=== PATIENT | male | born 1955 | race Caucasian/White ===

== ENCOUNTER 2018-02-17 09:28 | Outpatient (CLI) | payer OTHER, SELFPAY ==
[2018-02-17 10:33] LABS: CREATININE 1.38 mg/dL (0.70-1.30); Estimated GFR 52.38 (mL/min/1.73m2)
[2018-02-19 05:45] LABS: Hemoglobin A1C 7.9 % (4.5-6.2)
[2018-02-19 05:45] LABS: COMMENT (LAB VIEW ONLY) 93.79 mg/dL; Microalb ug/mg Crea 973.2 ug/mg Cr
== END 2018-02-17 09:48 ==
PROVIDERS: PCP General Practice; Visit Provider General Practice
DX: E11.9 Type 2 diabetes mellitus without complications (principal)
CPT/HCPCS: 36415; 82043; 82565; 82570; 83036

== ENCOUNTER 2018-11-27 01:39 | Outpatient (CLI) | payer OTHER, SELFPAY ==
--- NOTE | 2018-11-27 14:30 | DIABASSESS_ITS ---
DESCRIPTION/ASSESSMENT: Alexandro Callahan presents with his for diabetes self management with the goal of lowering his A1c. Current A1c 8.1 BMI 34 Weight stable for years. He reports a strong family history of diabetes. 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 He is presently experiencing dental issues. He manages diabetes with 115u Levemir PM and 50u AM and a total of 125 units Humalog daily in addition to Metformin 850mg twice daily. States he has 2 hypoglycemic episodes/year. States he has 2 eggs and toast or banana with oatmeal for breakfast; fruit at snack; meat sandwich for lunch with sugar free pudding; supper is meat, potato, vegetable. He snacks on fruit between meals. He monitors his blood sugars before meals during the week; only fasting on the weekend. Many days blood sugars are 100-200mg/dl or at target. Most frequently higher at lunch than other meals. States he sleeps well. He experiences back pain daily at work but denies other immediate stressors. INTERVENTION: Reviewed insulin injections sites. He states he does have hard areas on his belly. Discussed moving injection site away from hardened areas. Reviewed diabetes food guide focused on protein, fat and vegetable foods. Discussed impact of having fruit for snack on next blood sugar reading. Suggest want to eat carbohydrate foods at time he takes insulin; snack on low carb foods such as peanut butter, cottage cheese, nuts. Discussed decreasing insulin if absorption is improved and if carbohydrate intake is decreased. Suggest trying 100units Levemir and possibly cutting back on Humalog 5 units if he is decreasing carbohdyrate intake. Discussed his current need to 'feed' his insulin to prevent hypoglycemia. Discussed monitoring blood sugars and how his results does not seem to align with his A1c. Discussed Professional CGM trial to see what happens between meals. PLAN: Change injection site Document food, insulin and blood sugars for 2 days and report results Increase vegetables and decrease carbohydrate by 1 serving at breakfast. Eat non carbohydrate snack between meals Individual MNT __3__ units billed TIME IN: OUT: No DM group education series being offered at this time.
== END 2018-11-27 01:59 ==
PROVIDERS: PCP General Practice; Visit Provider Dietitian, Registered
DX: E11.9 Type 2 diabetes mellitus without complications (principal); Z79.4 Long term (current) use of insulin; Z83.3 Family history of diabetes mellitus; Z71.3 Dietary counseling and surveillance
CPT/HCPCS: 97802

== ENCOUNTER 2019-06-07 16:29 | Outpatient (REF) | payer OTHER, SELFPAY | END 2019-06-07 16:49 | LOC: NCHCN 16:29 | PROVIDERS: PCP General Practice; Visit Provider Nurse Practitioner Family | DX: E11.9 Type 2 diabetes mellitus without complications (principal); I10 Essential (primary) hypertension; E78.5 Hyperlipidemia, unspecified | CPT/HCPCS: 82043; 82570 ==

== ENCOUNTER 2019-06-22 00:28 | Outpatient (CLI) | payer OTHER, SELFPAY ==
[2019-06-22 10:55] LABS: Anion Gap 9.6 mmol/L (3-11); BUN 23 mg/dL (7-18); CO2 28.4 mmol/L (21.0-32.0); CREATININE 1.22 mg/dL (0.70-1.30); Calcium 8.6 mg/dL (8.5-10.1); Calculated LDL 32 mg/dL (<100); Chloride 103 mmol/L (98-107); Cholesterol 110 mg/dL (<200); Glucose 193 mg/dL (74-106); HDL Cholesterol 36 mg/dL (40-60); Potassium 5.1 mmol/L (3.5-5.1); Sodium 141 mmol/L (136-145); Triglyceride 212 mg/dL (<150)
== END 2019-06-22 00:48 ==
PROVIDERS: PCP Nurse Practitioner Family; Visit Provider Nurse Practitioner Family
DX: E11.9 Type 2 diabetes mellitus without complications (principal); I10 Essential (primary) hypertension; E78.5 Hyperlipidemia, unspecified
CPT/HCPCS: 36415; 80048; 80061

== ENCOUNTER 2019-12-06 10:00 | Day surgery (SDC) | payer OTHER, SELFPAY ==
[2019-12-06 10:03] VITALS: PULSE 57; RESP 18; TEMP 36.4; O2SAT 98
[2019-12-06] MEDS: Balanced Salt Soln.-PLUS 500 ML BAG (11:51)
[2019-12-06] MEDS: Lidocaine 1% Pres-Free 5 ML VIAL (11:52)
[2019-12-06] MEDS: Tetracaine 0.5% 4 ML BTL OS (11:52)
[2019-12-06] MEDS: Lidocaine 2% Jelly 6 ML SYR (11:53)
[2019-12-06] MEDS: Moxifloxacin-PF 1 MG/ML VIAL (11:57)
[2019-12-06] MEDS: Povidone-Iodine Ophth 30 ML BTL OS (12:03)
--- NOTE | 2019-12-06 12:12 | W.PM.DSUDISC ---
Discharge Plan Disposition Patient Disposition: HOME Condition: Good Discharge Details Attending Provider: Armando Tomas Primary Care Provider: Brissa Toure Home Meds and New Rx's Prescriptions: No Action imipramine HCl 50 mg tablet 50 mg PO BID RF: 0 metoprolol tartrate 100 mg tablet 100 mg PO BID RF: 0 metformin 850 mg tablet 850 mg PO DIRECTED RF: 0 amlodipine 2.5 mg tablet 2.5 mg PO DAILY RF: 0 simvastatin 40 mg tablet 40 mg PO DAILY RF: 0 allopurinol 300 mg tablet 300 mg PO DAILY RF: 0 insulin lispro [Humalog U-100 Insulin] 100 unit/mL solution See Rx Instructions .ROUTE .COMPLEX RF: 0 celecoxib 100 mg capsule 100 mg PO DAILY RF: 0 Levemir U-100 Insulin 100 unit/mL solution 50 - 100 unit SUBCUT DIRECTED RF: 0 Discharge Instructions Stand Alone Forms: Post-op Topical Cataract, Vivek Hernándezey (DSU) Discharge Orders Discharge Orders: Discharge Order (Routine); Ordered 12/06/19 Ordered By: Armando Tomas
--- NOTE | 2019-12-06 12:13 | W.PM.OP ---
Date of service: 12/06/19 Time of Service: 12:13 Operative Note Operative Note DATE OF PROCEDURE: 12/06/19 PRE-OP DIAGNOSIS: Nuclear cataract, left eye POST-OP DIAGNOSIS: same PROCEDURE: Cataract extraction using phacoemulsification with intraocular lens implant, left eye SURGEON: Armando Tomas ANESTHESIA: MAC and local (sub-tenon's anesthetic infiltration) PATHOLOGY: none sent COMPLICATIONS: None Patient was transported to: same day Patient's condition: stable Implants: Tc and Tc Vision / [employer] Tecnis ZCB00 Indications: Progressive decreased vision due to cataract, left eye Procedure Description: CATARACT SURGERY OPERATIVE REPORT PREOPERATIVE DIAGNOSIS: Nuclear cataract, left eye POSTOPERATIVE DIAGNOSIS: Same OPERATION: Cataract extraction using phacoemulsification with posterior chamber intraocular lens implant, left eye. IOL: IOL [employer] St[employer]cher/Model: J&J Vision / JENNI Tecnis ZCB00 IOL Power: + 22.0 diopters IOL Serial Number: [id number] Optic Diameter: 6.0mm Haptic/Overall Diameter: 13.0mm PHACO INFO: Feliberto [employer] Vision System with OZil and Active Fluidics Cumulative Dispersed Energy (CDE): 5.28 seconds SURGEON: Armando Tomas MD, NATACHA ANESTHESIA: Monitored Anesthesia Care (MAC), with local sub-tenon's anesthetic infiltration COMPLICATIONS: None SPECIMENS: None INDICATIONS FOR PROCEDURE: Patient is a 64-year-old gentleman with history of diminished visual acuity in his right eye. He is noted to have a moderate nuclear cataract. He was significantly symptomatic that he desires cataract surgery and attempt to improve and maximize his vision. PROCEDURE: The correct surgical eye was identified and marked as the left eye and the pupil was dilated in the preoperative area using mydriatics and cycloplegics. The dilated pupil size was 7.0 mm. Oral sedation was administered in the form of an Imprimis MKO Melt (midazolam 3mg/ketamine 25mg/ondansetron 2mg). The patient was brought to the operating room where cardiopulmonary monitoring was instituted and surgical time-out was performed, confirming the correct operative eye and IOL power. Topical anesthesia was administered and ophthalmic povidone-iodine 5% was instilled into the conjunctival fornices. Lidocaine gel was applied to the cornea and the jessica-ocular area was prepped with Betadine 10% solution and draped in the usual sterile fashion for intraocular surgery, including an aperture drape. A Tegaderm transparent film dressing was cut in half and used to cover the lashes and lid margins. Care was taken to sequester the lashes and lid margins under the Tegaderm dressing. A lid speculum was placed between the lids of the operative eye and the Gabriel-Micaela operating microscope was maneuvered into position. Wily scissors were then used to make a conjunctival buttonhole approximately 6mm posterior to the limbus in the inferonasal quadrant. Blunt dissection was carried out to expose bare sclera, and a blunt-tipped sub-tenon?s anesthesia cannula was introduced and passed posteriorly along the globe where non-preserved plain lidocaine was injected into posterior sub-Tenon?s space. A sideport knife was used to make a paracentesis port superior/superiortemporally. Intraocular phenylephrine/lidocaine was injected into the anterior chamber. The anterior chamber was then filled with Healon Pro. A 2.4mm keratome knife was used to create a half-thickness groove at the limbus and then to construct a three-plane near-clear corneal tunnel extending 2.0mm into clear cornea in the temporal position. . A flap was raised on the anterior capsule and capsulorhexis forceps were used to complete a continuous curvilinear capsulorhexis of 5.0 mm. Balanced salt solution was then used to perform cortical cleaving hydrodissection and nuclear hydrodelineation until the lens could be freely rotated within the capsular bag. The lens nucleus was then disassembled and removed within the capsular bag and iris plane using phacoemulsification. Residual cortical material was removed using the 45-degree angled silicone I/A tip with 0.3mm port. The posterior capsule was carefully polished to remove as much residual lens epithelial cells as safely possible. The capsular bag was then inflated and the anterior chamber deepened with viscoelastic. The lens implant described above was inserted into the capsular bag using the JENNI [place] Injector. A Kuglen hook was used to dial the IOL into position. Residual viscoelastic was then removed first from posterior to the IOL, then from the anterior chamber using the I/A handpiece. The lens implant was noted to center nicely within the capsular bag. The incisions were stromally hydrated, and the anterior chamber was reformed using BSS. Then 0.5cc of moxifloxacin 1.0mg/ml were injected into the capsular bag and anterior chamber. The incisions were checked with a Weck spear and found to be secure. Several drops of ophthalmic povidone-iodine 5% were then applied to the eye followed by two drops of Imprimis combination prednisolone/moxifloxacin/nepafenac solution. The drapes were removed and a clear plastic protective eye shield was placed over the eye. The patient was then returned to Same Day Surgery in stable condition.
[2019-12-06 12:42] VITALS: BP 156/97; PULSE 59; RESP 16; TEMP 36.3; O2SAT 92
== END 2019-12-06 12:50 | disposition home or self-care (01) ==
PROVIDERS: PCP Nurse Practitioner Family; Visit Provider Ophthalmology
PROC: (CPT 66984; principal; 2019-12-06 12:30)
DX: H25.12 Age-related nuclear cataract, left eye (principal); E11.319 Type 2 diabetes mellitus with unspecified diabetic retinopathy without macular edema; Z79.4 Long term (current) use of insulin; I10 Essential (primary) hypertension
CPT/HCPCS: 66984; V2632

== ENCOUNTER 2019-12-20 07:47 | Day surgery (SDC) | payer OTHER, SELFPAY ==
[2019-12-20 08:15] VITALS: BP 154/90; PULSE 59; RESP 18; TEMP 36.2; O2SAT 95
[2019-12-20] MEDS: Balanced Salt Soln.-PLUS 500 ML BAG (10:37)
[2019-12-20] MEDS: Tetracaine 0.5% 4 ML BTL OD (10:38)
[2019-12-20] MEDS: Povidone-Iodine Ophth 30 ML BTL (10:38)
[2019-12-20] MEDS: Lidocaine 1% Pres-Free 5 ML VIAL (10:38)
[2019-12-20] MEDS: Lidocaine 2% Jelly 6 ML SYR (10:39)
[2019-12-20] MEDS: Moxifloxacin-PF 1 MG/ML VIAL (10:40)
--- NOTE | 2019-12-20 11:02 | ROE_ITS ---
Date of service: 12/20/19 Time of Service: 11:02 Operative Note Operative Note DATE OF PROCEDURE: 12/20/19 PRE-OP DIAGNOSIS: Nuclear cataract, right eye POST-OP DIAGNOSIS: same PROCEDURE: Cataract extraction using phacoemulsification with intraocular lens implant, right eye SURGEON: Armando Tomas ANESTHESIA: MAC and local (sub-tenon's anesthetic infiltration) ESTIMATED BLOOD LOSS: 0 PATHOLOGY: none sent COMPLICATIONS: None Patient was transported to: same day Patient's condition: stable Implants: Tc and Tc Vision / [employer] Tecnis ZCB00 intr aocular lens Indications: Progressive decreased vision due to cataract, right eye Procedure Description: CATARACT SURGERY OPERATIVE REPORT PREOPERATIVE DIAGNOSIS: Nuclear cataract, right eye POSTOPERATIVE DIAGNOSIS: Same OPERATION: Cataract extraction using phacoemulsification with posterior chamber intraocular lens implant, right eye. IOL: IOL [employer]/Model: J&J Vision / JENNI Tecnis ZCB00 IOL Power: + 22.0 diopters IOL Serial Number: [id number] Optic Diameter: 6.0mm Haptic/Overall Diameter: 13.0mm PHACO INFO: Feliberto [employer] Vision System with OZil and Active Fluidics Cumulative Dispersed Energy (CDE): 6.26 seconds SURGEON: Armando Tomas MD, NATACHA ANESTHESIA: Monitored Anesthesia Care (MAC), with local sub-tenon's anesthetic infiltration COMPLICATIONS: None SPECIMENS: None INDICATIONS FOR PROCEDURE: Patient is a 64-year-old male with history of diminished visual acuity in both eyes secondary to the development of bilateral nuclear cataracts. He has already undergone cataract surgery in his left eye and is doing well postoperatively. He now presents for cataract surgery in the right eye. PROCEDURE: The correct surgical eye was identified and marked as the right eye and the pupil was dilated in the preoperative area using mydriatics and cycloplegics. The dilated pupil size was 7.0 mm. Oral sedation was administered in the form of an Imprimis MKO Melt (midazolam 3mg/ketamine 25mg/ondansetron 2mg). The patient was brought to the operating room where cardiopulmonary monitoring was instituted and surgical time-out was performed, confirming the correct operative eye and IOL power. Topical anesthesia was administered and ophthalmic povidone-iodine 5% was instilled into the conjunctival fornices. Lidocaine gel was applied to the cornea and the jessica-ocular area was prepped with Betadine 10% solution and draped in the usual sterile fashion for intraocular surgery, including an aperture drape. A Tegaderm transparent film dressing was cut in half and used to cover the lashes and lid margins. Care was taken to sequester the lashes and lid margins under the Tegaderm dressing. A lid speculum was placed between the lids of the operative eye and the Gabriel-Micaela operating microscope was maneuvered into position. Wily scissors were then used to make a conjunctival buttonhole approximately 6mm posterior to the limbus in the inferonasal quadrant. Blunt dissection was carried out to expose bare sclera, and a blunt-tipped sub-tenon?s anesthesia cannula was introduced and passed posteriorly along the globe where non- preserved plain lidocaine was injected into posterior sub-Tenon?s space. A sideport knife was used to make a paracentesis port inferiortemporally. Intraocular phenylephrine/lidocaine was injected into the anterior chamber. The anterior chamber was then filled with Healon Pro. A 2.4mm keratome knife was used to create a half-thickness groove at the limbus and then to construct a three-plane near-clear corneal tunnel extending 2.0mm into clear cornea in the superiortemporal position. . A flap was raised on the anterior capsule and capsulorhexis forceps were used to complete a continuous curvilinear capsulorhexis of 4.8 mm. Balanced salt solution was then used to perform cortical cleaving hydrodissection and nuclear hydrodelineation until the lens could be freely rotated within the capsular bag. The lens nucleus was then disassembled and removed within the capsular bag and iris plane using phacoemulsification. Residual cortical material was removed using the I/A handpiece. The posterior capsule was carefully polished to remove as much residual lens epithelial cells as safely possible. The capsular bag was then inflated and the anterior chamber deepened with viscoelastic. The lens implant described above was inserted into the capsular bag using the JENNI [place] Injector. A Kuglen hook was used to dial the IOL into position. Residual viscoelastic was then removed first from posterior to the IOL, then from the anterior chamber using the I/A handpiece. The lens implant was noted to center nicely within the capsular bag. The incisions were stromally hydrated, and the anterior chamber was reformed using BSS. Then 0.5cc of moxifloxacin 1.0mg/ml were injected into the capsular bag and anterior chamber. The incisions were checked with a Weck spear and found to be secure. Several drops of ophthalmic povidone-iodine 5% were then applied to the eye followed by two drops of Imprimis combination prednisolone/moxifloxacin/nepafenac solution. The drapes were removed and a clear plastic protective eye shield was placed over the eye. The patient was then returned to Same Day Surgery in stable condition.
--- NOTE | 2019-12-20 11:02 | W.PM.DSUDISC ---
Discharge Plan Disposition Patient Disposition: HOME Condition: Good Discharge Details Attending Provider: Armando Tomas Primary Care Provider: Brissa Toure Home Meds and New Rx's Prescriptions: No Action imipramine HCl 50 mg tablet 50 mg PO BID RF: 0 metoprolol tartrate 100 mg tablet 100 mg PO BID RF: 0 metformin 850 mg tablet 850 mg PO DIRECTED RF: 0 amlodipine 2.5 mg tablet 2.5 mg PO DAILY RF: 0 simvastatin 40 mg tablet 40 mg PO DAILY RF: 0 allopurinol 300 mg tablet 300 mg PO DAILY RF: 0 insulin lispro [Humalog U-100 Insulin] 100 unit/mL solution See Rx Instructions .ROUTE .COMPLEX RF: 0 celecoxib 100 mg capsule 100 mg PO DAILY RF: 0 Levemir U-100 Insulin 100 unit/mL solution 50 - 100 unit SUBCUT DIRECTED RF: 0 Discharge Instructions Stand Alone Forms: Post-op Topical Cataract, Vivek Ortega (DSU) Discharge Orders Discharge Orders: Discharge Order (Routine); Ordered 12/20/19 Ordered By: Armando Tomas DS: Diagnosis Discharge Diagnosis (1) Nuclear sclerotic cataract of right eye: Status: Resolved
[2019-12-20 11:19] VITALS: BP 141/88; PULSE 56; RESP 16; TEMP 36.2; O2SAT 93
== END 2019-12-20 11:23 | disposition home or self-care (01) ==
PROVIDERS: PCP Nurse Practitioner Family; Visit Provider Ophthalmology
PROC: (CPT 66984; principal; 2019-12-20 10:30)
DX: H25.11 Age-related nuclear cataract, right eye (principal); Z96.1 Presence of intraocular lens; Z98.42 Cataract extraction status, left eye
CPT/HCPCS: 66984; V2632

== ENCOUNTER 2020-04-08 11:34 | Emergency (ER) | payer OTHER, SELFPAY ==
[2020-04-08 11:38] VITALS: BP 191/106; PULSE 77; RESP 16; TEMP 36.7; O2SAT 97
--- NOTE | 2020-04-08 11:45 | DI.CT_ITS ---
EXAM: CT ABDOMEN PELVIS W CLINICAL HISTORY: Eval right abdominal abscess TECHNIQUE: Imaging Protocol: Axial computed tomography images with coronal and sagittal reformatted images were created and reviewed CONTRAST MATERIAL: Intravenous: Omnipaque 350 Contrast volume:100 mL Oral: No COMPARISON: No exams were available for comparison FINDINGS: ABDOMEN: Lung Bases: There is a 0.6 cm noncalcified pulmonary nodule in the left lower lobe. Liver: Diffuse fatty infiltration of the liver. Several hypodense nodules. They are too small for f urther characterization but likely reflect small cysts. Portal, Superior Mesenteric, and Splenic Veins: Unremarkable. Gallbladder and Biliary Tract: Cholelithiasis. No biliary ductal dilatation. Pancreas: Pancreatic atrophy and dilatation of the pancreatic duct. Pancreatic calcifications presen t. 0.4 cm cyst in the head of the pancreas. Spleen: Normal. Adrenals: No masses seen. Kidneys: Normal size, contour and axis. No radiodense stones or obstructive uropathy. Bilateral renal cysts are present. The largest is in the left kidney and measures 6.7 x 4.0 cm. Abdominal Aorta: Abdominal portion non-dilated. Mild atherosclerosis. Bowel: No obstruction or bowel wall thickening. Appendix is unremarkable. Peritoneal Cavity: No ascites, collection or mesenteric inflammatory response. Lymph Nodes: Within normal limits. Bones: Unremarkable. Soft Tissues: There is soft tissue edema seen in the anterior abdominal wall on the left. There is s kin thickening and edema involving the right anterior abdominal wall with a small central fluid colle ction measuring less than 2 cm within the anterior abdominal wall on the right. This may represent a small abscess. The overall skin thickening of the right anterior wall measures approximately 13 cm transverse by 15 cm craniocaudad. The right anterior abdominal wall musculature appears unremarkable . There is no communication with the abdominal cavity. PELVIS: Bladder: Symmetric distention, no gross wall thickening. Reproductive Organs: Unremarkable as visualized. Lymph Nodes: Within normal limits. Bones: Degenerative changes. IMPRESSION: A large area of skin thickening and edema overlying the right anterior abdominal wall. There is a sm all central less than 2 cm fluid collection within this area of skin thickening which may represent s mall abscess. No significant drainable abscess is visualized. Chronic findings in the abdomen and pelvis as described above. Findings were discussed with the emergency department on the date of the examination. RADIATION DOSE DELIVERED: 1,388.18mGy.cm Total DLP DATA REPOSITORY: All CT scans at this facility are submitted to the National Radiology Data Registry (NRDR) Dose Index Registry (DIR) with the [employer] (ACR). RADIATION OPTIMIZATION: All CT scans at this facility use at least one of these dose optimization te chniques: automated exposure control; mA and/or kV adjustment per patient size (includes targeted exa ms where dose is matched to clinical indication); or iterative reconstruction.
--- NOTE | 2020-04-08 11:58 | ED.GENADUL_ITS ---
Discharge Plan Disposition Patient Disposition: HOME Condition: Stable Discharge Details Clinical Impression: Abdominal wall cellulitis Primary Care Provider: Brissa Toure ED Provider: Kimberlee Cartagena Home Meds and New Rx's Prescriptions: New clindamycin HCl 300 mg capsule 300 mg PO BID 7 Days Qty: 14 RF: 0 Continued imipramine HCl 50 mg tablet 50 mg PO BID RF: 0 metoprolol tartrate 100 mg tablet 100 mg PO BID RF: 0 metformin 850 mg tablet 850 mg PO DIRECTED RF: 0 amlodipine 2.5 mg tablet 2.5 mg PO DAILY RF: 0 simvastatin 40 mg tablet 40 mg PO DAILY RF: 0 allopurinol 300 mg tablet 300 mg PO DAILY RF: 0 insulin lispro [Humalog U-100 Insulin] 100 unit/mL solution See Rx Instructions .ROUTE .COMPLEX RF: 0 celecoxib 100 mg capsule 100 mg PO DAILY RF: 0 Levemir U-100 Insulin 100 unit/mL solution 50 - 100 unit SUBCUT DIRECTED RF: 0 aspirin 81 mg Tablet,Delayed Release (Dr/Ec) 81 mg PO DAILY RF: 0 cephalexin 500 mg capsule 500 mg PO QID RF: 0 gabapentin 400 mg capsule 400 mg PO QID RF: 0 Discharge Instructions Instructions: Cellulitis (ED) Additional Instructions: Take clindamycin as prescribed. Follow up with primary care provider in 3-5 days. Return to ED sooner if any worsening or concerns. Increase oral fluids. Return to the ED for any worsening infection, fever, abdominal pain, vomiting or any concerns. Referrals: Brissa Toure [Primary Care Provider] - Discharge Data Discharge Date/Time-TO BE ENTERED AT DEPARTURE: 04/08/20 14:50 Medical Decision Making 65-year-old male presents to the ER with chief complaint of right abdominal wall abscess. He was sent here by his primary care provider who placed him on cephalexin approximately 8 days ago. Patient states that approximately 10 days ago he had fallen and received a abrasion to his right abdominal wall, shortly thereafter he noticed some increased swelling and redness around the wound. He is being sent here due to size of abscess, but has not really gotten much bigger than the markings noted around the erythremia. Due to size PCP is better to be further evaluated. She denies any fever, vomiting, abdominal pain or any other concerns. Spoke with radiologist regarding CT result, no abscess noted. Dr. Gauthier states there is some inflammation along the abdominal wall, no involvement of the abdominal cavity. Labs are within normal limits, CBC shows no leukocytosis, CMP is largely within normal limits, BUN is elevated at 40 creatinine 1.56, glucose 249. At this time there is no evidence of systemic infection, patient did get clindamycin 600 mg IV piggyback while in department. I will give him a prescription for clindamycin and instructed on home care. HPI General Mode of arrival: ambulatory . Date/Time Provider Initiated Documentation: 04/08/20 11:34 . Limitations to Documentation: no limitations . Information obtained by: patient . HPI Narrative: 65-year-old male presents to the ER with chief complaint of right abdominal wall abscess. He was sent here by his primary care provider who placed him on cephalexin approximately 8 days ago. Patient states that approximately 10 days ago he had fallen and received a abrasion to his right abdominal wall, shortly thereafter he noticed some increased swelling and redness around the wound. He is being sent here due to size of abscess, but has not really gotten much bigger than the markings noted around the erythremia. Due to size PCP is better to be further evaluated. She denies any fever, vomiting, abdominal pain or any other concerns. Related Data Home Medications Medication Instructions Recorded Confirmed Levemir U-100 Insulin 50 - 100 unit SUBCUT DIRECTED 12/05/19 04/08/20 allopurinol 300 mg PO DAILY 12/05/19 04/08/20 amlodipine 2.5 mg PO DAILY 12/05/19 04/08/20 celecoxib 100 mg PO DAILY 12/05/19 04/08/20 imipramine HCl 50 mg PO BID 12/05/19 04/08/20 insulin lispro [Humalog U-100 See Rx Instructions .ROUTE .COMPLEX 12/05/19 04/08/20 Insulin] metformin 850 mg PO DIRECTED 12/05/19 04/08/20 metoprolol tartrate 100 mg PO BID 12/05/19 04/08/20 simvastatin 40 mg PO DAILY 12/05/19 04/08/20 aspirin 81 mg PO DAILY 04/08/20 04/08/20 cephalexin 500 mg PO QID 04/08/20 04/08/20 clindamycin HCl 300 mg PO BID 7 Days #14 cap 04/08/20 gabapentin 400 mg PO QID 04/08/20 04/08/20 Previous Rx's Medication Instructions Recorded clindamycin HCl 300 mg PO BID 7 Days #14 cap 04/08/20 Allergies Allergy/AdvReac Type Severity Reaction Status Date / Time enalapril [Enalapril] Allergy Severe Anaphylaxsi Unverified 04/08/20 11:45 s General Stated Complaint: Cellulitis C[place]TON: 3 Review of Systems Narrative: Constitutional: Negative for weight loss, alert and oriented, well groomed, normal body habitus, appears comfortable. HEENT: Denies trauma, headaches, blurry vision, nasal discharge, sore throat, trouble swallowing. Chest: Denies chest pain, palpitations, irregular rhythm, hypertension. Respiratory: Denies Shortness of breath, cough, hemoptysis. GI: Denies abdominal pain, nausea, vomiting, diarrhea, constipation. Skin: Right abdominal wall abscess x10 days. : Denies dysuria, hematuria, flank pain, rectal bleeding. Neuro: Denies dizziness, blurry vision, weakness, syncope, headache or facial numbness. Hematologic: Denies easy bruising, intolerance to heat or cold, hair loss. FOR[facility]LY [facility], LATER [facility] Medical History Diabetes Gout Hyperlipidemia Hypertension Surgical History History of cataract surgery Previous back surgery x2 in the 80's Social History Smoking/Tobacco Use Status: Former Tobacco Use Quit Date: 05/22/87 Smoking risk assessment performed?: Yes Alcohol Intake: never Drug use: Never Substance use type: does not use Do you feel safe at home: Yes Do you feel safe in your relationship?: Yes Exam Narrative Exam Narrative: Constitutional: Alert and oriented x3. Appears stated age. Normal body habitus. Head: Normocephalic, no trauma. Eyes: Pupils PERRLA, Red reflex noted, EOM's intact. Eyelids symmetrical without lesions, discharge, or swelling. ENT: Bilateral TM's WNL, External ear normal to inspection, no mastoid TTP, swelling, or erythema, Nasal turbinates WNL, no nasal discharge. Normal dentition, Posterior pharynx WNL, no exudate. Chest: RRR, Normal S1, S2, distal pulses intact. Resp: Lungs clear to auscultation bilaterally, no wheezes, rales, or rhonchi. Musculoskeletal: Normal gait, 5/5 strength to all four extremities. Skin: Capillary refill less than 2 sec. large 11 cm x 7 cm oval-shaped abscess with black eschar tissue overlying it to the right side abdominal wall. There is firm induration noted surrounding it, there is an area area of open draining yellow pus with serosanguineous fluid. Neurologic: Cranial nerves II-XII intact. Alert and oriented x 3. DTR's intact. Hematologic/Lymphatic: No ecchymosis, no lymphadenopathy. Course Vital Signs Vital signs: Vital Signs Temperature 36.7 C 04/08/20 11:38 Pulse 77 04/08/20 11:38 Respiratory Rate 16 04/08/20 11:38 Blood Pressure 191/106 H 04/08/20 11:38 Pulse Oximetry 97 04/08/20 11:38 Temperature 36.7 C 04/08/20 11:38 Temperature Source Temporal Artery Scan 04/08/20 11:38 Pulse 77 04/08/20 11:38 Respiratory Rate 16 04/08/20 11:38 Respiratory Effort Non-Labored 04/08/20 11:44 Blood Pressure 191/106 H 04/08/20 11:38 Blood Pressure Position Supine 04/08/20 11:38 Pulse Oximetry 97 04/08/20 11:38 Oxygen Delivery Method Room Air 04/08/20 11:38 Oxygen Flow Rate 0 04/08/20 11:38 Pain Level 3 04/08/20 11:38
[2020-04-08 12:33] LABS: Abs Immature Grans 0.04 10^3/uL (0.0-0.06); Absolute Basophil Count 0.03 10^3/uL (0.0-0.2); Absolute Eosinophil Count 0.29 10^3/uL (0.0-0.7); Absolute Lymphocyte Count 2.57 10^3/uL (1.2-3.4); Absolute Monocyte Count 0.39 10^3/uL (0.1-0.8); Absolute Neutrophil Count 3.87 10^3/uL (1.2-6.7); Basophils % 0.4; HCT 40.3 % (40.0-50.0); HGB 13.3 g/dL (13.5-17.5); Immature Grans % 0.6; Lymphocytes % 35.7; MCH 31.2 pg (27.0-33.0); MCV 94.6 fL (80-95); MPV 9.9 fL (8.0-11.0); Monocytes % 5.4; Neutrophils % 53.9; Nucleated RBC 0 %; Platelet Count 293 10^3/uL (130-400); RBC 4.26 10^6/uL (4.36-5.78); RDW-SD 48.4 fL; WBC 7.19 10^3/uL (4.4-10.8)
[2020-04-08 12:43] LABS: ALT 43 U/L (16-63); AST 59 U/L (15-37); Albumin 2.8 g/dL (3.4-5.0); Alkaline Phosphatase 86 U/L (46-116); Anion Gap 13.5 mmol/L (3-11); BUN 40 mg/dL (7-18); Bilirubin, Total 0.1 mg/dL (0.2-1.0); CO2 23.5 mmol/L (21.0-32.0); CREATININE 1.56 mg/dL (0.70-1.30); Calcium 8.6 mg/dL (8.5-10.1); Chloride 102 mmol/L (98-107); Estimated GFR 45.18 (mL/min/1.73m2); Glucose 249 mg/dL (74-106); Potassium 4.8 mmol/L (3.5-5.1); Sodium 139 mmol/L (136-145); Total Protein 7.6 g/dL (6.4-8.2)
[2020-04-08] MEDS: Omnipaque 350 MG/ML 100 ML BTL IJ (13:18)
[2020-04-08] MEDS: Normal Saline 500 ML IV (13:27)
[2020-04-08] MEDS: CLINDAMYCIN 600 MG/50 ML BAG 100 MG IVPB (13:35)
[2020-04-08] MEDS: Gabapentin 400 MG CAP PO (13:49)
[2020-04-08 14:42] VITALS: BP 169/87; PULSE 70; RESP 16; TEMP 36.6; O2SAT 94
== END 2020-04-08 14:50 | disposition home or self-care (01) ==
PROVIDERS: Emergency Provider Registered Nurse Emergency; PCP Nurse Practitioner Family
DX: L03.311 Cellulitis of abdominal wall (principal); S30.811A Abrasion of abdominal wall, initial encounter; W19.XXXA Unspecified fall, initial encounter; E11.9 Type 2 diabetes mellitus without complications; Z79.4 Long term (current) use of insulin
CPT/HCPCS: 36415; 80053; 87040; 96361; 96374; 99285; 74177; 85025; 87070; 87205; 99284; J3490

== ENCOUNTER 2020-07-22 19:22 | Outpatient (REF) | payer BC, SELFPAY ==
[2020-07-22 20:05] LABS: ALT 77 U/L (16-63); AST 91 U/L (15-37); Albumin 3.8 g/dL (3.4-5.0); Alkaline Phosphatase 88 U/L (46-116); Anion Gap 9.7 mmol/L (3-11); BUN 62 mg/dL (7-18); Bilirubin, Total 0.2 mg/dL (0.2-1.0); CO2 27.3 mmol/L (21.0-32.0); Calcium 9.3 mg/dL (8.5-10.1); Chloride 103 mmol/L (98-107); Estimated GFR 33.91 (mL/min/1.73m2); Glucose 77 mg/dL (74-106); Potassium 5.3 mmol/L (3.5-5.1); Sodium 140 mmol/L (136-145)
== END 2020-07-22 19:23 | disposition home or self-care (01) ==
LOC: NCHCN 19:22
PROVIDERS: PCP Nurse Practitioner Family; Visit Provider Nurse Practitioner Family
DX: I10 Essential (primary) hypertension (principal); E11.9 Type 2 diabetes mellitus without complications
CPT/HCPCS: 80053

== ENCOUNTER 2020-07-24 10:08 | Outpatient (REF) | payer BC, SELFPAY ==
[2020-07-24 10:50] LABS: Microalb ug/mg Crea 967.8 ug/mg Cr
== END 2020-07-24 10:09 | disposition home or self-care (01) ==
LOC: NCHCN 10:08
PROVIDERS: PCP Nurse Practitioner Family; Visit Provider Nurse Practitioner Family
DX: E11.9 Type 2 diabetes mellitus without complications (principal)
CPT/HCPCS: 82043; 82570

== ENCOUNTER 2021-01-12 17:54 | Outpatient (REF) | payer BC, SELFPAY ==
[2021-01-12 19:33] LABS: Anion Gap 10.6 mmol/L (3-11); BUN 38 mg/dL (7-18); CO2 24.4 mmol/L (21.0-32.0); CREATININE 2.5 mg/dL (0.70-1.30); Calcium 9.1 mg/dL (8.5-10.1); Chloride 107 mmol/L (98-107); Estimated GFR 26.21 (mL/min/1.73m2); Glucose 91 mg/dL (74-106); Potassium 5.1 mmol/L (3.5-5.1); Sodium 142 mmol/L (136-145)
== END 2021-01-12 17:55 | disposition home or self-care (01) ==
LOC: NCHCN 17:54
PROVIDERS: PCP Nurse Practitioner Family; Visit Provider Nurse Practitioner Family
DX: N18.30 Chronic kidney disease, stage 3 unspecified (principal)
CPT/HCPCS: 80048

== ENCOUNTER 2021-02-04 17:21 | Outpatient (REF) | payer BC, SELFPAY ==
[2021-02-04 20:03] LABS: Anion Gap 7.3 mmol/L (3-11); BUN 37 mg/dL (7-18); CO2 27.7 mmol/L (21.0-32.0); Calcium 8.9 mg/dL (8.5-10.1); Chloride 106 mmol/L (98-107); Estimated GFR 33.81 (mL/min/1.73m2); Glucose 87 mg/dL (74-106); Potassium 4.2 mmol/L (3.5-5.1); Sodium 141 mmol/L (136-145)
== END 2021-02-04 17:22 | disposition home or self-care (01) ==
LOC: NCHCN 17:21
PROVIDERS: PCP Nurse Practitioner Family; Visit Provider Nurse Practitioner Family
DX: N18.30 Chronic kidney disease, stage 3 unspecified (principal)
CPT/HCPCS: 80048

== ENCOUNTER 2021-06-04 22:03 | Outpatient (REF) | payer BC, SELFPAY ==
[2021-06-04 20:20] LABS: Anion Gap 6.5 mmol/L (3-11); BUN 42 mg/dL (7-18); CO2 29.5 mmol/L (21.0-32.0); CREATININE 1.9 mg/dL (0.70-1.30); Chloride 104 mmol/L (98-107); Estimated GFR 35.87 (mL/min/1.73m2); Glucose 135 mg/dL (74-106); Potassium 4.4 mmol/L (3.5-5.1); Sodium 140 mmol/L (136-145)
== END 2021-06-04 22:04 | disposition home or self-care (01) ==
LOC: NCHCN 22:03
PROVIDERS: PCP Nurse Practitioner Family; Visit Provider Nurse Practitioner Family
DX: N18.30 Chronic kidney disease, stage 3 unspecified (principal)
CPT/HCPCS: 80048

== ENCOUNTER 2021-12-09 17:27 | Outpatient (REF) | payer BC, SELFPAY ==
[2021-12-09 18:26] LABS: HCT 38.9 % (40.0-50.0); HGB 12.9 g/dL (13.5-17.5); MCH 31.6 pg (27.0-33.0); MCHC 33.2 % (32.0-36.0); MCV 95 fL (80-95); MPV 11.4 fL (8.0-11.0); Platelet Count 208 10^3/uL (130-400); RBC 4.08 10^6/uL (4.36-5.78); RDW 14.4 % (11.8-14.1); RDW-SD 50.1 fL; WBC 8.33 10^3/uL (4.4-10.8)
[2021-12-09 18:49] LABS: Anion Gap 6.5 mmol/L (3-11); BUN 55 mg/dL (7-18); CO2 29.5 mmol/L (21.0-32.0); CREATININE 2.4 mg/dL (0.70-1.30); Chloride 103 mmol/L (98-107); Estimated GFR 27.39 (mL/min/1.73m2); Glucose 123 mg/dL (74-106); Potassium 4.8 mmol/L (3.5-5.1); Sodium 139 mmol/L (136-145)
== END 2021-12-09 17:28 | disposition home or self-care (01) ==
LOC: NCHCN 17:27
PROVIDERS: PCP Nurse Practitioner Family; Visit Provider Nurse Practitioner Family
DX: E11.9 Type 2 diabetes mellitus without complications (principal); N18.30 Chronic kidney disease, stage 3 unspecified
CPT/HCPCS: 80048; 85027

== ENCOUNTER 2022-06-07 10:53 | Outpatient (REF) | payer MEDICARE, SELFPAY ==
[2022-06-07 16:11] LABS: HCT 38.7 % (40.0-50.0); HGB 13.3 g/dL (13.5-17.5); MCH 31.9 pg (27.0-33.0); MCHC 34.4 % (32.0-36.0); MCV 93 fL (80-95); MPV 10.9 fL (8.0-11.0); Platelet Count 243 10^3/uL (130-400); RBC 4.17 10^6/uL (4.36-5.78); RDW 13.6 % (11.8-14.1); RDW-SD 45.5 fL; WBC 6.36 10^3/uL (4.4-10.8)
[2022-06-07 16:58] LABS: BUN 32 mg/dL (7-18); CREATININE 1.7 mg/dL (0.70-1.30); Calcium 8.8 mg/dL (8.5-10.1); Chloride 99 mmol/L (98-107); Cholesterol 179 mg/dL (<200); Estimated GFR 44.18 (mL/min/1.73m2); Glucose 321 mg/dL (74-106); HDL Cholesterol 39 mg/dL (40-60); Potassium 4.7 mmol/L (3.5-5.1); Sodium 133 mmol/L (136-145); Triglyceride 656 mg/dL (<150)
[2022-06-07 17:33] LABS: LDL CHOLESTEROL 42 mg/dL (<100)
== END 2022-06-07 10:54 | disposition home or self-care (01) ==
LOC: NCHCN 10:53
PROVIDERS: PCP Nurse Practitioner Family; Visit Provider Nurse Practitioner Family
DX: N18.30 Chronic kidney disease, stage 3 unspecified (principal); E11.9 Type 2 diabetes mellitus without complications; E78.5 Hyperlipidemia, unspecified
CPT/HCPCS: 80048; 80061; 83721; 85027

== ENCOUNTER 2022-08-01 09:25 | Outpatient (REF) | payer MEDICARE, SELFPAY ==
[2022-08-01 16:18] LABS: Uric Acid 3.7 mg/dL (3.5-7.2)
[2022-08-01 16:59] LABS: Cholesterol 223 mg/dL (<200); HDL Cholesterol 45 mg/dL (40-60); Triglyceride 563 mg/dL (<150)
[2022-08-01 18:12] LABS: LDL CHOLESTEROL 77 mg/dL (<100)
== END 2022-08-01 09:26 | disposition home or self-care (01) ==
LOC: NCHCN 09:25
PROVIDERS: PCP Nurse Practitioner Family; Visit Provider Nurse Practitioner Family
DX: M10.9 Gout, unspecified (principal); E78.5 Hyperlipidemia, unspecified
CPT/HCPCS: 80061; 83721; 84550

== ENCOUNTER 2022-08-02 20:09 | Outpatient (REF) | payer MEDICARE, SELFPAY ==
[2022-08-02 21:44] LABS: COMMENT (LAB VIEW ONLY) 45.74 mg/dL
== END 2022-08-02 20:10 | disposition home or self-care (01) ==
LOC: NCHCN 20:09
PROVIDERS: PCP Nurse Practitioner Family; Visit Provider Nurse Practitioner Family
DX: E11.9 Type 2 diabetes mellitus without complications (principal)
CPT/HCPCS: 82043; 82570

== ENCOUNTER 2022-09-13 17:42 | Outpatient (REF) | payer MEDICARE, SELFPAY ==
[2022-09-13 19:42] LABS: ALT 67 U/L (16-63); AST 65 U/L (15-37); Albumin 3.3 g/dL (3.4-5.0); Alkaline Phosphatase 88 U/L (46-116); Anion Gap 7.2 mmol/L (3-11); BUN 39 mg/dL (7-18); Bilirubin, Total 0.2 mg/dL (0.2-1.0); CO2 28.8 mmol/L (21.0-32.0); CREATININE 2.1 mg/dL (0.70-1.30); Calcium 8.9 mg/dL (8.5-10.1); Chloride 101 mmol/L (98-107); Estimated GFR 34.29 (mL/min/1.73m2); Glucose 206 mg/dL (74-106); Potassium 5.6 mmol/L (3.5-5.1); Sodium 137 mmol/L (136-145); Total Protein 7.5 g/dL (6.4-8.2)
[2022-09-13 20:09] LABS: Hemoglobin A1C 8.6 % (<5.7)
== END 2022-09-13 17:43 | disposition home or self-care (01) ==
LOC: NCHCN 17:42
PROVIDERS: PCP Nurse Practitioner Family; Visit Provider Nurse Practitioner Family
DX: E11.9 Type 2 diabetes mellitus without complications (principal)
CPT/HCPCS: 80053; 83036

== ENCOUNTER 2022-12-24 18:42 | Inpatient (IN) | payer MEDICARE, SELFPAY ==
[2022-12-24] VITALS (28 sets, daily range): BP systolic 103–133; BP diastolic 69–96; PULSE 84–95; RESP 15–20; TEMP 36.3–37; O2SAT 90–96
[2022-12-24 20:08] LABS: Abs Immature Grans 0.05 10^3/uL (0.0-0.06); Absolute Eosinophil Count 0.18 10^3/uL (0.0-0.7); Basophils % 0.3; Eosinophils % 1.2; HCT 44.9 % (40.0-50.0); HGB 15.6 g/dL (13.5-17.5); Immature Grans % 0.3; Lymphocytes % 14.4; MCH 32.6 pg (27.0-33.0); MCHC 34.7 % (32.0-36.0); MCV 94 fL (80-95); MPV 10.5 fL (8.0-11.0); Monocytes % 11.4; Neutrophils % 72.4; Platelet Count 139 10^3/uL (130-400); RBC 4.79 10^6/uL (4.36-5.78); RDW 13.5 % (11.8-14.1); RDW-SD 46.8 fL; WBC 14.59 10^3/uL (4.4-10.8)
[2022-12-24 20:20] LABS: Prothrombin Time 9.9 sec (9.3-11.0)
[2022-12-24 20:36] LABS: ALT 33 U/L (16-63); AST 29 U/L (15-37); Albumin 3.2 g/dL (3.4-5.0); Alkaline Phosphatase 76 U/L (46-116); Anion Gap 10.1 mmol/L (3-11); BUN 32 mg/dL (7-18); Bilirubin, Total 0.5 mg/dL (0.2-1.0); CO2 24.9 mmol/L (21.0-32.0); CREATININE 2.1 mg/dL (0.70-1.30); Calcium 8.6 mg/dL (8.5-10.1); Chloride 101 mmol/L (98-107); Estimated GFR 34.29 (mL/min/1.73m2); Glucose 247 mg/dL (74-106); Magnesium 1.4 mg/dL (1.8-2.4); Potassium 4.4 mmol/L (3.5-5.1); Sodium 136 mmol/L (136-145); Total Protein 7.3 g/dL (6.4-8.2)
[2022-12-24] MEDS: Magnesium Oxide 400 MG TAB PO (21:06)
--- NOTE | 2022-12-24 21:15 | DI.CT_ITS ---
Exam(s) CT ABDOMEN PELVIS WO EXAM: CT ABDOMEN PELVIS WO CLINICAL HISTORY: GI bleed. TECHNIQUE: Imaging Protocol: Axial computed tomography images with coronal and sagittal reformatted images were created and reviewed. Oral: yes / no COMPARISON: CT CT ABDOMEN PELVIS W from 04/08/2020 FINDINGS: ABDOMEN: Lung Bases: Normal where visualized. Coronary arteries heavily calcified. Liver: Enlarged. Hepatic steatosis. Cysts, largest in left lobe. No suspicious mass. Gallbladder and biliary tract: Gallstones in gallbladder and gallbladder neck. Gallbladder somewhat distended. No wall thickening. Pancreas: Atrophic. Chronic calcifications. No acute inflammation. 2.8 centimeters cyst now seen i n the pancreatic head, consistent with pseudocyst. Spleen: Normal. Kidneys: Normal size, contour and axis. No radiodense stones or obstructive uropathy. Bilateral nury l cysts, largest on the left.. No masses seen. Adrenal glands: No masses seen. Lymph nodes: Within normal limits. Abdominal Aorta: Abdominal portion non-dilated. Atherosclerotic changes. PELVIS: Bladder: Distended. No mass or stone. No gross wall thickening. Bowel: Severe wall thickening of the sigmoid colon, consistent with severe colitis. No pneumatosis. No free air or abscess. No diverticula seen. Appendix normal. Peritoneal cavity: No ascites, collection. Reproductive organs: Within normal limits. Bones: Mild degenerative changes of the hips. Degenerative changes in the lumbar spine. Flowing ost eophytes in the thoracic spine. IMPRESSION: Severe colitis of the sigmoid. Cholelithiasis. No evidence of acute cholecystitis. Cyst now present in the pancreatic head, consistent with pseudocyst. RADIATION DOSE DELIVERED: 953.78mGy.cm Total DLP DATA REPOSITORY: All CT scans at this facility are submitted to the National Radiology Data Registry (NRDR) Dose Index Registry (DIR) with the [employer] (A[employer]). RADIATION OPTIMIZATION: All CT scans at this facility use at least one of these dose optimization te chniques: automated exposure control; mA and/or kV adjustment per patient size (includes targeted exa ms where dose is matched to clinical indication); or iterative reconstruction.
[2022-12-24 21:34] LABS: Absolute Basophil Count 0.04 10^3/uL (0.0-0.2); Absolute Monocyte Count 1.66 10^3/uL (0.1-0.8); Absolute Neutrophil Count 10.56 10^3/uL (1.2-6.7)
[2022-12-24 21:35] LABS: Diff Comment Diff Reviewed
[2022-12-24 21:36] LABS: RBC Morphology Normal
--- NOTE | 2022-12-24 21:56 | DI.VRAD_ITS ---
PROCEDURE INFORMATION: Exam: CT Abdomen And Pelvis Without Contrast Exam date and time: 12/24/2022 9:34 PM Age: 67 years old Clinical indication: Other: Gi bleed TECHNIQUE: Imaging protocol: Computed tomography of the abdomen and pelvis without contrast. Radiation optimization: All CT scans at this facility use at least one of these dose optimization techniques: automated exposure control; mA and/or kV adjustment per patient size (includes targeted exams where dose is matched to clinical indication); or iterative reconstruction. COMPARISON: CT ABDOMEN PELVIS W 04/08/2020 1:07 PM FINDINGS: Coronary arteries: Coronary artery calcifications/stents identified. Liver: Hepatic calcification, probable old granuloma. Gallbladder and bile ducts: Gallstones with mild gallbladder distention. Pancreas: Coarse pancreatic calcifications are unchanged from prior study consistent with a degree of chronic pancreatitis. Spleen: Normal. No splenomegaly. Adrenal glands: Normal. No mass. Kidneys and ureters: Bilateral renal cysts. Stomach and bowel: Unenhanced assessment to characterize for GI hemorrhage is limited. There is a segment of descending colon and sigmoid colon with significant, transmural wall thickening and adjacent soft tissue stranding. There is no abnormal bowel distention. Next lines Appendix: Appendix well seen, within normal limits. Intraperitoneal space: Unremarkable. No free air. No significant fluid collection. Vasculature: Unremarkable. No abdominal aortic aneurysm. Lymph nodes: Unremarkable. No enlarged lymph nodes. Urinary bladder: Mild bladder distention. Reproductive: Unremarkable as visualized. Bones/joints: Unremarkable. No acute fracture. Soft tissues: Unremarkable. IMPRESSION: Fairly severe left-sided colitis. Dictated and Authenticated by: Kesha Alicea MD. Ordering:ARIES Robles MD
[2022-12-24] MEDS: PIPERACILLIN/TAZO 4.5 GM in Normal Saline 100 ML IVPB (22:34)
--- NOTE | 2022-12-24 22:39 | W.ED.GENAD ---
Discharge Plan Disposition Patient Disposition: Admit to [facility] Discharge Details Clinical Impression: Acute GI bleeding, Colitis Admit Date/Time: 12/24/22 22:34 Admit Provider: Gatito Talbert Attending Provider: Gatito Talbert Primary Care Provider: Brissa Toure ED Provider: Travis Yo Discharge Data Discharge Date/Time-TO BE ENTERED AT DEPARTURE: 12/24/22 23:59 Medical Decision Making Patient presenting the emergency department for chief complaint of bright red blood per rectum. Patient reports that yesterday evening he started having bloody bowel movements. He states then today he started having some lightheadedness and dizziness especially with standing and ambulation with continued bloody bowel movements. Patient concerned that it could be his diabetes medication (rybelsus). Patient denies all other symptoms. Physical exam shows stable vital signs with no severe hypotension, patient normal heart rate. Of note he is upper limits of normal with rate of 95, afebrile no respiratory distress, abdominal exam shows mild left lower quadrant tenderness to palpation otherwise unremarkable exam. We will plan on checking patient's labs and CT imaging. Reviewed patient's labs and patient does have a leukocytosis with WBC of 14.59, elevated neutrophils and monocytes, BUN is 32 with a creatinine of 2.1 GFR of 34. This is near patient's baseline but due to this we will hold off on IV contrast as I do not feel that it is emergent at this time. Patient's glucose was 247 mag of 1.4 and albumin of 3.2 otherwise nondiagnostic labs. Patient has a negative. Patient's hemoglobin was still appropriate at 15.6 but on review of previous hemoglobin patient typically is around 13. I question if there could be some dehydration or concentration showing higher hemoglobin than standard. Reviewed CT imaging and radiologist interpretation that showed findings of colitis otherwise nondiagnostic. Patient started on Zosyn and I did speak with general surgeon about admitting patient given hematochezia, and colitis. Dr. Talbert agreed to admit patient and bridge orders were placed. Imaging Data Radiologic Study: Imaging: CT Scan Radiologist's impression: Exam(s) PROCEDURE INFORMATION: Exam: CT Abdomen And Pelvis Without Contrast Exam date and time: 12/24/2022 9:34 PM Age: 67 years old Clinical indication: Other: Gi bleed TECHNIQUE: Imaging protocol: Computed tomography of the abdomen and pelvis without contrast. Radiation optimization: All CT scans at this facility use at least one of these dose optimization techniques: automated exposure control; mA and/or kV adjustment per patient size (includes targeted exams where dose is matched to clinical indication); or iterative reconstruction. COMPARISON: CT ABDOMEN PELVIS W 04/08/2020 1:07 PM FINDINGS: Coronary arteries: Coronary artery calcifications/stents identified. Liver: Hepatic calcification, probable old granuloma. Gallbladder and bile ducts: Gallstones with mild gallbladder distention. Pancreas: Coarse pancreatic calcifications are unchanged from prior study consistent with a degree of chronic pancreatitis. Spleen: Normal. No splenomegaly. Adrenal glands: Normal. No mass. Kidneys and ureters: Bilateral renal cysts. Stomach and bowel: Unenhanced assessment to characterize for GI hemorrhage is limited. There is a segment of descending colon and sigmoid colon with significant, transmural wall thickening and adjacent soft tissue stranding. There is no abnormal bowel distention. Next lines Appendix: Appendix well seen, within normal limits. Intraperitoneal space: Unremarkable. No free air. No significant fluid collection. Vasculature: Unremarkable. No abdominal aortic aneurysm. Lymph nodes: Unremarkable. No enlarged lymph nodes. Urinary bladder: Mild bladder distention. Reproductive: Unremarkable as visualized. Bones/joints: Unremarkable. No acute fracture. Soft tissues: Unremarkable. IMPRESSION: Fairly severe left-sided colitis. Lab Data Lab results reviewed: Yes I reviewed the patient's lab results. HPI General Mode of arrival: ambulatory. Date/Time Provider Initiated Documentation: 12/24/22 18:46. Information obtained by: patient, family and RN notes reviewed. History of Present Illness 67 year old M presents to the emergency department with the chief complaint of GI bleed, described as severe, Quality is described as aching, and is localized to the abdomen. Patient started experiencing this day(s) (1) and it has been constant and intermittent. No relieving factors improve symptom(s), No exacerbating factors reported . Patient did receive the following treatments prior to arrival, none Related Data Home Medications Medication Instructions Recorded Confirmed allopurinol 300 mg tablet 300 mg PO DAILY 12/05/19 12/24/22 amlodipine 2.5 mg tablet 2.5 mg PO DAILY 12/05/19 12/24/22 celecoxib 100 mg capsule 100 mg PO BID 12/05/19 12/24/22 imipramine HCl 50 mg tablet 50 mg PO BID 12/05/19 12/24/22 insulin detemir U-100 100 unit/mL 50 - 100 unit subcut DIRECTED 12/05/19 12/24/22 subcutaneous solution (Levemir U-100 Insulin) insulin lispro 100 unit/mL See Rx Instructions .Route .COMPLEX 12/05/19 12/24/22 subcutaneous solution (Humalog U-100 Insulin) metformin 850 mg tablet 850 mg PO DIRECTED 12/05/19 04/08/20 metoprolol tartrate 100 mg tablet 100 mg PO BID 12/05/19 12/24/22 simvastatin 40 mg tablet 40 mg PO DAILY 12/05/19 12/24/22 aspirin 81 mg tablet,delayed 81 mg PO DAILY 04/08/20 12/24/22 release cephalexin 500 mg capsule 500 mg PO QID 04/08/20 04/08/20 gabapentin 400 mg capsule 400 mg PO QID 04/08/20 12/24/22 semaglutide 7 mg tablet (Rybelsus) 7 mg PO DAILY 12/24/22 12/24/22 Allergies Allergy/AdvReac Type Severity Reaction Status Date / Time enalapril [Enalapril] Allergy Severe Anaphylaxsi Unverified 04/08/20 11:45 s General Stated Complaint: GI Bleed CLAYTON: 3 Review of Systems Constitutional Constitutional: Denies chills, Reports fatigue, Denies fever(s), Denies headache(s) and Reports malaise ENT Ears, Nose, Mouth, and Throat: Denies headache(s) Cardiovascular Cardiovascular: Denies chest pain, Denies syncope, Reports lightheadedness and Denies dyspnea Respiratory Respiratory: Denies dyspnea Gastrointestinal Gastrointestinal: Reports as per HPI, Reports abdominal pain, Reports hematochezia, Denies diarrhea, Denies nausea and Denies vomiting Genitourinary Genitourinary: Reports system reviewed and no additional complaints, except as documented Integumentary/Breasts Skin/Breast: Denies unusual bruising Neurologic Neurologic: Denies syncope and Denies headache(s) Endocrine Endocrine: Reports fatigue PFSH All Active Problems Acute GI bleeding (Acute) Colitis (Acute) Medical History Diabetes Gout Hyperlipidemia Hypertension Surgical History History of cataract surgery Previous back surgery x2 in the 80's Social History Smoking/Tobacco Use Status: Former Tobacco Use Quit Date: 05/22/87 Smoking risk assessment performed?: Yes Alcohol Intake: never Drug use: Never Substance use type: does not use Housing: house Do you feel safe at home: Yes Do you feel safe in your relationship?: Yes Exam Const General: cooperative Orientation: alert, awake and oriented x3 Resp Effort & Inspection: normal respiratory effort and able to speak in complete sentences Auscultation: clear to auscultation bilaterally Cardio Rate: regular rate Rhythm: regular rhythm Heart Sounds: S1 normal and S2 normal GI Palpation: soft, no hepatosplenomegaly, not firm, no guarding, no masses, no pulsatile masses, not rigid, no splenomegaly and tender in the LLQ Auscultation: normal bowel sounds Rectal Exam: visual inspection normal and heme positive stool gross blood Back/Spine/Pelvis Back: no CVA tenderness Neuro General: patient alert, patient awake, patient oriented x3, gait normal and moves all extremities Course Vital Signs Vital signs: Vital Signs Temperature 37.0 C 12/24/22 18:42 Pulse 95 H 12/24/22 18:42 Respiratory Rate 18 12/24/22 18:42 Blood Pressure 103/70 12/24/22 18:42 Pulse Oximetry 96 12/24/22 18:42 Temperature 37.0 C 12/24/22 18:42 Temperature Source Oral 12/24/22 18:42 Pulse 87 12/24/22 21:16 Pulse 87 12/24/22 22:30 Respiratory Rate 18 12/24/22 22:30 Respiratory Effort Normal 12/24/22 19:46 Blood Pressure 133/81 12/24/22 21:16 Blood Pressure Mean 90 12/24/22 21:16 Blood Pressure Position Sitting 12/24/22 18:42 Pulse Oximetry 91 L 12/24/22 22:30 Oxygen Delivery Method Room Air 12/24/22 18:42 Oxygen Flow Rate 0 12/24/22 18:42 Pain Level 0 12/24/22 18:42 Lab/Test Results Lab/Test Results: Laboratory Tests Range/Units 12/24/22 12/24/22 12/24/22 20:00 20:00 20:00 WBC (4.4-10.8) 10^3/uL 14.59 H RBC (4.36-5.78) 10^6/uL 4.79 Hgb (13.5-17.5) g/dL 15.6 Hct (40.0-50.0) % 44.9 MCV (80-95) fL 94 MCH (27.0-33.0) pg 32.6 MCHC (32.0-36.0) % 34.7 RDW (11.8-14.1) % 13.5 Plt Count (130-400) 10^3/uL 139 MPV (8.0-11.0) fL 10.5 Immature Gran % 0.3 Neutrophils % 72.4 Lymphocytes % 14.4 Monocytes % 11.4 Eosinophils % 1.2 Basophils % 0.3 Nucleated RBC % (0.0-0.3) % 0.0 Absolute Neutrophils (1.2-6.7) 10^3/uL 10.56 H Absolute Lymphocytes (1.2-3.4) 10^3/uL 2.10 Absolute Monocytes (0.1-0.8) 10^3/uL 1.66 H Absolute Eosinophils (0.0-0.7) 10^3/uL 0.18 Absolute Basophils (0.0-0.2) 10^3/uL 0.04 RBC Morphology Normal PT (9.3-11.0) sec 9.9 INR (0.9-1.1) 1.0 Sodium (136-145) mmol/L 136 Potassium (3.5-5.1) mmol/L 4.4 Chloride (98-107) mmol/L 101 Carbon Dioxide (21.0-32.0) mmol/L 24.9 Anion Gap (3-11) mmol/L 10.1 BUN (7-18) mg/dL 32 H Creatinine (0.70-1.30) mg/dL 2.1 H Est GFR (CKD-EPI 2020) (mL/min/1.73m2) 34.29 Glucose (74-106) mg/dL 247 H Calcium (8.5-10.1) mg/dL 8.6 Magnesium (1.8-2.4) mg/dL 1.4 L Total Bilirubin (0.2-1.0) mg/dL 0.5 AST (15-37) U/L 29 ALT (16-63) U/L 33 Alkaline Phosphatase (46-116) U/L 76 Total Protein (6.4-8.2) g/dL 7.3 Albumin (3.4-5.0) g/dL 3.2 L Patient ABO/Rh Antibody Screen Range/Units 12/24/22 20:00 WBC (4.4-10.8) 10^3/uL RBC (4.36-5.78) 10^6/uL Hgb (13.5-17.5) g/dL Hct (40.0-50.0) % MCV (80-95) fL MCH (27.0-33.0) pg MCHC (32.0-36.0) % RDW (11.8-14.1) % Plt Count (130-400) 10^3/uL MPV (8.0-11.0) fL Immature Gran % Neutrophils % Lymphocytes % Monocytes % Eosinophils % Basophils % Nucleated RBC % (0.0-0.3) % Absolute Neutrophils (1.2-6.7) 10^3/uL Absolute Lymphocytes (1.2-3.4) 10^3/uL Absolute Monocytes (0.1-0.8) 10^3/uL Absolute Eosinophils (0.0-0.7) 10^3/uL Absolute Basophils (0.0-0.2) 10^3/uL RBC Morphology PT (9.3-11.0) sec INR (0.9-1.1) Sodium (136-145) mmol/L Potassium (3.5-5.1) mmol/L Chloride (98-107) mmol/L Carbon Dioxide (21.0-32.0) mmol/L Anion Gap (3-11) mmol/L BUN (7-18) mg/dL Creatinine (0.70-1.30) mg/dL Est GFR (CKD-EPI 2020) (mL/min/1.73m2) Glucose (74-106) mg/dL Calcium (8.5-10.1) mg/dL Magnesium (1.8-2.4) mg/dL Total Bilirubin (0.2-1.0) mg/dL AST (15-37) U/L ALT (16-63) U/L Alkaline Phosphatase (46-116) U/L Total Protein (6.4-8.2) g/dL Albumin (3.4-5.0) g/dL Patient ABO/Rh A Negative Antibody Screen NEGATIVE
[2022-12-24 23:51] LABS: HCT 42.6 % (40.0-50.0); HGB 14.6 g/dL (13.5-17.5)
[2022-12-25] VITALS (9 sets, daily range): BP systolic 101–160; BP diastolic 69–88; PULSE 83–99; RESP 16–18; TEMP 35.8–37; O2SAT 92–94
[2022-12-25] MEDS: MAGNESIUM SULFATE 4 GM/100 ML BAG IVPB (01:57)
[2022-12-25] MEDS: Normal Saline Flush 10 ML SYR IVP ×2 (01:57→11:58)
[2022-12-25] MEDS: PIPERACILLIN/TAZO 4.5 GM in Normal Saline 100 ML IVPB ×3 (06:08→20:14)
[2022-12-25 07:55] LABS: Abs Immature Grans 0.04 10^3/uL (0.0-0.06); Absolute Basophil Count 0.05 10^3/uL (0.0-0.2); Absolute Eosinophil Count 0.25 10^3/uL (0.0-0.7); Absolute Monocyte Count 1.21 10^3/uL (0.1-0.8); Basophils % 0.4; Eosinophils % 2.1; HCT 41.3 % (40.0-50.0); HGB 14.2 g/dL (13.5-17.5); Immature Grans % 0.3; Lymphocytes % 20.9; MCH 32.6 pg (27.0-33.0); MCHC 34.4 % (32.0-36.0); MCV 95 fL (80-95); MPV 10.8 fL (8.0-11.0); Monocytes % 10.1; Neutrophils % 66.2; Platelet Count 130 10^3/uL (130-400); RBC 4.35 10^6/uL (4.36-5.78); RDW 13.9 % (11.8-14.1); WBC 11.94 10^3/uL (4.4-10.8)
[2022-12-25 08:11] LABS: ALT 25 U/L (16-63); AST 23 U/L (15-37); Albumin 2.8 g/dL (3.4-5.0); Alkaline Phosphatase 73 U/L (46-116); Anion Gap 11.3 mmol/L (3-11); BUN 36 mg/dL (7-18); Bilirubin, Total 0.7 mg/dL (0.2-1.0); CO2 24.7 mmol/L (21.0-32.0); CREATININE 2.3 mg/dL (0.70-1.30); Calcium 8.6 mg/dL (8.5-10.1); Chloride 102 mmol/L (98-107); Estimated GFR 30.74 (mL/min/1.73m2); Glucose 173 mg/dL (74-106); Potassium 3.9 mmol/L (3.5-5.1); Sodium 138 mmol/L (136-145); Total Protein 6.8 g/dL (6.4-8.2)
--- NOTE | 2022-12-25 09:57 | HPE_ITS ---
Date of service: 12/25/22 Time of Service: 09:57 Assessment and Plan Assessment and plan (1) Colitis: Status: Acute Assessment and plan: His white blood cell count is improved a little bit after the initiation of antibiotics. I also think his exam, and appetite are reassuring. A little surprised at how comfortable he is given the severity of the colitis on his CAT scan. The distribution seems consistent with sigmoid diverticulitis, however, the symptoms he describes are certainly atypical for this. Furthermore, the fact that he is never had a colonoscopy in the past is certainly troubling. For now, I think the best option is to try to get the inflammation under control. I hope we can get him through this with antibiotics, and noninvasive measures and pursue diagnostic colonoscopy once the colitis is improved a bit. I will send off stool studies today to rule out C. difficile, or other forms of infectious colitis. History of Present Illness History of Present Illness Chief Complaint: Bloody bowel movement Narrative: Alexandro is 67 years old. He came to the emergency department last night after an abnormal bowel movement and bloody liquid stool. He tells me he has been feeling in his usual state of health until the day before yesterday.. He had a sense that he needed to move his bowels. He sat on the toilet for a while, and felt some mild cramping and abdominal discomfort. He had an average sized bowel movement for him. He got up from the toilet, and almost immediately thereafter felt rushing liquid bowel movement. Described this as large volume, and maroon- colored. He never experienced that before. He felt a little bit better after p assage of the liquid stool. However, he continued to have several episodes of maroon-colored stools mostly liquid in nature through yesterday. He came to the emergency department last night after starting to feel a little bit weak and dizzy. His other past medical history significant for diabetes, hypertension, and high cholesterol. Only recent changes regard the addition of Rybelsus to help with blood sugar management. The patient did express concerns that perhaps the GI side effects are secondary to that medication. He has never had a colonoscopy before. He denies any family history of colon or rectal diseases. Review of Systems Constitutional Constitutional: Denies difficulty sleeping, Reports fatigue, Denies poor appetite, Reports weakness and Denies weight loss Eyes Eyes: Reports system reviewed and no additional complaints, except as documented ENT Ears, Nose, Mouth, and Throat: Reports system reviewed and no additional complaints, except as documented Cardiovascular Cardiovascular: Denies chest pain and Denies dyspnea Respiratory Respiratory: Denies chest congestion, Denies cough and Denies dyspnea Gastrointestinal Gastrointestinal: Reports abdominal pain, Denies melena, Reports hematochezia, Reports change in stool character and Reports loose stools Genitourinary Genitourinary: Reports system reviewed and no additional complaints, except as documented Musculoskeletal Musculoskeletal: Reports system reviewed and no additional complaints, except as documented Neurologic Neurologic: Reports system reviewed and no additional complaints, except as documented and Reports weakness Psychiatric Psychiatric: Reports system reviewed and no additional complaints, except as documented Endocrine Endocrine: Denies change in body appearance and Reports fatigue Hematologic/Lymphatic Hematologic/Lymphatic: Denies easy bleeding and Denies easy bruising PFSH All Active Problems Acute GI bleeding (Acute) Colitis (Acute) Medical History Diabetes Gout Hyperlipidemia Hypertension Surgical History History of cataract surgery Previous back surgery x2 in the 80's Social History Smoking/Tobacco Use Status: Former Tobacco Use Quit Date: 05/22/87 Smoking risk assessment performed?: Yes Alcohol Intake: never Drug use: Never Substance use type: does not use Housing: house Do you feel safe at home: Yes Do you feel safe in your relationship?: Yes Meds Allergies and Home Medications Allergies Allergy/AdvReac Type Severity Reaction Status Date / Time enalapril [Enalapril] Allergy Severe Anaphylaxsi Unverified 04/08/20 11:45 s Home Medications Medication Instructions Recorded Confirmed Type allopurinol 300 mg tablet 300 mg PO DAILY 12/05/19 12/24/22 History amlodipine 2.5 mg tablet 2.5 mg PO DAILY 12/05/19 12/24/22 History celecoxib 100 mg capsule 100 mg PO BID 12/05/19 12/24/22 History imipramine HCl 50 mg tablet 50 mg PO BID 12/05/19 12/24/22 History insulin detemir U-100 100 unit/mL 50 - 100 unit subcut DIRECTED 12/05/19 12/24/22 History subcutaneous solution (Levemir U-100 Insulin) insulin lispro 100 unit/mL See Rx Instructions .Route .COMPLEX 12/05/19 12/24/22 History subcutaneous solution (Humalog U-100 Insulin) metformin 850 mg tablet 850 mg PO DIRECTED 12/05/19 04/08/20 History metoprolol tartrate 100 mg tablet 100 mg PO BID 12/05/19 12/24/22 History simvastatin 40 mg tablet 40 mg PO DAILY 12/05/19 12/24/22 History aspirin 81 mg tablet,delayed 81 mg PO DAILY 04/08/20 12/24/22 History release cephalexin 500 mg capsule 500 mg PO QID 04/08/20 04/08/20 History gabapentin 400 mg capsule 400 mg PO QID 04/08/20 12/24/22 History semaglutide 7 mg tablet (Rybelsus) 7 mg PO DAILY 12/24/22 12/24/22 History Exam Const General: cooperative and comfortable Nutritional Appearance: average body habitus Orientation: alert, awake and oriented x3 HENMT Head: normal to inspection Eyes General: appearance normal, both eyes and all related structures Resp Auscultation: clear to auscultation bilaterally Cardio Rate: regular rate Rhythm: regular rhythm Heart Sounds: S1 normal and S2 normal GI Inspection: normal to inspection Palpation: soft, no hernias and nontender Auscultation: normal bowel sounds Skin General skin exam: no rashes or lesions noted and elasticity normal Neuro General: patient alert, patient awake and patient oriented x3 Extrem Right lower extremity: no edema Left lower extremity: no edema Results Imaging Abdomen CT scan report/results: report reviewed and image reviewed CT scan - pelvis: report reviewed and image reviewed Labs 12/25/22 06:32 12/25/22 06:32 Labs: Laboratory Results - last 24 hr 12/24/22 12/24/22 12/24/22 20:00 20:00 20:00 WBC 14.59 H RBC 4.79 Hgb 15.6 Hct 44.9 MCV 94 MCH 32.6 MCHC 34.7 RDW 13.5 Plt Count 139 MPV 10.5 Immature Gran % 0.3 Neutrophils % 72.4 Lymphocytes % 14.4 Monocytes % 11.4 Eosinophils % 1.2 Basophils % 0.3 Nucleated RBC % 0.0 Absolute Neutrophils 10.56 H Absolute Lymphocytes 2.10 Absolute Monocytes 1.66 H Absolute Eosinophils 0.18 Absolute Basophils 0.04 RBC Morphology Normal PT 9.9 INR 1.0 Sodium 136 Potassium 4.4 Chloride 101 Carbon Dioxide 24.9 Anion Gap 10.1 BUN 32 H Creatinine 2.1 H Est GFR (CKD-EPI 2020) 34.29 Glucose 247 H Calcium 8.6 Magnesium 1.4 L Total Bilirubin 0.5 AST 29 ALT 33 Alkaline Phosphatase 76 Total Protein 7.3 Albumin 3.2 L Patient ABO/Rh Antibody Screen 12/24/22 12/24/22 12/25/22 20:00 23:48 06:32 WBC RBC Hgb 14.6 Hct 42.6 MCV MCH MCHC RDW Plt Count MPV Immature Gran % Neutrophils % Lymphocytes % Monocytes % Eosinophils % Basophils % Nucleated RBC % Absolute Neutrophils Absolute Lymphocytes Absolute Monocytes Absolute Eosinophils Absolute Basophils RBC Morphology PT INR Sodium 138 Potassium 3.9 Chloride 102 Carbon Dioxide 24.7 Anion Gap 11.3 H BUN 36 H Creatinine 2.3 H Est GFR (CKD-EPI 2020) 30.74 Glucose 173 H Calcium 8.6 Magnesium Total Bilirubin 0.7 AST 23 ALT 25 Alkaline Phosphatase 73 Total Protein 6.8 Albumin 2.8 L Patient ABO/Rh A Negative Antibody Screen NEGATIVE 12/25/22 06:32 WBC 11.94 H RBC 4.35 L Hgb 14.2 Hct 41.3 MCV 95 MCH 32.6 MCHC 34.4 RDW 13.9 Plt Count 130 MPV 10.8 Immature Gran % 0.3 Neutrophils % 66.2 Lymphocytes % 20.9 Monocytes % 10.1 Eosinophils % 2.1 Basophils % 0.4 Nucleated RBC % 0.0 Absolute Neutrophils 7.90 H Absolute Lymphocytes 2.50 Absolute Monocytes 1.21 H Absolute Eosinophils 0.25 Absolute Basophils 0.05 RBC Morphology PT INR Sodium Potassium Chloride Carbon Dioxide Anion Gap BUN Creatinine Est GFR (CKD-EPI 2020) Glucose Calcium Magnesium Total Bilirubin AST ALT Alkaline Phosphatase Total Protein Albumin Patient ABO/Rh Antibody Screen Last Vital Signs Temp 96.4 F L 12/25/22 07:06 Pulse 83 12/25/22 07:06 Resp 16 12/25/22 07:06 BP 112/73 12/25/22 07:06 Pulse Ox 94 12/25/22 07:06 Time Spent Time spent with Patient: 55-74 minutes Time was spent: preparing to see the patient(eg.review tests), obtaining and/or reviewing separately otained hiistory, indepentently interpreting results and counseling the patient
[2022-12-25] MEDS: Gabapentin 400 MG CAP PO ×3 (11:58→20:14)
[2022-12-25] MEDS: Insulin Aspart 300 UNITS/3 ML PEN SC ×2 (11:58→17:13)
--- NOTE | 2022-12-25 13:15 | PDOC.CMIN ---
Date of service: 12/25/22 Time of Service: 13:15 Care Management Initial Assmt Initial Assessment REASON FOR HOSPITALIZATION:: Severe left sided colitis, GI bleed PREVIOUS FUNCTIONAL STATUS/SOCIAL/FAMILY SUPPORTS:: Alexandro is independent in the community and resides with his , Bre. The couple have two adult children who reside locally; Pili and Joshua. PLAN:: Alexandro is discharged home with no services. He will follow up with his PCP, surgeon and plan of care as instructed. He is transported home by his via private vehicle. PFSH All Active Problems (Updated 12/27/22 @ 14:50 by Charisma Carr DO) Pseudocyst of pancreas (Acute) Coronary artery calcification seen on CAT scan (Acute) Pancreatic atrophy (Acute) Gallstones (Acute) NAFLD (nonalcoholic fatty liver disease) (Acute) Rectal bleeding (Acute) Stage 3b chronic kidney disease (CKD) (Acute) Peripheral neuropathy (Acute) Colitis (Acute) Medical History Diabetes Gout Hyperlipidemia Hypertension Surgical History History of cataract surgery Previous back surgery x2 in the 80's Social History Smoking/Tobacco Use Status: Former Tobacco Use Quit Date: 05/22/87 Smoking risk assessment performed?: Yes Alcohol Intake: never Drug use: Never Substance use type: does not use Housing: house Do you feel safe at home: Yes Do you feel safe in your relationship?: Yes
[2022-12-25 14:12] LABS: C Diff PCR Negative (Negative)
[2022-12-25] MEDS: Simvastatin 40 MG TAB PO (20:14)
[2022-12-25] MEDS: Metoprolol 50 MG TAB 100 MG PO (20:14)
[2022-12-26] VITALS (11 sets, daily range): BP systolic 129–161; BP diastolic 78–91; PULSE 76–93; RESP 16–18; TEMP 36.4–37.9; O2SAT 91–96
[2022-12-26] MEDS: PIPERACILLIN/TAZO 4.5 GM in Normal Saline 100 ML IVPB ×3 (06:49→21:19)
[2022-12-26 07:14] LABS: HCT 38.7 % (40.0-50.0); HGB 13.4 g/dL (13.5-17.5); MCH 32.6 pg (27.0-33.0); MCHC 34.6 % (32.0-36.0); MCV 94 fL (80-95); MPV 10.5 fL (8.0-11.0); Platelet Count 131 10^3/uL (130-400); RBC 4.11 10^6/uL (4.36-5.78); RDW 13.9 % (11.8-14.1); WBC 12.34 10^3/uL (4.4-10.8)
[2022-12-26 07:33] LABS: Anion Gap 8.8 mmol/L (3-11); BUN 30 mg/dL (7-18); CO2 26.2 mmol/L (21.0-32.0); CREATININE 2.2 mg/dL (0.70-1.30); Calcium 8.6 mg/dL (8.5-10.1); Chloride 102 mmol/L (98-107); Estimated GFR 32.43 (mL/min/1.73m2); Glucose 191 mg/dL (74-106); Potassium 3.8 mmol/L (3.5-5.1); Sodium 137 mmol/L (136-145)
[2022-12-26] MEDS: Insulin Aspart 300 UNITS/3 ML PEN SC ×3 (08:08→16:28)
[2022-12-26] MEDS: Gabapentin 400 MG CAP PO ×4 (08:09→21:18)
[2022-12-26] MEDS: Metoprolol 50 MG TAB 100 MG PO ×2 (08:09→21:18)
[2022-12-26] MEDS: Allopurinol 300 MG TAB PO (08:10)
[2022-12-26] MEDS: amLODIPine 2.5 MG TAB PO (08:10)
[2022-12-26 09:13] LABS: C-Reactive Protein 22.26 mg/dL (0.0-0.3)
[2022-12-26] MEDS: methylPREDNISolone SUCC 40 MG VIAL 20 MG IVP ×2 (12:22→21:19)
[2022-12-26] MEDS: Normal Saline Flush 10 ML SYR IVP (12:27)
[2022-12-26 12:31] LABS: Glucose 261 mg/dL (74-106)
--- NOTE | 2022-12-26 12:43 | CMPROGNOTE_ITS ---
Date of service: 12/26/22 Time of Service: 12:44 Care Management Progress Note Progress Note Text Progress Note Text: S/O: Alexandro was sitting up in bed when CM met with him. He reported that he feels ok, but not much better yet than when he arrived. He expressed concern about his bloody diarrhea, as he stated that it has not stopped yet. He stated that he was recently discharged from [facility], where he was rehabbing after falling. He reported feeling weak today; CM requested a PT consult to determine functional mobility. Alexandro stated that he is open to going to rehab, but would prefer to return home. He is currently able to have clear liquids, and stated that he is looking forward to chewing something. Per report, he is being treated with IV antibiotics and steroids, as well as fluids. His urine output and H&H are being closely monitored. CM will continue to follow. A: Alexandro is a 67 year old male admitted to [facility] on 12/24/22 with colitis, GI bleed. P: Anticipate Alexandro will return home once medically cleared. His will drive him home via private vehicle. He will follow up with his PCP and discharge plan of care. CM will continue to follow.
--- NOTE | 2022-12-26 12:54 | W.PM.PROGNOT ---
Date of Service Date of service: 12/26/22 Time of Service: 12:54 Assessment and Plan Assessment and plan (1) Colitis: Status: Acute Assessment and plan: Alexandro is a pleasant 67-year-old gentleman admitted 2 days ago with bloody diarrhea. CT scan showed extensive colitis of the signal void descending and part of the transverse colon. His CRP is elevated at 22.26. C. difficile was negative all other cultures are pending. His presentation is most consistent with ulcerative colitis. This is a new diagnosis for him. He has no family history that he knows of. I will continue him on Zosyn and have also started him on prednisone IV 20 mg Q8. He seems dry and his creatinine is still elevated so I will restart him on some fluids at 80 cc an hour while he starts to drink a little bit more. Will closely monitor his urine output as well as his hemoglobin and hematocrit. Continue with clear liquid diet for now until his pain is a little bit better and then we will advance his diet to a low fiber diet. Continue with insulin sliding scale for his diabetes. Once his creatinine is down I will restart his metformin. Subjective Subjective Interval history since last seen: Mr. Callahan is a pleasant 67-year-old gentleman who was admitted 2 days ago with severe colitis. He was having bloody diarrhea. Patient tells me that he is still having bloody diarrhea. He feels tired and exhausted. His lips are dry. He has been drinking clear liquids but not very much. He tells me he just does not feel hungry. His clear liquid tray is in front of him when I went in to see him and he had not touched any of it. He had a low-grade temp yesterday and has been afebrile since then. He has had no nausea or vomiting. His labs show leukocytosis at 12.34. His hemoglobin and hematocrit are stable at 13.4 and 38.7 respectively. His creatinine is still slightly elevated at 2.2. His CRP was 22.26 today. Exam Const General: comfortable, no acute distress and ill appearing (pale) Nutritional Appearance: overweight Orientation: alert and oriented x3 HENMT Head: normocephalic and atraumatic Mouth: other (dry lips and mucosa) Resp Effort & Inspection: normal respiratory effort Auscultation: clear to auscultation bilaterally Cardio Rate: regular rate Rhythm: regular rhythm GI Palpation: soft, no hepatosplenomegaly and tender (lower abdomen, no guarding) Auscultation: hyperactive bowel sounds Objective Last Vital Signs Temp 97.5 F L 12/26/22 12:14 Pulse 76 12/26/22 12:14 Resp 16 12/26/22 12:14 BP 129/78 12/26/22 12:14 Pulse Ox 95 12/26/22 12:14 Laboratory Results - last 24 hr 12/25/22 12/26/22 12/26/22 12:55 05:57 05:57 WBC 12.34 H RBC 4.11 L Hgb 13.4 L Hct 38.7 L MCV 94 MCH 32.6 MCHC 34.6 RDW 13.9 Plt Count 131 MPV 10.5 Sodium 137 Potassium 3.8 Chloride 102 Carbon Dioxide 26.2 Anion Gap 8.8 BUN 30 H Creatinine 2.2 H Est GFR (CKD-EPI 2020) 32.43 Glucose 191 H Calcium 8.6 C-Reactive Protein Stl C.difficile Tox PCR Negative 12/26/22 12/26/22 05:57 12:08 WBC RBC Hgb Hct MCV MCH MCHC RDW Plt Count MPV Sodium Potassium Chloride Carbon Dioxide Anion Gap BUN Creatinine Est GFR (CKD-EPI 2020) Glucose 261 H Calcium C-Reactive Protein 22.26 H Stl C.difficile Tox PCR Time Spent with Patient Time Spent with Patient: 25-34 minutes Time was spent: preparing to see the patient(eg.review tests), obtaining and/or reviewing separately otained hiistory, ordering medications,tests, procedures, indepentently interpreting results and counseling the patient
[2022-12-26] MEDS: Lactated Ringers 1,000 ML 80 ML IV (14:05)
[2022-12-26 20:37] LABS: Campylobacter PCR Negative (Negative); Salmonella PCR Negative (Negative); Shiga Toxin PCR Negative (Negative); Shigella/Enteroinvasive Ecoli Negative (Negative)
[2022-12-26] MEDS: Simvastatin 40 MG TAB PO (21:18)
[2022-12-27] VITALS (10 sets, daily range): BP systolic 135–161; BP diastolic 74–89; PULSE 66–93; RESP 16–20; TEMP 35.9–36.6; O2SAT 90–94
[2022-12-27] MEDS: Lactated Ringers 1,000 ML 80 ML IV (02:35)
[2022-12-27] MEDS: PIPERACILLIN/TAZO 4.5 GM in Normal Saline 100 ML IVPB ×3 (05:55→20:21)
[2022-12-27] MEDS: methylPREDNISolone SUCC 40 MG VIAL 20 MG IVP ×3 (05:55→20:19)
[2022-12-27 06:37] LABS: Abs Immature Grans 0.05 10^3/uL (0.0-0.06); Absolute Basophil Count 0.01 10^3/uL (0.0-0.2); Absolute Lymphocyte Count 1.05 10^3/uL (1.2-3.4); Basophils % 0.1; HCT 39.5 % (40.0-50.0); HGB 13.7 g/dL (13.5-17.5); Immature Grans % 0.4; Lymphocytes % 9.2; MCH 32.6 pg (27.0-33.0); MCHC 34.7 % (32.0-36.0); MCV 94 fL (80-95); Monocytes % 2.6; Neutrophils % 87.7; RDW 13.6 % (11.8-14.1); RDW-SD 47.3 fL; WBC 11.38 10^3/uL (4.4-10.8)
[2022-12-27 06:47] LABS: Absolute Neutrophil Count 9.98 10^3/uL (1.2-6.7)
[2022-12-27 06:51] LABS: Anion Gap 11.6 mmol/L (3-11); BUN 32 mg/dL (7-18); CO2 23.4 mmol/L (21.0-32.0); CREATININE 2.2 mg/dL (0.70-1.30); Chloride 102 mmol/L (98-107); Estimated GFR 32.43 (mL/min/1.73m2); Glucose 354 mg/dL (74-106); Magnesium 2.1 mg/dL (1.8-2.4); Potassium 4.1 mmol/L (3.5-5.1); Sodium 137 mmol/L (136-145)
[2022-12-27] MEDS: Allopurinol 300 MG TAB PO (07:34)
[2022-12-27] MEDS: amLODIPine 2.5 MG TAB PO (07:34)
[2022-12-27] MEDS: Gabapentin 400 MG CAP PO ×2 (07:35→11:33)
[2022-12-27] MEDS: Metoprolol 50 MG TAB 100 MG PO ×2 (07:35→20:19)
[2022-12-27] MEDS: Insulin Aspart 300 UNITS/3 ML PEN SC ×3 (07:36→16:30)
[2022-12-27] MEDS: FAMOTIDINE 20 MG in Normal Saline 100 ML 400 MG IVPB (09:51)
[2022-12-27] MEDS: Normal Saline Flush 10 ML SYR IVP ×2 (11:35→13:56)
--- NOTE | 2022-12-27 12:08 | PT.INIE ---
Date of service: 12/27/22 Time of Service: 11:45 PT Notes Visit Reasons: Colitis, GI bleed Physical Therapy Inpatient Initial Evaluation Date: 12/27/2022 Referring Doctor: Magda Muñoz MD PT Orders: PT CONSULT: Extended stay weakness Precautions: Fall. Standard. Activity as tolerated. Patient Profile/Admitting Diagnosis: Alexandro is a 67-year-old male with past medical history significant for chronic low back pain with 2 previous back surgeries admitted to the ED on 12/24/2022 due to lightheadedness, dizziness accompanied by bright red rectal bleeding. Patient is admitted for management of colitis. PMHX: All Active Problems? Acute GI bleeding (Acute) Colitis (Acute) Medical History? Diabetes Gout Hyperlipidemia Hypertension Surgical History? History of cataract surgery Previous back surgery x2 in the 80's Social History/Home Situation: Lives with in a private home. Independent with use of single-point cane for all mobility ADLs at baseline. Equipment Owned/DME: SPC Subjective: Still feels pain and stiffness in his tummy but much better than on admission. Having to deal with chroninc back pain is a challenge. His back pain is more in intensity than his tummy pain. Agreeable to walking with PT using his SPC. Adds that his L LE is relatively weaker than his R due to long standing low back pain. Objective: General Observation: Resting on bedside chair. Mental Status: Alert and oriented as to person, place, time, and purpose. Able to pay attention, focus, and respond appropriately. Pain: 5-6/10 in low back; 4-5/10 in abdominal area Vital Signs: Closely monitored by nursing staff ROM: Right Upper Extremity: Shoulder Flexion WFL. Shoulder abduction WFL. Elbow flexion WFL. Wrist flexion WFL. Functional opening and closing of hand WFL. Left Upper Extremity: Shoulder Flexion WFL. Shoulder abduction WFL. Elbow flexion WFL. Wrist flexion WFL. Functional opening and closing of hand WFL. Right Lower Extremity: Hip flexion WFL. Hip abduction WFL. Knee flexion WFL. Ankle dorsiflexion WFL. Ankle plantarflexion WFL. Left Lower Extremity: Hip flexion WFL. Hip abduction WFL. Knee flexion WFL. Ankle dorsiflexion WFL. Ankle plantarflexion WFL. Strength: Right Upper Extremity: Shoulder flexors 4/5. Shoulder abductors 4/5. Elbow flexors 5/5. Elbow extensors 5/5. 2Nd Pressman strong. Left Upper Extremity: Shoulder flexors 4/5. Shoulder abductors 4/5. Elbow flexors 5/5. Elbow extensors 5/5. 2Nd Pressman strong. Right Lower Extremity: Hip flexors 4/5. Hip abductors 4/5. Knee flexors 4/5. Knee extensors 4/5. Ankle dorsiflexors 4/5. Ankle plantarflexors 4/5. Left Lower Extremity: Hip flexors 4-/5. Hip abductors 4-/5. Knee flexors 4-/5. Knee extensors 4-/5. Ankle dorsiflexors 4-/5. Ankle plantarflexors 4-/5. Bed Mobility/Transfers: Rolling independent Supine to sit independent Sit to supine independent Sit to stand stand by assist Stand to sit stand by assist Bed to reclining chair stand by assist Reclining chair to bed stand by assist Gait: Instructed patient with level surface ambulation of 250 feet requiring stand by assist using his hurricane. Required moderate verbal cueing with use of SPC opposite the weak L knee. No report of increase in back pain. Balance: Static Sitting: Normal Dynamic Sitting: Normal Static Standing: Fair Dynamic Standing: Fair Special Tests: Mobility Limitations Standardized Measure [facility] AM-PAC 6 clicks Basic Mobility Inpatient Short Form: Raw Score: 23 CMS Score: 11% deficit 4-stage Balance Test: able to maintain feet together and semi-tandem stance for 10 seconds, unable with full tandem and one-legged stance. Informed Consent/Education: Patient was instructed in purpose of PT consult and plan of care. Agreeable to proceed with established PT POC to achieve personal goals. Assessment: Patient presents with clinical signs and symptoms consistent with current/admitting diagnoses that have resulted to mobility limitations, gait instability, generalized weakness, and overall ADL decline as demonstrated by the following impairment level findings: 1. Decreased strength to B LE major muscle groups 2. Impaired sitting/standing balance 3. Impaired activity tolerance Impairments are contributing to the following functional limitations: 1. Difficulty with ambulation without assistive device 2. Increased completion time for mobility ADL performance 3. Increased risk for falls Patient is assessed as a 28813 moderate complexity based on the following: History: 67-year-old male with past medical history as indicated above Examination: Demonstrable impairment in strength, balance, and mobility level with underlying impairments and functional limitations as exhibited above as well as deficit score of 11% utilizing the [facility] Mobility Inpatient Short Form Presentation: Evolving Decision Makin moderate complexity Goals: Goals X1 week 1. Supine-Sit independent 2. Sit-Supine independent 3. Sit-Stand independent 4. Stand-Sit independent with SPC 5. Bed-Chair independent with SPC 6. Chair-Bed independent with SPCSPC 7. Independent gait on level surface with use of SPC for at least 300 feet without report of pain nor dyspnea 8. Independent stair negotiation while holding onto B rails for at least 3 steps without report of pain nor dyspnea 9. Independent with home exercise program 10. Good static and dynamic standing balance/tolerance Plan of Care/Treatment Plan: 1-2x/day, 7 days/week x 1 week. Plan of care has been reviewed with the HYDRAULIC REPAIRER providing the service under Physical Therapy direction. Initiate Physical Therapy intervention for pain management as needed, strengthening, bed mobility, transfers, gait, stairs, balance training, and use of assistive device. DISCHARGE RECOMMENDATIONS: [] Home with no services [] [X] Home with services. Patient will benefit from home health PT services in order to progress mobility level using least restrictive assistive ambulatory device, assess home safety, identify additional equipment needs, and establish a functional maintenance program that will increase ability of patient to remain at home. [] Home with outpatient PT [] [] SNF for continued rehabilitation [] [] [employer] Supervisor Care [] [] SNF versus LTC based on ability to participate and progress [] TREATMENT CODE/TIME: 9716 2 x 18 minutes (1 unit) beginning at 11:45 AM. Thank you for the opportunity to participate in the care of this patient. Rhoda Frost PT, DPT, CLT [facility] [place], [place]
--- NOTE | 2022-12-27 13:01 | NUR.NOTE ---
is at bedside. updated on poc. dr barraza has not seen pt at this time.
[2022-12-27] MEDS: Pantoprazole 40 MG VIAL IVP (13:56)
--- NOTE | 2022-12-27 13:56 | PT.INTREAT ---
Date of service: 12/27/22 Time of Service: 16:05 PT Notes Visit Reasons: Colitis, GI bleed Inpatient Physical Therapy Treatment Note [facility] Date: 12/27/22 PRECAUTIONS: Fall, standard, activity as tolerated. SUBJECTIVE: Patient sitting up in recliner with feet down, agreeable to therapy. OBJECTIVE: PAIN: none reported AFTERNOON significant LBP, asks for therapy to come back in an hour, then patient's surgeon arrives and PT is cut short. BED MOBILITY/TRANSFERS Sit-stand: SBA Stand-sit: SBA Bed-Chair: SBA Chair-bed: SBA GAIT Assistive Device: SPC Weight bearing: full Assist: SBA Distance: 600 feet Deviation: Vebal cueing required for appropriate gait sequence. Patient demonstrates exaggerated step with left leg, shorter step length right leg. When prompted to think about it less patients gait pattern improves significantly. VITALS: closely monitored by nursing staff. ASSESSMENT: Patient tolerates therapy well, remains motivated and agreeable even when back pain becomes unbearable in the afternoon. PLAN: Continue global strengthening per plan of care until patient is medically cleared for discharge. TREATMENT CODE/TIME: 35913 Gait 16 minutes beginning at 10:40. AFTERNOON no charge, patient ambulates <6 minutes before being sent back to room for meeting with surgeon.
--- NOTE | 2022-12-27 14:14 | PGE_ITS ---
Date of Service Date of service: 12/27/22 Time of Service: 14:14 Assessment and Plan Assessment and plan (1) Colitis: Status: Acute Assessment and plan: Inflammatory vs infectious vs ischemic -Inflammatory: pt denies denies any personeal or family hx of IBD. CRP 22 pANCA and fecal calprotectin -pd -infectious: C diff and stool cultures were negative. pt is on zosyn - Vascular. Coronary artery calcs seen on CT. CT was non-contrast due to CKD. clinically pt is better on prednisone and zosyn. Will continue this pathway of treatment at this time. cont on clears if no signif improvement, consider flex sig for direct visualization and bx. -gentle fluids for hydration of acute on chronic kidney dx (2) Diabetes: Assessment and plan: Poorly controlled -patient was on semaglutide. He started this approximately 3 months ago. Patient is concerned that this is causing colitis. I did discuss with pharmacy. generally, the complications with this medication are more of the upper GI issue and not issues with the colon. -pt is still receiving semaglutide this hospitalization. increased insulin coverage to resistent scale, as blood sugars have been high from steriods - (3) Gout: (4) Hyperlipidemia: (5) Hypertension: (6) Peripheral neuropathy: Status: Acute (7) Stage 3b chronic kidney disease (CKD): Status: Acute (8) Rectal bleeding: Status: Acute (9) NAFLD (nonalcoholic fatty liver disease): Status: Acute (10) Gallstones: Status: Acute (11) Pancreatic atrophy: Status: Acute (12) Coronary artery calcification seen on CAT scan: Status: Acute (13) Pseudocyst of pancreas: Status: Acute Subjective Subjective Interval history since last seen: Pt is doing well. no headaches. No CP or SOB. no productive cough. no dysuria. no leg pain or swelling. Pt has x1 bloody BM today. Still distended. Pain is less. He is tolerating clears. He was up walking w/ PT. Exam Const General: cooperative and comfortable Nutritional Appearance: obese centrally obese Orientation: alert, awake and oriented x3 Other: PHYSICAL EXAM GENERAL APPEARANCE: Alert, healthy appearance, oriented, x 3,? in no acute distress HYDRATION: Well hydrated HEAD, EYES, EARS, NECK, THROAT: Head is normocephalic, pupils equal, round, reactive to light and accommodation, ocular movement intact, sclera clear and no jaundice. ?Dentition -poor LUNGS: normal respiration/normal chest excursion. ?Clear to auscultation bilaterally. ?No wheeze. ?HEART: Regular rate and rhythm. no murmurs EXTREMITY: No edema or cyanosis.? no leg pain, redness, swelling.? ABDOMEN: soft and non-tender to palpation.? Distended. BS are hypoactive. Objective Last Vital Signs Temp 36.5 C 12/27/22 07:11 Pulse 77 12/27/22 07:11 Resp 16 12/27/22 07:11 BP 157/84 H 12/27/22 07:11 Pulse Ox 94 12/27/22 07:11 Laboratory Results - last 24 hr 12/25/22 12/27/22 12/27/22 12:55 06:02 06:02 WBC 11.38 H RBC 4.20 L Hgb 13.7 Hct 39.5 L MCV 94 MCH 32.6 MCHC 34.7 RDW 13.6 Plt Count MPV Immature Gran % 0.4 Neutrophils % 87.7 Lymphocytes % 9.2 Monocytes % 2.6 Eosinophils % 0.0 Basophils % 0.1 Nucleated RBC % 0.0 Absolute Neutrophils 9.98 H Absolute Lymphocytes 1.05 L Absolute Monocytes 0.30 Absolute Eosinophils 0.00 Absolute Basophils 0.01 Sodium 137 Potassium 4.1 Chloride 102 Carbon Dioxide 23.4 Anion Gap 11.6 H BUN 32 H Creatinine 2.2 H Est GFR (CKD-EPI 2020) 32.43 Glucose 354 H Calcium 9.0 Magnesium 2.1 Stool Campylobacter PCR Negative Stool Salmonella PCR Negative Stool Shigella PCR Negative Shiga Toxin (PCR) Negative Add-On Test Request 12/27/22 Unknown WBC RBC Hgb Hct MCV MCH MCHC RDW Plt Count MPV Immature Gran % Neutrophils % Lymphocytes % Monocytes % Eosinophils % Basophils % Nucleated RBC % Absolute Neutrophils Absolute Lymphocytes Absolute Monocytes Absolute Eosinophils Absolute Basophils Sodium Potassium Chloride Carbon Dioxide Anion Gap BUN Creatinine Est GFR (CKD-EPI 2020) Glucose Calcium Magnesium Stool Campylobacter PCR Stool Salmonella PCR Stool Shigella PCR Shiga Toxin (PCR) Add-On Test Request SEE COMMENT Time Spent with Patient Time Spent with Patient: 35-49 minutes Time was spent: preparing to see the patient(eg.review tests), obtaining and/or reviewing separately otained hiistory, ordering medications,tests, procedures, referring, communicating with other health transitions rn care coordinator, indepentently interpreting results, counseling the patient and care coordination
[2022-12-27] MEDS: SODIUM CHLORIDE 0.45% 1,000 ML 50 ML IV (15:20)
--- NOTE | 2022-12-27 18:59 | PDOC.CMPRO ---
Date of service: 12/27/22 Time of Service: 18:59 Care Management Progress Note Progress Note Text Progress Note Text: S/O: Alexandro was sitting up in his chair when CM met with him. He reported that he was starting to feel much better today. He reported that his sugar has been high, which was expected d/t steroids he is currently receiving. Per report, he is clinically improving on IV antibiotics and steroids; his WBC remains elevated but is improving. Alexandro stated that he worked with PT today, and they are recommending PT, which he is agreeable to. CM will continue to follow. A: Alexandro is a 67 year old male admitted to [facility] on 12/24/22 with colitis, GI bleed. P: Anticipate Alexandro will return home once medically cleared. He may benefit from new orders for PT. His will drive him home via private vehicle. He will follow up with his PCP and discharge plan of care. CM will continue to follow.
[2022-12-27] MEDS: Simvastatin 40 MG TAB PO (20:00)
[2022-12-27] MEDS: Gabapentin 300 MG CAP PO (20:20)
[2022-12-28] VITALS (10 sets, daily range): BP systolic 143–180; BP diastolic 76–108; PULSE 69–80; RESP 17–18; TEMP 35.7–36.7; O2SAT 93–97
[2022-12-28] MEDS: methylPREDNISolone SUCC 40 MG VIAL 20 MG IVP ×3 (06:06→20:03)
[2022-12-28] MEDS: PIPERACILLIN/TAZO 4.5 GM in Normal Saline 100 ML IVPB ×3 (06:07→22:07)
[2022-12-28 07:05] LABS: Abs Immature Grans 0.06 10^3/uL (0.0-0.06); Absolute Lymphocyte Count 1.05 10^3/uL (1.2-3.4); Absolute Monocyte Count 0.48 10^3/uL (0.1-0.8); Basophils % 0.2; HCT 40.3 % (40.0-50.0); HGB 13.9 g/dL (13.5-17.5); Immature Grans % 0.5; Lymphocytes % 7.9; MCH 32.1 pg (27.0-33.0); MCHC 34.5 % (32.0-36.0); MCV 93 fL (80-95); MPV 10.4 fL (8.0-11.0); Monocytes % 3.6; Neutrophils % 87.8; Platelet Count 199 10^3/uL (130-400); RBC 4.33 10^6/uL (4.36-5.78); RDW 13.2 % (11.8-14.1); RDW-SD 45.5 fL; WBC 13.25 10^3/uL (4.4-10.8)
[2022-12-28 07:10] LABS: Absolute Basophil Count 0.03 10^3/uL (0.0-0.2); Absolute Neutrophil Count 11.63 10^3/uL (1.2-6.7)
[2022-12-28 07:29] LABS: BUN 36 mg/dL (7-18); Calcium 9.5 mg/dL (8.5-10.1); Chloride 104 mmol/L (98-107); Estimated GFR 36.36 (mL/min/1.73m2); Glucose 360 mg/dL (74-106); Magnesium 1.7 mg/dL (1.8-2.4); NT-proBNP 378 pg/mL (<300); Sodium 139 mmol/L (136-145)
[2022-12-28] MEDS: Insulin Aspart 300 UNITS/3 ML PEN SC ×3 (07:38→17:12)
[2022-12-28] MEDS: Metoprolol 50 MG TAB 100 MG PO ×2 (07:39→20:03)
[2022-12-28] MEDS: Allopurinol 300 MG TAB PO (07:40)
[2022-12-28] MEDS: amLODIPine 2.5 MG TAB PO (07:40)
[2022-12-28] MEDS: Gabapentin 300 MG CAP PO ×3 (07:40→20:03)
--- NOTE | 2022-12-28 07:50 | W.PM.PROGNOT ---
Date of Service Date of service: 12/28/22 Time of Service: 07:50 Assessment and Plan Assessment and plan (1) Colitis: Status: Acute Assessment and plan: Clinically seems to be responding to the prednisone. Blood sugar management has become challenging though. Will resume his home Tresiba at 144 units every night. His blood pressure is also been a little bit high today, so I will add some hydralazine for tonight, and increase amlodipine through tomorrow. I think it is okay to advance his diet at this point. I would prefer to try to get him through this period of inflammation prior to colonoscopy to minimize the chances of procedural complications Subjective Subjective Interval history since last seen: Jett is feeling much better today. He is passing some flatus, and he is having more formed, but still slightly bloody bowel movements. He denies any abdominal pain. His appetite is increased a bit. Exam GI Other: His abdomen is soft, minimally distended, and not tender. He has normal bowel sounds Objective Last Vital Signs Temp 97.7 F 12/28/22 07:38 Pulse 74 12/28/22 07:38 Resp 17 12/28/22 07:38 BP 180/100 H 12/28/22 07:38 Pulse Ox 97 12/28/22 07:38 Laboratory Results - last 24 hr 12/25/22 12/27/22 12/28/22 12:55 Unknown 06:13 WBC RBC Hgb Hct MCV MCH MCHC RDW Plt Count MPV Immature Gran % Neutrophils % Lymphocytes % Monocytes % Eosinophils % Basophils % Nucleated RBC % Absolute Neutrophils Absolute Lymphocytes Absolute Monocytes Absolute Eosinophils Absolute Basophils Sodium 139 Potassium 4.0 Chloride 104 Carbon Dioxide 28.0 Anion Gap 7.0 BUN 36 H Creatinine 2.0 H Est GFR (CKD-EPI 2020) 36.36 Glucose 360 H Calcium 9.5 Magnesium 1.7 L C-Reactive Protein 13.10 H NT-Pro-B Natriuret Pep 378 H Stool Campylobacter PCR Negative Stool Salmonella PCR Negative Stool Shigella PCR Negative Shiga Toxin (PCR) Negative Add-On Test Request SEE COMMENT 12/28/22 06:13 WBC 13.25 H RBC 4.33 L Hgb 13.9 Hct 40.3 MCV 93 MCH 32.1 MCHC 34.5 RDW 13.2 Plt Count 199 D MPV 10.4 Immature Gran % 0.5 Neutrophils % 87.8 Lymphocytes % 7.9 Monocytes % 3.6 Eosinophils % 0.0 Basophils % 0.2 Nucleated RBC % 0.0 Absolute Neutrophils 11.63 H Absolute Lymphocytes 1.05 L Absolute Monocytes 0.48 Absolute Eosinophils 0.00 Absolute Basophils 0.03 Sodium Potassium Chloride Carbon Dioxide Anion Gap BUN Creatinine Est GFR (CKD-EPI 2020) Glucose Calcium Magnesium C-Reactive Protein NT-Pro-B Natriuret Pep Stool Campylobacter PCR Stool Salmonella PCR Stool Shigella PCR Shiga Toxin (PCR) Add-On Test Request Time Spent with Patient Time Spent with Patient: 25-34 minutes Time was spent: preparing to see the patient(eg.review tests), ordering medications,tests, procedures, indepentently interpreting results and counseling the patient
--- NOTE | 2022-12-28 12:04 | CMPROGNOTE_ITS ---
Date of service: 12/28/22 Time of Service: 12:04 Care Management Progress Note Progress Note Text Progress Note Text: S/O: Alexandro was sitting up in his chair when CM met with him. He reported that he is feeling good today, and is less foggy than when he arrived. He reported that he is doing well with ambulation, and feels that he may benefit from outpatient PT instead of HH PT. CM consulted TONYA Upton, who agreed that outpatient would be appropriate, as his level of functioning has improved during this hospitalization. Alexandro stated that per MD, he may be ready to discharge within 24H to 48H. He feels comfortable with this plan, as he states that he is feeling much better. CM will continue to follow. A: Alexandro is a 67 year old male admitted to [facility] on 12/24/22 with colitis, GI bleed. P: Anticipate Alexandro will return home once medically cleared. He will benefit from a new order for outpatient PT. His will drive him home via private vehicle. He will follow up with his PCP and discharge plan of care. CM will continue to follow.
[2022-12-28] MEDS: SODIUM CHLORIDE 0.45% 1,000 ML 50 ML IV (12:43)
[2022-12-28] MEDS: Normal Saline Flush 10 ML SYR IVP ×2 (12:45→20:12)
--- NOTE | 2022-12-28 13:55 | PT.INTREAT ---
Date of service: 12/28/22 Time of Service: 10:40 PT Notes Visit Reasons: Colitis, GI bleed Inpatient Physical Therapy Treatment Note [facility] Date: 12/27/22 PRECAUTIONS: Fall, standard, activity as tolerated. SUBJECTIVE: Patient sitting up in recliner with feet down, agreeable to therapy. OBJECTIVE: ? PAIN: none reported AFTERNOON significant LBP, asks for therapy to come back in an hour, then patient's surgeon arrives and PT is cut short.? BED MOBILITY/TRANSFERS? Sit-stand: SBA? Stand-sit: SBA ? Bed-Chair: SBA ? Chair-bed: SBA ? GAIT? Assistive Device: SPC? Weight bearing: full Assist: SBA ? Distance:? 600 feet ? Deviation: Vebal cueing required for appropriate gait sequence. Patient demonstrates exaggerated step with left leg, shorter step length right leg. When prompted to think about it less patients gait pattern improves significantly.? VITALS:? closely monitored by nursing staff. ? ASSESSMENT:? Patient tolerates therapy well, remains motivated and agreeable even when back pain becomes unbearable in the afternoon. PLAN: Continue global strengthening per plan of care until patient is medically cleared for discharge. TREATMENT CODE/TIME: 75094 Gait 16 minutes beginning at 10:40. AFTERNOON no charge, patient ambulates <6 minutes before being sent back to room for meeting with surgeon.?
[2022-12-28] MEDS: Pantoprazole 40 MG VIAL IVP (14:10)
[2022-12-28 14:39] LABS: ANCA Interpretation Negative (Negative)
[2022-12-28 14:45] LABS: ANA Interpretation Negative (Negative)
--- NOTE | 2022-12-28 16:30 | CHAPLAIN ---
Alexandro was resting bed when I visited. He said he'd been up in the chair a while and his back was hurting. When I explained who I was, Alexandro said I hope I don't need you yet. He explained that he's feeling better, but that sometimes he is scared. He said he believes everyone is scared at times, but may not admit it. He said he calms himself when he's scared, tries to change what he can, and accept what he can't. His has been in to visit him.
[2022-12-28] MEDS: hydrALAZINE 10 MG TAB PO (17:13)
[2022-12-28] MEDS: Simvastatin 40 MG TAB PO (20:03)
[2022-12-29] VITALS (8 sets, daily range): BP systolic 130–201; BP diastolic 80–105; PULSE 65–83; RESP 16–20; TEMP 35.6–36.9; O2SAT 91–96
[2022-12-29] MEDS: methylPREDNISolone SUCC 40 MG VIAL 20 MG IVP ×2 (04:40→11:46)
[2022-12-29] MEDS: PIPERACILLIN/TAZO 4.5 GM in Normal Saline 100 ML IVPB ×2 (04:41→14:21)
[2022-12-29] MEDS: Normal Saline Flush 10 ML SYR IVP ×3 (04:42→14:20)
[2022-12-29] MEDS: Insulin Aspart 300 UNITS/3 ML PEN SC ×2 (08:00→11:47)
[2022-12-29] MEDS: amLODIPine 5 MG TAB PO (08:00)
[2022-12-29] MEDS: Gabapentin 300 MG CAP PO ×2 (08:00→14:21)
[2022-12-29] MEDS: Metoprolol 50 MG TAB 100 MG PO (08:00)
[2022-12-29] MEDS: Allopurinol 300 MG TAB PO (08:00)
[2022-12-29 08:35] LABS: Anion Gap 9.7 mmol/L (3-11); BUN 46 mg/dL (7-18); C-Reactive Protein 6.03 mg/dL (0.0-0.3); CO2 29.3 mmol/L (21.0-32.0); CREATININE 2.2 mg/dL (0.70-1.30); Calcium 9.3 mg/dL (8.5-10.1); Chloride 99 mmol/L (98-107); Estimated GFR 32.43 (mL/min/1.73m2); Glucose 322 mg/dL (74-106); Magnesium 1.6 mg/dL (1.8-2.4); Potassium 4.3 mmol/L (3.5-5.1); Sodium 138 mmol/L (136-145)
--- NOTE | 2022-12-29 09:08 | PGE_ITS ---
Date of Service Date of service: 12/29/22 Time of Service: 09:09 Assessment and Plan Assessment and plan (1) Colitis: Status: Acute Assessment and plan: -pt last bm was yesterday- Bright red blood and mucousy per RN's. pt tolerating regualr diet -it is unclear the etiology of the colitis. He is at high risk for ischemic colitis given his comorbidities. However we are not able to do a CT scan with contrast because of his renal function. Clinically he is significantly improved and responded well to conservative medical management - surgery will see him back in the office in 1 to 2 weeks time. Will see how he is progressing and tolerating his steroid wean. We will decide on timing for colonoscopy at that point. -At some point he should be sent down to [facility] for ultrasound duplex for further evaluation of his arterial system. -See discharge instructions Patient discharged home in stable and satisfactory condition with his spouse. -No driving if you are taking narcotic (ultram) pain medications. [facility] Surgery Clinic: [phone] -Follow-up with surgery in 1 week. -Follow up with PCP next week. -soft diet: see below -no straining to move bowels -pain meds are very constipating: if you do not move your bowels daily take a dose of OTC Miralax -Protein supplements daily. You may find that your appetite is smaller. Eat 3-6 small meals throughout the day. It is important to drink lots of water after surgery, 6-10 glasses a day. -We do want you up walking, at least 5-6 times per day. This is very important to prevent pneumonia and blood clots. You can climb stairs, take them slowly. -No lifting over 5 pounds. -we did change your gabapentin to pregabalin in hopes of better pain control. -I did prescribe a low dose of ultram for pain control. Stop the Celebrex. -consider switching the tofranil to duloxitine for better pain control. -You may find that you are very tired after being in the hospital- this is normal. rx: augmentin lyrica ultram consider change from tofranil to duloxetine for pain control Prednisone taper: -40mg for 3 days -30mg for 3 days -20mg for 3 days -10mg for 3 days -5mg for 3 days -1mg for 3 days -than stop (2) Rectal bleeding: Status: Acute (3) Stage 3b chronic kidney disease (CKD): Status: Acute (4) NAFLD (nonalcoholic fatty liver disease): Status: Acute (5) Hypertension: Assessment and plan: Pt amoldipine was increased today and he did receive B blockers. Will monitor blood pressure. (6) Diabetes: Subjective Subjective Interval history since last seen: pt -pt last bm was yesterday- Bright red blood and mucousy per RN's. pt tolerating regular diet He is significantly le less abdominal pain and distention since I saw him on Monday. He has no fever. He is white count is down to 13. CRP is down to 6. He is up and ambulatory. Clinically he looks significantly improved Exam Const Other: PHYSICAL EXAM GENERAL APPEARANCE: Alert, healthy appearance, oriented, x 3,? in no acute distress HYDRATION: Well hydrated HEAD, EYES, EARS, NECK, THROAT: Head is normocephalic, pupils equal, round, reactive to light and accommodation, ocular movement intact, sclera clear and no jaundice. ?Dentition poor LUNGS: normal respiration/normal chest excursion. ?Clear to auscultation bilaterally. ? ?HEART: Regular rate and rhythm. no murmurs ABDOMEN: soft and non-tender to palpation.? Normal bowel sounds.? He has chronic subcutaneous nodules from multiple years of insulin injections none of these show any signs of acute infection Objective Last Vital Signs Temp 35.9 C L 12/29/22 07:20 Pulse 67 12/29/22 07:20 Resp 20 12/29/22 07:20 BP 142/90 H 12/29/22 07:25 Pulse Ox 93 12/29/22 07:20 Laboratory Results - last 24 hr 12/24/22 20:00 GABE Titer Not Applicable GABE Titer 2 Not Applicable GABE Titer 3 Not Applicable GABE Interpretation Negative ANCA Immunofluorescen Negative ANCA Titer Not Applicable ANCA Pattern Not Applicable Time Spent with Patient Time Spent with Patient: 35-49 minutes Time was spent: preparing to see the patient(eg.review tests), obtaining and/or reviewing separately otained hiistory, ordering medications,tests, procedures, referring, communicating with other health customer care agent, indepentently interpreting results, counseling the patient and care coordination
[2022-12-29 10:27] LABS: Absolute Basophil Count 0.03 10^3/uL (0.0-0.2); Absolute Lymphocyte Count 1.19 10^3/uL (1.2-3.4); Absolute Monocyte Count 0.62 10^3/uL (0.1-0.8); Absolute Neutrophil Count 11.44 10^3/uL (1.2-6.7); Basophils % 0.2; HCT 41.9 % (40.0-50.0); HGB 14.7 g/dL (13.5-17.5); Immature Grans % 0.8; Lymphocytes % 8.9; MCH 32.2 pg (27.0-33.0); MCHC 35.1 % (32.0-36.0); MCV 92 fL (80-95); Monocytes % 4.6; Neutrophils % 85.5; Platelet Count 215 10^3/uL (130-400); RBC 4.56 10^6/uL (4.36-5.78); RDW 13.2 % (11.8-14.1); RDW-SD 45.1 fL; WBC 13.39 10^3/uL (4.4-10.8)
[2022-12-29 10:28] LABS: Abs Immature Grans 0.11 10^3/uL (0.0-0.06)
--- NOTE | 2022-12-29 11:04 | PT.INTREAT ---
Date of service: 12/29/22 Time of Service: 10:18 PT Notes Visit Reasons: Colitis, GI bleed Inpatient Physical Therapy Treatment Note [facility] Date: 12/29/22 PRECAUTIONS: Fall, standard, activity as tolerated. SUBJECTIVE: Patient sitting EOB, agreeable to therapy. OBJECTIVE: PAIN: none reported. BED MOBILITY/TRANSFERS Sit-stand: SBA Stand-sit: SBA Bed-Chair: SBA Chair-bed: SBA] GAIT Assistive Device: SPC Weight bearing: Full Assist: Follow with wheelchair, which proved unnecessary Distance: approximately 1,000-1,500 feet Deviation: Patient appears steady, experiences no LOB, demonstrates good gait sequence with SPC over uneven concrete outside VITALS: monitored via telemetry by nursing staff. STAIRS: Ascends 3 six inch stairs with SPC, single railing, SBA. No verbal cue required, patient demonstrates safe performance. ASSESSMENT: patient tolerates therapy well, was excited to get some fresh air. PLAN: Continue global strengthening per plan of care until patient is medically cleared for discharge. TREATMENT CODE/TIME: 93701 Gait 27 minutes beginning at 10:18
--- NOTE | 2022-12-29 11:29 | DSE_ITS ---
Date of service: 12/29/22 Time of Service: 11:30 DS: Diagnosis Discharge Diagnosis (1) Colitis: Status: Acute (2) Rectal bleeding: Status: Acute (3) Stage 3b chronic kidney disease (CKD): Status: Acute (4) NAFLD (nonalcoholic fatty liver disease): Status: Acute (5) Hypertension: (6) Diabetes: Discharge Plan Disposition Condition: Improving Discharge Details Reason For Visit: Colitis, GI bleed Admit Date/Time: 12/24/22 22:34 Admit Provider: Gatito Talbert Attending Provider: Gatito Talbert Primary Care Provider: Sarah Francis Hospital Course Hospital Course: see addendum Home Meds and New Rx's Prescriptions: New pregabalin [Lyrica] 100 mg capsule 100 mg PO TID 30 Days Qty: 90 0RF Rx Instructions: f/u with PCP for further refills tramadol 50 mg tablet 50 mg PO Q6H PRNQty: 14 0RF Rx Instructions: Further refills to come from PCP polyethylene glycol 3350 [Miralax] 17 gram/dose powder 17 g PO DAILY PRN (Reason: laxative effect) Qty: 510 0RF prednisone 20 mg tablet 40 mg PO DAILY 3 Days Qty: 6 0RF prednisone 20 mg tablet 30 mg PO TID 3 Days Qty: 14 0RF prednisone 20 mg tablet 20 mg PO TID 3 Days Qty: 9 0RF prednisone 10 mg tablet 10 mg PO TID 3 Days Qty: 9 0RF prednisone 5 mg tablet 5 mg PO TID 3 Days Qty: 9 0RF prednisone 1 mg tablet 1 mg PO DAILY 3 Days Qty: 3 0RF Continued imipramine HCl 50 mg tablet 50 mg PO BID Patient Comments: TAKE 1 TABLET BY MOUTH TWICE A DAY metoprolol tartrate 100 mg tablet 100 mg PO BID Patient Comments: TK 2 TS PO BID metformin 850 mg tablet 850 mg PO DIRECTED Patient Comments: TAKE 2 TABLETS BY MOUTH EVERY MORNING AND 1 TABLET EVERY EVENING amlodipine 2.5 mg tablet 2.5 mg PO DAILY Patient Comments: TAKE 1 TABLET BY MOUTH ONCE DAILY simvastatin 40 mg tablet 40 mg PO DAILY Patient Comments: TAKE 1 TABLET BY MOUTH AT BEDTIME allopurinol 300 mg tablet 300 mg PO DAILY Patient Comments: TAKE 1 TABLET BY MOUTH ONCE DAILY insulin lispro [Humalog U-100 Insulin] 100 unit/mL solution See Rx Instructions .ROUTE .COMPLEX Patient Comments: INJECT SC PER SLIDING SCALE BEFORE MEALS. MAX OF 140 UNITS DAILY. Rx Instructions: as directed Levemir U-100 Insulin 100 unit/mL solution 50 - 100 unit SUBCUT DIRECTED Patient Comments: INJECT 50 UNITS SUBCUTANEOUSLY EVERY MORNING AND 110 UNITS EVERY EVENING Rx Instructions: 50 units morning, and 100 units in the evening aspirin 81 mg Tablet,Delayed Release (Dr/Ec) 81 mg PO DAILY Rybelsus 7 mg tablet 7 mg PO DAILY Patient Comments: TAKE ONE TABLET BY MOUTH EVERY DAY insulin degludec [Tresiba FlexTouch U-200] 200 unit/mL (3 mL) Insulin Pen 144 unit SUBCUT HS Discontinued celecoxib 100 mg capsule 100 mg PO BID Patient Comments: TAKE 2 CAPSULES BY MOUTH DAILY cephalexin 500 mg capsule 500 mg PO QID Patient Comments: TK 1 C PO QID gabapentin 400 mg capsule 400 mg PO QID Patient Comments: TK 1 C PO QID Discharge Instructions Additional Instructions: -No driving if you are taking narcotic (ultram) pain medications. [facility] Surgery Clinic: [phone] -Follow-up with surgery in 1 week. -Follow up with PCP next week. -soft diet: see below -no straining to move bowels -pain meds are very constipating: if you do not move your bowels daily take a dose of OTC Miralax -Protein supplements daily. You may find that your appetite is smaller. Eat 3-6 small meals throughout the day. It is important to drink lots of water after surgery, 6-10 glasses a day. -We do want you up walking, at least 5-6 times per day. This is very important to prevent pneumonia and blood clots. You can climb stairs, take them slowly. -No lifting over 5 pounds. -we did change your gabapentin to pregabalin in hopes of better pain control. -I did prescribe a low dose of ultram for pain control. Stop the Celebrex. -consider switching the tofranil to duloxitine for better pain control. -You may find that you are very tired after being in the hospital- this is normal. Prednisone taper: -40mg for 3 days -30mg for 3 days -20mg for 3 days -10mg for 3 days -5mg for 3 days -1mg for 3 days -than stop Gastrointestinal Soft Diet Overview Overview What is a gastrointestinal soft diet? This diet is soft in texture, low in fiber, and easy to digest. The goal is to decrease) ?in the bowel that may cause and discomfort. This diet is often used after abdominal surgery or as a transitional diet after flares. Meats & Meat Substitutes ? Foods Allowed: Chicken, turkey, fish, tender cuts of beef and pork, ground meats, eggs, creamy nut butters, tofu, skinless hot dogs, sausage patties without whole spices ? Foods to Avoid : Tough, fibrous meats with gristle, meat with casings (hot dogs, sausage, kielbasa), lunch meats with whole spices, shellfish, beans, chunky peanut butter, nuts Fruits and Juices ? Foods Allowed: Fruit juices without pulp, banana, avocado, applesauce, canned peaches and pears, cooked fruit without the skin/seeds.? Ground or over- cooked fruits.? Fruits ground finely in a ?smoothie?. ? Foods to Avoid: Juices with pulp, fresh fruit (except banana and avocado), dried fruits, canned fruit cocktail and pineapple, coconut, frozen/thawed berries Vegetables ? Foods Allowed: Well-cooked or canned vegetables, potatoes without skin, tomato sauces, vegetable juice ? Foods to Avoid: Raw vegetables, all corn, all mushrooms, stewed tomatoes, potato skins, stir-toro vegetables, sauerkraut, pickles, olives, all dried beans, peas, and legumes Cereals and Grains ? Foods Allowed: Low- fiber dry or cooked cereals (less than 2 grams fiber per serving), white rice, pasta, macaroni, or noodles ? Foods to Avoid: Cereals with nuts, berries, dried fruits, whole grain cereals, bran cereals, granola, brown or wild rice, whole grain pasta Breads and Crackers ? Foods Allowed: White/refined breads and rolls, plain bagel, toast, plain crackers, andie crackers ? Foods to Avoid: Whole grain breads- including white whole grain; bread/ rolls with raisins, nuts or seeds, multi-grain crackers Dairy ? Foods Allowed: Milk, cheese, yogurt, milkshakes, pudding, ice cream, cottage cheese, sherbet ;?lactose free or low lactose versions if lactose intolerant ? Foods to Avoid: Dairy product mixed with fresh fruit (except banana), berries, nuts or seeds Desserts ? Foods Allowed: Plain cake, pudding, custard, ice cream, sherbet, gelatin, fruit whips ? Foods to Avoid: Any dessert that contains nuts, dried fruits, coconut, or fruits with seeds Herbs and Spices ? Foods Allowed: All ground spices or herbs, salt ? Foods to Avoid: Whole spices such as peppercorns, whole cloves, anise seeds, celery seeds, shana, cherry seeds, and fresh herbs Snacks/Other Foods ? Foods Allowed: Sugar, honey, jelly, mayonnaise, mustard, soy sauce, oil, butter, margarine, marshmallows, cookies without dried fruits or nuts, snack ch ips and pretzels using refined flours ? Foods to Avoid: Carbonated beverages, jams or jellies with seeds, popcorn After several weeks, slowly start to reintroduce the ?Foods to Avoid? back into your diet unless your doctor has told you otherwise. Try a small portion of one of these foods each day. If it does not bother you within 24 hours, it can be added to your diet. Continue to add new foods in this way. Some people may continue to have food sensitivities and may need to continue to avoid certain foods. If you cannot tolerate a food, avoid that food for a few weeks before you try it again. Guidelines when eating 1.??? Avoid any food that you cannot tolerate or that causes gas, bloating, or stomach pain. 2.??? Make time for your meals. Do not eat while you are in a hurry. Cut your food into small pieces. Chew each bite to a mashed potato consistency. Do not eat when you cannot concentrate on chewing well. 3.??? Drink at least 6-8 cups of fluid per day? Fluids include: water, coffee, tea, juice, milk, popsicles, soups, gelatin, pudding, ice cream, sherbet, and yogurt. In addition, choose caffeine-free beverages more often, especially if you are having?diarrhea. 4.??? A daily multivitamin may be recommended if diet is limited in amounts or variety of foods. Do not take any herbal supplements without first checking with your doctor. Stand Alone Forms: Nursing Discharge Form Referrals: Magda Muñoz MD [ [facility] STAFF PHYSICIAN] - 01/03/23 9:00 am Activity:: see above Activity:: Activity as Tolerated Diet:: Carb Counting DS: Summary Time Spent with Patient providing and/or coordinating discharge services: Less than 30 minutes Status at Discharge Functional status at discharge: uses cane/walker Overall status at discharge: patient is progressing back to baseline Mental Status: mental status grossly normal Speech and Movement: speech and movement normal Mood: congruent mood Affect: normal affect Exam Psych Mental Status: mental status grossly normal Speech and Movement: speech and movement normal Mood: congruent mood Affect: normal affect DS: Data Vitals/I&O Vitals and I&O: Vital Signs Temperature 36.9 C 12/29/22 11:16 Temperature Source Tympanic 12/29/22 11:16 Pulse 82 12/29/22 11:16 Pulse Rhythm Regular 12/28/22 07:30 Pulse 87 12/24/22 23:32 Respiratory Rate 20 12/29/22 07:20 Respiratory Effort Normal, Non-Labored 12/29/22 08:00 Respiratory Depth Normal 12/29/22 08:00 Respiratory Pattern Normal 12/29/22 08:00 Blood Pressure 158/91 H 12/29/22 11:16 Blood Pressure Mean 92 12/24/22 23:32 Blood Pressure Position Sitting 12/24/22 18:42 Pulse Oximetry 96 12/29/22 11:16 Oxygen Delivery Method Room Air 12/29/22 11:16 Oxygen Flow Rate 0 12/29/22 11:16 Pain Level 5 12/29/22 11:16 Comment pt just got done walking halls with PT 12/28/22 10:58 Intake & Output 12/28/22 12/28/22 12/29/22 11:59 23:59 11:59 Intake Total 1100 / 1720 620 / 1720 1570 / 1570 Output Total 540 / 540 Balance 560 / 1180 620 / 1180 1570 / 1570 Intake: IV 1100 / 1300 200 / 1300 1200 / 1200 Oral 420 / 420 370 / 370 Output: Urine 540 / 540 Other: Urine Color Pale Urine Appearance Clear Clear Clear Comment 1 unknown void at this time Stool Size Small Stool Characteristics Soft Mucoid Voiding Methods Urinal Toilet Incontinent Incontinent Data Completed and Pending Labs on day of discharge: Labs from last 24 hours 12/29/22 12/29/22 12/24/22 06:59 06:59 20:00 WBC 13.39 H RBC 4.56 Hgb 14.7 Hct 41.9 MCV 92 MCH 32.2 MCHC 35.1 RDW 13.2 Plt Count 215 MPV 10.0 Immature Gran % 0.8 Neutrophils % 85.5 Lymphocytes % 8.9 Monocytes % 4.6 Eosinophils % 0.0 Basophils % 0.2 Nucleated RBC % 0.0 Absolute Neutrophils 11.44 H Absolute Lymphocytes 1.19 L Absolute Monocytes 0.62 Absolute Eosinophils 0.00 Absolute Basophils 0.03 Sodium 138 Potassium 4.3 Chloride 99 Carbon Dioxide 29.3 Anion Gap 9.7 BUN 46 H Creatinine 2.2 H Est GFR (CKD-EPI 2020) 32.43 Glucose 322 H Calcium 9.3 Magnesium 1.6 L C-Reactive Protein 6.03 H GABE Titer Not Applicable GABE Titer 2 Not Applicable GABE Titer 3 Not Applicable GABE Interpretation Negative ANCA Immunofluorescen Negative ANCA Titer Not Applicable ANCA Pattern Not Applicable PFSH All Active Problems (Updated 12/27/22 @ 14:50 by Charisma Carr DO) Pseudocyst of pancreas (Acute) Coronary artery calcification seen on CAT scan (Acute) Pancreatic atrophy (Acute) Gallstones (Acute) NAFLD (nonalcoholic fatty liver disease) (Acute) Rectal bleeding (Acute) Stage 3b chronic kidney disease (CKD) (Acute) Peripheral neuropathy (Acute) Colitis (Acute) Medical History Diabetes Gout Hyperlipidemia Hypertension Surgical History History of cataract surgery Previous back surgery x2 in the 's Social History Smoking/Tobacco Use Status: Former Tobacco Use Quit Date: 05/22/87 Smoking risk assessment performed?: Yes Alcohol Intake: never Drug use: Never Substance use type: does not use Housing: house Do you feel safe at home: Yes Do you feel safe in your relationship?: Yes Time Spent with Patient Time Spent with Patient: <45 minutes Time was spent: preparing to see the patient(eg.review tests), obtaining and/or reviewing separately otained hiistory, ordering medications,tests, procedures, referring, communicating with other health healthcare advisory services manager, indepentently interpreting results, counseling the patient and care coordination
--- NOTE | 2022-12-29 12:07 | DSE_ITS ---
Date of service: 12/29/22 Time of Service: 12:08 DS: Diagnosis Discharge Diagnosis (1) Colitis: Status: Acute (2) Rectal bleeding: Status: Acute (3) Stage 3b chronic kidney disease (CKD): Status: Acute (4) NAFLD (nonalcoholic fatty liver disease): Status: Acute (5) Hypertension: (6) Diabetes: Discharge Plan Disposition Condition: Improving Discharge Details Reason For Visit: Colitis, GI bleed Admit Date/Time: 12/24/22 22:34 Admit Provider: Gatito Talbert Attending Provider: Gatito Talbert Primary Care Provider: Sarah Francis Hospital Course Hospital Course: see addendum Home Meds and New Rx's Prescriptions: New pregabalin [Lyrica] 100 mg capsule 100 mg PO TID 30 Days Qty: 90 0RF Rx Instructions: f/u with PCP for further refills tramadol 50 mg tablet 50 mg PO Q6H PRNQty: 14 0RF Rx Instructions: Further refills to come from PCP polyethylene glycol 3350 [Miralax] 17 gram/dose powder 17 g PO DAILY PRN (Reason: laxative effect) Qty: 510 0RF prednisone 20 mg tablet 40 mg PO DAILY 3 Days Qty: 6 0RF prednisone 20 mg tablet 30 mg PO TID 3 Days Qty: 14 0RF prednisone 20 mg tablet 20 mg PO TID 3 Days Qty: 9 0RF prednisone 10 mg tablet 10 mg PO TID 3 Days Qty: 9 0RF prednisone 5 mg tablet 5 mg PO TID 3 Days Qty: 9 0RF prednisone 1 mg tablet 1 mg PO DAILY 3 Days Qty: 3 0RF amoxicillin-pot clavulanate 875-125 mg tablet 1 tab PO BID 5 Days Qty: 10 0RF Continued imipramine HCl 50 mg tablet 50 mg PO BID Patient Comments: TAKE 1 TABLET BY MOUTH TWICE A DAY metoprolol tartrate 100 mg tablet 100 mg PO BID Patient Comments: TK 2 TS PO BID metformin 850 mg tablet 850 mg PO DIRECTED Patient Comments: TAKE 2 TABLETS BY MOUTH EVERY MORNING AND 1 TABLET EVERY EVENING amlodipine 2.5 mg tablet 2.5 mg PO DAILY Patient Comments: TAKE 1 TABLET BY MOUTH ONCE DAILY simvastatin 40 mg tablet 40 mg PO DAILY Patient Comments: TAKE 1 TABLET BY MOUTH AT BEDTIME allopurinol 300 mg tablet 300 mg PO DAILY Patient Comments: TAKE 1 TABLET BY MOUTH ONCE DAILY insulin lispro [Humalog U-100 Insulin] 100 unit/mL solution See Rx Instructions .ROUTE .COMPLEX Patient Comments: INJECT SC PER SLIDING SCALE BEFORE MEALS. MAX OF 140 UNITS DAILY. Rx Instructions: as directed Levemir U-100 Insulin 100 unit/mL solution 50 - 100 unit SUBCUT DIRECTED Patient Comments: INJECT 50 UNITS SUBCUTANEOUSLY EVERY MORNING AND 110 UNITS EVERY EVENING Rx Instructions: 50 units morning, and 100 units in the evening aspirin 81 mg Tablet,Delayed Release (Dr/Ec) 81 mg PO DAILY Rybelsus 7 mg tablet 7 mg PO DAILY Patient Comments: TAKE ONE TABLET BY MOUTH EVERY DAY insulin degludec [Tresiba FlexTouch U-200] 200 unit/mL (3 mL) Insulin Pen 144 unit SUBCUT HS Discontinued celecoxib 100 mg capsule 100 mg PO BID Patient Comments: TAKE 2 CAPSULES BY MOUTH DAILY cephalexin 500 mg capsule 500 mg PO QID Patient Comments: TK 1 C PO QID gabapentin 400 mg capsule 400 mg PO QID Patient Comments: TK 1 C PO QID Discharge Instructions Additional Instructions: -No driving if you are taking narcotic (ultram) pain medications. [facility] Surgery Clinic: [phone] -Follow-up with surgery in 1 week. -Follow up with PCP next week. -soft diet: see below -no straining to move bowels -pain meds are very constipating: if you do not move your bowels daily take a dose of OTC Miralax -Protein supplements daily. You may find that your appetite is smaller. Eat 3-6 small meals throughout the day. It is important to drink lots of water after surgery, 6-10 glasses a day. -We do want you up walking, at least 5-6 times per day. This is very important to prevent pneumonia and blood clots. You can climb stairs, take them slowly. -No lifting over 5 pounds. -we did change your gabapentin to pregabalin in hopes of better pain control. -I did prescribe a low dose of ultram for pain control. Stop the Celebrex. -consider switching the tofranil to duloxitine for better pain control. -You may find that you are very tired after being in the hospital- this is normal. Prednisone taper: -40mg for 3 days -30mg for 3 days -20mg for 3 days -10mg for 3 days -5mg for 3 days -1mg for 3 days -than stop Gastrointestinal Soft Diet Overview Overview What is a gastrointestinal soft diet? This diet is soft in texture, low in fiber, and easy to digest. The goal is to decrease) ?in the bowel that may cause and discomfort. This diet is often used after abdominal surgery or as a transitional diet after flares. Meats & Meat Substitutes ? Foods Allowed: Chicken, turkey, fish, tender cuts of beef and pork, ground meats, eggs, creamy nut butters, tofu, skinless hot dogs, sausage patties without whole spices ? Foods to Avoid : Tough, fibrous meats with gristle, meat with casings (hot dogs, sausage, kielbasa), lunch meats with whole spices, shellfish, beans, chunky peanut butter, nuts Fruits and Juices ? Foods Allowed: Fruit juices without pulp, banana, avocado, applesauce, canned peaches and pears, cooked fruit without the skin/seeds.? Ground or over- cooked fruits.? Fruits ground finely in a ?smoothie?. ? Foods to Avoid: Juices with pulp, fresh fruit (except banana and avocado), dried fruits, canned fruit cocktail and pineapple, coconut, frozen/thawed berries Vegetables ? Foods Allowed: Well-cooked or canned vegetables, potatoes without skin, tomato sauces, vegetable juice ? Foods to Avoid: Raw vegetables, all corn, all mushrooms, stewed tomatoes, potato skins, stir-toro vegetables, sauerkraut, pickles, olives, all dried beans, peas, and legumes Cereals and Grains ? Foods Allowed: Low- fiber dry or cooked cereals (less than 2 grams fiber per serving), white rice, pasta, macaroni, or noodles ? Foods to Avoid: Cereals with nuts, berries, dried fruits, whole grain cereals, bran cereals, granola, brown or wild rice, whole grain pasta Breads and Crackers ? Foods Allowed: White/refined breads and rolls, plain bagel, toast, plain crackers, andie crackers ? Foods to Avoid: Whole grain breads- including white whole grain; bread/ rolls with raisins, nuts or seeds, multi-grain crackers Dairy ? Foods Allowed: Milk, cheese, yogurt, milkshakes, pudding, ice cream, cottage cheese, sherbet ;?lactose free or low lactose versions if lactose intolerant ? Foods to Avoid: Dairy product mixed with fresh fruit (except banana), berries, nuts or seeds Desserts ? Foods Allowed: Plain cake, pudding, custard, ice cream, sherbet, gelatin, fruit whips ? Foods to Avoid: Any dessert that contains nuts, dried fruits, coconut, or fruits with seeds Herbs and Spices ? Foods Allowed: All ground spices or herbs, salt ? Foods to Avoid: Whole spices such as peppercorns, whole cloves, anise seeds, celery seeds, shana, cherry seeds, and fresh herbs Snacks/Other Foods ? Foods Allowed: Sugar, honey, jelly, mayonnaise, mustard, soy sauce, oil, butter, margarine, marshmallows, cookies without dried fruits or nuts, snack chips and pretzels using refined flours ? Foods to Avoid: Carbonated beverages, jams or jellies with seeds, popcorn After several weeks, slowly start to reintroduce the ?Foods to Avoid? back into your diet unless your doctor has told you otherwise. Try a small portion of one of these foods each day. If it does not bother you within 24 hours, it can be added to your diet. Continue to add new foods in this way. Some people may continue to have food sensitivities and may need to continue to avoid certain foods. If you cannot tolerate a food, avoid that food for a few weeks before you try it again. Guidelines when eating 1.??? Avoid any food that you cannot tolerate or that causes gas, bloating, or stomach pain. 2.??? Make time for your meals. Do not eat while you are in a hurry. Cut your food into small pieces. Chew each bite to a mashed potato consistency. Do not eat when you cannot concentrate on chewing well. 3.??? Drink at least 6-8 cups of fluid per day? Fluids include: water, coffee, tea, juice, milk, popsicles, soups, gelatin, pudding, ice cream, sherbet, and yogurt. In addition, choose caffeine-free beverages more often, especially if you are having?diarrhea. 4.??? A daily multivitamin may be recommended if diet is limited in amounts or variety of foods. Do not take any herbal supplements without first checking with your doctor. Stand Alone Forms: Nursing Discharge Form Referrals: Magda Muñoz MD [ [facility] STAFF PHYSICIAN] - 01/03/23 9:00 am Activity:: see above Activity:: Activity as Tolerated Diet:: Carb Counting DS: Summary Time Spent with Patient providing and/or coordinating discharge services: Greater than 30 minutes Status at Discharge Functional status at discharge: independent ambulation Overall status at discharge: patient is not back to baseline Mental Status: mental status grossly normal Speech and Movement: speech and movement normal Mood: congruent mood Affect: normal affect Exam Psych Mental Status: mental status grossly normal Speech and Movement: speech and movement normal Mood: congruent mood Affect: normal affect DS: Data Vitals/I&O Vitals and I&O: Vital Signs Temperature 36.9 C 12/29/22 11:16 Temperature Source Tympanic 12/29/22 11:16 Pulse 82 12/29/22 11:16 Pulse Rhythm Regular 12/28/22 07:30 Pulse 87 12/24/22 23:32 Respiratory Rate 20 12/29/22 07:20 Respiratory Effort Normal, Non-Labored 12/29/22 08:00 Respiratory Depth Normal 12/29/22 08:00 Respiratory Pattern Normal 12/29/22 08:00 Blood Pressure 158/91 H 12/29/22 11:16 Blood Pressure Mean 92 12/24/22 23:32 Blood Pressure Position Sitting 12/24/22 18:42 Pulse Oximetry 96 12/29/22 11:16 Oxygen Delivery Method Room Air 12/29/22 11:16 Oxygen Flow Rate 0 12/29/22 11:16 Pain Level 5 12/29/22 11:16 Comment pt just got done walking halls with PT 12/28/22 10:58 Intake & Output 12/28/22 12/29/22 12/29/22 23:59 11:59 23:59 Intake Total 620 / 1720 1570 / 1570 Balance 620 / 1180 1570 / 1570 Intake: IV 200 / 1300 1200 / 1200 Oral 420 / 420 370 / 370 Other: Urine Appearance Clear Clear Comment 1 unknown void at this time Voiding Methods Urinal Toilet Incontinent Incontinent Data Completed and Pending Labs on day of discharge: Labs from last 24 hours 12/29/22 12/29/22 12/24/22 06:59 06:59 20:00 WBC 13.39 H RBC 4.56 Hgb 14.7 Hct 41.9 MCV 92 MCH 32.2 MCHC 35.1 RDW 13.2 Plt Count 215 MPV 10.0 Immature Gran % 0.8 Neutrophils % 85.5 Lymphocytes % 8.9 Monocytes % 4.6 Eosinophils % 0.0 Basophils % 0.2 Nucleated RBC % 0.0 Absolute Neutrophils 11.44 H Absolute Lymphocytes 1.19 L Absolute Monocytes 0.62 Absolute Eosinophils 0.00 Absolute Basophils 0.03 Sodium 138 Potassium 4.3 Chloride 99 Carbon Dioxide 29.3 Anion Gap 9.7 BUN 46 H Creatinine 2.2 H Est GFR (CKD-EPI 2020) 32.43 Glucose 322 H Calcium 9.3 Magnesium 1.6 L C-Reactive Protein 6.03 H GABE Titer Not Applicable GABE Titer 2 Not Applicable GABE Titer 3 Not Applicable GABE Interpretation Negative ANCA Immunofluorescen Negative ANCA Titer Not Applicable ANCA Pattern Not Applicable PFSH All Active Problems (Updated 12/27/22 @ 14:50 by Charisma Carr DO) Pseudocyst of pancreas (Acute) Coronary artery calcification seen on CAT scan (Acute) Pancreatic atrophy (Acute) Gallstones (Acute) NAFLD (nonalcoholic fatty liver disease) (Acute) Rectal bleeding (Acute) Stage 3b chronic kidney disease (CKD) (Acute) Peripheral neuropathy (Acute) Colitis (Acute) Medical History Diabetes Gout Hyperlipidemia Hypertension Surgical History History of cataract surgery Previous back surgery x2 in the 80's Social History Smoking/Tobacco Use Status: Former Tobacco Use Quit Date: 05/22/87 Smoking risk assessment performed?: Yes Alcohol Intake: never Drug use: Never Substance use type: does not use Housing: house Do you feel safe at home: Yes Do you feel safe in your relationship?: Yes Time Spent with Patient Time Spent with Patient: 45-69 minutes Time was spent: preparing to see the patient(eg.review tests), obtaining and/or reviewing separately otained hiistory, ordering medications,tests, procedures, referring, communicating with other health senior care manager, indepentently interpreting results, counseling the patient and care coordination
--- NOTE | 2022-12-29 13:59 | DSE_ITS ---
Date of service: 12/29/22 Time of Service: 13:59 DS: Diagnosis Discharge Diagnosis (1) Colitis: Status: Acute (2) Rectal bleeding: Status: Acute (3) Stage 3b chronic kidney disease (CKD): Status: Acute (4) NAFLD (nonalcoholic fatty liver disease): Status: Acute (5) Hypertension: (6) Diabetes: Discharge Plan Disposition Patient Disposition: Home Condition: Improving Discharge Details Reason For Visit: Colitis, GI bleed Admit Date/Time: 12/24/22 22:34 Admit Provider: Gatito Talbert Attending Provider: Gatito Talbert Primary Care Provider: Sarah Francis Hospital Course Hospital Course: see addendum Home Meds and New Rx's Prescriptions: New pregabalin [Lyrica] 100 mg capsule 100 mg PO TID 30 Days Qty: 90 0RF Rx Instructions: f/u with PCP for further refills tramadol 50 mg tablet 50 mg PO Q6H PRNQty: 14 0RF Rx Instructions: Further refills to come from PCP polyethylene glycol 3350 [Miralax] 17 gram/dose powder 17 g PO DAILY PRN (Reason: laxative effect) Qty: 510 0RF prednisone 20 mg tablet 40 mg PO DAILY 3 Days Qty: 6 0RF prednisone 20 mg tablet 30 mg PO TID 3 Days Qty: 14 0RF prednisone 20 mg tablet 20 mg PO TID 3 Days Qty: 9 0RF prednisone 10 mg tablet 10 mg PO TID 3 Days Qty: 9 0RF prednisone 5 mg tablet 5 mg PO TID 3 Days Qty: 9 0RF prednisone 1 mg tablet 1 mg PO DAILY 3 Days Qty: 3 0RF amoxicillin-pot clavulanate 875-125 mg tablet 1 tab PO BID 5 Days Qty: 10 0RF Continued imipramine HCl 50 mg tablet 50 mg PO BID Patient Comments: TAKE 1 TABLET BY MOUTH TWICE A DAY metoprolol tartrate 100 mg tablet 100 mg PO BID Patient Comments: TK 2 TS PO BID metformin 850 mg tablet 850 mg PO DIRECTED Patient Comments: TAKE 2 TABLETS BY MOUTH EVERY MORNING AND 1 TABLET EVERY EVENING amlodipine 2.5 mg tablet 2.5 mg PO DAILY Patient Comments: TAKE 1 TABLET BY MOUTH ONCE DAILY simvastatin 40 mg tablet 40 mg PO DAILY Patient Comments: TAKE 1 TABLET BY MOUTH AT BEDTIME allopurinol 300 mg tablet 300 mg PO DAILY Patient Comments: TAKE 1 TABLET BY MOUTH ONCE DAILY insulin lispro [Humalog U-100 Insulin] 100 unit/mL solution See Rx Instructions .ROUTE .COMPLEX Patient Comments: INJECT SC PER SLIDING SCALE BEFORE MEALS. MAX OF 140 UNITS DAILY. Rx Instructions: as directed aspirin 81 mg Tablet,Delayed Release (Dr/Ec) 81 mg PO DAILY Rybelsus 7 mg tablet 7 mg PO DAILY Patient Comments: TAKE ONE TABLET BY MOUTH EVERY DAY insulin degludec [Tresiba FlexTouch U-200] 200 unit/mL (3 mL) Insulin Pen 144 unit SUBCUT HS Discontinued celecoxib 100 mg capsule 100 mg PO BID Patient Comments: TAKE 2 CAPSULES BY MOUTH DAILY cephalexin 500 mg capsule 500 mg PO QID Patient Comments: TK 1 C PO QID gabapentin 400 mg capsule 400 mg PO QID Patient Comments: TK 1 C PO QID Discharge Instructions Additional Instructions: -No driving if you are taking narcotic (ultram) pain medications. [facility]: [phone] -Follow-up with surgery in 1 week. -Follow up with PCP next week. -soft diet: see below -no straining to move bowels -pain meds are very constipating: if you do not move your bowels daily take a dose of OTC Miralax -Protein supplements daily. You may find that your appetite is smaller. Eat 3-6 small meals throughout the day. It is important to drink lots of water after surgery, 6-10 glasses a day. -We do want you up walking, at least 5-6 times per day. This is very important to prevent pneumonia and blood clots. You can climb stairs, take them slowly. -No lifting over 5 pounds. -we did change your gabapentin to pregabalin in hopes of better pain control. -I did prescribe a low dose of ultram for pain control. Stop the Celebrex. -consider switching the tofranil to duloxitine for better pain control. -You may find that you are very tired after being in the hospital- this is normal. Prednisone taper: -40mg for 3 days -30mg for 3 days -20mg for 3 days -10mg for 3 days -5mg for 3 days -1mg for 3 days -than stop Gastrointestinal Soft Diet Overview Overview What is a gastrointestinal soft diet? This diet is soft in texture, low in fiber, and easy to digest. The goal is to decrease) ?in the bowel that may cause and discomfort. This diet is often used after abdominal surgery or as a transitional diet after flares. Meats & Meat Substitutes ? Foods Allowed: Chicken, turkey, fish, tender cuts of beef and pork, ground meats, eggs, creamy nut butters, tofu, skinless hot dogs, sausage patties without whole spices ? Foods to Avoid : Tough, fibrous meats with gristle, meat with casings (hot dogs, sausage, kielbasa), lunch meats with whole spices, shellfish, beans, chunky peanut butter, nuts Fruits and Juices ? Foods Allowed: Fruit juices without pulp, banana, avocado, applesauce, canned peaches and pears, cooked fruit without the skin/seeds.? Ground or over- cooked fruits.? Fruits ground finely in a ?smoothie?. ? Foods to Avoid: Juices with pulp, fresh fruit (except banana and avocado), dried fruits, canned fruit cocktail and pineapple, coconut, frozen/thawed berries Vegetables ? Foods Allowed: Well-cooked or canned vegetables, potatoes without skin, tomato sauces, vegetable juice ? Foods to Avoid: Raw vegetables, all corn, all mushrooms, stewed tomatoes, potato skins, stir-toro vegetables, sauerkraut, pickles, olives, all dried beans, peas, and legumes Cereals and Grains ? Foods Allowed: Low- fiber dry or cooked cereals (less than 2 grams fiber per serving), white rice, pasta, macaroni, or noodles ? Foods to Avoid: Cereals with nuts, berries, dried fruits, whole grain cereals, bran cereals, granola, brown or wild rice, whole grain pasta Breads and Crackers ? Foods Allowed: White/refined breads and rolls, plain bagel, toast, plain crackers, andie crackers ? Foods to Avoid: Whole grain breads- including white whole grain; bread/ rolls with raisins, nuts or seeds, multi-grain crackers Dairy ? Foods Allowed: Milk, cheese, yogurt, milkshakes, pudding, ice cream, cottage cheese, sherbet ;?lactose free or low lactose versions if lactose intolerant ? Foods to Avoid: Dairy product mixed with fresh fruit (except banana), berries, nuts or seeds Desserts ? Foods Allowed: Plain cake, pudding, custard, ice cream, sherbet, gelatin, fruit whips ? Foods to Avoid: Any dessert that contains nuts, dried fruits, coconut, or fruits with seeds Herbs and Spices ? Foods Allowed: All ground spices or herbs, salt ? Foods to Avoid: Whole spices such as peppercorns, whole cloves, anise seeds, celery seeds, shana, cherry seeds, and fresh herbs Snacks/Other Foods ? Foods Allowed: Sugar, honey, jelly, mayonnaise, mustard, soy sauce, oil, butter, margarine, marshmallows, cookies without dried fruits or nuts, snack chips and pretzels using refined flours ? Foods to Avoid: Carbonated beverages, jams or jellies with seeds, popcorn After several weeks, slowly start to reintroduce the ?Foods to Avoid? back into your diet unless your doctor has told you otherwise. Try a small portion of one of these foods each day. If it does not bother you within 24 hours, it can be added to your diet. Continue to add new foods in this way. Some people may continue to have food sensitivities and may need to continue to avoid certain foods. If you cannot tolerate a food, avoid that food for a few weeks before you try it again. Guidelines when eating 1.??? Avoid any food that you cannot tolerate or that causes gas, bloating, or stomach pain. 2.??? Make time for your meals. Do not eat while you are in a hurry. Cut your food into small pieces. Chew each bite to a mashed potato consistency. Do not eat when you cannot concentrate on chewing well. 3.??? Drink at least 6-8 cups of fluid per day? Fluids include: water, coffee, tea, juice, milk, popsicles, soups, gelatin, pudding, ice cream, sherbet, and yogurt. In addition, choose caffeine-free beverages more often, especially if you are having?diarrhea. 4.??? A daily multivitamin may be recommended if diet is limited in amounts or variety of foods. Do not take any herbal supplements without first checking with your doctor. Stand Alone Forms: Nursing Discharge Form Referrals: Magda Muñoz MD [ [facility] STAFF PHYSICIAN] - 01/03/23 9:00 am Activity:: see above Equipment/Supplies:: No Equipment Needed Diet:: Carb Counting Discharge Orders Discharge Orders: Discharge Order (Routine); Ordered 12/29/22 Ordered By: Charisma Carr DS: Summary Time Spent with Patient providing and/or coordinating discharge services: Greater than 30 minutes Status at Discharge Functional status at discharge: uses cane/walker Overall status at discharge: patient is progressing back to baseline Mental Status: mental status grossly normal Speech and Movement: speech and movement normal Mood: congruent mood Affect: normal affect Exam Psych Mental Status: mental status grossly normal Speech and Movement: speech and movement normal Mood: congruent mood Affect: normal affect DS: Data Vitals/I&O Vitals and I&O: Vital Signs Temperature 36.9 C 12/29/22 11:16 Temperature Source Tympanic 12/29/22 11:16 Pulse 82 12/29/22 11:16 Pulse Rhythm Regular 12/28/22 07:30 Pulse 87 12/24/22 23:32 Respiratory Rate 20 12/29/22 07:20 Respiratory Effort Normal, Non-Labored 12/29/22 08:00 Respiratory Depth Normal 12/29/22 08:00 Respiratory Pattern Normal 12/29/22 08:00 Blood Pressure 158/91 H 12/29/22 11:16 Blood Pressure Mean 92 12/24/22 23:32 Blood Pressure Position Sitting 12/24/22 18:42 Pulse Oximetry 96 12/29/22 11:16 Oxygen Delivery Method Room Air 12/29/22 11:16 Oxygen Flow Rate 0 12/29/22 11:16 Pain Level 5 12/29/22 11:16 Comment pt just got done walking halls with PT 12/28/22 10:58 Intake & Output 12/28/22 12/29/22 12/29/22 23:59 11:59 23:59 Intake Total 620 / 1720 1570 / 1570 Balance 620 / 1180 1570 / 1570 Intake: IV 200 / 1300 1200 / 1200 Oral 420 / 420 370 / 370 Other: Urine Appearance Clear Clear Comment 1 unknown void at this time Voiding Methods Urinal Toilet Incontinent Incontinent Data Completed and Pending Labs on day of discharge: Labs from last 24 hours 12/29/22 12/29/22 12/24/22 06:59 06:59 20:00 WBC 13.39 H RBC 4.56 Hgb 14.7 Hct 41.9 MCV 92 MCH 32.2 MCHC 35.1 RDW 13.2 Plt Count 215 MPV 10.0 Immature Gran % 0.8 Neutrophils % 85.5 Lymphocytes % 8.9 Monocytes % 4.6 Eosinophils % 0.0 Basophils % 0.2 Nucleated RBC % 0.0 Absolute Neutrophils 11.44 H Absolute Lymphocytes 1.19 L Absolute Monocytes 0.62 Absolute Eosinophils 0.00 Absolute Basophils 0.03 Sodium 138 Potassium 4.3 Chloride 99 Carbon Dioxide 29.3 Anion Gap 9.7 BUN 46 H Creatinine 2.2 H Est GFR (CKD-EPI 2020) 32.43 Glucose 322 H Calcium 9.3 Magnesium 1.6 L C-Reactive Protein 6.03 H GABE Titer Not Applicable GABE Titer 2 Not Applicable GABE Titer 3 Not Applicable GABE Interpretation Negative ANCA Immunofluorescen Negative ANCA Titer Not Applicable ANCA Pattern Not Applicable PFSH All Active Problems (Updated 12/27/22 @ 14:50 by Charisma Carr DO) Pseudocyst of pancreas (Acute) Coronary artery calcification seen on CAT scan (Acute) Pancreatic atrophy (Acute) Gallstones (Acute) NAFLD (nonalcoholic fatty liver disease) (Acute) Rectal bleeding (Acute) Stage 3b chronic kidney disease (CKD) (Acute) Peripheral neuropathy (Acute) Colitis (Acute) Medical History Diabetes Gout Hyperlipidemia Hypertension Surgical History History of cataract surgery Previous back surgery x2 in the 80's Social History Smoking/Tobacco Use Status: Former Tobacco Use Quit Date: 05/22/87 Smoking risk assessment performed?: Yes Alcohol Intake: never Drug use: Never Substance use type: does not use Housing: house Do you feel safe at home: Yes Do you feel safe in your relationship?: Yes Time Spent with Patient Time Spent with Patient: 45-69 minutes Time was spent: preparing to see the patient(eg.review tests), obtaining and/or reviewing separately otained hiistory, ordering medications,tests, procedures, referring, communicating with other health child care lead teacher, indepentently interpreting results, counseling the patient and care coordination
--- NOTE | 2022-12-29 13:59 | PDOC.CMDIS ---
Date of service: 12/29/22 Time of Service: 14:00 LACE Index Scoring Tool Questions: Length of Stay (in days): 4 - 6 Was the patient admitted via the E.D.?: Yes Comorbidities: Diabetes w/o Complication E.D. Visits: 0 Answers: Total Score: 8 Risk of Readmission: Low Risk Care Management Discharge Plan Reason for Hospitalization: Severe left sided colitis, GI bleed Discharge Plan: Alexandro is discharged home with no services. He will follow up with his PCP, surgeon and plan of care as instructed. He is transported home by his via private vehicle. Patient/Family Education Needs: Review of discharge instructions including medications, limitations and follow up plan of care; discuss Ask Me Three and self management.
[2022-12-29] MEDS: Pantoprazole 40 MG VIAL IVP (14:21)
--- NOTE | 2022-12-30 15:22 | PT.INDS ---
PT Notes Visit Reasons: Colitis, GI bleed Physical Therapy Inpatient Discharge Summary TReatment Dates: 12/27/2022 - 12/29/22 Referring Doctor: Magda Muñoz MD PT Orders: PT CONSULT: Extended stay weakness Precautions: Fall. Standard. Activity as tolerated. This document serves as a summary of care. No PT services were provided on this date. Patient Profile/Admitting Diagnosis: Alexandro is a 67-year-old male with past medical history significant for chronic low back pain with 2 previous back surgeries admitted to the ED on 12/24/2022 due to lightheadedness, dizziness accompanied by bright red rectal bleeding. Patient was admitted for management of colitis. He participated in skilled PT intervention, and demonstrated improvements in mobility sufficient to allow for safe return home with family support. Social History/Home Situation: Lives with in a private home. Independent with use of single-point cane for all mobility ADLs at baseline. Equipment Owned/DME: SPC Subjective: none obtained Objective: ROM: Right Upper Extremity: Shoulder Flexion WFL. Shoulder abduction WFL. Elbow flexion WFL. Wrist flexion WFL. Functional opening and closing of hand WFL. Left Upper Extremity: Shoulder Flexion WFL. Shoulder abduction WFL. Elbow flexion WFL. Wrist flexion WFL. Functional opening and closing of hand WFL. Right Lower Extremity: Hip flexion WFL. Hip abduction WFL. Knee flexion WFL. Ankle dorsiflexion WFL. Ankle plantarflexion WFL. Left Lower Extremity: Hip flexion WFL. Hip abduction WFL. Knee flexion WFL. Ankle dorsiflexion WFL. Ankle plantarflexion WFL. Strength: Right Upper Extremity: Shoulder flexors 4/5. Shoulder abductors 4/5. Elbow flexors 5/5. Elbow extensors 5/5. Integrated Program Teacher strong. Left Upper Extremity: Shoulder flexors 4/5. Shoulder abductors 4/5. Elbow flexors 5/5. Elbow extensors 5/5. Integrated Program Teacher strong. Right Lower Extremity: Hip flexors 4/5. Hip abductors 4/5. Knee flexors 4/5. Knee extensors 4/5. Ankle dorsiflexors 4/5. Ankle plantarflexors 4/5. Left Lower Extremity: Hip flexors 4-/5. Hip abductors 4-/5. Knee flexors 4-/5. Knee extensors 4-/5. Ankle dorsiflexors 4-/5. Ankle plantarflexors 4-/5. Bed Mobility/Transfers: Rolling independent Supine to sit independent Sit to supine independent Sit to stand stand by assist Stand to sit stand by assist Bed to reclining chair stand by assist Reclining chair to bed stand by assist ? GAIT? Assistive Device: SPC? Weight bearing: Full Assist: Follow with wheelchair, which proved unnecessary? Distance:? approximately 1,000-1,500 feet ? Deviation: no LOB, demonstrates good gait sequence with SPC over uneven concrete outside ? STAIRS: Demonstrated ability to ascend 3 six inch stairs with SPC, single railing, SBA. No verbal cue required, patient demonstrates safe performance. ? Balance: Static Sitting: Normal Dynamic Sitting: Normal Static Standing: Fair Dynamic Standing: Fair Assessment: Patient presented with clinical signs and symptoms consistent with current/admitting diagnoses that have resulted to mobility limitations, gait instability, generalized weakness, and overall ADL decline. He participated in skilled PT intervention, and demonstrated improvements in mobility sufficient to allow for safe return home with family support. Goals: Goals X1 week 1. Supine-Sit independent (MET) 2. Sit-Supine independent (met) 3. Sit-Stand independent (MET) 4. Stand-Sit independent with SPC (progressing toward) 5. Bed-Chair independent with SPC (progressing toward) 6. Chair-Bed independent with SPC (progressing toward) 7. Independent gait on level surface with use of SPC for at least 300 feet without report of pain nor dyspnea (met) 8. Independent stair negotiation while holding onto B rails for at least 3 steps without report of pain nor dyspnea (met) 9. Independent with home exercise program (met) 10. Good static and dynamic standing balance/tolerance (progressing toward) Plan of Care/Treatment Plan: D/C from PT services in acute care setting. DISCHARGE RECOMMENDATIONS: Home with no services TREATMENT CODE/TIME: none Thank you for the opportunity to participate in the care of this patient. Radha Marvin PT, DPT [facility] [place], [place]
[2022-12-31 15:39] LABS: Calprotectin 600 mcg/g
== END 2022-12-29 15:36 | disposition home or self-care (01) | DRG 392 ==
LOC: ER 22:40 → MS 23:53
PROVIDERS: Surgery; Admitting Provider Surgery; Emergency Provider Nurse Practitioner Family; PCP Nurse Practitioner Family; Visit Provider Surgery
DX: K52.9 Noninfective gastroenteritis and colitis, unspecified (principal); K86.3 Pseudocyst of pancreas; K62.5 Hemorrhage of anus and rectum; E11.42 Type 2 diabetes mellitus with diabetic polyneuropathy; M10.9 Gout, unspecified; I12.9 Hypertensive chronic kidney disease with stage 1 through stage 4 chronic kidney disease, or unspecified chronic kidney disease; E78.5 Hyperlipidemia, unspecified; N18.32 Chronic kidney disease, stage 3b; E11.22 Type 2 diabetes mellitus with diabetic chronic kidney disease; K76.0 Fatty (change of) liver, not elsewhere classified; K80.20 Calculus of gallbladder without cholecystitis without obstruction; I25.10 Atherosclerotic heart disease of native coronary artery without angina pectoris; Z79.4 Long term (current) use of insulin; E11.65 Type 2 diabetes mellitus with hyperglycemia
CPT/HCPCS: 36415; 36416; 80048; 80053; 82947; 82962; 85027; 86255; 86850; 86900; 86901; 87493; 87505; 96365; 97116; 97162; 99222; 99231; 99232; 99233; 99239; 99285; 74176; 83735; 83880; 83993; 85014; 85018; 85025; 85610; 86038; 86140; J2543; J3475

== ENCOUNTER → 2023-02-01 10:35 | Outpatient (BNVA) | payer MEDICARE, SELFPAY | PROVIDERS: PCP Nurse Practitioner Family; Referring Provider Nurse Practitioner Family; Visit Provider Surgery | DX: K92.1 Melena (principal) | CPT/HCPCS: 99213 ==

== ENCOUNTER 2023-02-17 06:45 | Day surgery (SDC) | payer MEDICARE, SELFPAY ==
--- NOTE | 2023-02-16 19:51 | PDOC.DSDIS_ITS ---
Date of service: 02/17/23 Time of Service: 08:05 Discharge Plan Disposition Patient Disposition: Home Condition: Good Discharge Details Reason For Visit: Screening colonoscopy Attending Provider: Gatito Talbert Primary Care Provider: Sarah Francis Home Meds and New Rx's Prescriptions: Continued gabapentin 100 mg capsule 100 mg PO TID Qty: 90 0RF imipramine HCl 50 mg tablet 50 mg PO BID Patient Comments: TAKE 1 TABLET BY MOUTH TWICE A DAY amlodipine 2.5 mg tablet 2.5 mg PO DAILY Patient Comments: TAKE 1 TABLET BY MOUTH ONCE DAILY simvastatin 40 mg tablet 40 mg PO DAILY Patient Comments: TAKE 1 TABLET BY MOUTH AT BEDTIME insulin lispro [Humalog U-100 Insulin] 100 unit/mL solution See Rx Instructions .ROUTE .COMPLEX Patient Comments: INJECT SC PER SLIDING SCALE BEFORE MEALS. MAX OF 140 UNITS DAILY. Rx Instructions: as directed allopurinol 300 mg tablet 100 mg PO DAILY Patient Comments: TAKE 1 TABLET BY MOUTH ONCE DAILY metoprolol tartrate 100 mg tablet 200 mg PO BID Patient Comments: TK 2 TS PO BID aspirin 81 mg Tablet,Delayed Release (Dr/Ec) 81 mg PO DAILY Rybelsus 7 mg tablet 7 mg PO DAILY Patient Comments: TAKE ONE TABLET BY MOUTH EVERY DAY insulin degludec [Tresiba FlexTouch U-200] 200 unit/mL (3 mL) Insulin Pen 144 unit SUBCUT HS tramadol 50 mg tablet 50 mg PO Q6H PRNQty: 14 0RF Rx Instructions: Further refills to come from PCP Discontinued bisacodyl [Dulcolax (bisacodyl)] 5 mg tablet,delayed release (DR/EC) 5 mg PO ONCE Qty: 4 0RF peg 3350-electrolytes [Golytely] 236-22.74-6.74 -5.86 gram recon soln 240 ml PO ONCE Qty: 240 0RF Rx Instructions: follow prep instructions polyethylene glycol 3350 [Miralax] 17 gram/dose powder 17 g PO DAILY PRN (Reason: laxative effect) Qty: 510 0RF Discharge Instructions Instructions: Crohn Disease (GEN) Additional Instructions: Pain, we were able to finish your colonoscopy today without any difficulty. I did find 1 polyp that I removed. More importantly, I saw several ulcers in the limited area of your colon. Based on their appearance, and your history, this seems most consistent with Crohn's disease. I did take some biopsies of the area. I taken the liberty to make a follow-up appointment with me in a few weeks. We can go over the pathology report at that time, make a plan for the long-term treatment. 1. If tolerated, consume a soft, low fiber diet for 1-2 days. 2[address] Do not drive, drink alcohol, operate machinery, make critical decisions, or do activities that require coordination or balance for 24 hours. 3. Because air was put into your colon during the procedure, expelling air from your rectum (passing gas or farting) is normal. 4. You may not have a bowel movement for 1-3 days because of the colonoscopy prep. This is normal. 5. Go directly to the emergency room if you notice any of the following: Develop chills (warm to touch), or if you have a thermometer and your temperature is above 101 Difficulty breathing or difficultly swallowing Persistent vomiting Severe abdominal pain, other than gas cramps Severe chest pain Black, tarry stools Any bleeding ? exceeding one tablespoon 6. Call your physician if the site where your intravenous was started becomes red, swollen, painful, and warm to touch. 7. Your physician has reviewed your pre-procedure medications. Please continue to take those medications as previously ordered. You will be given specific information/education regarding any changes to your medications before leaving. Stand Alone Forms: Anesthesia Discharge Inst., Vivek Ortega (DSU) Referrals: Gatito Talbert MD [ [facility] STAFF PHYSICIAN] - (March 08 at 2:30 PM) Activity:: Activity as Tolerated Diet:: As Tolerated Discharge Orders Discharge Orders: Discharge Order (Routine); Ordered 02/16/23 Ordered By: Gatito Talbert DS: Diagnosis Discharge Diagnosis (1) Screen for colon cancer: Status: Acute
--- NOTE | 2023-02-16 19:53 | W.COLOREPORT ---
Date of service: 02/17/23 Time of Service: 08:10 Colonoscopy Report Date of procedure: 02/17/23 Pre-op diagnosis general: screening colonoscopy Post-op diagnosis procedure note: other (Crohn's disease, polyp) Procedure: Colonoscopy with polypectomy and biopsies Surgeon: Gatito Talbert Anesthesia Type: General:No Airway Estimated blood loss (mL): 5 Pathology: other (Cecal polyp, biopsies of colon ulceration) Complications: None Disposition: same day Indications: Alexandro is a 68 year old man who is due for his next screening colonscopy Prep: Miralax/Dulcolax Procedure Start Time: : Procedure End Time: 07:51 Retraction Time: 16 Findings: Serpiginous ulceration extending from approximately 25 cm from the anus up to about 40 cm from the anus; 0.25 cm cecal polyp Procedure Description: After the induction of monitored anesthetic care, and with the patient in left lateral decubitus position, I began by performing an external anorectal exam.? Perineum and skin were normal, as was the anal verge.? There was no evidence of external hemorrhoids.? Next, I performed a digital rectal exam.? I did not appreciate any abnormal findings.? Next, I advanced a colonoscope into the rectal vault.? I performed retroflexion.? The distal rectum and superior anal column appeared normal.? Using insufflation, I then advanced the colonoscope beyond the rectal folds and into the sigmoid colon before advancing towards the cecum.? Starting around 20 to 25 cm from the anal verge were several serpiginous ulcerated areas in various stages of healing. This extended up to about 40 cm. Extent of disease was mild. the quality of the prep was excellent.? The scope was noted to be in the cecum by identification of the ileocecal valve and appendiceal orifice.? Within the cecum was a 0.25 cm sessile cecal polyp. I remove this with cold forceps. There was minimal bleeding. I then began withdrawing the colonoscope using repeated irrigation as necessary for full evaluation of the colonic mucosa. Again seen from about 25 to 40 cm from the anus were various longitudinal ulcers. They appeared consistent with Crohn's disease. I did perform some cold forceps biopsies here. Tissue was a little bit friable with mild bleeding that did not require any intervention. Once the scope was withdrawn to the level of the rectum, great care was taken to examine portions of the rectal folds.? Finally, the scope was withdrawn and the patient was brought to the same-day surgery recovery unit as the anesthetic wore off. ?The findings and instructions were shared with the patient prior to discharge.
[2023-02-17 06:56] VITALS: BP 132/98; PULSE 73; RESP 17; TEMP 36.3; O2SAT 96
[2023-02-17] MEDS: Lactated Ringers 1,000 ML 80 ML IV (07:12)
--- NOTE | 2023-02-17 07:19 | W.ANESPRE ---
General Info Date of Service Date Performed: 02/17/23 Height: 5 ft 9 in Weight: 94.7 kg Body Mass Index (BMI): 30.8 Surgical Procedure: Operation Date: 02/17/23 08:20 Proposed Procedure Side Surgeon juan m Talbert MD Meds Allergies and Home Medications Allergies Allergy/AdvReac Type Severity Reaction Status Date / Time enalapril [Enalapril] Allergy Severe Anaphylaxsi Verified 02/17/23 07:01 s Home Medication Medication Instructions Recorded amlodipine 2.5 mg tablet 2.5 mg PO DAILY 12/05/19 imipramine HCl 50 mg tablet 50 mg PO BID 12/05/19 insulin lispro 100 unit/mL See Rx Instructions .Route .COMPLEX 12/05/19 subcutaneous solution (Humalog U-100 Insulin) simvastatin 40 mg tablet 40 mg PO DAILY 12/05/19 aspirin 81 mg tablet,delayed 81 mg PO DAILY 04/08/20 release semaglutide 7 mg tablet (Rybelsus) 7 mg PO DAILY 12/24/22 insulin degludec 200 unit/mL (3 144 unit subcut HS Diabetes 12/28/22 mL) subcutaneous pen (Tresiba FlexTouch U-200 insulin) tramadol 50 mg tablet 50 mg PO Q6H PRN #14 tabs 12/29/22 gabapentin 100 mg capsule 100 mg PO TID #90 caps 01/03/23 allopurinol 300 mg tablet 100 mg PO DAILY 02/01/23 metoprolol tartrate 100 mg tablet 200 mg PO BID 02/01/23 Current Visit Medications: Current Medications Generic Name Dose Route Start Last Admin Trade Name Freq PRN Reason Stop Dose Admin Hyoscyamine Sulfate 0.125 mg 02/16/23 19:54 Hyoscyamine 0.125 Mg Sl/Oral/Chew SL 03/18/23 19:53 DIRECTED PRN Ringer's Solution 1,000 mls @ 80 mls/hr 02/17/23 06:00 02/17/23 07:12 IV 02/17/23 23:59 80 mls/hr INFUSION MARIO Administration IV Miscellaneous Supplies 1 each 02/17/23 06:00 Iv Access IV 02/17/23 23:59 DIRECTED MARIO Ondansetron HCl 4 mg 02/16/23 19:54 Ondansetron 4 Mg/2 Ml Vial IVP 03/18/23 19:53 Q4H PRN PRN Nausea / Vomiting Sodium Chloride 0 ml 02/17/23 06:00 Normal Saline Flush 10 Ml Syr IV 02/17/23 23:59 PRN PRN Sodium Chloride 0 ml 02/17/23 06:00 Normal Saline 10 Ml Vial IJ 02/17/23 23:59 DIRECTED PRN Sterile Water 0 ml 02/17/23 06:00 Water,Injection,Sterile 10 Ml Vial IJ 02/17/23 23:59 DIRECTED PRN PFSH Active Problems Active Problems: Problem Status Onset Code Screen for colon cancer Z12.11 Hematochezia K92.1 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 Coronary artery calcification seen on CAT scan I25.10 Pancreatic atrophy K86.89 Gallstones K80.20 NAFLD (nonalcoholic fatty liver disease) K76.0 Rectal bleeding K62.5 Stage 3b chronic kidney disease (CKD) N18.32 Peripheral neuropathy G62.9 Colitis K52.9 Nuclear sclerotic cataract of left eye H25.12 Nuclear sclerotic cataract of right eye H25.11 Medical History Medical History Diabetes Gout Hyperlipidemia Hypertension Surgical History Surgical History History of cataract surgery Previous back surgery x2 in the 's Tobacco Smoking/Tobacco Use Status: Former Tobacco Use Alcohol Alcohol Intake: never Substance Use Substance use: Never Substance use type: does not use Vital Signs and Lab Results Vital Signs Most Recent Vital Signs in EMR: Most Recent Vital Signs Temp Pulse Resp BP Pulse Ox 36.3 C L 73 17 132/98 H 96 02/17/23 06:56 02/17/23 06:56 02/17/23 06:56 02/17/23 06:56 02/17/23 06:56 Point of Care Results Point of Care Results: Finger Stick Blood Glucose 85 02/17/23 07:03 Lab Results Blood Type / Crossmatch: No Data to Display Complete Blood Count: No Data to Display Complete Metabolic Panel: No Data to Display Liver Function Panel: No Data to Display Coagulation Panel: No Data to Display Cardiac Panel: No Data to Display Arterial Blood Gas: No Data to Display Venous Blood Gas: No Data to Display Pancreas Panel: No Data to Display Thyroid Panel: No Data to Display Infectious Disease: No Data to Display Blood Cultures: No Data to Display Toxicology Panel: No Data to Display Anesthesia Assessment and Plan Anesthesia History Personal History: No History of Anesthesia Complications Family History: No Family History of Anesthesia Complications Exercise Tolerance Exercise Tolerance: Metabolic Equivalents>4 Pertinent Negatives Pertinent Negatives: No Symptoms of GERD Cardiac & Pulmonary Exam Cardiac Exam: Normal S1/S2 Heart Sounds Pulmonary Exam: Clear Bilateral Breath Sounds Implantable Cardiac Device Does patient have a Pacemaker or an ICD?: No Airway Exam Known Difficult Airway: No Mallampati Class: 2 Mouth Opening: Normal (> 3cm) Thyromental Distance: Greater than 3 cm Facial Hair: Full [place] Range of Motion: Full ROM Neck Circumference: Normal Teeth Condition: Normal Dentition ASA Classification ASA Score: ASA 3 Emergency Case?: No NPO Status NPO Status: NPO Clears >2 hours, Solids >8 hours Anesthesia Plan Resuscitation Status: Full Code Anesthesia Technique: General Anesthesia Airway Planned: Natural Airway Monitors Used: Standard Monitors
[2023-02-17 07:20] VITALS: BMI 30.8
--- NOTE | 2023-02-17 07:47 | BOWEL_PTH ---
PATIENT: Alexandro Callahan LOC: [facility] U#:[id number] AGE/SX: 68/M ROOM: RE02/17/[address]: Gatito Talbert MD : 1955 BED: DIS: 02/17/2023 SPEC #: [id number] RECD: 02/17/23 12:16 STATUS: CHARBEL REQ #: [id number] LAUREN: 02/17/23 07:[address]: Gatito Talbert DEPT: Surgical Specimen RECD BY: Jocelyne Miner ENTERED: 02/17/23 12:17 SP TYPE: Bowel OTHR DR: IRINA FRANCOIS Tissues: 1 - BIOPSY BOWEL 2 - BIOPSY BOWEL 3 - BIOPSY BOWEL Procedures: GROSS AND MICRO LEVEL 4 IMMUNOPEROXIDASE STAIN Comments: [id number]
[2023-02-17 07:59] VITALS: BP 107/65; PULSE 71; RESP 16; TEMP 36.1; O2SAT 93
[2023-02-17 08:25] VITALS: BP 128/77; PULSE 66; RESP 16; TEMP 36.3; O2SAT 97
--- NOTE | 2023-02-17 09:18 | W.ANESPOSTOP ---
Postoperative Evaluation Date, Time and Location Date Performed: 02/17/23 Time Performed: 09:18 Patient Location: Day Surgery Unit Vital Signs Most Recent Imported Vital Signs: Most Recent Vital Signs Temp Pulse Resp BP Pulse Ox 36.3 C L 66 16 128/77 97 02/17/23 08:25 02/17/23 08:25 02/17/23 08:25 02/17/23 08:25 02/17/23 08:25 Pain Score Most Recent Pain Score: Most Recent Pain Score Pain Level 0 02/17/23 08:25 Assessment Mental Status: Awake (Alert & Oriented to Patient Baseline) Airway and Respiratory Function: Patent airway with normal (patient baseline) respiratory exam Cardiovascular Function: Hemodynamically Stable Hydration Status: Adequately Hydrated Nausea & Vomiting: No Nausea or Vomiting Pain: Pt. Denies Any Pain Peripheral Nerve Block: Patient did not receive a nerve block
== END 2023-02-17 08:55 | disposition home or self-care (01) ==
PROVIDERS: PCP Nurse Practitioner Family; Visit Provider Surgery
PROC: 0DJD8ZZ Inspection of Lower Intestinal Tract, Via Natural or Artificial Opening Endoscopic (ICD-10-PCS; CPT 45378; principal; 2023-02-17 08:15)
DX: Z12.11 Encounter for screening for malignant neoplasm of colon (principal); K63.5 Polyp of colon; K50.10 Crohn's disease of large intestine without complications; E11.9 Type 2 diabetes mellitus without complications; M10.9 Gout, unspecified; I10 Essential (primary) hypertension; E78.5 Hyperlipidemia, unspecified; Z79.4 Long term (current) use of insulin
CPT/HCPCS: 45380; 88305; 88361

== ENCOUNTER → 2023-03-15 07:57 | Outpatient (BNVA) | payer MEDICARE, SELFPAY | PROVIDERS: PCP Nurse Practitioner Family; Referring Provider Nurse Practitioner Family; Visit Provider Surgery | DX: Z48.815 Encounter for surgical aftercare following surgery on the digestive system (principal); D12.6 Benign neoplasm of colon, unspecified | CPT/HCPCS: 99214 ==

== ENCOUNTER 2023-07-11 15:07 | Outpatient (REF) | payer MEDICARE, SELFPAY ==
[2023-07-11 19:31] LABS: ALT 65 U/L (16-63); AST 55 U/L (15-37); Albumin 3.4 g/dL (3.4-5.0); Alkaline Phosphatase 102 U/L (46-116); Anion Gap 7.2 mmol/L (3-11); BUN 30 mg/dL (7-18); CO2 30.8 mmol/L (21.0-32.0); CREATININE 1.7 mg/dL (0.70-1.30); Calcium 9.3 mg/dL (8.5-10.1); Chloride 103 mmol/L (98-107); Estimated GFR 43.91 (mL/min/1.73m2); Glucose 140 mg/dL (74-106); Potassium 4.3 mmol/L (3.5-5.1); Sodium 141 mmol/L (136-145); Total Protein 7.7 g/dL (6.4-8.2)
[2023-07-11 19:41] LABS: Hemoglobin A1C 8.1 % (<5.7)
[2023-07-11 20:08] LABS: Bilirubin, Total 0.3 mg/dL (0.2-1.0)
== END 2023-07-11 15:08 | disposition home or self-care (01) ==
LOC: NCHCN 15:07
PROVIDERS: PCP Nurse Practitioner Family; Visit Provider Nurse Practitioner Family
DX: E11.21 Type 2 diabetes mellitus with diabetic nephropathy (principal); I10 Essential (primary) hypertension
CPT/HCPCS: 80053; 83036

== ENCOUNTER → 2023-08-23 13:01 | Outpatient (BNVA) | payer MEDICARE, SELFPAY | PROVIDERS: PCP Nurse Practitioner Family; Visit Provider Surgery | DX: K50.90 Crohn's disease, unspecified, without complications (principal) | CPT/HCPCS: 99213 ==

== ENCOUNTER 2023-11-01 14:39 | Outpatient (REF) | payer MEDICARE, SELFPAY ==
[2023-11-01 20:09] LABS: Hemoglobin A1C 7.8 % (<5.7)
[2023-11-01 20:10] LABS: ALT 47 U/L (16-63); AST 47 U/L (15-37); Albumin 3.4 g/dL (3.4-5.0); Alkaline Phosphatase 85 U/L (46-116); Anion Gap 10.6 mmol/L (3-11); BUN 31 mg/dL (7-18); Bilirubin, Total 0.3 mg/dL (0.2-1.0); CO2 27.4 mmol/L (21.0-32.0); CREATININE 1.8 mg/dL (0.70-1.30); Calcium 9.1 mg/dL (8.5-10.1); Chloride 102 mmol/L (98-107); Glucose 119 mg/dL (74-106); Potassium 4.5 mmol/L (3.5-5.1); Sodium 140 mmol/L (136-145); Total Protein 7.8 g/dL (6.4-8.2)
== END 2023-11-01 14:40 | disposition home or self-care (01) ==
LOC: NCHCN 14:39
PROVIDERS: Visit Provider Nurse Practitioner Family
DX: I10 Essential (primary) hypertension (principal); E11.21 Type 2 diabetes mellitus with diabetic nephropathy
CPT/HCPCS: 80053; 83036

== ENCOUNTER 2023-12-05 22:02 | Observation (INO) | payer MEDICARE, SELFPAY ==
[2023-12-05 22:04] VITALS: BP 190/87; PULSE 89; RESP 16; TEMP 36.8; O2SAT 92
--- NOTE | 2023-12-05 22:06 | W.ED.GENAD ---
Discharge Plan Disposition Patient Disposition: Admit to [facility] Condition: Fair Discharge Details Clinical Impression: Acute right-sided thoracic back pain, Generalized weakness, Difficulty walking Primary Care Provider: Unknown,Unknown ED Provider: Valdo Cano and New Rx's Prescriptions: No Action gabapentin 100 mg capsule 100 mg PO TID Qty: 90 0RF marijuana gummy 10 mg PO PRN PRN imipramine HCl 50 mg tablet 50 mg PO BID Patient Comments: TAKE 1 TABLET BY MOUTH TWICE A DAY amlodipine 2.5 mg tablet 2.5 mg PO DAILY Patient Comments: TAKE 1 TABLET BY MOUTH ONCE DAILY simvastatin 40 mg tablet 40 mg PO DAILY Patient Comments: TAKE 1 TABLET BY MOUTH AT BEDTIME insulin lispro [Humalog U-100 Insulin] 100 unit/mL solution See Rx Instructions .ROUTE .COMPLEX Patient Comments: INJECT SC PER SLIDING SCALE BEFORE MEALS. MAX OF 140 UNITS DAILY. Rx Instructions: as directed allopurinol 300 mg tablet 100 mg PO DAILY Patient Comments: TAKE 1 TABLET BY MOUTH ONCE DAILY metoprolol tartrate 100 mg tablet 200 mg PO BID Patient Comments: TK 2 TS PO BID aspirin 81 mg Tablet,Delayed Release (Dr/Ec) 81 mg PO DAILY Rybelsus 7 mg tablet 7 mg PO DAILY Patient Comments: TAKE ONE TABLET BY MOUTH EVERY DAY insulin degludec [Tresiba FlexTouch U-200] 200 unit/mL (3 mL) Insulin Pen 144 unit SUBCUT HS tramadol 50 mg tablet 50 mg PO Q6H PRNQty: 14 0RF Rx Instructions: Further refills to come from PCP HPI General Mode of arrival: ambulatory. Date/Time Provider Initiated Documentation: 12/05/23 22:06. Limitations to Documentation: no limitations. Information obtained by: patient and family (). HPI Narrative: Patient presenting to ED with chief complaint of right scapula pain. Initially began Monday evening and has been intermittent in nature except over the last 24 to 46 hours is constant and worsening. It is worse with movement and with breathing or coughing. He has had a low-grade fever to 99.6 per the . He has a nonproductive cough. He definitely feels weak and a little short of breath. Denies any chest pain. Denies any specific injury. Denies any vomiting, abdominal pain, diarrhea. Denies any leg pain or leg swelling. Did try one of his tramadol tablets with no real change in his pain. Having difficulty ambulating because of weakness. Related Data Home Medications ?Medication ?Instructions ?Recorded ?Confirmed amlodipine 2.5 mg tablet 2.5 mg PO DAILY 12/05/19 12/05/23 imipramine HCl 50 mg tablet 50 mg PO BID 12/05/19 12/05/23 insulin lispro 100 unit/mL See Rx Instructions .Route .COMPLEX 12/05/19 12/05/23 subcutaneous solution (Humalog U-100 Insulin) simvastatin 40 mg tablet 40 mg PO DAILY 12/05/19 12/05/23 aspirin 81 mg tablet,delayed 81 mg PO DAILY 04/08/20 12/05/23 release semaglutide 7 mg tablet (Rybelsus) 7 mg PO DAILY 12/24/22 12/05/23 insulin degludec 200 unit/mL (3 144 unit subcut HS Diabetes 12/28/22 12/05/23 mL) subcutaneous pen (Tresiba FlexTouch U-200 insulin) tramadol 50 mg tablet 50 mg PO Q6H PRN #14 tabs 12/29/22 12/05/23 gabapentin 100 mg capsule 100 mg PO TID #90 caps 01/03/23 12/05/23 allopurinol 300 mg tablet 100 mg PO DAILY 02/01/23 12/05/23 metoprolol tartrate 100 mg tablet 200 mg PO BID 02/01/23 12/05/23 marijuana gummy 10 mg PO PRN PRN 08/23/23 12/05/23 Previous Rx's ?Medication ?Instructions ?Recorded tramadol 50 mg tablet 50 mg PO Q6H PRN #14 tabs 12/29/22 gabapentin 100 mg capsule 100 mg PO TID #90 caps 01/03/23 Allergies Allergy/AdvReac Type Severity Reaction Status Date / Time enalapril (Enalapril) Allergy Severe Anaphylaxsi Verified 12/05/23 22:13 s General CLAYTON: 3 Review of Systems Narrative: Per HPI Exam Narrative Exam Narrative: Const: WDWN male in NAD. VS per triage. HEENT: NC/AT. Normal facial exam. Neck: Supple. Trachea midline. Lungs: Normal respiratory effort. Lungs with rhonchi in the right base. Cor: RRR without murmur. Good radial pulses. GI: Soft/ND/NT. Neuro: A+O x 3. Normal speech, mentation, gait. Cranial nerves II - XII grossly intact. No gross motor or sensory deficit. Ext: No C/C/E. No calf tenderness. Pain in the right scapular region with range of motion of right upper extremity but normal range of motion. Medical Decision Making Patient presenting to ED with pleuritic right scapular pain, cough, weakness, some shortness of breath. Low-grade fever at home. No chest pain or abdominal pain. Does have some rhonchi on the right side. Differential includes pneumonia, less likely PE, unlikely to be musculoskeletal. Also doubt cardiac but will check EKG and troponin. IV established and fluids started. IV acetaminophen given for pain. Laboratory studies and CTA of the chest ordered. 00:15 - Patient's laboratory studies are reassuring. White count is minimally elevated to 11.7. His hemoglobin is normal. Kidney function is on the higher limits of normal for him at 35 and 2.2. Liver function normal. Troponin negative. CT scan per preliminary radiology read with no PE, dissection, infiltrate. Noted to have gallstones and a fluid attenuation in the head of the pancreas that is unchanged from recent prior studies but does appear increased in size since 2020. Have obtained a Fluvid swab as well as urinalysis given negative CT imaging. Cannot explain for the patient's weakness, difficulty ambulating and getting out of bed both of which are new. 01:45 - Patient's urinalysis is negative for infection. His Fluvid is negative. Saturations continue to be in the low 90s. Discussed further with him and his . He is normally able to get around on his own using his cane without much difficulty. He required 2 people to help get him out of the house into the car to get to the ED tonight. He is generally weak and a high fall risk with cough, borderline O2 sats, right scapular pain and likely has a viral illness leading to his symptoms. Discussed with hospitalist and will plan admission given his weakness and inability to safely ambulate. Lab Data Lab results reviewed: Yes I reviewed the patient's lab results. Lab results narrative: See [facility] ECG Data Attestation: I personally reviewed and interpreted this ECG (s) as follows: Prior ECG tracings: not available for review Interpretation: See EKG/MDM PFSH All Active Problems Difficulty walking (Acute) Generalized weakness (Acute) Acute right-sided thoracic back pain (Acute) Colitis (Acute) Screen for colon cancer (Acute) Pseudocyst of pancreas (Acute) Coronary artery calcification seen on CAT scan (Acute) Pancreatic atrophy (Acute) Gallstones (Acute) Peripheral neuropathy (Acute) Medical History NAFLD (nonalcoholic fatty liver disease) Stage 3b chronic kidney disease (CKD) Crohn disease Gout Hyperlipidemia Hypertension Diabetes Surgical History History of colonoscopy (~01/2023) polups History of cataract surgery Previous back surgery x2 in the 's Social History Smoking/Tobacco Use Status: Former Tobacco Use Quit Date: 05/22/87 Smoking risk assessment performed?: Yes Alcohol Intake: never Drug use: Never Substance use type: does not use Housing: house Current gender identity: male Do you feel safe at home: Yes Do you feel safe in your relationship?: Yes
--- OUTSIDE RECORDS SUMMARY | 2023-12-05 22:09 | XMS_ITS | Encounter Summary ---
[place] [address] Care Team Providers Care Lubricating Engineer Name Role Phone Brissa Toure APRN Primary Care Provider [phone] Encounter Details Date Type Department Care Team (Latest Contact Info) Description 04/03/2023 Travel Social History Tobacco Use Types Packs/Day Years Used Date Smoking Tobacco: Former Cigarettes 3 20 0 06/26/1966 - 06/26/1986 Pipe Cigars Smokeless Tobacco: Former Chew, Snuff Quit: 06/26/1986 Alcohol Use Standard Drinks/Week Comments No 0 (1 standard drink = 0.6 oz pur e alcohol) Sex and Gender Information Value Date Recorded Sex Assigned at Not on file Gender Identity Not on file Sexual Orientation Not on file documented as of this encounter Plan of Treatment Scheduled Procedures Name Priority Associated Diagnoses Date/Ti de COLONOSCOPY, DIAGNOSTIC (WRV U 3.26) Left sided colitis with rectal bleeding documented as of this encounter Visit Diagnoses Not on filedocumented in this encounter Care Teams Lubricating Engineer Relationship Specialty Start Date End Date Brissa Toure APRN [address] [facility] [place] [address] PCP - General Family Medicine 06/19/18 documented as of this encounter
--- OUTSIDE RECORDS SUMMARY | 2023-12-05 22:09 | XMS_ITS | Encounter Summary ---
Author Organization [facility] [place] [address] Care Team Providers Care Master Fisher Name Role Phone Brissa Toure APRN Primary Care Provider [phone] Reason for Visit * Reason Comments NPDR Encounter Details Date Type Department Care Team (Latest Contact Info) Description 09/21/2018 2:15 PM EDT Office Visit Ophthalmology at [facility] [place] [address] Johanna Jacinto MD [facility] [place] [address] Retinal microaneurysm, unspecified laterality (Primary Dx); Type 2 diabetes mellitus with both eyes affected by 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 edema, with long-term current use of insulin; Chronic Schisis-RD OU; 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 Retinal microaneurysm, unspecified laterality 2. Type 2 diabetes mellitus with both eyes affected by 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 edema, with long-term current use of insulin 3. Chronic Schisis-RD OU 4. 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 1. 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 Based on that discussed that aVEGFs are no longer recommended. - education provided regarding the [place] and we will follow conservatively from now on 2. 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 I performed the services which were documented by the scribe, and I agree with the accuracy of the documentation in this encounter. Johanna Jacinto MD, PhD Extended Ophthalmoscopy Indication: 1. Retinal microaneurysm, unspecified laterality 2. Type 2 diabetes mellitus with both eyes affected by 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 edema, with long-term current use of insulin 3. Chronic Schisis-RD OU 4. 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 Technique: A) Indirect ophthalmoscopy with scleral depression B) Slit lamp exam with 90D/78D lens Findings: Main Ophthalmology Exam External Exam Right Left External Normal Normal Slit Lamp Exam Right Left Lids/Lashes Blepharitis Blepharitis Conjunctiva/Sclera White and quiet White and quiet Cornea Clear Clear Anterior Chamber Deep and quiet Deep and quiet Iris Round and reactive Round and reactive Lens 1+ NS 1+ NS, 1+ PSC Fundus Exam Right Left Vitreous Vitreous syneresis, snowballs inferiorly PVA Disc Normal moderate pallor C/D Ratio 0.2 0.2 Macula MAs, CME Normal Vessels Normal Normal Periphery Inferotemporal pigment - 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 (detachment 6-2oclock), CDR 0.2, Snowballs, Schisis- RD, [place] Chronic IT RD with dense pigment (detachment 1-7oclock), CDR 0.2, Disc pallor documented in this encounter Plan of Treatment Scheduled Procedures Name Priority Associated Diagnoses Date/Ti me COLONOSCOPY, DIAGNOSTIC (WRV U 3.26) Left sided colitis with rectal bleeding documented as of this encounter Procedures Procedure Name Priority Date/Time Associated Diagnosis Comments OCT RETINA - OU - BOTH EYES Routine 09/21/2018 4:20 PM EDT Type 2 diabetes mellitus with both eyes affected by 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 edema, with long-term current use of insulin 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 Scan locations included subfoveal. Progression has worsened. Findings include abnormal foveal contour, intraretinal fluid. Left Eye Quality was good. Scan locations included subfoveal. Progression has been stable. Findings include normal observations, normal foveal contour. Johanna Jacinto MD OPHTHALMOLOGY SERVICES ORDERABLES documented in this encounter Visit Diagnoses Diagnosis Retinal microaneurysm, unspecified laterality- Primary Type 2 diabetes mellitus with both eyes affected by 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 edema, with long-term current use of insulin Chronic Schisis-RD OU Recent retinal detachment, partial, with giant tear documented in this encounter Care Teams Master Fisher Relationship Specialty Start Date End Date Brissa Toure, CONSULTING SOFTWARE ENGINEER [address] [place] [address] PCP - General Family Medicine 06/19/18 documented as of this encounter
--- OUTSIDE RECORDS SUMMARY | 2023-12-05 22:09 | XMS_ITS | Encounter Summary ---
Author Organization [facility] Address [address] [place] [address] Care Team Providers Care Launderette Attendant Name Role Phone Sarah Francis GIS GEOGRAPHER Primary Care Provider [phone] Encounter Details Date Type Department Care Team (Late st Contact Info) Description 02/17/2023 Lab Requisition [facility] Pathology & Laboratory Medicine - [address] [address] Gatito Talbert MD [address] [place] [address], [address] [place], [place] [id number] Encounter for screening for malignant neoplasm of colon Social History Tobacco Use Types Packs/Day Years Used Date Smoking Tobacco: Never Assessed Sex and Gender Information Value Date Recorded Sex Assigned at Not on file Gender Identity Not on file Sexual Orientation Not on file documented as of this encounter Plan of Treatment Not on file documented as of this encounter Procedures Procedure Name Priority Date/Time Associated Diagnosis Comments SURGICAL PATHOLOGY Today 02/17/2023 7:47 EDT Encounter for screening for malignant neoplasm of colon documented in this encounter Results * SURGICAL PATHOLOGY (02/17/2023 7:47 EDT) Note to Patient The following pathology results have been interpreted by your pathologist and may be available to you before your health provider has had the opportunity to review them. Please allow time for your provider to receive these results and explore management options, if applicable. 02/22/2023 11:01 EDT [facility] Final Diagnosis A. COLON, CECUM, POLYP, BIOPSY: - Tubular adenoma. B. COLON, 35 CMS, BIOPSY: - Colonic mucosa with no significant diagnostic abnormalities. C. COLON, 30 CMS, BIOPSY: - Colonic mucosa with architectural distortion. - Separate fragment of ulceration and granulation tissue showing prominent plasma cells. - Negative for spirochetes. - Negative for dysplasia and malignancy. - See comment. 02/22/2023 11:01 [facility] Diagnosis Comment C: No specific etiology for the ulceration and mucosal architectural distortion is identified. The changes may suggest idiopathic inflammatory bowel disease. The possibility of an infectious, ischemic, or drug-related colitis cannot be totally excluded. Clinical correlation is recommended. Immunoperoxidase stains were performed on this case to further evaluate the biopsy. ANTIBODY(CLONE)(BL OCK):RESULT CD20 (L26, [place]) (C1): Highlights background B cells in a reactive pattern CD3 (SP7, [employer]) (C1): Highlights scattered background T cells in a reactive pattern Treponema pallidum (polyclonal, [employer]) (C1): Negative NOTE: One or more of the reagents used in immunoperoxidase testing in this case may not have been cleared or approved by the U.S. Food and Drug Administration (FDA). The FDA has determined that such clearance or approval is not necessary. These tests are used for clinical purposes. They should not be regarded as investigational or for research. These reagents' performance characteristics have been determined by [facility] and/or by the referring laboratory. The positive and negative controls worked appropriately. If immunoperoxidase staining has been performed on alcohol fixed cytology specimens, which has not been fully validated, the assays should be interpreted with caution and correlated with clinical data. This laboratory is certified under the Clinical Laboratory Improvement Amendments of 1988 (CLIA-88) as qualified to perform high complexity clinical laboratory testing. 02/22/2023 11:01 [facility] Attestation By the signature below, the attending physician certifies that they have 1) personally conducted a gross and/or microscopic examination of the described specimen(s), and/or personally interpreted the results of laboratory testing of the described specimen(s), and 2) personally rendered or confirmed the above diagnosis. 02/22/2023 11:01 [facility] at 1101 Clinical History Hematochezia, R/O ulcerative colitis 02/22/2023 11:01 EDT [facility] Gross Description A. Received in formalin labelled with proper patient identification (initials M, W) and cecal polyp are 3 díaz irregular soft tissue fragments ranging from 0.2 x 0.2 x 0.2 cm to 0.5 x 0.2 x 0.2 cm. Entirely submitted in A1. B. Received in formalin labelled with proper patient identification (initials M, W) and biopsy at 35 cm are 2 díaz irregular soft tissue fragments measuring 0.3 x 0.3 x 0.3 cm from 0.6 x 0.2 x 0.2 cm. Entirely submitted in B1. C. Received in formalin labelled with proper patient identification (initials M, W) and biopsy at 30 cm are 2 díaz irregular soft tissue fragments measuring 0.2 x 0.2 x 0.1 cm and 1 x 0.2 x 0.2 cm. Entirely submitted in C1. [place] [facility](ASCP) 02/20/2023 7:52 02/22/2023 11:01 EDT [facility] Performing Lab [facility] 11:01 T [facility] Scanned Images 02/22/2023 11:01 T [facility] Tissue COLON STRUCTURE / Unknown 02/17/2023 7:47 EDT 02/17/2023 19:54 EDT Tissue specimen (specimen) COLON STRUCTURE / Unknown 02/17/2023 7:47 EDT 02/17/2023 19:54 EDT Tissue specimen (specimen) COLON STRUCTURE / Unknown 02/17/2023 7:47 EDT 02/17/2023 19:54 EDT Gatito Talbert MD PATHOLOGY ORDERABLES [facility] [address] [place] [address] documented in this encounter Visit Diagnoses Diagnosis Encounter for screening for malignant neoplasm of colon Special screening for malignant neoplasms, colon documented in this encounter Care Teams Launderette Attendant Relationship Specialty Start Date End Date Sarah Francis FNP [address] [place] [address] PCP - General Family Medicine - Primary Care 01/20/23 documented as of this encounter
--- OUTSIDE RECORDS SUMMARY | 2023-12-05 22:09 | XMS_ITS | Encounter Summary ---
Author Organization [facility] [place] [address] Care Team Providers Care Correctional Captain Name Role Phone Brissa Toure APRN Primary Care Provider [phone] Reason for Visit * Reason Comments NPDR Encounter Details Date Type Department Care Team (Latest Contact Info) Description 02/15/2019 2:00 PM EDT Office Visit Ophthalmology at [facility] [place] [address] Johanna Jacinto MD [facility] [place] [address] Retinal microaneurysm of right eye Social History Tobacco Use Types Packs/Day Years [...] Progress Notes * Johanna Jacinto MD - 02/15/2019 2:00 PM EDT ASSESSMENT/PLAN: 1. 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 Based on that discussed that aVEGFs are no longer recommended. Today 02/15/19 - The OCT shows that the macula morphology is over all stable. Again, observation recommended. 2. 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 NS OU - Okay to proceed with cataract surgery - 20/30 JU OD (11/15/18) 5. Dry eyes OU - Start artificial tears today (over the counter at any pharmacy) QID Follow up with Dr. Claire Garcia, OD for cataract eval Follow up another 6 months for DFE/OCT OU Sooner PRN I, Jeff Young, have performed the documentation for this encounter in the presence of, and acting as a scribe for Johanna Jacinto MD. I performed the services which were documented by the scribe, and I agree with the accuracy of the documentation in this encounter. Johanna Jacinto MD, PhD Extended Ophthalmoscopy Indication: 1. Retinal microaneurysm of right eye Technique: A) Indirect ophthalmoscopy with scleral depression B) Slit lamp exam with 90D/78D lens Findings: Main Ophthalmology Exam External Exam Right Left External Normal Normal Slit Lamp Exam Right Left Lids/Lashes Blepharitis Blepharitis Conjunctiva/Sclera White and quiet White and quiet Cornea dry eye dry eye Anterior Chamber Deep and quiet Deep and quiet Iris Round and reactive Round and reactive Lens 1-2+ NS 1+ NS, 1+ PSC Fundus Exam Right Left Vitreous Vitreous syneresis, snowballs inferiorly PVA Disc Normal moderate pallor C/D Ratio 0.2 0.2 Macula MAs, CME Normal Vessels Normal Normal Periphery Inferotemporal pigment - 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 (detachment 6-2oclock) Chronic IT RD with dense pigment (detachment 1-7oclock) documented in this encounter Plan of Treatment Scheduled Procedures Name Priority Associated Diagnoses Date/Ti me COLONOSCOPY, DIAGNOSTIC (WRV U 3.26) Left sided colitis with rectal bleeding documented as of this encounter Procedures Procedure Name Priority Date/Time Associated Diagnosis Comments OCT RETINA - OU - BOTH EYES Routine 02/15/2019 4:56 PM EDT Retinal microaneurysm of right eye documented in this encounter Results * OCT [id number] EYES (02/15/2019 4:56 PM EDT) Anatomical Region Laterality Modality Other Narrative 02/15/2019 4:56 PM EDT Right Eye Quality was good. Scan locations included subfoveal. Progression has been stable. Findings include abnormal foveal contour, intraretinal fluid. Left Eye Quality was good. Scan locations included subfoveal. Progression has been stable. Findings include normal observations, normal foveal contour. Johanna Jacinto MD OPHTHALMOLOGY SERVICES ORDERABLES documented in this encounter Visit Diagnoses Diagnosis Retinal microaneurysm of right eye Retinal microaneurysms NOS documented in this encounter Care Teams Correctional Captain Relationship Specialty Start Date End Date Brissa Toure, SEBLE [address] [facility] [address] PCP - General Family Medicine 06/19/18 documented as of this encounter
--- OUTSIDE RECORDS SUMMARY | 2023-12-05 22:09 | XMS_ITS | Clinical Summary ---
Author Organization [facility] Address [address] [facility] [place] [address] Care Team Providers Care Solar Sales Representative And Assessor Name Role Phone Brissa Toure APRN Primary Care Provider [phone] Allergies Active Allergy Reactions Criticality Noted Date Comments Enalapril Medications Medication Sig Dispensed Refills Start Date End Date Status valsartan (DIOVAN) 80 mg tablet 04/16/2010 Active imipramine (TOFRANIL) 50 mg tablet 04/16/2010 Active Insulin Lispro Protam & Lispro (HUMALOG MIX 75-25) 100 unit/mL (75-25) Susp 04/16/2010 Active celecoxib (CELEBREX) 100 mg capsule 04/16/2010 Active allopurinol (ZYLOPRIM) 300 mg tablet 04/16/2010 Active aspirin 81 mg EC tablet 04/16/2010 Active MAGNESIUM CHLORIDE ORAL 04/16/2010 Active LEVEMIR U-100 INSULIN Solution 06/25/2018 Active simvastatin (ZOCOR) 40 mg Tablet 0 04/11/2018 Active BD INSULIN SYRINGE ULTRA-FINE 1 mL 30 gauge x 1/2 Syringe 0 06/22/2018 Active gabapentin (NEURONTIN) 400 mg Capsule TK ONE C PO QID 1 02/23/2018 Active amLODIPine (NORVASC) 2.5 mg Tablet 07/07/2018 Active ONETOUCH ULTRA BLUE TEST STRIP Strip 0 06/01/2018 Active insulin aspart U-100 (NOVOLOG FLEXPEN U-100 INSULIN) Insulin Pen Inject subcutaneously 3 times daily (with meals). Active HUMALOG Solution INJECT SUBCUTANEOUSLY PER SLIDING SCALE BEFORE MEALS/MAX OF 140 UNITS DAILY 0 08/17/2018 Active metoprolol (LOPRESSOR) 100 mg Tablet 0 08/27/2018 Active artificial tear (TEARS) Drops Place 1 drop into both eyes 3 times daily as needed. 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 07/26/2018 Lumbar postlaminectomy syndrome 07/26/2018 Primary osteoarthritis of left hip 07/26/2018 Macular edema, cystoid 09/08/2013 Retinal detachment 09/08/2013 Family History Medical History Relation Comments Glaucoma Father Heart Disease Father Hypertension Father Diabetes Maternal Grandmother Cancer Mother Cataracts Mother Diabetes Mother Heart Disease Mother Hypertension Mother Diabetes Paternal Grandfather Amblyopia Neg Hx Macular Degeneration Neg Hx Retinal Detachment Neg Hx Strabismus Neg Hx Thyroid Disease Neg Hx Relation Status Comments Father Maternal Grandmother Mother Paternal Grandfather Social History Tobacco Use Types Packs/Day Years [...] on file Sexual Orientation Not on file Last Filed Vital Signs Vital Sign Reading Time Taken Comments Blood Pressure 144/87 04/03/2023 8:01 AM EST Pulse 80 04/03/2023 8:01 AM EST Temperature - - Respiratory Rate - - Oxygen Saturation 93% 04/03/2023 8:01 AM EST Inhaled Oxygen Concentration - - Weight 99.6 kg (219 lb 8 oz) 04/03/2023 8:01 AM EST Height 177.8 cm (5' 10) 04/03/2023 8:01 AM EST Body Mass Index 31.49 04/03/2023 8:01 AM EST Plan of Treatment Scheduled Procedures Name Priority Associated Diagnoses Date/Ti me COLONOSCOPY, DIAGNOSTIC (WRV U 3.26) Left sided colitis with rectal bleeding Health Maintenance Due Date Last Done Comments CT Colonography 1955 Colonoscopy 1957 Colorectal Cancer Screening 1955 FIT DNA 1957 FIT 1957 Sigmoidoscopy (10 year) with FIT yearly 1957 Sigmoidoscopy 1957 Hepatitis C Screening 1975 Tdap adult 02/04/1976 Tetanus vaccine 02/04/1976 Zoster vaccine (1 of 2) 2007 Advance Directive 02/04/2012 AAA Screen 2022 Pneumoccocal Vaccine: 65+ (1 of 1 - PCV) 2022 Covid-19 Vaccine (1 - 2022-24 season) 2023 Influenza (Flu) vaccine (1 o f 1 - Influenza standard series) 01/21/2024 Diabetes Screening (HgbA1C or Glucose) 04/03/2026 Procedures Procedure Name Priority Date/Time Associated Diagnosis Comments COMPREHENSIVE METABOLIC PANEL (NON-FASTING) Routine 04/03/2023 10:00 AM EST Left sided colitis with rectal bleeding from Last 3 Months or Most Recently Relevant to Health Maintenance Results * (ABNORMAL) Comprehensive metabolic panel (non-fasting) (04/03/2023 10:00 AM EST) Glucose Lvl 105 65 - 199 mg/dL [facility] Comment:Diabetes: >=200 mg/d L plus symptoms BUN 24(H) 10 - 20 mg/dL [facility] Creatinine 1.64(H) 0.80 - 1.50 mg/dL [facility] Sodium 140 135 - 145 mmol/L [facility] Potassium 4.3 3.5 - 5.0 mmol/L [facility] Comment: Please note: ??Patients with WBC >100,000 may have falsely elevated Potassium levels. ??For accurate Potassium quantification in these patients send serum separator tube (gold top) for subsequent determinations. ??Contact the Clinical Chemistry Laboratory if there are any questions. Chloride 99 98 - 107 mmol/L [facility] CO2 27 22 - 31 mmol/L [facility] Anion Gap 14 5 - 15 mmol/L [facility] Calcium 9.8 8.5 - 10.5 mg/dL [facility] Total Protein 7.5 6.1 - 8.0 g/dL [facility] Albumin 4.0 3.2 - 5.2 g/dL [facility] AST 33 0 - 39 unit/L [facility] ALT 27 0 - 55 unit/L [facility] Alk Phos 95 40 - 130 unit/L [facility] Total Bilirubin 0.2 0.2 - 1.3 mg/dL [facility] Estimated GFR 46(L) >=60 mL/min/1. 73 m?? [facility] Comment: This patient's estimated GFR was calculated using the 2020 CKD-EPI equation. The estimated GFR can vary from the measured GFR by up to 30% in the absence of rapidly changing kidney function. Assessment of the estimated GFR is not appropriate when creatinine concentrations are rapidly changing. For clinical situations in which a more precise estimate of GFR is necessary, consider alternative methods of GFR estimation such as a 24-hour urine creatinine clearance. Assignment of CKD stage 1-5 for patients with an eGFR near the transition point between stages may be based on clinical assessment of muscle mass and symptoms in addition to eGFR. Blood 04/03/2023 10:0 0 AM EST 04/03/2023 10:18 AM EST Narrative Resulting Agency Comment Spec In Lab Hermes Godinez MD CHEMISTRY ORDERABLES [facility] [place] [address] from Last 3 Months or Most Recently Relevant to Health Maintenance Care Teams Solar Sales Representative And Assessor Relationship Specialty Start Date End Date Brissa Toure, SEBLE [address] [place], [place] [id number] PCP - General Family Medicine 06/19/18
--- OUTSIDE RECORDS SUMMARY | 2023-12-05 22:09 | XMS_ITS | Encounter Summary ---
Author Organization [facility] [place] [address] Care Team Providers Care Collection Officer Name Role Phone Brissa Toure APRN Primary Care Provider [phone] Reason for Visit * Reason Onset Date Comments Follow-up 02/18/2019 Encounter Details Date Type Department Care Team (Late st Contact Info) Description 02/18/2019 Telephone Ophthalmology at [facility] [place] [address] Johanna Jacinto MD [facility] [place] [address] Follow-up Social History Tobacco Use Types Packs/Day Years [...] on file documented as of this encounter Miscellaneous Notes * Telephone Encounter - Nisha Nuñez - 03/04/2019 1:48 PM EDT Was not able to contact patient, letter sent. * Telephone Encounter - Nisha Nuñez - 02/25/2019 4:00 PM EDT I have called & left a 2nd message for the patient to call back & schedule. * Telephone Encounter - iNsha Nuñez - 02/18/2019 11:43 AM EDT I have called and left a message for patient to call and schedule an appointment. 0 Return for Follow up another 6 months for DFE/OCT OU. documented in this encounter Plan of Treatment Scheduled Procedures Name Priority Associated Diagnoses Date/Ti me COLONOSCOPY, DIAGNOSTIC (WRV U 3.26) Left sided colitis with rectal bleeding documented as of this encounter Visit Diagnoses Not on filedocumented in this encounter Care Teams Collection Officer Relationship Specialty Start Date End Date Brissa Toure, SEBLE [address] [place] [address] PCP - General Family Medicine 06/19/18 documented as of this encounter
--- OUTSIDE RECORDS SUMMARY | 2023-12-05 22:09 | XMS_ITS | Encounter Summary ---
Author Organization [facility] [place] [address] Care Team Providers Care Salesforce Specialist Name Role Phone Brissa Toure APRN Primary Care Provider [phone] Reason for Visit * Reason Comments NPDR Encounter Details Date Type Department Care Team (Latest Contact Info) Description 11/15/2018 1:30 PM EDT Office Visit Ophthalmology at [facility] [place] [address] Johanna Jacinto MD [facility] [place] [address] Retinal microaneurysm, unspecified laterality; Type 2 diabetes mellitus with both eyes [...] Progress Notes * Johanna Jacinto MD - 11/15/2018 1:30 PM EDT ASSESSMENT/PLAN: 1. Retinal microaneurysm, unspecified laterality 2. Type 2 diabetes mellitus with both eyes affected by 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 edema, with long-term current use of insulin 3. Chronic Schisis-RD OU 4. 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 Based on that discussed that aVEGFs are no longer recommended. - 11/15/18 THe OCT shows that the macula morphology is over all stable. Observation recommended. 2. 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 NS OU - May consider cataract surgery - 20/30 JU OD (11/15/18) 5. Dry eyes OU - Start artificial tears today (over the counter at any pharmacy) QID Follow up another 3 months for Re-eval FV+MSO with DFE/OCT Sooner PRN I, Jeff Young, have performed [...] (detachment 6-2oclock), CDR 0.2, Snowballs, Schisis- RD, [place], Microaneurysms Chronic IT RD with dense pigment (detachment 1-7oclock), CDR 0.2, Disc pallor documented in this encounter Plan of Treatment Scheduled Procedures Name Priority Associated Diagnoses Date/Ti me COLONOSCOPY, DIAGNOSTIC (WRV U 3.26) Left sided colitis with rectal bleeding documented as of this encounter Procedures Procedure Name Priority Date/Time Associated Diagnosis Comments OCT RETINA - OU - BOTH EYES Routine 11/15/2018 2:38 PM EDT Retinal microaneurysm, 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 Scan locations included subfoveal. Progression has been stable. Findings include abnormal foveal contour, intraretinal fluid. Left Eye Quality was good. Scan locations included subfoveal. Progression has been stable. Findings include normal observations, normal foveal contour. 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
--- OUTSIDE RECORDS SUMMARY | 2023-12-05 22:09 | XMS_ITS | Clinical Summary ---
Author Organization [facility] Address [address] [place] [address] Care Team Providers Care Maintenance And Engineering Manager Name Role Phone Sarah Francis [facility] Primary Care Provider [phone] Social History Tobacco Use Types Packs/Day Years Used Date Smoking Tobacco: Never Assessed Sex and Gender Information Value Date Recorded Sex Assigned at Not on file Gender Identity Not on file Sexual Orientation Not on file Plan of Treatment Health Maintenance Due Date Last Done Comments Hepatitis C Screen 1955 RSV Immunization ( o r 60+ Years) (1 - 1-dose 60+ series) 2017 Fall Risk Screening 2022 COVID-19 Vaccine ( season) 2023 Care Teams Maintenance And Engineering Manager Relationship Specialty Start Date End Date Sarah Francis FNP [address] [place] [address] PCP - General Family Medicine - Primary Care 01/20/23
--- OUTSIDE RECORDS SUMMARY | 2023-12-05 22:09 | XMS_ITS | Encounter Summary ---
Author Organization [facility] [place] [address] Care Team Providers Care Director Of Volunteer Services Name Role Phone Brissa Toure APRN Primary Care Provider [phone] Reason for Visit * Reason Comments Procedure * High Dollar Medication (Urgent) - Specialty Diagnoses / Procedures Referred By Isaías garcia Referred To Contact Ophthalmology Diagnoses Type 2 diabetes mellitus with mild nonproliferative diabetic retinopathy without macular edema, bilateral Procedures TC BEVACIZUMAB, 10MG, INJECTION (AVASTIN) Johanna Jacinto MD [facility] [place] [address] [facility] [place] [place] [address] Referral ID Status Reason Start Date Expiration Date V isits Requested Visits Authorized [id number] Evaluate and Treat 06/26/2018 06/26/2019 99 99 Encounter Details Date Type Department Care Team (Latest Contact Info) Description 08/23/2018 10:30 AM EDT Procedure visit [place] [address] Johanna Jacinto MD [facility] [place] [address] Type 2 diabetes mellitus with both eyes affected by 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 edema, with long-term current use of insulin Social History Tobacco Use Types Packs/Day Years [...] on file documented as of this encounter Patient Instructions * Patient Instructions* Zuleyka Myers - 08/23/2018 10:30 AM EDT Today you had your right eye(s) injected with a medication called Avastin today. -Please pay attention to your future scheduled appointments if you are having repeat injections. Future injections in the same eye must be at least 28 days apart. -Please, do not rub or wipe your eye for 24-48 hours after the injection as it would create more irritation.If you feel you must, close your eyes, dab gently, and use the sterile pink saline bullets to flush your eyes. -Try to avoid getting tap water or bath water in the eye for 48 hours. Do not swim for 48 hours. -Caution about driving: We always recommend having a nascar driver on the day you get an injection. If youdo not feel comfortable driving after your procedure, please allow your vision to recover or make alternate arrangements. - Here are the Normal and Expected side effects: -Do not be surprised or worried if you have a few bloody tears after the injection. You may have a small blood spot on the white of your eye (subconjunctival hemorrhage) or the appearance of a small blister or bump where the injection was given. -You may notice your vision seems a bit hazy and you may see floaters. -All of these things should gradually become less noticeable over the next few days. -You may also have some mild irritation or a foreign body sensation for up to 24 hours. - Here are the Not Normal and Not Expected side effects: Call [phone] (Eye Clinic) DAY or NIGHT, HOLIDAY or WEEKEND if you experience any of the following: = Severe, increasing pain in the eye = Significant, dramatic vision loss = Redness on and around the eye that gets worse, not better = Severe light sensitivity Call [phone] or go to the Emergency room immediately if you experience = Chest pain = Abdominal pain = Weakness or numbness on any part of your body = Slurred speech = Or any other symptoms of concern documented in this encounter Progress Notes * Johanna Jacinto MD - 08/23/2018 10:30 AM EDT Avastin OD #3/3 MSO only today documented in this encounter Plan of Treatment Scheduled Procedures Name Priority Associated Diagnoses Date/Ti me COLONOSCOPY, DIAGNOSTIC (WRV U 3.26) Left sided colitis with rectal bleeding documented as of this encounter Procedures Procedure Name Priority Date/Time Associated Diagnosis Comments INTRAVITREAL INJECTION PHARMACOLOGIC AGENT - OD - RIGHT EYE Routine 08/23/2018 12:06 PM EDT Type 2 diabetes mellitus with both eyes affected by 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 edema, with long-term current use of insulin documented in this encounter Results * Intravitreal Injection of Pharmacologic Agent MSO - OD - Right Eye (08/23/2018 12:06 PM EDT) Anatomical Region Laterality Modality Other Narrative 08/23/2018 12:06 PM EDT Pre Operative Diagnosis: Diabetic Macular Edema - Diabetic Retinopathy Post Operative Diagnosis: Diabetic Macular Edema - Diabetic Retinopathy Procedure: Intravitreal injection of Avastin 1.25 mg Right Eye Assist: Service Girl Anesthesia: Topical Proparacaine and topical 4% Lidocaine Complications: None Procedure: The patient was taken to the minor treatment suite where the patient was reidentified using name and birthdate as critical identifiers. The correct eye as the operative site was reidentified by a preplaced site libertad, and the consent form was actively reviewed by the assistant store manager operations and the surgeon. The right eye was prepped including instillation of Betadine 5% into the right cul de sac for 5 minutes, facial prep with ophthalmic Betadine and placement of a lid speculum. The surgeon performed hand washing preoperatively, used gloves, and wore a face mask or used no talking technique during the procedure, as did the surgical processor. After topical anesthesia of the injection site using multiple Q-tips soaked in 4% Lidocaine, Bevacizumab (Avastin) 1.25 mg was injected with a 30 gauge needle directed toward the center of the vitreous cavity, a measured 4 mm posterior to the limbus at the 1030 o'clock meridian. The patient demonstrated a minimum of counting fingers vision post injection, and received a post injection drop of Betadine OD. An optional patch was offered to the patient, and the patient was asked to call the Eye Clinic or Eye Doctor review consultant, should they develop pain in the treated eye, increasing redness or a discharge from the eye. Condition on Discharge: Stable Johanna Jacinto MD OPHTHALMOLOGY SERVICES ORDERABLES documented in this encounter Visit Diagnoses Diagnosis Type 2 diabetes mellitus with both eyes affected by 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 edema, with long-term current use of insulin documented in this encounter Administered Medications Inactive Administered Medications - up to 3 most recent administrations Medication Order MAR Action Action Date Dose Rate Site BEVACizumab (AVASTIN) ophthalmic injection 1.25 mg 1.25 mg, Intravitreal, ONCE, 1 dose, On Karli 08/23/18 at 1215, For ophthalmic use only. Syringe contains 0.1 mL of overfill , Routine Given 08/23/2018 12:15 PM EDT 1.25 mg Right Eye documented in this encounter Care Teams Director Of Volunteer Services Relationship Specialty Start Date End Date Brissa Toure APRN [address] [place] [address] PCP - General Family Medicine 06/19/18 documented as of this encounter
--- OUTSIDE RECORDS SUMMARY | 2023-12-05 22:09 | XMS_ITS | Encounter Summary ---
[place] [address] Care Team Providers Care Sugar Grinder Name Role Phone MesfinBrissa SEBLE Primary Care Provider Reason for Referral * Consultation (Routine) - Authorized Specialty Diagnoses / Procedures Referred By Isaías garcia Referred To Contact Gastroenterology Diagnoses Acute colitis Fatty liver acute colitis/fatty liver Sarah Francis APRN [address] [place] [address] [facility] [place] [address] Referral ID Status Reason Start Date Expiration Date Visits Requested Visits Authorized [id number] Authorized Consult, Test & Treat PCP Updated and/or Approved 01/12/2023 01/13/2024 6 6 Encounter Details Date Type Department Care Team (Late st Contact Info) Description 01/17/2023 Transcribe Orders eDH Incoming Referrals [phone] Sarah Francis APRN [address] [place], [place] [id number] Colitis; Acute colitis; Fatty liver Social History Tobacco Use Types Packs/Day Years [...] 3.26) Left sided colitis with rectal bleeding Scheduled Referrals Name Type Priority Associated Diagnoses Order Schedule Referral to Gastroenterology Outpatient Referral Routine Acute colitis Fatty liver Ordered: 01/17/2023 documented as of this encounter Visit Diagnoses Diagnosis Colitis Other and unspecified noninfectious gastroenteritis and colitis Acute colitis Other and unspecified noninfectious gastroenteritis and colitis Fatty liver Other chronic nonalcoholic liver disease documented in this encounter Care Teams Sugar Grinder Relationship Specialty Start Date End Date Brissa Toure APRN [address] [place] [address] PCP - General Family Medicine 06/19/18 documented as of this encounter
--- OUTSIDE RECORDS SUMMARY | 2023-12-05 22:09 | XMS_ITS | Encounter Summary ---
[place] [address] Care Team Providers Care Repacker Name Role Phone Brissa Toure APRN Primary Care Provider [phone] Encounter Details Date Type Department Care Team (Latest Contact Info) Description 04/28/2023 Travel Social History Tobacco Use Types Packs/Day [...] Scheduled Procedures Name Priority Associated Diagnoses Date/Ti ri COLONOSCOPY, DIAGNOSTIC (WRV U 3.26) Left sided colitis with rectal bleeding documented as of this encounter Visit Diagnoses Not on filedocumented in this encounter Care Teams Repacker Relationship Specialty Start Date End Date Brissa Toure APRN [address] [facility] [place] [address] PCP - General Family Medicine 06/19/18 documented as of this encounter
--- OUTSIDE RECORDS SUMMARY | 2023-12-05 22:09 | XMS_ITS | Encounter Summary ---
Author Organization [facility] Address [address] [place] [address] Care Team Providers Care Jewelry Manager Name Role Phone Sarah Francis CLINICAL VETERINARIAN Primary Care Provider [phone] Encounter Details Date Type Department Care Team (Late st Contact Info) Description 12/27/2022 Lab Requisition [facility] Pathology & Laboratory Medicine - [address] [id number] Outr Resulting Lab, Provider Social History Tobacco Use Types Packs/Day Years Used Date Smoking Tobacco: Never Assessed Sex and Gender Information Value Date Recorded Sex Assigned at Not on file Gender Identity Not on file Sexual Orientation Not on file documented as of this encounter Plan of Treatment Not on file documented as of this encounter Procedures Procedure Name Priority Date/Time Associated Diagnosis Comments ANCA, IFA Routine 12/24/2022 20:00 EDT ANTI NUCLEAR AB (GABE), IFA Routine 12/24/2022 20:00 EDT documented in this encounter Results * ANCA, IFA (12/24/2022 20:00 EDT) Lab ANCA Interpretation Negative Negative 12/28/2022 14:33 EDT [facility] Comment: No titer performed, ANCA Screen is negative. Results were obtained with the INOVA NOVA Lite ANCA kit by indirect immunofluorescence. Blood VENOUS BLOOD / Unknown 12/24/2022 20:00 EDT 12/27/2022 17:26 EDT Provider Outr Resulting Lab IMMUNOLOGY A ND SEROLOGY ORDERABLES Performing Organization Address [facility] Co de Phone Number [facility] [address] [place] [address] * ANTI NUCLEAR AB (GABE), IFA (12/24/2022 20:00 EDT) GABE Interpretation Negative Negative 2022 14:39 EDT [facility] Comment:No titer performed, GABE Screen is negative. Blood VENOUS BLOOD / Unknown 12/24/2022 20:00 EDT 12/27/2022 17:26 EDT Narrative [facility] - 12/28/2022 14:39 EDT Results were obtained with the INOVA NOVA Lite HEp-2 GABE Kit by indirect immunofluorescence. Provider Outr Resulting Lab IMMUNOLOGY A ND SEROLOGY ORDERABLES Performing Organization Address [facility] Co de Phone Number [facility] [address] [place] [address] documented in this encounter Visit Diagnoses Not on filedocumented in this encounter Care Teams Jewelry Manager Relationship Specialty Start Date End Date Sarah Francis FNP [address] [place] [address] PCP - General Family Medicine - Primary Care 01/20/23 documented as of this encounter
--- OUTSIDE RECORDS SUMMARY | 2023-12-05 22:09 | XMS_ITS | Encounter Summary ---
Author Organization [facility] Address [facility] [place] [address] Care Team Providers Care Washroom Operator Name Role Phone Brissa Toure APRN Primary Care Provider [phone] Encounter Details Date Type Department Care Team (Latest Contact Info) Description 04/28/2023 10:15 AM EST - 04/28/2023 11:59 PM [facility] Hospital Encounter [place] [address] Hermes Ridley MD [facility] [place] [address] Fatty liver Discharge Disposition: Home Social History Tobacco Use Types Packs/Day Years [...] on file documented as of this encounter Medications at Time of Discharge Medication Sig Dispensed Refills Start Date End Date artificial tear (TEARS) Drops Place 1 drop into both eyes 3 times daily as needed. metoprolol (LOPRESSOR) 100 mg Tablet 0 08/27/2018 HUMALOG Solution INJECT SUBCUTANEOUSLY PER SLIDING SCALE BEFORE MEALS/MAX OF 140 UNITS DAILY 0 08/17/2018 amLODIPine (NORVASC) 2.5 mg Tablet 07/07/2018 ONETOUCH ULTRA BLUE TEST STRIP Strip 0 06/01/2018 insulin aspart U-100 (NOVOLOG FLEXPEN U-100 INSULIN) Insulin Pen Inject subcutaneously 3 times daily (with meals). LEVEMIR U-100 INSULIN Solution 06/25/2018 simvastatin (ZOCOR) 40 mg Tablet 0 04/11/2018 BD INSULIN SYRINGE ULTRA-FINE 1 mL 30 gauge x 1/2 Syringe 0 06/22/2018 gabapentin (NEURONTIN) 400 mg Capsule TK ONE C PO QID 1 02/23/2018 valsartan (DIOVAN) 80 mg tablet 04/16/2010 imipramine (TOFRANIL) 50 mg tablet 04/16/2010 Insulin Lispro Protam & Lispro (HUMALOG MIX 75-25) 100 unit/mL (75-25) Susp 04/16/2010 celecoxib (CELEBREX) 100 mg capsule 04/16/2010 allopurinol (ZYLOPRIM) 300 mg tablet 04/16/2010 aspirin 81 mg EC tablet 04/16/2010 MAGNESIUM CHLORIDE ORAL 04/16/2010 documented as of this encounter Plan of Treatment Scheduled Procedures Name Priority Associated Diagnoses Date/Ti me COLONOSCOPY, DIAGNOSTIC (WRV U 3.26) Left sided colitis with rectal bleeding documented as of this encounter Procedures Procedure Name Priority Date/Time Associated Diagnosis Comments US ABDOMEN LIMITED HEPATOLOGY PROTOCOL Routine 04/28/2023 11:03 AM EST Fatty liver documented in this encounter Results * US Abdomen Limited Hepatology Protocol (04/28/2023 11:03 AM EST) Anatomical Region Laterality Modality Abdomen Ultrasound 04/28/2023 11:0 1 AM EST Impressions 04/28/2023 11:18 AM EST 1. Liver is at the upper limits of normal for size. Diffusely increased hepatic echotexture is consistent with steatosis. A few small simple cysts and a single granuloma are present, benign requiring no follow-up. 2. Cholelithiasis without ultrasound evidence of cholecystitis. 3. No intra or extrahepatic biliary ductal dilation. 4. No ascites. Electronically signed by: Armando Gardner MD, [facility] ([phone]), at 04/28/2023 11:11 AM Thank you for letting us participate in the care of this patient. If you are a health care provider and have any questions regarding this report, please contact the number above. For patients who have questions, please contact the health direct care counselor that requested your imaging first. ?Armando Gardner, Staff Physician Electronically Signed Final Report ?? 04/28/2023 11:18 am Narrative 04/28/2023 11:18 AM EST Abdominal ? (Signed Final 04/28/2023 11:18 am) PATIENT INFO: ID #: ? [id number] ?: ??[birth year] (68 yrs)(M) Name: ? ALEXANDRO Srinivasan ?Visit Date: 04/28/2023 11:01 am ? SINDY PERFORMED BY: Attending: ?Armando Gardner MD Performed By: ? Charisma Flores RDMS Referred By: ?HERMES RIDLEY Location: ? [place] SERVICE(S) PROVIDED: [facility] - Hepatology Protocol - Abdominal ?69212 Limited Survey Single Organ or Quadrant - [id number] INDICATIONS: patient been told he has fatty liver in the past TECHNIQUE/SCAN QUALITY: Scan Quality: ?? Limited by bowel gas and patient body habitus ------ LIVER: ------ Right Lobe Length: ?? 17.8 ?? cm Echogenicity/Echotexture: ?? Coarse parenchyma with increase ? in echogenicity. Portal Veins: ?Hepatopetal Comment: ?Limited evaluation of left lobe due to bowel gas. ? Multiple subcentimeter cysts seen throughout liver - ? Largest measurin.9 x 0.8 x 0.9 cm. Granuloma ? seen at dome measuring 0.7 cm. GALLBLADDER: Cholelithiasis: ?Gallstones Wall Thickness: ?Normal wall thickness Focal Tenderness: ?Negative sonographic Alaniz's sign BILIARY TRACT: Intrahepatic Ducts: ?? Normal Extrahepatic Ducts: ?? Normal Common Duct Size: ? 4.1 ? mm FLUID COLLECTIONS: Ascites not present on 4 quadrant evaluation. Procedure Note Armando Gardner MD - 04/28/2023 Abdominal (Signed Final 04/28/2023 11:18 am) PATIENT INFO: ID #: [id number] : [birth year] (68 yrs)(M) Name: ALEXANDRO Srinivasan Visit Date: 04/28/2023 11:01 am SINDY PERFORMED BY: Attending: Armando Gardner MD Performed By: Charisma Flores RDMS Referred By: HERMES RIDLEY Location: [place] [facility] Protocol - Abdominal 72398 Limited Survey Single Organ or Quadrant - [id number] INDICATIONS: patient been told he has fatty liver in the past TECHNIQUE/SCAN QUALITY: Scan Quality: Limited by bowel gas and patient body habitus ------ LIVER: ------ Right Lobe Length: 17.8 cm Echogenicity/Echotexture: Coarse parenchyma with increase in echogenicity. Portal Veins: Hepatopetal Comment: Limited evaluation of left lobe due to bowel gas. Multiple subcentimeter cysts seen throughout liver - Largest measurin.9 x 0.8 x 0.9 cm. Granuloma seen at dome measuring 0.7 cm. GALLBLADDER: Cholelithiasis: Gallstones Wall Thickness: Normal wall thickness Focal Tenderness: Negative sonographic Alaniz's sign BILIARY TRACT: Intrahepatic Ducts: Normal Extrahepatic Ducts: Normal Common Duct Size: 4.1 mm FLUID COLLECTIONS: Ascites not present on 4 quadrant evaluation. IMPRESSION 1. Liver is at the upper limits of normal for size. Diffusely increased hepatic echotexture is consistent with steatosis. A few small simple cysts and a single granuloma are present, benign requiring no follow-up. 2. Cholelithiasis without ultrasound evidence of cholecystitis. 3. No intra or extrahepatic biliary ductal dilation. 4. No ascites. Electronically signed by: Armando Gardner MD, [facility] ([phone]), at 04/28/2023 11:11 AM Thank you for letting us participate in the care of this patient. If you are a health care provider and have any questions regarding this report, please contact the number above. For patients who have questions, please contact the health direct care counselor that requested your imaging first. Armando Gardner, Staff Physician Electronically Signed Final Report 04/28/2023 11:18 am Hermes Ridley MD IMG US GEN ORDERABLE S documented in this encounter Visit Diagnoses Diagnosis Fatty liver Other chronic nonalcoholic liver disease documented in this encounter Care Teams Washroom Operator Relationship Specialty Start Date End Date Brissa Torue, [place] [address] [facility] [place] [address] PCP - General Family Medicine 06/19/18 documented as of this encounter
--- OUTSIDE RECORDS SUMMARY | 2023-12-05 22:09 | XMS_ITS | Encounter Summary ---
Author Organization [facility] [place] [address] Care Team Providers Care Kiln Remover Name Role Phone MesfinBrissa SEBLE Primary Care Provider [phone] Reason for Visit * Consultation (Routine) - Authorized Specialty Diagnoses / Procedures Referred By Isaías garcia Referred To Contact Gastroenterology Diagnoses Acute colitis Fatty liver acute colitis/fatty liver Sarah Francis APRN [address] [place] [address] [facility] [address] [place] [address] Referral ID Status Reason Start Date Expiration Date Visits Requested Visits Authorized [id number] Authorized Consult, Test & Treat PCP Updated and/or Approved 01/12/2023 01/13/2024 6 6 Encounter Details Date Type Department Care Team (Late st Contact Info) Description 04/03/2023 8:00 AM EST Office [place] [address] Roberto Abdul [facility] [place] [address] Left sided colitis with rectal bleeding; Fatty liver Social History Tobacco Use Types [...] on file documented as of this encounter Last Filed Vital Signs Vital Sign Reading [...] Mass Index 31.49 04/03/2023 8:01 AM EST documented in this encounter Progress Notes * Roberto Abdul, - 04/03/2023 8:00 AM EST Images from the original note were not included. Division of Gastroenterology and Hepatology New Patient Visit PCP: Brissa Toure APRN Referring provider: same as above Reason for Visit: IBD? HPI: Alexandro Callahan is a 68 y.o. male with a PMH noted below who presents to GI clinic d/t concerns for IBD. Past Medical Hx: T2DM (on Insulin and Semaglutide) - last A1c 7.7% (12/2022) NAFLD? Gout HLD HTN CKD stage 3b 01/12/23: Saw PCP in follow-up after a 5 day admission (from 12/24-12/29/22) for rectal bleeding. Per records from PCP this was thought to be colitis and patient was started on Augmentin and prednisone. Completed antibiotics on 01/11/23. Had been taking Celebrex, no longer taking. Stool Cultures (-) Colonoscopy scheduled 8 weeks out from completion of prednisone [facility] GI referral placed Underwent Colonoscopy on 02/17/[address] [facility] by Dr. Gatito Talbert (Surgery) Serpiginous ulceration extending from 25 cm from the anus up to about 40 cm Cecal Polyp - TA Biopsy at 35 cm - negative Biopsy at 30 cm - architectural distortion, fragments of ulceration and granulation showing prominent plasma cells, negative for dysplasia; idiopathic IBD? [facility] 03/15/23 - Followed up with Dr. Talbert ?Crohn's Plan for f/u in 6 months w/ repeat colonoscopy in 1 year Today: Patient reports he started on the Semaglutide ~ 6 months ago. He then developed constipation as a result. He reports prior to his admission in December he has had regular bowel movements his whole adult life. Has never had GI bleeding before. He notes the day of his admission he was straining so hardto have a bowel movement that he fell over the toilet. He reports that's when he saw the blood in his stool. Since that time he now takes Miralax 1/2 capful QOD and now constipation has resolved. He is back to having formed stools, no blood. He denies a family hx of IBD. No hx of GI surgeries Worked in a [employer] for several years, then [employer]) Quit smoking in 1987. Does not drink alcohol. No illicit drugs. PAST MEDICAL HISTORY: Past Medical History: Diagnosis Date Arthritis Cataract Diabetes mellitus Dry mouth Hyperlipidemia Hypertension Lumbar back pain with radiculopathy affecting left lower extremity 07/26/2018 Retinal detachment 09/08/2013 Patient Active Problem List Diagnosis Code Macular edema, cystoid H35.359 Retinal detachment H33.20 Lumbar back pain with radiculopathy affecting left lower extremity M54.16 Lumbar postlaminectomy syndrome M96.1 Primary osteoarthritis of left hip M16.12 PAST SURGICAL HISTORY: Past Surgical History: Procedure Laterality Date INTRAVITREAL INJECTION Right 06/26/2018 Avastin OD -DM INTRAVITREAL INJECTION Right 07/26/2018 Avastin OD -DM INTRAVITREAL INJECTION Right 08/23/2018 Avastin OD - DM LID SURGERY Right 04/2018 lid lesion excision - [place] SOCIAL HISTORY: Social History Socioeconomic History Marital status: Spouse name: Not on file Number of children: Not on file Years of education: Not on file Highest education level: Not on file Occupational History Not on file Tobacco Use Smoking status: Former Packs/day: 3.00 Years: 20.00 Additional pack years: 0.00 Total pack years: 60.00 Types: Cigarettes, Pipe, Cigars Quit date: 06/26/1986 Years since quittin.7 Smokeless tobacco: Former Types: Chew, Snuff Quit date: 06/26/1986 Vaping Use Vaping Use: Never used Substance and Sexual Activity Alcohol use: No Drug use: No Sexual activity: Never Other Topics Concern Not on file Social History Narrative Not on file Social Determinants of Health Financial Resource Strain: Not on file Food Insecurity: Not on file Transportation Needs: Not on file Physical Activity: Not on file Intimate Partner Violence: Not on file Housing Stability: Not on file FAMILY HISTORY: Family History Problem Relation Age of Onset Diabetes Mother Hypertension Mother Heart Disease Mother Cancer Mother Cataracts Mother Glaucoma Father Hypertension Father Heart Disease Father Diabetes Maternal Grandmother Diabetes Paternal Grandfather Macular Degeneration Neg Hx Retinal Detachment Neg Hx Strabismus Neg Hx Thyroid Disease Neg Hx Amblyopia Neg Hx MEDICATIONS: Current Outpatient Medications Medication Sig Dispense Refill artificial tear (TEARS) Drops Place 1 drop into both eyes 3 times daily as needed. metoprolol (LOPRESSOR) 100 mg Tablet 0 HUMALOG Solution INJECT SUBCUTANEOUSLY PER SLIDING SCALE BEFORE MEALS/MAX OF 140 UNITS DAILY 0 amLODIPine (NORVASC) 2.5 mg Tablet simvastatin (ZOCOR) 40 mg Tablet 0 BD INSULIN SYRINGE ULTRA-FINE 1 mL 30 gauge x 1/2 Syringe 0 gabapentin (NEURONTIN) 400 mg Capsule TK ONE C PO QID 1 valsartan (DIOVAN) 80 mg tablet imipramine (TOFRANIL) 50 mg tablet Insulin Lispro Protam & Lispro (HUMALOG MIX 75-25) 100 unit/mL (75-25) Susp allopurinol (ZYLOPRIM) 300 mg tablet aspirin 81 mg EC tablet ONETOUCH ULTRA BLUE TEST STRIP Strip 0 insulin aspart U-100 (NOVOLOG FLEXPEN U-100 INSULIN) Insulin Pen Inject subcutaneously 3 times daily (with meals). LEVEMIR U-100 INSULIN Solution celecoxib (CELEBREX) 100 mg capsule MAGNESIUM CHLORIDE ORAL No current facility-administered medications for this visit. ALLERGIES: Allergies Allergen Reactions Enalapril PHYSICAL EXAMINATION: Vitals: 04/03/23 0801 BP: 144/87 BP Location (NBP): Right arm Patient Position: Sitting BP Cuff Sizes: Adult (25-34 cm) Pulse: 80 SpO2: 93% Weight: 99.6 kg (219 lb 8 oz) Height: 177.8 cm (5' 10) General: Well appearing, no acute distress HEENT: anicteric sclera ABD: Soft, non-tender, non-distended Extremities: Warm and well perfused Skin: No rash, no jaundice Neuro: Alert and oriented x3, grossly non-focal LABS: Labs personally reviewed in e[facility] Lab Results Component Value Date WBC 7.5 04/03/2023 HGB 14.5 04/03/2023 MCV 94.3 (H) 04/03/2023 RDWCV 14.4 (H) 04/03/2023 PLATELET 207 04/03/2023 No results found for: INR, PT, PTT Lab Results Component Value Date CREATININE 1.64 (H) 04/03/2023 BUN 24 (H) 04/03/2023 NA 140 04/03/2023 K 4.3 04/03/2023 CL 99 04/03/2023 CO2 27 04/03/2023 CALCIUM 9.8 04/03/2023 Lab Results Component Value Date BILITOT 0.2 04/03/2023 ALKPHOS 95 04/03/2023 AST 33 04/03/2023 ALT 27 04/03/2023 ALBUMIN 4.0 04/03/2023 IMAGING: Reports and images personally reviewed in e[facility]. Images independently interpreted. US Abdomen Limited Hepatology Protocol (Results Pending) ENDOSCOPY: Reports and images personally reviewed in e[facility] ASSESSMENT & PLAN: Alexandro Callahan is a 68 y.o. male with a PMH noted above who presents to GI clinic d/t concerns for IBD. I suspect patient's episode of BRBPR in December followed by serpiginosus ulceration noted in the distal colon is related to severe constipation. I suspect the constipation was d/t Semaglutide as it's initiation is around the time the patient started to have issues with straining. Prior to this he reports once a day formed bowel movements his entire adult life. Fortunately, since being started on Miralax his bowel pattern and consistency have normalized. He has had no more episodes of BRBPR. I have low s/f IBD at this point. Though will obtain CBC, BMP, CRP, and fecal calprotectin to a/f inflammation. Recommended patient add Benefiber to his daily regimen. We will plan on repeating Alexandro's colonoscopy in 6 mths - 1 year to ensure healing. Secondly, patient reports he had been told in the past he has fatty liver. He denies ever being told he has abnormal liver labs, but us unsure how he was discovered to have fatty liver. He reports it's been years since he's heard this. Will obtain hepatic function panel, RUQ u/s, and Fibrosure panel. - CBC, CMP, CRP, fecal calprotectin - Colonoscopy in 6 months - 1 year to assess for healing (sooner if needed) - Continue Miralax QD and add Benefiber 1 tsp TID - RUQ ultrasound and Fibrosure panel The patient was seen with Dr. Gretchen Abdul DO PGY-4, Gastroenterology [facility] [place] [address] [place] [address] P: [phone] F: [phone] CC Brissa Toure, ANALYTICS ANALYST [address] [place] [address] CC Sarah Francis, ANALYTICS ANALYST [address] [place] [address] * Abdulaziz Godinez MD - 04/03/2023 8:00 AM EST Attending attestation: I interviewed and examined the patient with Dr. Abdul in clinic. I confirm the history and asif physical findings outlined in this note. The assessment and plan were formulated in discussion with me at the time of this encounter, and I agree with them as documented. Abdulaziz Godinez MD Section of Gastroenterology [facility] documented in this encounter Plan of Treatment Scheduled Orders Name Type Priority Associated Diagnoses Orde r Schedule Calprotectin, Stool Lab Routine Left sided colitis with rectal bleeding Expected: 04/17/2023, Expires: 10/17/2023 ENDOSCOPY CASE REQUEST: COLONOSCOPY, DIAGNOSTIC (WRVU 3.26) Procedures Routine Left sided colitis with rectal bleeding Ordered: 04/03/2023 Scheduled Procedures Name Priority Associated Diagnoses Date/Ti me COLONOSCOPY, DIAGNOSTIC (WRV U 3.26) Left sided colitis with rectal bleeding documented as of this encounter Procedures Procedure Name Priority Date/Time Associated Diagnosis Comments HC P[facility] LIVER FIBROSIS PANEL; NEPHELOMETRY Routine 04/03/2023 10:00 AM EST Fatty liver HC C-REACTIVE PROTEIN Routine 04/03/2023 10:00 AM EST Left sided colitis with rectal bleeding HEMOGRAM Routine 04/03/2023 10:00 AM EST Left sided colitis with rectal bleeding DIFFERENTIAL, AUTOMATED Routine 04/03/2023 10:00 AM EST Left sided colitis with rectal bleeding HC CBC,PLT & AUTO DIFF Routine 10:00 AM EST Left sided colitis with rectal bleeding COMPREHENSIVE METABOLIC PANEL (NON-FASTING) Routine 04/03/2023 10:00 AM EST Left sided colitis with rectal bleeding documented in this encounter Results * US [...] ascites. Electronically signed by: Armando Gardner MD, [facility] ([phone]), at 04/28/2023 11:11 AM Thank you for letting us participate in the care of this patient. If you are a health care provider and have any questions regarding this report, please contact the number above. For patients who have questions, please contact the health personal carer that requested your imaging first. ?Armando Gardner, Staff Physician Electronically Signed Final Report ?? 04/28/2023 11:18 am Narrative 04/28/2023 11:18 AM EST Abdominal ? (Signed Final 04/28/2023 11:18 am) PATIENT INFO: ID #: ? [id number] ?: ??[birth year] (68 yrs)(M) Name: ? ALEXANDRO Srinivasan ?Visit Date: 04/28/2023 11:01 am ? TIFF PERFORMED BY: Attending: ?Armando Gardner MD Performed By: ? Charisma Flores RDMS Referred By: ?ABDULAZIZ GODINEZ Location: ? [place] SERVICE(S) PROVIDED: [facility] - Hepatology Protocol - Abdominal ?90884 Limited Survey Single Organ or Quadrant - [id number] INDICATIONS: patient been told he has fatty [...] 04/28/2023 11:18 am) PATIENT INFO: ID #: [id number] : [birth year] (68 yrs)(M) Name: ALEXANDRO Srinivasan Visit Date: 04/28/2023 11:01 am TIFF PERFORMED BY: Attending: Armando Gardner MD Performed By: Charisma Flores RDMS Referred By: ABDULAZIZ GODINEZ Location: [place] SERVICE(S) PROVIDED: [facility] - Hepatology Protocol - Abdominal 54878 Limited Survey Single Organ or Quadrant - [id number] INDICATIONS: patient been told he has fatty [...] ascites. Electronically signed by: Armando Gardner MD, [facility] ([phone]), at 04/28/2023 11:11 AM Thank you for letting us participate in the care of this patient. If you are a health care provider and have any questions regarding this report, please contact the number above. For patients who have questions, please contact the health personal carer that requested your imaging first. Armando Gardner, Staff Physician Electronically Signed Final Report 04/28/2023 11:18 am Abdulaziz Godinez MD IM US GEN ORDERABLE S * Differential, Automated (04/03/2023 10:00 AM EST) Neutrophils % 46.4 % [facility] Neutr Abs (ANC) 3.49 1.70 - 6.10 x10(3)/[facility] Lymphocytes % 36.3 % [facility] Lymphocytes Abs 2.7 0.9 - 3.2 x10(3)/[facility] Monocytes % 11.8 % [facility] Monocyte Abs 0.9 0.3 - 0.9 x10(3)/[facility] Eosinophils % 4.3 % [facility] Eosinophils Abs 0.3 0.0 - 0.4 x10(3)/[facility] Basophils % 0.9 % [facility] Basophils Abs 0.1 0.0 - 0.1 x10(3)/[facility] Immature Gran % 0.30 % [facility] Comment: Immature granulocytes(IG's)percentage and absolute count will include metamyelocytes, myelocytes, and promyelocytes. Blood smears from CBCs yielding IG's will be scanned manually for concordance. If this scan disagrees with the automated IG or if promyelocytes are noted, a manual differential will be performed. [place] Gran Abs 0.02 0.00 - 0.04 x10(3)/[facility] Blood 04/03/2023 10:0 0 AM EST 04/03/2023 10:18 AM EST Narrative Resulting Agency Comment Spec In Lab Obaida Ezequieli DO HEMATOLOGY ORDERABLE S [facility] [address] * (ABNORMAL) Hemogram (04/03/2023 10:00 AM EST) [facility] WBC 7.5 4.0 - 9.5 x10(3)/[facility] RBC 4.55(L) 4.58 - 5.54 x10(6)/[facility] Hemoglobin 14.5 13.7 - 16.5 g/dL [facility] Hematocrit 42.9 40.5 - 48.5 % [facility] MCV 94.3(H) 82.9 - 93.1 [facility] MCH 31.9 27.5 - 32.1 pg [facility] MCHC 33.8 32.0 - 35.7 g/dL [facility] Platelets 207 145 - 357 x10(3)/[facility] RDWSD 49.9(H) 36.0 - 45.0 [facility] RDWCV 14.4(H) 11.4 - 13.8 % [facility] MPV 10.6 7.6 - 12.9 [facility] nRBC % Auto 0.0 % [facility] nRBC Abs Auto 0.000 0.000 - 0.000 x10(3)/[facility] Blood 04/03/2023 10:0 0 AM EST 04/03/2023 10:18 AM EST Narrative Resulting Agency Comment Spec In Lab Roberto Abdul DO HEMATOLOGY ORDERABLE S [facility] [address] * (ABNORMAL) Liver Fibrosis Panel (04/03/2023 10:00 AM EST) Pathologist [facility] Liver Fibrosis Panel Test ? Result ?Flag ??Unit ?? RefValue FibroTest-ActiTest, S ??FibroTest Score ?0.43 ??FibroTest Stage ?F1-F2 ??FibroTest Interpretation ? minimal fibrosis ?FibroTest estimates liver fibrosis ?FibroTest Score ?Stage ?Interpretation ?0.00-0.21 ?F0 ? no fibrosis ?0.21-0.27 ?F0-F1 ?no fibrosis ?0.27-0.31 ?F1 ? minimal fibrosis ?0.31-0.48 ?F1-F2 ?minimal fibrosis ?0.48-0.58 ?F2 ? moderate fibrosis ?0.58-0.72 ?F3 ? advanced fibrosis ?0.72-0.74 ?F3-F4 ?advanced fibrosis ?0.74-1.00 ?F4 ? severe fibrosis (Cirrhosis) ??ActiTest Score ? 0.17 ??ActiTest Grade ? A0-A1 ??ActiTest Interpretation ?no activity ?ActiTest estimates necroinflammatory activity ?ActiTest Score ? Grade ?Interpretation ?0.00-0.17 ?A0 ? no activity ?0.17-0.29 ?A0-A1 ?no activity ?0.29-0.36 ?A1 ? minimal activity ?0.36-0.52 ?A1-A2 ?minimal activity ?0.52-0.60 ?A2 ? significant activity ?0.60-0.62 ?A2-A3 ?significant activity ?0.62-1.00 ?A3 ? severe activity ??FibroTest-ActiTest Comment ? SEE COMMENTS ?The reliability of results is dependent on compliance ?with the preanalytical and analytical conditions ?recommended by [employer]. The tests have to be ?deferred for: acute hemolysis, acute hepatitis, ?acute inflammation, extra hepatic cholestasis. The ?advice of a specialist should be sought for ?interpretation in chronic hemolysis and Gilbert's ?syndrome. The test interpretation is not validated ?in liver transplant patients. Isolated extreme values ?of one of the components should lead to caution in ?interpreting the results. In case of discordance ?between a biopsy result and a test, it is recommended ?to seek advice of a specialist. The causes of these ?discordances could be due to a flaw of the test or to ?a flaw in the biopsy: i.e. a liver biopsy has a 33% ?variability rate for one fibrosis stage. FibroTest is ?interpretable for chronic hepatitis B and C, alcoholic ?and non alcoholic steatosis. ActiTest is interpretable ?for chronic hepatitis B and C. ? A DDITIONAL INFORMATION -------- ?This test was developed and its performance characteristics ?determined by [facility] in a manner consistent with ?CLIA requirements. This test has not been cleared or ?approved by the U.S. Food and Drug Administration. ??[employer] Serial Number ?[id number] ??Apolipoprotein A1, S ? 125 ? mg/dL ??>=120 ??[id number] n, S ? 355 ?H ?mg/dL ??100 - 280 ??Haptoglobin, S ? 216 ?H ?mg/dL ??30 - 200 ??Alanine Aminotransferase (ALT), S ?30 ?U/L ?7-55 ??Gamma Glutamyltransferase (GGT), S ? 41 ?U/L ?8 - 61 ??Bilirubin, Total, S ?<0.2 ?mg/dL ??0.0 - 1.2 ?Test Performed by: ?[facility] ?[address] [place] [address] ?Hair Specialist: Adal Palomo M.D. Ph.D.; CLIA# [id number] ?Test Performed by: ?[facility] ?[address] [place] [address] ?Hair Specialist: Adal Palomo M.D. Ph.D.; CLIA# [id number]) [facility] Blood 04/03/2023 10:0 0 AM EST 04/03/2023 11:33 AM EST Narrative Resulting Agency Comment Spec In Lab Abdulaziz Godinez MD CHEMISTRY ORDERABLES Performing Organization Address City/State/[facility] Co de Phone Number [facility] [address] * (ABNORMAL) Comprehensive metabolic panel (non-fasting) (04/03/2023 10:00 AM EST) Glucose Lvl 105 65 - 199 mg/dL [facility] Comment:Diabetes: >=200 mg/d L plus symptoms BUN 24(H) 10 - 20 mg/dL [facility] Creatinine 1.64(H) 0.80 - 1.50 mg/dL [facility] Sodium 140 135 - 145 mmol/L [facility] Potassium 4.3 3.5 - 5.0 mmol/L [facility] Comment: Please note: ??Patients with WBC >100,000 may have falsely elevated Potassium levels. ??For accurate Potassium quantification in these patients send serum separator tube (gold top) for subsequent determinations. ??Contact the Clinical Chemistry Laboratory if there are any questions. Chloride 99 98 - 107 mmol/L [facility] CO2 27 22 - 31 mmol/L [facility] Anion Gap 14 5 - 15 mmol/L [facility] Calcium 9.8 8.5 - 10.5 mg/dL [facility] Total Protein 7.5 6.1 - 8.0 g/dL [facility] Albumin 4.0 3.2 - 5.2 g/dL [facility] AST 33 0 - 39 unit/L [facility] ALT 27 0 - 55 unit/L [facility] Alk Phos 95 40 - 130 unit/L [facility] Total Bilirubin 0.2 0.2 - 1.3 mg/dL [facility] Estimated GFR 46(L) >=60 mL/min/1. 73 m?? [facility] Comment: This patient's estimated GFR was [...] Narrative Resulting Agency Comment Spec In Lab Abdulaziz Godinez MD CHEMISTRY ORDERABLES [facility] [place] [phone] * CRP, acute inflammation (04/03/2023 10:00 AM EST) CRP 4.0 <=4.9 mg/L [facility] Blood 04/03/2023 10:0 0 AM EST 04/03/2023 10:18 AM EST Narrative Resulting Agency Comment Spec In Lab Abdulaziz Godinez MD CHEMISTRY ORDERABLES [facility] [place] [address] documented in this encounter Visit Diagnoses Diagnosis Left sided colitis with rectal bleeding Left sided ulcerative (chronic) colitis Fatty liver Other chronic nonalcoholic liver disease Fatty liver Other chronic nonalcoholic liver disease documented in this encounter Care Teams Kiln Remover Relationship Specialty Start Date End Date Brissa Toure APRN [address] [place] [address] PCP - General Family Medicine 06/19/18 documented as of this encounter
--- OUTSIDE RECORDS SUMMARY | 2023-12-05 22:09 | XMS_ITS | Encounter Summary ---
Author Organization [facility] Address [address] [place] [address] Care Team Providers Care Vocational Education Professional Name Role Phone Sarah Francis IMPROVEMENT ANALYST Primary Care Provider [phone] Encounter Details Date Type Department Care Team (Late st Contact Info) Description 12/26/2022 Lab Requisition [facility] Pathology & Laboratory Medicine - [address] [address] Outr Resulting Lab, Provider Social History Tobacco [...] Procedure Name Priority Date/Time Associated Diagnosis Comments FECAL BACTERIAL PATHOGENS BY PCR Routine 12/25/2022 12:55 EDT documented in this encounter Results * FECAL BACTERIAL PATHOGENS BY PCR (12/25/2022 12:55 EDT) Salmonella PCR Negative Negative 12/26/2022 20:32 EDT [facility] Shigella/Enteroin vasive E. coli Negative Negative 12/26/2022 20:32 EDT [facility] HN LAB CAMPYLOBACTER PCR Negative Negative 12/26/2022 20:32 EDT [facility] Shiga Toxin PCR Negative Negative 20:32 EDT [facility] Feces SPECIMEN FROM RECTUM / Unknown 12/25/2022 12:55 EDT 12/26/2022 16:34 EDT Provider Outr Resulting Lab MICROBIOLOGY - GENERAL ORDERABLES [facility] [address] [place] [address] documented in this encounter Visit Diagnoses Not on filedocumented in this encounter Care Teams Vocational Education Professional Relationship Specialty Start Date End Date Sarah Francis FNP [address] [place] [id number] PCP - General Family Medicine - Primary Care 01/20/23 documented as of this encounter
--- OUTSIDE RECORDS SUMMARY | 2023-12-05 22:09 | XMS_ITS | Referral Summary ---
Author Organization [facility] Address [address] [place] [address] Care Team Providers Care Major Assembly Inspector Name Role Phone Sarah Francis [facility] Primary Care Provider [phone] Social History Tobacco Use Types Packs/Day Years Used Date Smoking Tobacco: Never Assessed Sex and Gender Information Value Date Recorded Sex Assigned at Not on file Gender Identity Not on file Sexual Orientation Not on file Plan of Treatment Not on file Care Teams Major Assembly Inspector Relationship Specialty Start Date End Date Sarah Francis FNP [address] [place] [address] PCP - General Family Medicine - Primary Care 01/20/23
--- OUTSIDE RECORDS SUMMARY | 2023-12-05 22:10 | XMS_ITS | Encounter Summary ---
Author Organization [facility] [place] [address] Care Team Providers Care Armoured [employer] Officer Name Role Phone Kathrin Lemus MD Primary Care Provider [phone] Encounter Details Date Type Department Care Team (Late st Contact Info) Description 07/29/2013 Abstract [place] [address] Alo Diaz MD [facility] [place] [address] Social History Tobacco Use Types Packs/Day Years [...] on filedocumented in this encounter Care Teams Armoured [employer] Officer Relationship Specialty Start Date End Date Kathrin Lemus MD [facility] [address] [place] [address] PCP - General 04/19/10 09/08/13 documented as of this encounter
--- OUTSIDE RECORDS SUMMARY | 2023-12-05 22:10 | XMS_ITS | Encounter Summary ---
Author Organization [facility] [place] [address] Care Team Providers Care Content Architect Name Role Phone Su Sousa MD Primary Care Provider Encounter Details Date Type Department Care Team (Late st Contact Info) Description 04/16/2010 12:45 PM EST Office [place] [address] Alo Diaz MD [facility] [place] [address] Social History Tobacco Use Types Packs/Day Years [...] on filedocumented in this encounter Care Teams Content Architect Relationship Specialty Start Date End Date Su Sousa MD [address] [place] [address] PCP - General 04/13/10 04/18/10 documented as of this encounter
--- OUTSIDE RECORDS SUMMARY | 2023-12-05 22:10 | XMS_ITS | Encounter Summary ---
Author Organization [facility] [place] [address] Care Team Providers Care Subway Guard Name Role Phone Brissa Toure APRN Primary Care Provider [phone] Reason for Visit * Reason Comments Procedure * High Dollar Medication (Urgent) - Specialty Diagnoses / Procedures Referred By Isaías garcia Referred To Contact Ophthalmology Diagnoses Type 2 diabetes mellitus with mild nonproliferative diabetic retinopathy without macular edema, bilateral Procedures TC BEVACIZUMAB, 10MG, INJECTION (AVASTIN) Johanna Jacinto [place] [facility] [place] [address] [facility] [place] [address] Referral ID Status Reason Start Date Expiration Date V isits Requested Visits Authorized [id number] Evaluate and Treat 06/26/2018 06/26/2019 99 99 Encounter Details Date Type Department Care Team (Latest Contact Info) Description 07/26/2018 12:45 PM EST [place] [address] Johanna Jacinto MD [facility] [place] [address] Type 2 diabetes mellitus with both eyes [...] this encounter Patient Instructions * Patient Instructions* Barbie Jennings - 07/26/2018 12:45 PM EST Today you had your right eye(s) injected [...] about driving: We always recommend having a otr van cdl truck driver on the day you get an [...] Normal and Not Expected side effects: Call [phone] (Eye Clinic) DAY or NIGHT, HOLIDAY or WEEKEND if you experience any of the following: = Severe, increasing pain in the eye = Significant, dramatic vision loss = Redness on and around the eye that gets worse, not better = Severe light sensitivity Call 911 or go to the Emergency room immediately if you experience = Chest pain = Abdominal pain = Weakness or numbness on any part of your body = Slurred speech = Or any other symptoms of concern documented in this encounter Progress Notes * Johanna Jacinto MD - 07/26/2018 12:45 PM EST Avastin OD #2/3 Today documented in this encounter Plan of Treatment Scheduled Procedures Name Priority Associated Diagnoses Date/Ti me COLONOSCOPY, DIAGNOSTIC (WRV U 3.26) Left sided colitis with rectal bleeding documented as of this encounter Procedures Procedure Name Priority Date/Time Associated Diagnosis Comments INTRAVITREAL INJECTION PHARMACOLOGIC AGENT - OD - RIGHT EYE Routine 07/26/2018 2:38 PM EST Type 2 diabetes mellitus with both eyes affected by 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 edema, with long-term current use of insulin FLUORESCEIN ANGIOGRAPHY - OU - BOTH EYES Routine 07/26/2018 2:05 PM EST Type 2 diabetes mellitus with both eyes affected by 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 edema, with long-term current use of insulin documented in this encounter Results * Intravitreal Injection of Pharmacologic Agent MSO - OD - Right Eye (07/26/2018 2:38 PM EST) Anatomical Region Laterality Modality Other Narrative 07/26/2018 2:38 PM EST Pre Operative Diagnosis: Diabetic Macular Edema - Diabetic Retinopathy Post Operative Diagnosis: Diabetic Macular Edema - Diabetic Retinopathy Procedure: Intravitreal injection of Avastin 1.25 mg Right Eye Assist: Dobby Loom Chain Pegger Anesthesia: Topical Proparacaine and topical 4% Lidocaine Complications: None Procedure: The patient was taken to the minor treatment suite where the patient was reidentified using name and birthdate as critical identifiers. The correct eye as the operative site was reidentified by a preplaced site libertad, and the consent form was actively reviewed by the customer care assistant and the surgeon. The right eye was prepped including instillation of Betadine 5% into the right cul de sac for 5 minutes, facial prep with ophthalmic Betadine and placement of a lid speculum. The surgeon performed hand washing preoperatively, used gloves, and wore a face mask or used no talking technique during the procedure, as did the surgical supply assistant. After topical anesthesia of the injection site [...] call the Eye Clinic or Eye Doctor construction crew member, should they develop pain in the treated eye, increasing redness or a discharge from the eye. Condition on Discharge: Stable Johanna Jacinto MD OPHTHALMOLOGY SERVICES ORDERABLES * FLUORESCEIN ANGIOGRAPHY - OU- BOTH EYES (07/26/2018 2:05 PM EST) Anatomical Region Laterality Modality Other Narrative 07/26/2018 2:05 PM EST Right Eye Progression has been stable. Early phase findings include staining. Mid/Late phase findings include staining, leakage, pooling. Choroidal neovascularization is not present. Left Eye Early phase findings include staining. Mid/Late phase findings include leakage, pooling. Choroidal neovascularization is not present. Notes DME OD, Schisis-RD OU Johanna Jacinto MD OPHTHALMOLOGY SERVICES ORDERABLES documented [...] mg, Intravitreal, ONCE, 1 dose, On Karli 07/26/18 at 1500, For ophthalmic use only. Syringe contains 0.1 mL of overfill , Routine Given 07/26/2018 3:00 PM EST 1.25 mg Right Eye documented in this encounter Care Teams Subway Guard Relationship Specialty Start Date End Date Brissa Toure, INSPECTOR BALANCE TRUING [address] [facility] [place] [address] PCP - General Family Medicine 06/19/18 documented as of this encounter
--- OUTSIDE RECORDS SUMMARY | 2023-12-05 22:10 | XMS_ITS | Encounter Summary ---
Author Organization [facility] [place] [address] Care Team Providers Care Manufacturing Sr Engineer Name Role Phone Santos Villatoro MD Primary Care Provider [phone] Reason for Visit * Reason Comments Diabetes Presents for 6 week check anf FA today Macular Edema Encounter Details Date Type Department Care Team (Late st Contact Info) Description 10/18/2013 2:45 PM EDT [place] [address] Alo Diaz MD [facility] [place] [address] Retinal detachment, unspecified laterality; Macular edema, cystoid, unspecified laterality Discharge Disposition: Home Social History Tobacco Use Types Packs/Day Years Used Date Smoking Tobacco: Never Assessed Alcohol Use Standard Drinks/Week Comments No 0 (1 standard drink = 0.6 oz pur e alcohol) Sex and Gender Information Value Date Recorded Sex Assigned at Not on file Gender Identity Not on file Sexual Orientation Not on file documented as of this encounter Progress Notes * Alo Diaz MD - 10/18/2013 3:59 PM EDT Thom cat documented in this encounter Plan of Treatment Scheduled Procedures Name Priority Associated Diagnoses Date/Ti me COLONOSCOPY, DIAGNOSTIC (WRV U 3.26) Left sided colitis with rectal bleeding documented as of this encounter Visit Diagnoses Diagnosis Retinal detachment, unspecified laterality Macular edema, cystoid, unspecified laterality documented in this encounter Care Teams Manufacturing Sr Engineer Relationship Specialty Start Date End Date Santos Villatoro MD [address] [place] [address] PCP - General 09/09/13 06/18/18 documented as of this encounter
--- OUTSIDE RECORDS SUMMARY | 2023-12-05 22:10 | XMS_ITS | Encounter Summary ---
Author Organization [facility] Address [facility] [place] [address] Care Team Providers Care Lab Aid Name Role Phone Brissa Toure APRN Primary Care Provider [phone] Reason for Visit * Reason Comments NPDR * Consultation (Routine) - Closed Specialty Diagnoses / Procedures Referred By Isaías garcia Referred To Contact Ophthalmology Diagnoses dm mac edema Claire Garcia, OD [address] [place] [address] Milton Delaney MD [facility] [place] [address] Referral ID Status Reason Start Date Expiration Date V isits Requested Visits Authorized [id number] Closed Consult, Test & Treat PCP Updated and/or Approved 03/02/2018 03/02/2019 1 1 Encounter Details Date Type Department Care Team (Latest Contact Info) Description 06/26/2018 12:00 PM EST Office [place] [address] Johanna Jacinto MD [place] [address] Type 2 diabetes mellitus with both eyes affected by 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 edema, with long-term current use of insulin (Primary Dx); Chronic Schisis-RD OU Social History Tobacco Use Types Packs/Day Years [...] Progress Notes * Johanna Jacinto MD - 06/26/2018 12:00 PM EST ASSESSMENT: 1. Type 2 diabetes mellitus with both eyes affected by 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 edema, with long-term current use of insulin 2. Chronic Schisis-RD OU 3. 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 PLAN: 1. NPDR OU with DME OD Alexandro Callahan is a patient with Type 2 diabetes. Today the VA OD has decreased while the fundoscopic exam and multimodal imaging show that the retinopathy is non proliferative. Moreover, there isvisually significant macular edema OD but not OS. Recommended good blood sugar control and told the patient to call us with new visual changes. Today's findings communicated to the patient's PCP. 2. Schisis-RD OU - Appears chronic and surrounded by pigment changes - Will monitor for now Avastin OD #1/3 Today Follow up 4-5 weeks for FA OD>OS, OCT OU and Avastin OD #2/3 MSO only Follow up another 4-5 weeks for Avastin OD #3/3 MSO only Follow up another 4-5 weeks for Re-eval FV+MSO with DFE/OCT/Possible Avastin OD. Sooner PRN Johanna Jacinto MD, PhD Extended Ophthalmoscopy Indication: 1. Type 2 diabetes mellitus with both eyes affected by 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 edema, with long-term current use of insulin 2. Chronic Schisis-RD OU 3. 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), CDR 0.2, DME, [place], Schisis- RD Chronic IT RD with dense pigment (detachment 1-7oclock), CDR 0.2, Disc pallor documented in this encounter Plan of Treatment Scheduled Procedures Name Priority Associated Diagnoses Date/Ti me COLONOSCOPY, DIAGNOSTIC (WRV U 3.26) Left sided colitis with rectal bleeding documented as of this encounter Procedures Procedure Name Priority Date/Time Associated Diagnosis Comments OCT RETINA - OU - BOTH EYES Routine 06/26/2018 1:50 PM EST Type 2 diabetes mellitus with both eyes affected by 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 edema, with long-term current use of insulin documented in this encounter Results * OCT [id number] EYES (06/26/2018 1:50 PM EST) Anatomical Region Laterality Modality Other Narrative 06/26/2018 1:50 PM EST Right Eye Quality was good. Scan locations included subfoveal. Progression has worsened. Findings include abnormal foveal contour. Left Eye Quality was good. Scan locations included subfoveal. Progression has been stable. Findings include normal observations, normal foveal contour. Johanna Jacinto MD OPHTHALMOLOGY SERVICES ORDERABLES documented in this encounter Visit Diagnoses Diagnosis Type 2 diabetes mellitus with both eyes affected by 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 edema, with long-term current use of insulin- Primary Chronic Schisis-RD OU Recent retinal detachment, partial, with giant tear documented in this encounter Care Teams Lab Aid Relationship Specialty Start Date End Date Brissa Toure, PATIENT ACCOUNT SPECIALIST [address] [address] PCP - General Family Medicine 06/19/18 documented as of this encounter
--- OUTSIDE RECORDS SUMMARY | 2023-12-05 22:10 | XMS_ITS | Encounter Summary ---
Author Organization [facility] [place] [address] Care Team Providers Care Beef Selector Name Role Phone Brissa Toure APRN Primary Care Provider [phone] Reason for Referral * Diagnostic Test (Routine) - Closed Specialty Diagnoses / Procedures Referred By Contac t Referred To Contact Radiology Diagnoses History of lumbar laminectomy for spinal cord decompression Pain in left hip Chronic midline low back pain with left-sided sciatica Procedures MRI Lumbar Spine wo Contrast (Generic) Stevie Ferraro PA [facility] [place] [address] [place] [address] Referral ID Status Reason Start Date Expiration Date V isits Requested Visits Authorized [id number] Closed Specialty Service Requested 07/09/2018 10/07/2018 1 1 Reason for Visit * Diagnostic Test (Routine) - Closed Specialty Diagnoses / Procedures Referred By Contac t Referred To Contact Radiology Diagnoses History of lumbar laminectomy for spinal cord decompression Pain in left hip Chronic midline low back pain with left-sided sciatica Procedures MRI Lumbar Spine wo Contrast (Generic) Stevie Ferraro PA [facility] [place] [address] [place] [address] Referral ID Status Reason Start Date Expiration Date V isits Requested Visits Authorized [id number] Closed Specialty Service Requested 07/09/2018 10/07/2018 1 1 Encounter Details Date Type Department Care Team (Latest Contact Info) Description 07/19/2018 8:02 AM EST - 07/19/2018 11:59 PM EST [place] [id number] Adal Valdovinos MD [facility] [address] History of lumbar laminectomy for spinal cord decompression; Pain in left hip; Chronic midline low back pain with left-sided sciatica Discharge Disposition: Home Social History Tobacco Use [...] Sig Dispensed Refills Start Date End Date amLODIPine (NORVASC) 2.5 mg Tablet 07/07/2018 ONETOUCH [...] EC tablet 04/16/2010 MAGNESIUM CHLORIDE ORAL 04/16/2010 metFORMIN (GLUCOPHAGE) 850 mg tablet 04/16/2010 04/03/2023 metoprolol succinate (TOPROL-XL) 100 mg XL tablet 04/16/2010 11/15/2018 indomethacin (INDOCIN) 25 mg capsule 04/16/2010 04/03/2023 DOCOSAHEXANOIC ACID/EPA (FISH OIL ORAL) 04/16/2010 04/03/2023 Flaxseed Oil 1,000 mg Cap 04/16/2010 04/03/2023 documented as of this encounter Plan of Treatment Scheduled Procedures Name Priority Associated Diagnoses Date/Ti me COLONOSCOPY, DIAGNOSTIC (WRV U 3.26) Left sided colitis with rectal bleeding documented as of this encounter Procedures Procedure Name Priority Date/Time Associated Diagnosis Comments MRI LUMBAR SPINE WITHOUT CONTRAST Routine 07/19/2018 9:18 AM EST History of lumbar laminectomy for spinal cord decompression Pain in left hip Chronic midline low back pain with left-sided sciatica documented in this encounter Results * MRI Lumbar Spine wo Contrast (Generic) (07/19/2018 9:18 AM EST) Anatomical Region Laterality Modality L-spine Magnetic Resonan ce Impressions 07/19/2018 4:31 PM EST 1. ??Left paracentral disc extrusion at L4-L5 with cranial migration that appears to contact but not significantly displace the left L4 nerve root as it enters the neural foramen. 2. ??Severe right and moderate left-sided subarticular recess narrowing at L4- L5. 3. ??At L5-S1 is a left paracentral disc protrusion that contributes to severe left subarticular recess narrowing and likely involves the traversing left S1 nerve root. Comment: The Following Findings Are So Common In People Without Low Back Pain That While We Report Their Presence, They Must Be Interpreted With Caution And In Context Of The Clinical Situation (Reference- Antelmo Et Al, Spine 2001). Findings: (Prevalence In Patients Without Low Back Pain), Disc Degeneration (Decreased T2 Signal, Height Loss, Bulge) (91%), Disc T2-Signal Loss (83%), Disc Height Loss (56%), Disc Bulge (64%), Disc Protrusion (32%), Annular Fissure (38%). I have personally reviewed the image(s) and the residents interpretation and agree with the findings, Lior Soto at 07/19/2018 4:31 PM Thank you for letting us participate in the care of this patient. For questions regarding this report, please contact the number below. ? Narrative 07/19/2018 4:31 PM EST EXAMINATION: MRI LUMBAR SPINE WO CONTRAST (GENERIC) CLINICAL HISTORY: Prior lumbar laminectomy in , please assess for lumbar spinal stenosis. Back and left leg pain and weakness. TECHNIQUE: MRI of the lumbar spine performed without intravenous contrast administration. COMPARISON: None FINDINGS: Postsurgical change consistent with partial L5 laminotomy. Mild accentuation of the normal lordotic curvature. Mild anterolisthesis of L4-5 related to bilateral facet arthropathy. Mild disc height loss and disc degenerative signal changes are noted at L4-5 and L5-S1. No aggressive marrow signal abnormalities. The conus is normal in signal and caliber terminating at L1-L2. Bilateral renal cysts are noted. Otherwise the visualized retroperitoneal contents are unremarkable. T12-L1: Mild bilateral facet arthropathy. No significant spinal canal or neural foraminal narrowing. L1-L2: Mild bilateral facet the without significant spinal canal or neural foraminal narrowing. L2-L3: Bilateral facet arthropathy and buckling of the ligamentum flavum result in mild narrowing of the spinal canal. No significant neural foraminal narrowing. L3-L4: Disc bulge, bilateral facet arthropathy, and buckling of ligamentum flavum results in mild narrowing of the spinal canal. Disc bulge and endplate proliferative change results in mild bilateral caudal neural foraminal narrowing. L4-L5: There is a disc bulge, facet arthropathy and a left paracentral disc extrusion with cranial migration. The superior margin of this extruded disc appears to contact but not significantly displace the left L4 nerve root as it approaches the neural foramen. This extruded disc is well seen on series 6 images 50 through 60. Spinal canal narrowing is mild. Subarticular recess narrowing is severe on the right and moderate on the left. Neural foraminal narrowing is mild bilaterally. L5-S1: Disc bulge with a superimposed left paracentral disc protrusion, bilateral facet arthropathy, buckling of ligamentum flavum without significant narrowing of the spinal canal. The superimposed left paracentral disc protrusion results in severe left subarticular recess narrowing with likely involvement of the traversing left S1 nerve root. Disc bulge and endplate proliferative changes results in mild bilateral neural foraminal narrowing. Procedure Note Lior Soto MD - 07/19/2018 EXAMINATION: MRI LUMBAR SPINE WO CONTRAST (GENERIC) CLINICAL HISTORY: Prior lumbar laminectomy in , please assessfor lumbar spinal stenosis. Back and left leg pain and weakness. TECHNIQUE: MRI of the lumbar spine performed without intravenous contrastadministration. COMPARISON: None FINDINGS: Postsurgical change consistent with partial L5 laminotomy. Mildaccentuation of the normal lordotic curvature. Mild anterolisthesis of L4-5 related tobilateral facet arthropathy. Mild disc height loss and disc degenerative signalchanges are noted at L4-5 and L5-S1. No aggressive marrow signal abnormalities.The conus is normal in signal and caliber terminating at L1-L2. Bilateral renal cysts are noted. Otherwise the visualizedretroperitoneal contents are unremarkable. T12-L1: Mild bilateral facet arthropathy. No significant spinal canal orneural foraminal narrowing. L1-L2: Mild bilateral facet the without significant spinal canal orneural foraminal narrowing. L2-L3: Bilateral facet arthropathy and buckling of the ligamentum flavumresult in mild narrowing of the spinal canal. No significant neural foraminal narrowing. L3-L4: Disc bulge, bilateral facet arthropathy, and buckling ofligamentum flavum results in mild narrowing of the spinal canal. Disc bulge andendplate proliferative change results in mild bilateral caudal neural foraminal narrowing. L4-L5: There is a disc bulge, facet arthropathy and a left paracentraldisc extrusion with cranial migration. The superior margin of this extrudeddisc appears to contact but not significantly displace the left L4 nerve rootas it approaches the neural foramen. This extruded disc is well seen on series6 images 50 through 60. Spinal canal narrowing is mild. Subarticular recess narrowing is severe onthe right and moderate on the left. Neural foraminal narrowing is mildbilaterally. L5-S1: Disc bulge with a superimposed left paracentral disc protrusion, bilateral facet arthropathy, buckling of ligamentum flavum withoutsignificant narrowing of the spinal canal. The superimposed left paracentral discprotrusion results in severe left subarticular recess narrowing with likelyinvolvement of the traversing left S1 nerve root. Disc bulge and endplate proliferativechanges results in mild bilateral neural foraminal narrowing. IMPRESSION 1. Left paracentral disc extrusion at L4-L5 with cranial migration thatappears to contact but not significantly displace the left L4 nerve root as itenters the neural foramen. 2. Severe right and moderate left-sided subarticular recess narrowing atL4-L5. 3. At L5-S1 is a left paracentral disc protrusion that contributes tosevere left subarticular recess narrowing and likely involves the traversing leftS1 nerve root. Comment: The Following Findings Are So Common In People Without Low BackPain That While We Report Their Presence, They Must Be Interpreted With CautionAnd In Context Of The Clinical Situation (Reference- Mirnak Et Al, [id number]). Findings: (Prevalence In Patients Without Low Back Pain), DiscDegeneration (Decreased T2 Signal, Height Loss, Bulge) (91%), Disc T2-Signal Loss(83%), Disc Height Loss (56%), Disc Bulge (64%), Disc Protrusion (32%), AnnularFissure (38%). I have personally reviewed the image(s) and the residents interpretationand agree with the findings, Lior Soto at 07/19/2018 4:31 PM Thank you for letting us participate in the care of this patient. Forquestions regarding this report, please contact the number below. Adal Valdovinos MD IMG MRI ORDERABLES documented in this encounter Visit Diagnoses Diagnosis History of lumbar laminectomy for spinal cord decompression Personal history of surgery to other organs Pain in left hip Pain in joint, pelvic region and thigh Chronic midline low back pain with left-sided sciatica documented in this encounter Care Teams Beef Selector Relationship Specialty Start Date End Date Brissa Toure, [address] [place] [address] PCP - General Family Medicine 06/19/18 documented as of this encounter
--- OUTSIDE RECORDS SUMMARY | 2023-12-05 22:10 | XMS_ITS | Encounter Summary ---
Author Organization [facility] [place] [address] Care Team Providers Care Phlebotomy Technician Name Role Phone Brissa Toure APRN Primary Care Provider [phone] Reason for Visit * Reason Comments Follow-up Back Pain Encounter Details Date Type Department Care Team (Latest Contact Info) Description 07/26/2018 10:00 AM EST Office [place] [address] Stevie Ferraro PA [facility] [place] [address] Lumbar back pain with radiculopathy affecting left lower extremity; Lumbar postlaminectomy syndrome; Primary osteoarthritis of left hip Social History Tobacco Use Types Packs/Day Years [...] as of this encounter Progress Notes * Setvie Ferraro PA - 07/26/2018 10:00 AM EST Alexandro Srinivasan Sindy is a 63-year-old gentleman I am seen today in follow-up visit. I had last seen his each other for issues regarding persistent low back pain, left hip pain with some left lower extremity numbness and intermittent weakness in the context of prior lumbar spine surgery which has involved decompression of the L4-L5 and L5-S1 levels. Had incomplete recovery following that operation and has remained with persistent radicular symptoms since then. His prior MRI showed evidence of postoperative changes at L4-L5 and L5-S1 without evidence otherwise for significant spinal stenosis or any indication for further spine surgery. This was from his MRIof the lumbar spine performed 2018. Today he had imaging of the hips and pelvis and I reviewed that with him. This shows findings of mostly left hip osteoarthritis with findings of CAM morphology, with osteophyte formation over the acetabulum, and CAM lesion, with excess bone noted over the femoral head/neck junction. This is clearlyasymmetric from the right hip. Assessment/plan: Alexandro Callahan is a 63-year-old gentleman seen today for persistent complaints of low back pain and left lower extremity pain with left hip pain that overlies his groin and causes him hip stiffness as well which I do think is related to findings of primary osteoarthritis on his left hip and aside from that persistent radicular symptoms follow incomplete recovery from a prior lumbar spine surgery in the 1980s, which has left him with left numbness of intermittent weakness, sensory disturbances, and pain. He does not have indications for further spine surgery at this point in time. We did discuss his findings of hip osteoarthritis on the left but for now he would like to defer any further management of that as he thinks he is getting good relief with his regimen of imipramine, gabapentin, celecoxib. I do strongly recommend he continue with this medication regimen so long as it is effective for himand not causing him other medical issues. Given that his symptoms are all related to from his priorwork injury, I urge for continued coverage of this medication plan. He is aware that should his left hip symptoms be more bothersome, we can certainly arrange for a left hip intra-articular injection, and aside from that he can also meet with our General orthopedics team to discuss candidacy for left hip replacement. For now, alongside his , we agreed that we would keep him on his current occasion management which is working well for him and will follow-up on an as- needed basis should he need other treatmentsfor his spinal problems and hip issues. documented in this encounter Plan of Treatment Scheduled Procedures Name Priority Associated Diagnoses Date/Ti me COLONOSCOPY, DIAGNOSTIC (WRV U 3.26) Left sided colitis with rectal bleeding documented as of this encounter Visit Diagnoses Diagnosis Lumbar back pain with radiculopathy affecting left lower extremity Lumbar postlaminectomy syndrome Postlaminectomy syndrome, lumbar region Primary osteoarthritis of left hip Primary localized osteoarthrosis, pelvic region and thigh documented in this encounter Care Teams Phlebotomy Technician Relationship Specialty Start Date End Date Brissa Toure, [address] [place] [address] PCP - General Family Medicine 06/19/18 documented as of this encounter
--- OUTSIDE RECORDS SUMMARY | 2023-12-05 22:10 | XMS_ITS | Encounter Summary ---
Author Organization [facility] Address [facility] [place] [address] Care Team Providers Care Bus Girl Name Role Phone Kathrin Lemus MD Primary Care Provider Reason for Visit * Reason Comments Eye Problem Type II DM,sent by [facility] for mac edema eval-?OD MARE VELÁSQUEZ Diabetes Encounter Details Date Type Department Care Team (Late st Contact Info) Description 09/03/2013 1:30 PM EDT Office [place] [address] Alo Diaz MD [facility] [place] [address] Macular edema, cystoid, right. 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 Dense pigment OU. Observe Discharge Disposition: Home Social History Tobacco Use Types Packs/Day Years Used Date Smoking Tobacco: Never Assessed Sex and Gender Information Value Date Recorded Sex Assigned at Not on file Gender Identity Not on file Sexual Orientation Not on file documented as of this encounter Progress Notes * Alo Diaz MD - 09/08/2013 6:26 PM EDT September 08, 2013 Armando Tomas MD Ophthalmology [address] [place] [address], [address] [place] [address] RE: Alexandro Callahan A#: [id number] Tomas: I had the pleasure of seeing your patient, Alexandro Callahan, for formal consultation on 09/03/2013. I am sorry that I do not have notes from you regarding his past ophthalmic history, but I understand he has macular edema in the right eye. In summary, combined clinical examination and imaging revealed temporal and inferotemporal subretinal fluid consistent with regressing retinoschisis or chronic detachments which have been treated in the past. No fluid migration, open breaks, or tractional features are ascertained. In the central macula of the right eye there is a small cystic change but no associated edema, leakage, vascular abnormality or other changes are defined. Provided that you are in agreement, I like to have Alexandro return in about six weeks for consideration of fluorescein angiography and repeat evaluation. I do not see any evidence of a branch vein occlusion, diabetic retinopathy, or parafoveal telangiectasis. When Alexandro returns to see me, I will keep you informed regarding his progress. Respectfully, Alo Diaz MD documented in this encounter Plan of Treatment Scheduled Procedures Name Priority Associated Diagnoses Date/Ti me COLONOSCOPY, DIAGNOSTIC (WRV U 3.26) Left sided colitis with rectal bleeding documented as of this encounter Procedures Procedure Name Priority Date/Time Associated Diagnosis Comments OCT RETINA - OD - RIGHT EYE Routine 09/08/2013 5:43 PM EDT Macular edema, cystoid, right. 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 Dense pigment OU. Observe documented in this encounter Results * OCT [id number] EYE (09/08/2013 5:43 PM EDT) Anatomical Region Laterality Modality Other Alo Diaz MD OPHTHALMOLOGY S ERVICES ORDERABLES documented in this encounter Visit Diagnoses Diagnosis Macular edema, cystoid, right. 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 Dense pigment OU. Observe Unspecified retinal detachment documented in this encounter Care Teams Bus Girl Relationship Specialty Start Date End Date Kathrin Lemus MD [address] [place] [id number] PCP - General 04/19/10 09/08/13 documented as of this encounter
--- OUTSIDE RECORDS SUMMARY | 2023-12-05 22:10 | XMS_ITS | Encounter Summary ---
Author Organization [facility] [place] [address] Care Team Providers Care Controlled Atmospheric Furnace Brazer Name Role Phone Brissa Toure APRN Primary Care Provider [phone] Reason for Visit * Reason Comments Follow-up Back Pain Encounter Details Date Type Department Care Team (Late st Contact Info) Description 07/19/2018 10:00 AM EST Office [place] [address] [place] [address] Low back pain, non-specific; Pain in left hip Social History Tobacco Use Types [...] as of this encounter Progress Notes * Stevie Ferraro PA - 07/19/2018 10:00 AM EST Alexandro Callahan 63-year-old gentleman I am seen today in follow-up visit for his complaints of low back pain and left hip pain with prior work-related injury that required spine surgery. Of note hewas supposed to have plain x-rays of the hips and pelvis performed prior to seeing me which was scheduled but he did not complete. He is seen today with his to support his history. Details of his history are unchanged from the prior visit. MRI of the lumbar spine from earlier today was reviewed. This shows evidence of left-sided decompression at the L4-L5 level, and laminectomy at the L5-S1 level. At the L3-L4 level there is a broad-based disc bulge with a right sided component, alongside facet arthropathy, which leads to mild central canal stenosis but otherwise no significant lateral recess or foraminal narrowing. Assessment/plan: Alexandro Callahan is a 63-year-old gentleman in today in follow-up visit for complaints of low back pain and left hip pain. He is status post L4-L5, L5-S1 decompression surgery and appears to have persistent deficits on his left lower extremity following that. Fortunately his imaging study shows no indications for further spine surgery in the canal stenosis at L3-L4 is quite mild. Informed him that I would recommend at this point undergoing the plain x-rays of the hip to make sure that hip osteoarthritis noncontributing much to his symptoms. He will have that done at a later date, and he will follow-up with me subsequently. documented in this encounter Plan of Treatment Scheduled Procedures Name Priority Associated Diagnoses Date/Ti il COLONOSCOPY, DIAGNOSTIC (WRV U 3.26) Left sided colitis with rectal bleeding documented as of this encounter Visit Diagnoses Diagnosis Low back pain, non-specific Pain in left hip Pain in joint, pelvic region and thigh documented in this encounter Care Teams Controlled Atmospheric Furnace Brazer Relationship Specialty Start Date End Date Brissa Toure, [address] [address] PCP - General Family Medicine 06/19/18 documented as of this encounter
--- OUTSIDE RECORDS SUMMARY | 2023-12-05 22:10 | XMS_ITS | Encounter Summary ---
Author Organization [facility] [place] [address] Care Team Providers Care Customer Success Representative Name Role Phone Santos Villatoro MD Primary Care Provider [phone] Reason for Visit * Reason Comments Macular Edema 6-mon f/u for macula r edema/RT Encounter Details Date Type Department Care Team (Late st Contact Info) Description 04/25/2014 2:15 PM EST [place] [address] Alo Diaz MD [facility] [place] [address] Retinal detachment, unspecified laterality Discharge Disposition: Home Social History [...] Progress Notes * Alo Diaz MD - 05/01/2014 11:54 PM EST p documented in this encounter Plan of Treatment Scheduled Procedures Name Priority Associated Diagnoses Date/Ti me COLONOSCOPY, DIAGNOSTIC (WRV U 3.26) Left sided colitis with rectal bleeding documented as of this encounter Visit Diagnoses Diagnosis Retinal detachment, unspecified laterality documented in this encounter Care Teams Customer Success Representative Relationship Specialty Start Date End Date Santos Villatoro MD [address] [place] [address] PCP - General 09/09/13 06/18/18 documented as of this encounter
--- OUTSIDE RECORDS SUMMARY | 2023-12-05 22:10 | XMS_ITS | Encounter Summary ---
Author Organization [facility] [place] [address] Care Team Providers Care Truck Farmer Name Role Phone Kathrin Lemus MD Primary Care Provider [phone] Encounter Details Date Type Department Care Team (Late st Contact Info) Description 07/23/2013 [place] [address] Alo Diaz MD [facility] [place] [address] Social History Tobacco Use Types Packs/Day Years [...] on filedocumented in this encounter Care Teams Truck Farmer Relationship Specialty Start Date End Date Kathrin Lemus MD [facility] [address] [place] [address] PCP - General 04/19/10 09/08/13 documented as of this encounter
--- OUTSIDE RECORDS SUMMARY | 2023-12-05 22:10 | XMS_ITS | Encounter Summary ---
Author Organization [facility] [place] [address] Care Team Providers Care Animal Stunner Name Role Phone Kathrin Lemus MD Primary Care Provider Encounter Details Date Type Department Care Team (Late st Contact Info) Description 09/02/2013 Abstract [place] [address] Alo Diaz MD [facility] [place] [address] Social History Tobacco Use Types Packs/Day Years [...] on filedocumented in this encounter Care Teams Animal Stunner Relationship Specialty Start Date End Date Kathrin Lemus MD [facility] [address] [place] [address] PCP - General 04/19/10 09/08/13 documented as of this encounter
--- OUTSIDE RECORDS SUMMARY | 2023-12-05 22:10 | XMS_ITS | Encounter Summary ---
[place] [address] Care Team Providers Care Metal And Plastic Heater Name Role Phone Brissa Toure APRN Primary Care Provider [phone] Reason for Referral * Diagnostic Test (Routine) - Closed Specialty Diagnoses / Procedures Referred By Isaías garcia Referred To Contact Radiology Diagnoses History of lumbar laminectomy for spinal cord decompression Pain in left hip Chronic midline low back pain with left-sided sciatica Procedures MRI Lumbar Spine wo Contrast (Generic) Stevie Ferraro PA [facility] [place] [address] [facility] [place] [address] Referral ID Status Reason Start Date Expiration Date V isits Requested Visits Authorized [id number] Closed Specialty Service Requested 07/09/2018 10/07/2018 1 1 Reason for Visit * Reason Comments Back Pain Hip Pain * Consultation (Routine) - Specialty Diagnoses / Procedures Referred By Isaías garcia Referred To Contact Orthopaedics Diagnoses lumbar radiculopathy/ ?images Brissa Toure APRN [address] [place] [address] [facility] [place] [address] Referral ID Status Reason Start Date Expiration Date V isits Requested Visits Authorized [id number] Consult, Test & Treat Connection [facility] 06/19/2018 06/19/2019 6 6 Encounter Details Date Type Department Care Team (Late st Contact Info) Description 07/09/2018 10:40 AM EST [facility] [place] [address] Stevie Ferraro [place] [facility] [place] [address] History of lumbar laminectomy for spinal cord decompression; Pain in left hip; Chronic midline low back pain with left-sided sciatica Social History Tobacco Use Types Packs/Day Years [...] Sign Reading Time Taken Comments Blood Pressure - - Pulse - - Temperature - - Respiratory Rate - - Oxygen Saturation - - Inhaled Oxygen Concentration - - Weight 103 kg (227 lb) 07/09/2018 10:31 AM EST Height 172.7 cm (5' 8) 07/09/2018 10:31 AM EST Body Mass Index 34.52 07/09/2018 10:31 AM EST documented in this encounter Progress Notes * Stevie Ferraro PA - 07/09/2018 10:40 AM EST Alexandro Callahan is a 63-year-old gentleman seen today for chief complaint of low back pain and left hip pain. He has prior history of lumbar spinal stenosis and apparently a fracture with nerve injury secondary to a work-related injury in 1986. He tells me he was working at the [employer] bent over pushing a log, went to other individuals holding the log on the opposite side fell over, and he was holding the log and bearing the weight for quite some time. He tells me that he subsequently underwent CT myelogram and following that underwent lumbar laminectomy in 1987 and in 1988. He tells me that he sustained permanent weakness and numbness overlying his left lower extremity mostly at the left lower leg and foot ever since that second surgery. He alsotells me he has had a foot drop from that operation. He continues to report numbness over the plantar aspect of his left foot. He tells me that he has had persistent headaches ever since his second lumbar spine surgery generally managed with imipramine. He is unsure if he may have sustained a spinal fluid leak from either of his spine surgeries. Location of his current pain is over the bilateral lumbar regions, left medial thigh, left groin, and some intermittent radiation into the left lower leg. He tells me that symptoms improve when he is standing but he gets much worse when he is walking, weightbearing. He feels that he walks with a limp. He does have difficulties putting on his shoes and socks and bending over. Regarding his treatments he works with a chiropractor. He has done physical therapy. He takes gabapentin 4 times a day, and he takes Celebrex daily. In the past he was trialed on indomethacin. He continues to work at a [employer]. On examination today, this is a pleasant obese 63-year-old gentleman. Upon inspection to the back he has a long well-healed midline lumbar incision. He is quite tender to palpation overlying that incision. He has difficulty heel walking, no issues with toe walking. Gait is antalgic. His motor exam shows 4+/5 strength on left knee flexion, and more trace weakness on dorsiflexion and plantar flexion. Sensory exam shows diminished sensation of the entire left foot, otherwise intact. Reflexes are slightly brisk +3 at both knees and both ankles. He has restricted hip range of motion on both sides but does not have much pain on the right and on the left does have reproduction of his hip pain withinternal rotation and resisted hip flexion. No imaging studies available for my review today. Assessment/plan: Alexandro Callahan is 63-year-old gentleman with chief complaint of low back pain and left lower extremity pain in relation to prior work injury/status post 2 lumbar decompressive surgeries apparently with 1 of the surgeries having been done due to a spinal fracture causing nerve damage. Concern at present is development of lumbar spinal stenosis at other segments, at which I recommended further evaluation dedicated lumbar spine MRI. Aside from that, advised him that his painful and restricted left hip range of motion also points to some degree of left hip osteoarthritis contributing to his pain so recommended dedicated hip x-rays. I will follow-up with him after these 2 imaging studies are done and discuss treatment options depending on the anatomy revealed. documented in this encounter Plan of Treatment Scheduled Procedures Name Priority Associated Diagnoses Date/Ti me COLONOSCOPY, DIAGNOSTIC (WRV U 3.26) Left sided colitis with rectal bleeding documented as of this encounter Results * XR Pelvis w AP & Lat Hip Left (07/26/2018 9:32 AM EST) Anatomical Region Laterality Modality Pelvis, Hip Left Digital Radiogra phy Impressions 07/26/2018 10:58 AM EST 1. ??Osteoarthropathy of both hips with eccentric joint space narrowing and marginal osteophytes. Thank you for letting us participate in the care of this patient. For questions regarding this report, please contact the number below. ? Electronically signed by: Sharon Leal [facility] ([phone]), at 07/26/2018 10:58 AM Narrative 07/26/2018 10:58 AM EST EXAMINATION: XR PELVIS W AP AND LAT HIP LEFT CLINICAL HISTORY: Left hip/groin pain and stiffness, please assess for hip osteoarthritis., , ??entered by ordering service TECHNIQUE: 3 views lower pelvis and 2 views of left hip. COMPARISON: none FINDINGS: Bones: No fracture. Hip Joints: Bilateral mild eccentric joint space narrowing and marginal osteophytes. There is a left os acetabuli and bony prominence at the left femoral head neck junction, representing CAM morphology. Soft tissues: Linear vascular calcifications Procedure Note Sharon Leal MD - 07/26/2018 EXAMINATION: XR PELVIS W AP AND LAT HIP LEFT CLINICAL HISTORY: Left hip/groin pain and stiffness, please assess forhip osteoarthritis., , entered by ordering service TECHNIQUE: 3 views lower pelvis and 2 views of left hip. COMPARISON: none FINDINGS: Bones: No fracture. Hip Joints: Bilateral mild eccentric joint space narrowing and marginal osteophytes.There is a left os acetabuli and bony prominence at the left femoral head neck junction, representing CAM morphology. Soft tissues: Linear vascular calcifications IMPRESSION 1. Osteoarthropathy of both hips with eccentric joint space narrowingand marginal osteophytes. Thank you for letting us participate in the care of this patient. Forquestions regarding this report, please contact the number below. Electronically signed by: Sharon Leal [facility]([phone]), at 07/26/2018 10:58 AM Adal Valdovinos MD IMG DX ORDERABLES * MRI Lumbar Spine wo Contrast (Generic) [...] The Clinical Situation (Reference- Mirnak Et Al, [id number]). Findings: (Prevalence In Patients Without Low Back [...] midline low back pain with left-sided sciatica History of lumbar laminectomy for spinal cord decompression Personal history of surgery to other organs Pain in left hip Pain in joint, pelvic region and thigh Chronic midline low back pain with left-sided sciatica Pain in left hip Pain in joint, pelvic region and thigh documented in this encounter Care Teams Metal And Plastic Heater Relationship Specialty Start Date End Date Brissa Toure, [address] [address] PCP - General Family Medicine 06/19/18 documented as of this encounter
--- OUTSIDE RECORDS SUMMARY | 2023-12-05 22:10 | XMS_ITS | Encounter Summary ---
Author Organization [facility] [place] [address] Care Team Providers Care Manufacturing Associate Name Role Phone Brissa Toure APRN Primary Care Provider [phone] Reason for Visit * Reason Comments Procedure * High Dollar Medication (Urgent) - Specialty Diagnoses / Procedures Referred By Isaías garcia Referred To Contact Ophthalmology Diagnoses Type 2 diabetes mellitus with mild nonproliferative diabetic retinopathy without macular edema, bilateral Procedures TC BEVACIZUMAB, 10MG, INJECTION (AVASTIN) Johanna Jacinto MD [facility] [place] [address] [facility] [place] [address] Referral ID Status Reason Start Date Expiration Date V isits Requested Visits Authorized [id number] Evaluate and Treat 06/26/2018 06/26/2019 99 99 Encounter Details Date Type Department Care Team (Latest Contact Info) Description 06/26/2018 2:00 PM EST Procedure [place] [address] Johanna Jacinto MD [facility] [place] [address] [address] Type 2 diabetes mellitus with both eyes [...] this encounter Patient Instructions * Patient Instructions* Dick Barbie A - 06/26/2018 2:00 PM EST Today you had your right [...] about driving: We always recommend having a dinkey driver on the day you get an [...] Normal and Not Expected side effects: Call [phone] (Eye Clinic) DAY or NIGHT, HOLIDAY or [...] symptoms of concern documented in this encounter Plan of Treatment Scheduled Procedures Name Priority Associated Diagnoses Date/Ti me COLONOSCOPY, DIAGNOSTIC (WRV U 3.26) Left sided colitis with rectal bleeding documented as of this encounter Procedures Procedure Name Priority Date/Time Associated Diagnosis Comments INTRAVITREAL INJECTION PHARMACOLOGIC AGENT - OD - RIGHT EYE Routine 06/26/2018 3:05 PM EST Type 2 diabetes mellitus with both eyes affected by 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 edema, with long-term current use of insulin documented in this encounter Results * Intravitreal Injection of Pharmacologic Agent MSO - OD - Right Eye (06/26/2018 3:05 PM EST) Anatomical Region Laterality Modality Other Narrative 06/26/2018 3:05 PM EST Pre Operative Diagnosis: Diabetic Macular Edema - Diabetic Retinopathy Post Operative Diagnosis: Diabetic Macular Edema - Diabetic Retinopathy Procedure: Intravitreal injection of Avastin 1.25 mg Right Eye Assist: Beveling And Edging Machine Operator Anesthesia: Topical Proparacaine and topical 4% Lidocaine Complications: None Procedure: The patient was taken to the minor treatment suite where the patient was reidentified using name and birthdate as critical identifiers. The correct eye as the operative site was reidentified by a preplaced site libertad, and the consent form was actively reviewed by the email marketing assistant and the surgeon. The right eye was prepped including instillation of Betadine 5% into the right cul de sac for 5 minutes, facial prep with ophthalmic Betadine and placement of a lid speculum. The surgeon performed hand washing preoperatively, used gloves, and wore a face mask or used no talking technique during the procedure, as did the registrar assistant. After topical anesthesia of the injection [...] call the Eye Clinic or Eye Doctor supervisor ski production, should they develop pain in the treated [...] 1.25 mg, Intravitreal, ONCE, 1 dose, On Mon06/26/18 at 1445, For ophthalmic use only. Syringe contains 0.1 mL of overfill , Routine Given 06/26/2018 2:45 PM EST 1.25 mg Right Eye documented in this encounter Care Teams Manufacturing Associate Relationship Specialty Start Date End Date Brissa Toure, [address] [place] [address] PCP - General Family Medicine 06/19/18 documented as of this encounter
--- OUTSIDE RECORDS SUMMARY | 2023-12-05 22:10 | XMS_ITS | Encounter Summary ---
Author Organization [facility] Address [facility] [place] [address] Care Team Providers Care Purification Director Name Role Phone Brissa Toure APRN Primary Care Provider [phone] Encounter Details Date Type Department Care Team (Latest Contact Info) Description 07/26/2018 9:09 AM EST - 07/26/2018 11:59 PM [facility] Hospital Encounter XRay at [address] [place] [address] Adal Valdovinos MD [facility] [place] [address] Pain in left hip Discharge Disposition: Home Social History Tobacco Use [...] Procedure Name Priority Date/Time Associated Diagnosis Comments XR PELVIS AND HIP 2 VIEWS LEFT Routine 07/26/2018 9:32 AM EST Pain in left hip documented in this encounter Results * XR Pelvis w [...] please contact the number below. ? Narrative 07/26/2018 10:58 AM EST EXAMINATION: XR [...] the number below. Adal Valdovinos MD IMG DX ORDERABLES documented in this encounter Visit Diagnoses Diagnosis Pain in left hip Pain in joint, pelvic region and thigh documented in this encounter Care Teams Purification Director Relationship Specialty Start Date End Date Brissa Toure, RESPIRATORY ASSISTANT [address], [place] [address] PCP - General Family Medicine 06/19/18 documented as of this encounter
--- NOTE | 2023-12-05 22:15 | RT.EKG_ITS ---
APPROVED REPORT Exam: Resting ECG Reason for Exam: thoracic pain/SOB Patient Location: E HR:88 bpm ECG Measurements Heart Rate 88 AXIS NJ 186 P 52 QRSd 117 QRS 76 QT 391 T 78 QTc 474 Conclusion Sinus rhythm...normal P axis, V-rate 60- 99 Probable left atrial enlargement...P >50mS, <-0.10mV V1 Left ventricular hypertrophy...multiple LVH criteria I have reviewed and interpreted ECG and agree with software generated interpretation.
[2023-12-05] MEDS: Lactated Ringers 1,000 ML 1000 ML IV (22:30)
[2023-12-05] MEDS: ACETAMINOPHEN 1,000 MG/100 ML BTL 400 MG IVPB (22:30)
[2023-12-05 22:35] LABS: Abs Immature Grans 0.03 10^3/uL (0.0-0.06); Absolute Eosinophil Count 0.16 10^3/uL (0.0-0.7); Basophils % 0.3 %; Eosinophils % 1.4 %; HCT 40.6 % (40.0-50.0); HGB 13.8 g/dL (13.5-17.5); Immature Grans % 0.3 %; Lymphocytes % 14.3 %; MCH 31.7 pg (27.0-33.0); MCV 93 fL (80-95); MPV 10.4 fL (8.0-11.0); Monocytes % 9.4 %; Neutrophils % 74.3 %; Platelet Count 174 10^3/uL (130-400); RBC 4.36 10^6/uL (4.36-5.78); RDW 14.1 % (11.8-14.1); WBC 11.71 10^3/uL (4.4-10.8)
[2023-12-05 22:41] LABS: Absolute Basophil Count 0.04 10^3/uL (0.0-0.2); Absolute Lymphocyte Count 1.67 10^3/uL (1.2-3.4)
[2023-12-05 22:49] LABS: ALT 31 U/L (16-63); AST 34 U/L (15-37); Alkaline Phosphatase 104 U/L (46-116); Anion Gap 8.2 mmol/L (3-11); BUN 35 mg/dL (7-18); Bilirubin, Total 0.53 mg/dL (0.2-1.0); CO2 26.8 mmol/L (21.0-32.0); CREATININE 2.2 mg/dL (0.70-1.30); Calcium 8.9 mg/dL (8.5-10.1); Chloride 100 mmol/L (98-107); Estimated GFR 32.23 (mL/min/1.73m2); Glucose 193 mg/dL (74-106); Magnesium 1.8 mg/dL (1.8-2.4); Potassium 4.2 mmol/L (3.5-5.1); Sodium 135 mmol/L (136-145); Total Protein 7.8 g/dL (6.4-8.2); Troponin I < 50 ng/L (< or =60)
[2023-12-05] MEDS: Normal Saline - Diluent 50 ML VIAL IJ (22:55)
[2023-12-05] MEDS: Omnipaque 350 MG/ML 100 ML BTL IJ (22:56)
--- NOTE | 2023-12-05 23:13 | DI.CT_ITS ---
Exam(s) CT CHEST PE CTA EXAM: CT CHEST PE CTA CLINICAL HISTORY: right pleuritc thoracic back pain/SOB. TECHNIQUE: Imaging Protocol: CT angiography of the chest was performed using pulmonary embolus collin col. Multi planar reconstructions were performed. CONTRAST MATERIAL: Intravenous: Omnipaque 350 Contrast volume: 100 cc COMPARISON: CT CT ABDOMEN PELVIS WO from 12/24/2022 CR XR CHEST 2V PA LATERAL from 12/06/2023 FINDINGS: CHEST: PULMONARY ARTERIES: There are no obvious intraluminal filling defects to suggest acute pulmonary embo li. LUNGS: There is some platelike atelectasis/mild infiltrate in the right lung base and a tiny amount o f right pleural fluid. No pleural fluid on the left side. There is a small noncalcified subpleural nodule in the left lower lobe measuring 6 mm (series 12, image 85). No other nodules evident. There is intraluminal mucous noted in the right mainstem bronchus adjacent to the suzanne. There is no muc us in the left-side airways. MEDIASTINUM: There is no hilar nor mediastinal adenopathy. Visualized thyroid unremarkable. CARDIAC: Heart size is upper normal. There is no pericardial effusion.Caliber of the thoracic aorta is within normal limits. No evidence of aortic dissection. There is no significant shift of the inte rventricular septum. PARTIALLY VISUALIZED UPPERMOST ABDOMEN: Liver is slightly prominent and exhibits steatosis. Cholelit hiasis also noted. Partially visualized kidneys reveal bilateral benign cysts. No adrenal masses. Spleen size normal. There are multiple calcifications in the pancreatic parenchyma consistent with chronic pancreatitis. There is a large cystic structure in the pancreatic head measuring 2.8 x 2.6 cm which requires furth er investigation. Pancreatic duct is not appear dilated. OSSEOUS: No significant osseous lesions.No fractures.. IMPRESSION: 1. No evidence of acute pulmonary emboli. No evidence of pulmonary infarction.No evidence of aortic dissection. No pericardial effusion. 2. There is mild elevation the right hemidiaphragm and there is atelectasis/mild infiltrate in the ri ght lung base as well as trace right pleural fluid. No evidence of pulmonary infarction. Incidental ly noted is a small 6 millimeter no pleural nodule in the left lower lobe. 3. Abnormal abdominal findings including hepatic steatosis, gallstones, and a 28 x 26 cm cystic lesio n in the pancreatic head which requires further investigation with contrast infused pancreatic protoc ol MRI. This finding is superimposed upon a pancreas which exhibits multiple parenchymal calcificati ons in the head, body, and tail consistent with chronic pancreatitis. RADIATION DOSE DELIVERED: 485.53mGy.cm Total DLP DATA REPOSITORY: All CT scans at this facility are submitted to the National Radiology Data Registry (NRDR) Dose Index Registry (DIR) with the [employer] (ACR). RADIATION OPTIMIZATION: All CT scans at this facility use at least one of these dose optimization te chniques: automated exposure control; mA and/or kV adjustment per patient size (includes targeted exa ms where dose is matched to clinical indication); or iterative reconstruction.
[2023-12-06] VITALS (11 sets, daily range): BP systolic 150–188; BP diastolic 73–105; PULSE 82–91; RESP 14–18; TEMP 36.3–37.3; O2SAT 91–99
--- NOTE | 2023-12-06 00:06 | DI.VRAD_ITS ---
PROCEDURE INFORMATION: Exam: CTA Chest With Contrast Exam date and time: 12/05/2023 11:07 PM Age: 68 years old Clinical indication: Other: Right pleuritc thoracic back pain/sob TECHNIQUE: Imaging protocol: Computed tomographic angiography of the chest with contrast. Exam focused on the arteries. 3D rendering (Not supervised by radiologist): MIP and/or 3D reconstructed images were created by the technologist. Contrast material: OMNIPAQUE; Contrast volume: 100 ml; Contrast route: INTRAVENOUS (IV); COMPARISON: CT ABDOMEN PELVIS WO 12/24/2022 9:[address] abdomen and pelvis 04/08/2020 FINDINGS: Pulmonary arteries: Normal. No pulmonary emboli. Aorta: No aortic aneurysm or dissection. Atherosclerotic disease. Lungs: Mild atelectasis at the right lung base. Calcified granuloma in the right upper lobe. Pleural spaces: Trace right pleural fluid. No pneumothorax. Heart: Heart size is normal. No pericardial effusion. Coronary arteries: Coronary artery calcifications. Lymph nodes: No pathologic sized adenopathy. Diaphragm: Elevation of the right hemidiaphragm. Liver: Calcified granuloma in the right liver. Right liver 7 mm cyst. Gallbladder and biliary ducts: Cholelithiasis. Pancreas: 2.5 x 2.9 cm ovoid fluid attenuation finding in the pancreatic head unchanged from the prior study but increased from the prior CT dated 2019 which time it measured 1.6 x 1.4 cm. Coarse calcifications in the parenchyma suggest chronic pancreatitis. Kidneys and ureters: Bilateral renal cysts. Bones/joints: Degenerative changes throughout the spine. Degenerative changes at the 1st costosternal joint with associated mild soft swelling which may be related to inflammatory process. No joint space or soft tissue fluid collection seen. Soft tissues: See Bones/joints finding. IMPRESSION: 1. No evidence of pulmonary emboli, aneurysm or dissection. 2. Minimal atelectasis at the right lung base and trace pleural effusion. 3. Mild degenerative changes and soft swelling around the right 1st costosternal joint which may be related to inflammation 4. Cholelithiasis. 5. 2.5 x 2.9 cm fluid attenuation finding in the pancreatic head unchanged from the prior study but increased in size since the prior exam from 2019. This may represent a pseudocyst , cyst or less likely cystic neoplasm . Suggest further evaluation with outpatient dedicated pancreatic CT or MRI. Dictated and Authenticated by: Sammi Lombardi MD. Ordering:ARABELLA Lyle MD
[2023-12-06 00:35] LABS: Bilirubin Negative (Negative); Blood Small (Negative); Clarity Clear (Clear); Glucose Negative (Negative); Ketones Negative (Negative); Leukocyte Esterase Negative (Negative); Nitrite Negative (Negative); Urobilinogen 0.2 mg/dL (Up to 0.2)
[2023-12-06 00:43] LABS: Bacteria Negative HPF (Negative); Crystals Negative HPF (Negative); Epithelial Cells Negative HPF (Negative); Mucus Trace (Negative); RBC 0-2 HPF (0-2); WBC Negative HPF (0-5)
[2023-12-06 00:44] LABS: C & S Indicated? No; Casts 0-2 Coarse Granular LPF (Negative)
[2023-12-06 01:31] LABS: COVID-19 PCR Negative (Negative); Influenza A PCR Negative (Negative); Influenza B PCR Negative (Negative); RSV PCR Negative (Negative)
[2023-12-06 01:32] LABS: Source Nasopharynx
--- NOTE | 2023-12-06 02:19 | HPE_ITS ---
Date of service: 12/06/23 Time of Service: 02:19 Assessment and Plan Assessment and plan (1) Generalized weakness: Status: Acute Assessment and plan: I think a non-specific viral syndrome is the most coherent diagnosis here. However, I think it remains possible that we might be seeing early or limited signs of pneumonia -- manifesting with cough, low normal O2 sats and trace pleural effusion -- notably this is on right, and there could be some element of diaphragmatic inflammation giving rise to referred pain to shoulder. Nevertheless the scapular pain seems more clearly musculoskeletal. On balance I think we should monitor, hold on any empiric antibiotics, continue IVF and get PT involved. Will repeat imaging (CXR) in AM Reviewed ADs, requests Full Code. History of Present Illness History of Present Illness Chief Complaint: cough, shoulder pain Narrative: 68 male with DM -- reports several days of dry cough, right scapular pain (with cough), generalized malaise, decreased appetite, weakness -- to the point where he required assist just to get out of bed. Here in ER had extensive w/u, notable for the following: temp 36.8; white count 11; viral swab triple negative; chest CTA showing no PE, no pneumonia, trace right pleural effusion; negative troponin and no ischemic changes on EKG. Patient given 1 L IVF, feels somewhat better but still very weak and unable to get around on his own. I was asked to evaluate for admission. No similar illness at home. Patient elaborates on scapular pain that it is worse not only when he coughs but also when he, for example, tries to boost himself up using right arm. Review of Systems Narrative: per HPI PFSH All Active Problems Difficulty walking (Acute) Generalized weakness (Acute) Acute right-sided thoracic back pain (Acute) Colitis (Acute) Screen for colon cancer (Acute) Pseudocyst of pancreas (Acute) Coronary artery calcification seen on CAT scan (Acute) Pancreatic atrophy (Acute) Gallstones (Acute) Peripheral neuropathy (Acute) Medical History NAFLD (nonalcoholic fatty liver disease) Stage 3b chronic kidney disease (CKD) Crohn disease Gout Hyperlipidemia Hypertension Diabetes Surgical History History of colonoscopy (~01/2023) polups History of cataract surgery Previous back surgery x2 in the 80's Social History Smoking/Tobacco Use Status: Former Tobacco Use Quit Date: 05/22/87 Smoking risk assessment performed?: Yes Alcohol Intake: never Drug use: Never Substance use type: does not use Housing: house Current gender identity: male Do you feel safe at home: Yes Do you feel safe in your relationship?: Yes Meds Allergies and Home Medications Allergies Allergy/AdvReac Type Severity Reaction Status Date / Time enalapril (Enalapril) Allergy Severe Anaphylaxsi Verified 12/05/23 22:13 s Home Medications ?Medication ?Instructions ?Recorded ?Confirmed ?Type amlodipine 2.5 mg tablet 2.5 mg PO DAILY 12/05/19 12/05/23 History imipramine HCl 50 mg tablet 50 mg PO BID 12/05/19 12/05/23 History insulin lispro 100 unit/mL See Rx Instructions .Route .COMPLEX 12/05/19 12/05/23 History subcutaneous solution (Humalog U-100 Insulin) simvastatin 40 mg tablet 40 mg PO DAILY 12/05/19 12/05/23 History aspirin 81 mg tablet,delayed 81 mg PO DAILY 04/08/20 12/05/23 History release semaglutide 7 mg tablet (Rybelsus) 7 mg PO DAILY 12/24/22 12/05/23 History insulin degludec 200 unit/mL (3 144 unit subcut HS Diabetes 12/28/22 12/05/23 History mL) subcutaneous pen (Tresiba FlexTouch U-200 insulin) tramadol 50 mg tablet 50 mg PO Q6H PRN #14 tabs 12/29/22 12/05/23 Rx gabapentin 100 mg capsule 100 mg PO TID #90 caps 01/03/23 12/05/23 Rx allopurinol 300 mg tablet 100 mg PO DAILY 02/01/23 12/05/23 History metoprolol tartrate 100 mg tablet 200 mg PO BID 02/01/23 12/05/23 History marijuana gummy 10 mg PO PRN PRN 08/23/23 12/05/23 History Exam Narrative Exam Narrative: 159/86, 82, 36.8, 16, 92% RA. HEENT atraumatic; neck supple; lungs few rales right base; heart RRR; chest pain in right scapular area with resisted shoulder external rotation; abdomen soft and NT; extremities w/o edema; neuro Ox3, lucid, moves all 4s Results Labs 12/05/23 22:25 12/05/23 22:25 Labs: Laboratory Results - last 24 hr 12/05/23 12/06/23 12/06/23 22:25 00:12 00:25 WBC 11.71 H RBC 4.36 Hgb 13.8 Hct 40.6 MCV 93 MCH 31.7 MCHC 34.0 RDW 14.1 Plt Count 174 MPV 10.4 Immature Gran % 0.3 Neutrophils % 74.3 Lymphocytes % 14.3 Monocytes % 9.4 Eosinophils % 1.4 Basophils % 0.3 Nucleated RBC % 0.0 Absolute Neutrophils 8.70 H Absolute Lymphocytes 1.67 Absolute Monocytes 1.10 H Absolute Eosinophils 0.16 Absolute Basophils 0.04 Sodium 135 L Potassium 4.2 Chloride 100 Carbon Dioxide 26.8 Anion Gap 8.2 BUN 35 H Creatinine 2.2 H Est GFR (CKD-EPI 2020) 32.23 Glucose 193 H Calcium 8.9 Magnesium 1.8 Total Bilirubin 0.53 AST 34 ALT 31 Alkaline Phosphatase 104 Troponin I < 50 Total Protein 7.8 Albumin 3.0 L Urine Color Yellow Urine Clarity Clear Urine pH 6.0 Ur Specific [place] 1.010 Urine Protein 100 H Urine Ketones Negative Urine Blood Small H Urine Nitrite Negative Urine Bilirubin Negative Urine Urobilinogen 0.2 Ur Leukocyte Esterase Negative Urine RBC 0-2 Urine WBC Negative Ur Epithelial Cells Negative Urine Crystals Negative Urine Bacteria Negative Urine Casts 0-2 Coarse Granular Urine Mucus Trace Ur Culture Indicated? No Urine Glucose Negative COVID-19 Source Nasopharynx SARS-CoV-2 (PCR) Negative Influenza Type A (PCR) Negative Influenza Type B (PCR) Negative RSV (PCR) Negative Last Vital Signs Temp 36.8 C 12/05/23 22:04 Pulse 82 12/06/23 02:01 Resp 16 12/05/23 22:04 BP 159/86 H 12/06/23 02:01 Pulse Ox 92 12/05/23 22:04 Time Spent Time spent with Patient: 40-54 minutes Time was spent: preparing to see the patient(eg.review tests), obtaining and/or reviewing separately otained hiistory, ordering medications,tests, procedures, referring, communicating with other health memory care program resident and indepentently interpreting results
--- NOTE | 2023-12-06 03:37 | W.PCEDHO ---
Registration Status: Primary Language: Preferred Language: ED Information & Data Chief Complaint Orthopedic 12/05/23 22:11 Chief Complaint Orthopedic 12/05/23 22:04 Triage Note Pt c/o atraumatic R shoulder 12/05/23 22:04 pain for 3 days. Pt also states he has a non- productive cough and is afraid he may have PNA. Pt states he feels weak. Denies CP, SOB, n/v/d, urinary s/s. 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 Pt states the affected arm is the arm that he uses to push himself up off the bed/ chair. Pt used heat/ice w no relief. Medical / Surgical History (Last Reviewed 12/06/23 @ 02:26 by Lior Burnette MD) NAFLD (nonalcoholic fatty liver disease) Stage 3b chronic kidney disease (CKD) Crohn disease Gout Hyperlipidemia Hypertension Diabetes (Last Reviewed 12/06/23 @ 02:26 by Lior Burnette MD) History of colonoscopy (~01/2023) History of cataract surgery Previous back surgery Most Recent Vital Signs Temperature 36.8 C 12/05/23 22:04 Pulse 82 12/06/23 02:01 Respiratory Rate 16 12/05/23 22:04 Respiratory Effort Normal 12/05/23 22:11 Blood Pressure 159/86 H 12/06/23 02:01 Blood Pressure Mean 112 12/06/23 02:01 Pulse Oximetry 92 12/05/23 22:04 Oxygen Delivery Method Room Air 12/05/23 22:04 Oxygen Flow Rate 0 12/05/23 22:04 Pain Level 7 12/05/23 22:04 Allergies enalapril (Enalapril) Allergy (Severe, Verified 12/05/23 22:13) Anaphylaxsis Active Medications Generic Name Dose Route Start Last Admin Trade Name Freq PRN Reason Stop Dose Admin Iohexol 100 ml 12/05/23 23:00 12/05/23 22:56 Omnipaque 350 Mg/Ml 100 Ml Btl IJ 01/04/24 23:59 100 ml DIRECTED MARIO Administration Sodium Chloride 50 ml 12/05/23 23:00 12/05/23 22:55 Normal Saline - Diluent 50 Ml Vial IJ 50 ml .FOR DI USE MARIO Administration IV IV Catheter Type [Antecubital] Saline Lock IV Catheter Gauge [Antecubital 18 ] Diet Orders Category Date Time Status Diabetes Consistent CHO [DIET] Nutrition 12/06/23 Breakfast Active Diagnostics 12/06/23 12/06/23 12/05/23 Range/Units 00:25 00:12 22:25 WBC 11.71 H (4.4-10.8) 10^3/uL RBC 4.36 (4.36-5.78) 10^6/uL Hgb 13.8 (13.5-17.5) g/dL Hct 40.6 (40.0-50.0) % MCV 93 (80-95) fL MCH 31.7 (27.0-33.0) pg MCHC 34.0 (32.0-36.0) % RDW 14.1 (11.8-14.1) % Plt Count 174 (130-400) 10^3/uL MPV 10.4 (8.0-11.0) fL Immature Gran % 0.3 % Neutrophils % 74.3 % Lymphocytes % 14.3 % Monocytes % 9.4 % Eosinophils % 1.4 % Basophils % 0.3 % Nucleated RBC % 0.0 (0.0-0.3) % Absolute Neutrophils 8.70 H (1.2-6.7) 10^3/uL Absolute Lymphocytes 1.67 (1.2-3.4) 10^3/uL Absolute Monocytes 1.10 H (0.1-0.8) 10^3/uL Absolute Eosinophils 0.16 (0.0-0.7) 10^3/uL Absolute Basophils 0.04 (0.0-0.2) 10^3/uL Sodium 135 L (136-145) mmol/L Potassium 4.2 (3.5-5.1) mmol/L Chloride 100 (98-107) mmol/L Carbon Dioxide 26.8 (21.0-32.0) mmol/L Anion Gap 8.2 (3-11) mmol/L BUN 35 H (7-18) mg/dL Creatinine 2.2 H (0.70-1.30) mg/dL Est GFR (CKD-EPI 2020) 32.23 (mL/min/1.73m2) Glucose 193 H (74-106) mg/dL Calcium 8.9 (8.5-10.1) mg/dL Magnesium 1.8 (1.8-2.4) mg/dL Total Bilirubin 0.53 (0.2-1.0) mg/dL AST 34 (15-37) U/L ALT 31 (16-63) U/L Alkaline Phosphatase 104 (46-116) U/L Troponin I < 50 (< or =60) ng/L Total Protein 7.8 (6.4-8.2) g/dL Albumin 3.0 L (3.4-5.0) g/dL Urine Color Yellow (Yellow) Urine Clarity Clear (Clear) Urine pH 6.0 (5-8) Ur Specific [place] 1.010 (1.005-1.025) Urine Protein 100 H (Neg-Trace) mg/dL Urine Ketones Negative (Negative) mg/dL Urine Blood Small H (Negative) Urine Nitrite Negative (Negative) Urine Bilirubin Negative (Negative) Urine Urobilinogen 0.2 (Up to 0.2) mg/dL Ur Leukocyte Esterase Negative (Negative) Urine RBC 0-2 (0-2) HPF Urine WBC Negative (0-5) HPF Ur Epithelial Cells Negative (Negative) HPF Urine Crystals Negative (Negative) HPF Urine Bacteria Negative (Negative) HPF Urine Casts 0-2 Coarse Granular (Negative) LPF Urine Mucus Trace (Negative) Ur Culture Indicated? No Urine Glucose Negative (Negative) mg/dL COVID-19 Source Nasopharynx SARS-CoV-2 (PCR) Negative (Negative) Influenza Type A (PCR) Negative (Negative) Influenza Type B (PCR) Negative (Negative) RSV (PCR) Negative (Negative) Intake and Output - 24 Hour Total 12/05/23 22:02 thru 12/05/23 22:04 Weight 99.79 kg Falls Risk Assessment History of Falls Previous History 12/05/23 22:11 Contributing Factors Impairments 12/05/23 22:11 Ambulatory Aids Uses ambulatory device 12/05/23 22:11 Tubes/Lines None 12/05/23 22:11 Gait Evaluation W/any additional score 12/05/23 22:11 Cognition No cognitive impairment 12/05/23 22:11 Fall Total Score 53 12/05/23 22:11 Level of Risk High Risk 12/05/23 22:11 Problems (Last Reviewed 12/06/23 @ 02:26 by Lior Burnette MD) Generalized weakness (Acute) v v v v v v v v v Sending and/or Receiving Nurses: Please use comment section below to note any information pertinent to the patient hand-off not included above. Information / Comments: Pt present c/o Rt shoulder pain. Was unable to get up independently at home. Required x 2 heavy assist to get out of house. Baseline walks independently with cane. Reports recent cough, low grade fever at home. SPO2 low 90s in ED. Plan admit obs d/t inabilty to ambulate. does not feel safe providing care for him at home. Per , daughter, pt mental status is off from baseline. RN reports pt intermittently rambling things that do not make sense to current situation. Family reports this is atypical, baseline A&O x4. Pt received 1L LR bolus, acetaminophen in ED. Report received from: Bonnie Navarro RN
--- OUTSIDE RECORDS SUMMARY | 2023-12-06 03:47 | XMS_ITS | Encounter Summary ---
Author Organization [facility] Address [address] [place] [address] Care Team Providers Care Livestock Caretaker Name Role Phone Sarah Francis UX VISUAL DESIGNER Primary Care Provider [phone] Encounter Details Date Type Department Care Team (Late st Contact Info) Description 12/26/2022 Lab Requisition [facility] Pathology & Laboratory Medicine - [address] [id number] Outr Resulting Lab, Provider Social History Tobacco [...] Negative Negative 12/26/2022 20:[address] [facility] Shigella/Enteroin vasive E. coli Negative Negative 12/26/2022 20:[address] [facility] HN LAB CAMPYLOBACTER PCR Negative Negative 12/26/2022 20:[address] [facility] Shiga Toxin PCR Negative Negative 20:[address] [facility] Feces SPECIMEN FROM RECTUM / Unknown 12/25/2022 12:55 EDT 12/26/2022 16:34 EDT Provider Outr Resulting Lab MICROBIOLOGY - GENERAL ORDERABLES [facility] [address] [place] [address] documented in this encounter Visit Diagnoses Not on filedocumented in this encounter Care Teams Livestock Caretaker Relationship Specialty Start Date End Date Sarah Francis FNP [address] [place] [id number] PCP - General Family Medicine - Primary Care 01/20/23 documented as of this encounter
--- OUTSIDE RECORDS SUMMARY | 2023-12-06 03:47 | XMS_ITS | Encounter Summary ---
[place] [address] Care Team Providers Care Tung Nut Grower Name Role Phone Brissa Toure APRN Primary Care Provider [phone] Encounter Details Date Type Department Care Team [...] Scheduled Procedures Name Priority Associated Diagnoses Date/Ti ks COLONOSCOPY, DIAGNOSTIC (WRV U 3.26) Left sided colitis with rectal bleeding documented as of this encounter Visit Diagnoses Not on filedocumented in this encounter Care Teams Tung Nut Grower Relationship Specialty Start Date End Date Brissa Toure APRN [address] [facility] [address] PCP - General Family Medicine 06/19/18 documented as of this encounter
--- OUTSIDE RECORDS SUMMARY | 2023-12-06 03:47 | XMS_ITS | Encounter Summary ---
[place] [address] Care Team Providers Care Information Security Analyst Name Role Phone Brissa Toure APRN Primary Care Provider [phone] Encounter Details Date Type Department Care Team [...] Scheduled Procedures Name Priority Associated Diagnoses Date/Ti nc COLONOSCOPY, DIAGNOSTIC (WRV U 3.26) Left sided colitis with rectal bleeding documented as of this encounter Visit Diagnoses Not on filedocumented in this encounter Care Teams Information Security Analyst Relationship Specialty Start Date End Date Brissa Toure APRN [address] [facility] [place] [address] PCP - General Family Medicine 06/19/18 documented as of this encounter
--- OUTSIDE RECORDS SUMMARY | 2023-12-06 03:47 | XMS_ITS | Encounter Summary ---
Author Organization [facility] Address [address] [place] [address] Care Team Providers Care Telemarketing Agent Name Role Phone Sarah Francis COIN MACHINE COLLECTOR Primary Care Provider [phone] Encounter Details Date Type Department Care Team (Late st Contact Info) Description 12/27/2022 Lab Requisition [facility] Pathology & Laboratory Medicine - [address] [id number] Outr Resulting Lab, Provider Social History Tobacco [...] ANCA Interpretation Negative Negative 12/28/2022 14:33 EDT [facility] Comment: No titer performed, ANCA Screen is negative. Results were obtained with the INOVA NOVA Lite ANCA kit by indirect immunofluorescence. Blood VENOUS BLOOD / Unknown 12/24/2022 20:00 EDT 12/27/2022 17:26 EDT Provider Outr Resulting Lab IMMUNOLOGY A ND SEROLOGY ORDERABLES Performing Organization Address [facility] Co de Phone Number [facility] [address] [place] [address] * ANTI NUCLEAR AB (GABE), IFA (12/24/2022 20:00 EDT) GABE Interpretation Negative Negative 2022 14:39 EDT [facility] Comment:No titer performed, GABE Screen is negative. Blood VENOUS BLOOD / Unknown 12/24/2022 20:00 EDT 12/27/2022 17:26 EDT Narrative [facility] - 12/28/2022 14:39 EDT Results were obtained with the INOVA NOVA Lite HEp-2 GABE Kit by indirect immunofluorescence. Provider Outr Resulting Lab IMMUNOLOGY A ND SEROLOGY ORDERABLES Performing Organization Address [facility] Co de Phone Number [facility] [address] [place] [address] documented in this encounter Visit Diagnoses Not on filedocumented in this encounter Care Teams Telemarketing Agent Relationship Specialty Start Date End Date Sarah Francis FNP [address] [place] [id number] PCP - General Family Medicine - Primary Care 01/20/23 documented as of this encounter
--- OUTSIDE RECORDS SUMMARY | 2023-12-06 03:47 | XMS_ITS | Encounter Summary ---
Author Organization [facility] [place] [address] Care Team Providers Care Chemical Plant Manager Name Role Phone Brissa Toure APRN Primary Care Provider [phone] Reason for Visit * Reason Comments NPDR Encounter Details Date Type Department Care Team (Latest Contact Info) Description 09/21/2018 2:15 PM EDT Office Visit Ophthalmology at [facility] [place] [address] Johanna Jacinto MD [facility] [place] [address] Retinal microaneurysm, unspecified laterality (Primary Dx); Type [...] documented in this encounter Results * OCT [id number] EYES (09/21/2018 4:20 PM EDT) Anatomical Region [...] tear documented in this encounter Care Teams Chemical Plant Manager Relationship Specialty Start Date End Date Brissa Toure, OIL HEATER OPERATOR [address] [place] [address] PCP - General Family Medicine 06/19/18 documented as of this encounter
--- OUTSIDE RECORDS SUMMARY | 2023-12-06 03:47 | XMS_ITS | Clinical Summary ---
Author Organization [facility] Address [facility] [place] [address] Care Team Providers Care Floor Refinisher Name Role Phone Brissa Toure APRN Primary Care Provider [phone] Allergies Active Allergy Reactions Criticality Noted Date [...] In Lab Hermes Godinez MD CHEMISTRY ORDERABLES [facility] [place] [address] from Last 3 Months or Most Recently Relevant to Health Maintenance Care Teams Floor Refinisher Relationship Specialty Start Date End Date Brissa Toure, SEBLE [address] [place], [place] [id number] PCP - General Family Medicine 06/19/18
--- OUTSIDE RECORDS SUMMARY | 2023-12-06 03:47 | XMS_ITS | Referral Summary ---
Author Organization [facility] Address [address] [place] [address] Care Team Providers Care Figure Clerk Name Role Phone Sarah Francis [facility] Primary Care Provider [phone] Social History Tobacco Use Types Packs/Day Years Used Date Smoking Tobacco: Never Assessed Sex and Gender Information Value Date Recorded Sex Assigned at Not on file Gender Identity Not on file Sexual Orientation Not on file Plan of Treatment Not on file Care Teams Figure Clerk Relationship Specialty Start Date End Date Sarah Francis FNP [address] [place] [address] PCP - General Family Medicine - Primary Care 01/20/23
--- OUTSIDE RECORDS SUMMARY | 2023-12-06 03:47 | XMS_ITS | Encounter Summary ---
Author Organization [facility] Address [facility] [place] [address] Care Team Providers Care Object Oriented Developer Name Role Phone Brissa Toure APRN Primary Care Provider [phone] Encounter Details Date Type Department Care Team (Latest Contact Info) Description 07/26/2018 9:09 AM EST - 07/26/2018 11:59 PM [facility] Encounter XRay at [address] [place] [address] Adal Valdovinos MD [facility] [place] [place] [address] Pain in left hip Discharge Disposition: Home [...] contact the number below. Electronically signed by: RUTHIE Weinstein [facility]([phone]), at 07/26/2018 10:58 AM Adal Valdovinos MD IMG DX ORDERABLES documented in this encounter Visit Diagnoses Diagnosis Pain in left hip Pain in joint, pelvic region and thigh documented in this encounter Care Teams Object Oriented Developer Relationship Specialty Start Date End Date Brissa Toure, MANAGER OF TRAINING [address], [place] [address] PCP - General Family Medicine 06/19/18 documented as of this encounter
--- OUTSIDE RECORDS SUMMARY | 2023-12-06 03:47 | XMS_ITS | Encounter Summary ---
Author Organization [facility] [place] [address] Care Team Providers Care Building Equipment Operator Name Role Phone Brissa Toure APRN Primary Care Provider [phone] Reason for Visit * Reason Comments NPDR Encounter Details Date Type Department Care Team (Latest Contact Info) Description 11/15/2018 1:30 PM EDT Office Visit Ophthalmology at [facility] [place] [address] Johanna Jacinto [place] [address] Retinal microaneurysm, unspecified laterality; Type 2 diabetes [...] of, and acting as a scribe for Johnana Jacinto MD. I performed the services which [...] documented in this encounter Results * OCT [id number] EYES (11/15/2018 2:38 PM EDT) Anatomical Region [...] tear documented in this encounter Care Teams Building Equipment Operator Relationship Specialty Start Date End Date Brissa Toure, BUYER ASSISTANT [address] [address] PCP - General Family Medicine 06/19/18 documented as of this encounter
--- OUTSIDE RECORDS SUMMARY | 2023-12-06 03:47 | XMS_ITS | Encounter Summary ---
[place] [address] Care Team Providers Care Maintenance Job Titles Name Role Phone MesfinBrissa SEBLE Primary Care Provider Reason for Referral * Consultation (Routine) - Authorized Specialty Diagnoses / Procedures Referred By Isaías garcia Referred To Contact Gastroenterology Diagnoses Acute colitis Fatty liver acute colitis/fatty liver Sarah Francis APRN [address] [place] [address] [facility] [place] [address] Referral ID Status Reason Start Date Expiration Date Visits Requested Visits Authorized [id number] Authorized Consult, Test & Treat PCP Updated and/or Approved 01/12/2023 01/13/2024 6 6 Encounter Details Date Type Department Care Team (Late st Contact Info) Description 01/17/2023 Transcribe Orders eDH Incoming Referrals [phone] Sarah Francis APRN [address] [place], [place] [id number] Colitis; Acute colitis; Fatty liver Social History [...] disease documented in this encounter Care Teams Maintenance Job Titles Relationship Specialty Start Date End Date Brissa Toure APRN [address] [place] [address] PCP - General Family Medicine 06/19/18 documented as of this encounter
--- OUTSIDE RECORDS SUMMARY | 2023-12-06 03:47 | XMS_ITS | Encounter Summary ---
Author Organization [facility] [place] [address] Care Team Providers Care Hay Sorter Name Role Phone Brissa Toure APRN Primary Care Provider [phone] Reason for Visit * Reason Comments Procedure * High Dollar Medication (Urgent) - Specialty Diagnoses / Procedures Referred By Isaías garcia Referred To Contact Ophthalmology Diagnoses Type 2 diabetes mellitus with mild nonproliferative diabetic retinopathy without macular edema, bilateral Procedures TC BEVACIZUMAB, 10MG, INJECTION (AVASTIN) Johanna Jacinto MD [facility] [place] [address] [facility] [place] [address] Referral ID Status Reason Start Date Expiration Date V isits Requested Visits Authorized [id number] Evaluate and Treat 06/26/2018 06/26/2019 99 99 Encounter Details Date Type Department Care Team (Latest Contact Info) Description 08/23/2018 10:30 AM EDT Procedure [place] [address] Johanna Jacinto MD [facility] [place] [address] Type 2 diabetes mellitus with both eyes [...] about driving: We always recommend having a trackless trolley driver on the day you get an [...] Normal and Not Expected side effects: Call [phone] (Eye Clinic) DAY or NIGHT, HOLIDAY or WEEKEND if you experience any of the following: = Severe, increasing pain in the eye = Significant, dramatic vision loss = Redness on and around the eye that gets worse, not better = Severe light sensitivity Call [phone] or go to the Emergency room immediately [...] of Avastin 1.25 mg Right Eye Assist: Investigative Shopper Anesthesia: Topical Proparacaine and topical 4% Lidocaine Complications: None Procedure: The patient was taken to the minor treatment suite where the patient was reidentified using name and birthdate as critical identifiers. The correct eye as the operative site was reidentified by a preplaced site libertad, and the consent form was actively reviewed by the registered medical assistant and the surgeon. The right eye was prepped including instillation of Betadine 5% into the right cul de sac for 5 minutes, facial prep with ophthalmic Betadine and placement of a lid speculum. The surgeon performed hand washing preoperatively, used gloves, and wore a face mask or used no talking technique during the procedure, as did the surgical physician assistant. After topical anesthesia of the injection [...] call the Eye Clinic or Eye Doctor regional refrigerated cdl truck driver, should they develop pain in the treated [...] Eye documented in this encounter Care Teams Hay Sorter Relationship Specialty Start Date End Date Brissa Toure APRN [address] [place] [address] PCP - General Family Medicine 06/19/18 documented as of this encounter
--- OUTSIDE RECORDS SUMMARY | 2023-12-06 03:47 | XMS_ITS | Encounter Summary ---
Author Organization [facility] [place] [address] Care Team Providers Care Supervisor Wall Mirror Department Name Role Phone Brissa Toure APRN Primary Care Provider [phone] Reason for Visit * Reason Onset Date Comments Follow-up 02/18/2019 Encounter Details Date Type Department Care Team (Late st Contact Info) Description 02/18/2019 Telephone Ophthalmology at [facility] [place] [address] Johanna Jacinto MD [facility] [place] [address] Follow-up Social History Tobacco Use Types Packs/Day [...] back & schedule. * Telephone Encounter - Nisha Nuñez - 02/18/2019 11:43 AM EDT I [...] on filedocumented in this encounter Care Teams Supervisor Wall Mirror Department Relationship Specialty Start Date End Date Brissa Toure, SEBLE [address] [place] [address] PCP - General Family Medicine 06/19/18 documented as of this encounter
--- OUTSIDE RECORDS SUMMARY | 2023-12-06 03:47 | XMS_ITS | Encounter Summary ---
Author Organization [facility] Address [address] [place] [address] Care Team Providers Care Icing Machine Operator Name Role Phone Sarah Francis MD OPHTHALMOLOGIST Primary Care Provider [phone] Encounter Details Date Type Department Care Team (Late st Contact Info) Description 02/17/2023 Lab Requisition [facility] Pathology & Laboratory Medicine - [address] [address] Gatito Talbert MD [address] [place] [address], [address] [place], [place] [id number] Encounter for screening for malignant neoplasm of [...] management options, if applicable. 02/22/2023 11:01 EDT [facility] Final Diagnosis A. [...] and malignancy. - See comment. 02/22/2023 11:01 [facility] Diagnosis Comment C: No specific etiology for the ulceration and mucosal architectural distortion is identified. The changes may suggest idiopathic inflammatory bowel disease. The possibility of an infectious, ischemic, or drug-related colitis cannot be totally excluded. Clinical correlation is recommended. Immunoperoxidase stains were performed on this case to further evaluate the biopsy. ANTIBODY(CLONE)(BL OCK):RESULT CD20 (L26, [place]) (C1): Highlights background B cells in a [...] performance characteristics have been determined by [facility] and/or by the referring laboratory. The positive [...] high complexity clinical laboratory testing. 02/22/2023 11:01 [facility] Attestation By the signature below, the attending physician certifies that they have 1) personally conducted a gross and/or microscopic examination of the described specimen(s), and/or personally interpreted the results of laboratory testing of the described specimen(s), and 2) personally rendered or confirmed the above diagnosis. 02/22/2023 11:01 [facility] at [address] Clinical History Hematochezia, R/O ulcerative colitis 02/22/2023 11:01 EDT [facility] Gross Description A. [...] ROE CAMP(ASCP) 02/20/2023 7:52 02/22/2023 11:01 EDT [facility] Performing Lab [facility] 11:01 T [facility] Scanned Images 02/22/2023 11:01 T [facility] Tissue COLON STRUCTURE / Unknown 02/17/2023 7:47 EDT 02/17/2023 19:54 EDT Tissue specimen (specimen) COLON STRUCTURE / Unknown 02/17/2023 7:47 EDT 02/17/2023 19:54 EDT Tissue specimen (specimen) COLON STRUCTURE / Unknown 02/17/2023 7:47 EDT 02/17/2023 19:54 EDT Gatito Talbert MD PATHOLOGY ORDERABLES [facility] [address] [place] [address] documented in this encounter Visit Diagnoses Diagnosis Encounter for screening for malignant neoplasm of colon Special screening for malignant neoplasms, colon documented in this encounter Care Teams Icing Machine Operator Relationship Specialty Start Date End Date Sarah Francis FNP [address] [place] [address] PCP - General Family Medicine - Primary Care 01/20/23 documented as of this encounter
--- OUTSIDE RECORDS SUMMARY | 2023-12-06 03:47 | XMS_ITS | Encounter Summary ---
Author Organization [facility] Address [facility] [place] [address] Care Team Providers Care Flight Communications Officer Name Role Phone Brissa Toure APRN Primary Care Provider [phone] Encounter Details Date Type Department Care Team (Latest Contact Info) Description 04/28/2023 10:15 AM EST - 04/28/2023 11:59 PM [facility] Hospital [place] [address] Hermes Ridley MD [facility] [place] [address] Fatty liver Discharge Disposition: Home Social History [...] ascites. Electronically signed by: Armando Gardner MD, [facility] ([phone]), at 04/28/2023 11:11 AM Thank you for letting us participate in the care of this patient. If you are a health care provider and have any questions regarding this report, please contact the number above. For patients who have questions, please contact the health nurse healthcare manager that requested your imaging first. ?Armando Gardner, Staff Physician Electronically Signed Final Report ?? 04/28/2023 11:18 am Narrative 04/28/2023 11:18 AM EST Abdominal ? (Signed Final 04/28/2023 11:18 am) PATIENT INFO: ID #: ? [id number] ?: ??[birth year] (68 yrs)(M) Name: ? ALEXANDRO Srinivasan ?Visit Date: 04/28/2023 11:01 am ? SINDY PERFORMED BY: Attending: ?Armando Gardner MD Performed By: ? Charisma Flores RDMS Referred By: ?HERMES RIDLEY Location: ? [place] SERVICE(S) PROVIDED: [facility] - Hepatology Protocol - Abdominal ?19790 Limited Survey Single Organ or Quadrant - [id number] INDICATIONS: patient been told he has fatty [...] 04/28/2023 11:18 am) PATIENT INFO: ID #: [id number] : [birth year] (68 yrs)(M) Name: ALEXANDRO Srinivasan Visit Date: 04/28/2023 11:01 am SINDY PERFORMED BY: Attending: Armadno Gardner MD Performed By: Charisma Flores RDMS Referred By: HERMES RIDLEY Location: [place] [facility] - Hep[facility] Protocol - Abdominal 57996 Limited Survey Single Organ or Quadrant - [id number] INDICATIONS: patient been told he has fatty [...] ascites. Electronically signed by: Armando Gardner MD, [facility] ([phone]), at 04/28/2023 11:11 AM Thank you for letting us participate in the care of this patient. If you are a health care provider and have any questions regarding this report, please contact the number above. For patients who have questions, please contact the health nurse healthcare manager that requested your imaging first. Armando Gardner, Staff Physician Electronically Signed Final Report 04/28/2023 11:18 am Hermes Ridley MD IMG US GEN ORDERABLE S documented in this encounter Visit Diagnoses Diagnosis Fatty liver Other chronic nonalcoholic liver disease documented in this encounter Care Teams Flight Communications Officer Relationship Specialty Start Date End Date Brissa Toure, SEBLE [address] [place] [address] PCP - General Family Medicine 06/19/18 documented as of this encounter
--- OUTSIDE RECORDS SUMMARY | 2023-12-06 03:47 | XMS_ITS | Encounter Summary ---
Author Organization [facility] [place] [address] Care Team Providers Care Adoption Specialist Name Role Phone MesfinBrissa SEBLE Primary Care Provider [phone] Reason for Visit * Consultation (Routine) - Authorized Specialty Diagnoses / Procedures Referred By Isaías garcia Referred To Contact Gastroenterology Diagnoses Acute colitis Fatty liver acute colitis/fatty liver Sarah Francis APRN [address] [place] [address] [facility] [address] [place] [address] Referral ID Status Reason Start Date Expiration Date Visits Requested Visits Authorized [id number] Authorized Consult, Test & Treat PCP Updated and/or Approved 01/12/2023 01/13/2024 6 6 Encounter Details Date Type Department Care Team (Late st Contact Info) Description 04/03/2023 8:00 AM EST Office [place] [address] Roberto Abdul [facility] [place] [address] Left sided colitis with rectal [...] referral placed Underwent Colonoscopy on 02/17/23 at [facility] by Dr. Gatito Talbert (Surgery) Serpiginous ulceration extending from 25 cm from the anus up to about 40 cm Cecal Polyp - TA Biopsy at 35 cm - negative Biopsy at 30 cm - architectural distortion, fragments of ulceration and granulation showing prominent plasma cells, negative for dysplasia; idiopathic IBD? [facility] 03/15/23 - Followed up with Dr. Talbert [...] hx of GI surgeries Worked in a [employer] for several years, then [employer]) Quit smoking in 1987. Does not drink [...] SURGERY Right 04/2018 lid lesion excision - [facility] SOCIAL HISTORY: Social History Socioeconomic History Marital [...] with Dr. Gretchen Abdul DO PGY-4, Gastroenterology [facility] [place] [address] P: [phone] F: [phone] CC Brissa Toure, DIVISION FIELD INSPECTOR [address] [place] [address] CC Sarah Francis, DIVISION FIELD INSPECTOR [address] [place] [address] * Abdulaziz Godinez MD - 04/03/2023 8:00 AM EST Attending attestation: I interviewed and examined the patient with Dr. Abdul in clinic. I confirm the history and asif physical findings outlined in this note. The assessment and plan were formulated in discussion with me at the time of this encounter, and I agree with them as documented. Abdulaziz Godinez MD Section of Gastroenterology [facility] documented in this encounter Plan of Treatment [...] signed by: Armando Gardner MD, [facility] ([phone]), at 04/28/2023 11:11 AM Thank you for letting us participate in the care of this patient. If you are a health care provider and have any questions regarding this report, please contact the number above. For patients who have questions, please contact the health manager critical care that requested your imaging first. ?Armando Gardner, Staff Physician Electronically Signed Final Report ?? 04/28/2023 11:18 am Narrative 04/28/2023 11:18 AM EST Abdominal ? (Signed Final 04/28/2023 11:18 am) PATIENT INFO: ID #: ? [id number] ?: ??[birth year] (68 yrs)(M) Name: ? ALEXANDRO Srinivasan ?Visit Date: 04/28/2023 11:01 am ? TIFF PERFORMED BY: Attending: ?Armando Gardner MD Performed By: ? Charisma Flores RDMS Referred By: ?ABDULAZIZ GODINEZ Location: ? [place] SERVICE(S) PROVIDED: [facility] - Hepatology Protocol - Abdominal ?07353 Limited Survey Single Organ or Quadrant - [id number] INDICATIONS: patient been told he has fatty [...] 04/28/2023 11:18 am) PATIENT INFO: ID #: [id number] : [birth year] (68 yrs)(M) Name: ALEXANDRO Srinivasan Visit Date: 04/28/2023 11:01 am TIFF PERFORMED BY: Attending: Armando Gardner MD Performed By: Charisma Flores RDMS Referred By: ABDULAZIZ GODINEZ Location: [place] SERVICE(S) PROVIDED: [facility] - Hepatology Protocol - Abdominal 86362 Limited Survey Single Organ or Quadrant - [id number] INDICATIONS: patient been told he has fatty [...] signed by: Armando Gardner MD, [facility] ([phone]), at 04/28/2023 11:11 AM Thank you for letting us participate in the care of this patient. If you are a health care provider and have any questions regarding this report, please contact the number above. For patients who have questions, please contact the health manager critical care that requested your imaging first. Armando Gardner, Staff Physician Electronically Signed Final Report 04/28/2023 11:18 am Abdulaziz Godinez MD IM US GEN ORDERABLE S * Differential, Automated (04/03/2023 10:00 AM EST) Neutrophils % 46.4 % [facility] Neutr Abs (ANC) 3.49 1.70 - 6.10 x10(3)/[facility] Lymphocytes % 36.3 % [facility] Lymphocytes Abs 2.7 0.9 - 3.2 x10(3)/[facility] Monocytes % 11.8 % [facility] Monocyte Abs 0.9 0.3 - 0.9 x10(3)/[facility] Eosinophils % 4.3 % [facility] Eosinophils Abs 0.3 0.0 - 0.4 x10(3)/[facility] Basophils % 0.9 % [facility] Basophils Abs 0.1 0.0 - 0.1 x10(3)/[facility] Immature Gran % 0.30 % [facility] Comment: Immature granulocytes(IG's)percentage and absolute count will include metamyelocytes, myelocytes, and promyelocytes. Blood smears from CBCs yielding IG's will be scanned manually for concordance. If this scan disagrees with the automated IG or if promyelocytes are noted, a manual differential will be performed. [place] Gran Abs 0.02 0.00 - 0.04 x10(3)/[facility] Blood 04/03/2023 10:0 0 AM EST 04/03/2023 10:18 AM EST Narrative Resulting Agency Comment Spec In Lab Obaida Ezequieli DO HEMATOLOGY ORDERABLE S [facility] [place] [address] * (ABNORMAL) Hemogram (04/03/2023 10:00 AM EST) [facility] WBC 7.5 4.0 - 9.5 x10(3)/[facility] RBC 4.55(L) 4.58 - 5.54 x10(6)/[facility] Hemoglobin 14.5 13.7 - 16.5 g/dL [facility] Hematocrit 42.9 40.5 - 48.5 % [facility] MCV 94.3(H) 82.9 - 93.1 [facility] MCH 31.9 27.5 - 32.1 pg [facility] MCHC 33.8 32.0 - 35.7 g/dL [facility] Platelets 207 145 - 357 x10(3)/[facility] RDWSD 49.9(H) 36.0 - 45.0 [facility] RDWCV 14.4(H) 11.4 - 13.8 % [facility] MPV 10.6 7.6 - 12.9 [facility] nRBC % Auto 0.0 % [facility] nRBC Abs Auto 0.000 0.000 - 0.000 x10(3)/[facility] Blood 04/03/2023 10:0 0 AM EST 04/03/2023 10:18 AM EST Narrative Resulting Agency Comment Spec In Lab Roberto Abdul DO HEMATOLOGY ORDERABLE S [facility] [place] [address] * (ABNORMAL) Liver Fibrosis Panel (04/03/2023 10:00 AM EST) Pathologist [facility] Liver Fibrosis Panel Test ? Result ?Flag [...] developed and its performance characteristics ?determined by [facility] in a manner consistent with ?CLIA requirements. This test has not been cleared or ?approved by the U.S. Food and Drug Administration. ??[employer] Serial Number ?[id number] ??Apolipoprotein A1, S ? 125 ? mg/dL ??>=120 ??Inbzy-1-Rfxjddyuwdtu n, S ? 355 ?H ?mg/dL ??100 - 280 ??Haptoglobin, S ? 216 ?H ?mg/dL ??30 - 200 ??Alanine Aminotransferase (ALT), S ?30 ?U/L ?7-55 ??Gamma Glutamyltransferase (GGT), S ? 41 ?U/L ?8 - 61 ??Bilirubin, Total, S ?<0.2 ?mg/dL ??0.0 - 1.2 ?Test Performed by: ?[facility] ?[address] [place] [address] ?Assurance Senior: Adal Palomo M.D. Ph.D.; CLIA# [id number] ?Test Performed by: ?[facility] ?[address] [place] [address] ?Assurance Senior: Adal Palomo M.D. Ph.D.; CLIA# [id number]) [facility] Blood 04/03/2023 10:0 0 AM EST 04/03/2023 11:33 AM EST Narrative Resulting Agency Comment Spec In Lab Abdulaziz Godinez MD CHEMISTRY ORDERABLES Performing Organization Address City/State/[facility] Co de Phone Number [facility] [place] [address] * (ABNORMAL) Comprehensive metabolic panel (non-fasting) (04/03/2023 10:00 AM EST) Glucose Lvl 105 65 - 199 mg/dL [facility] Comment:Diabetes: >=200 mg/d L plus symptoms BUN 24(H) 10 - 20 mg/dL [facility] Creatinine 1.64(H) 0.80 - 1.50 mg/dL [facility] Sodium 140 135 - 145 mmol/L [facility] Potassium 4.3 3.5 - 5.0 mmol/L [facility] Comment: Please note: ??Patients with WBC >100,000 may have falsely elevated Potassium levels. ??For accurate Potassium quantification in these patients send serum separator tube (gold top) for subsequent determinations. ??Contact the Clinical Chemistry Laboratory if there are any questions. Chloride 99 98 - 107 mmol/L [facility] CO2 27 22 - 31 mmol/L [facility] Anion Gap 14 5 - 15 mmol/L [facility] Calcium 9.8 8.5 - 10.5 mg/dL [facility] Total Protein 7.5 6.1 - 8.0 g/dL [facility] Albumin 4.0 3.2 - 5.2 g/dL [facility] AST 33 0 - 39 unit/L [facility] ALT 27 0 - 55 unit/L [facility] Alk Phos 95 40 - 130 unit/L [facility] Total Bilirubin 0.2 0.2 - 1.3 mg/dL [facility] Estimated GFR 46(L) >=60 mL/min/1. 73 m?? [facility] Comment: This patient's estimated GFR [...] In Lab Abdulaziz Godinez MD CHEMISTRY ORDERABLES [facility] [place] [id number] * CRP, acute inflammation (04/03/2023 10:00 AM EST) CRP 4.0 <=4.9 mg/L [facility] Blood 04/03/2023 10:0 0 AM EST 04/03/2023 10:18 AM EST Narrative Resulting Agency Comment Spec In Lab Abdulaziz Godinez MD CHEMISTRY ORDERABLES [facility] [place] [address] documented in this encounter Visit Diagnoses Diagnosis Left sided colitis with rectal bleeding Left sided ulcerative (chronic) colitis Fatty liver Other chronic nonalcoholic liver disease Fatty liver Other chronic nonalcoholic liver disease documented in this encounter Care Teams Adoption Specialist Relationship Specialty Start Date End Date Brissa Toure APRN [address] [place] [address] PCP - General Family Medicine 06/19/18 documented as of this encounter
--- OUTSIDE RECORDS SUMMARY | 2023-12-06 03:47 | XMS_ITS | Encounter Summary ---
Author Organization [facility] [place] [address] Care Team Providers Care District Branch Manager Name Role Phone Brissa Toure APRN Primary Care Provider [phone] Reason for Visit * Reason Comments Follow-up Back Pain Encounter Details Date Type Department Care Team (Latest Contact Info) Description 07/26/2018 10:00 AM EST Office [place] [address] Stevie Ferraro [place] [address] Lumbar back pain with radiculopathy affecting left [...] Progress Notes * Stevie Ferraro PA - 07/26/2018 10:00 AM EST [...] thigh documented in this encounter Care Teams District Branch Manager Relationship Specialty Start Date End Date Brissa Toure, SEBLE [address] [place] [address] PCP - General Family Medicine 06/19/18 documented as of this encounter
--- OUTSIDE RECORDS SUMMARY | 2023-12-06 03:47 | XMS_ITS | Clinical Summary ---
Author Organization [facility] Address [address] [place] [address] Care Team Providers Care Workforce Development Specialist Name Role Phone Sraah Francis [facility] Primary Care Provider [phone] Social History Tobacco Use Types Packs/Day Years [...] COVID-19 Vaccine ( season) 2023 Care Teams Workforce Development Specialist Relationship Specialty Start Date End Date Sarah Francis FNP [address] [place] [address] PCP - General Family Medicine - Primary Care 01/20/23
--- OUTSIDE RECORDS SUMMARY | 2023-12-06 03:47 | XMS_ITS | Encounter Summary ---
Author Organization [facility] [place] [address] Care Team Providers Care Visual Presentation Manager Name Role Phone Brissa Toure APRN Primary Care Provider [phone] Reason for Visit * Reason Comments NPDR Encounter Details Date Type Department Care Team (Latest Contact Info) Description 02/15/2019 2:00 PM EDT Office Visit Ophthalmology at [facility] [place] [address] Johanna Jacinto MD [facility] [place] [address] Retinal microaneurysm of right eye Social History [...] documented in this encounter Results * OCT Ftqafh-AI-YGVO EYES (02/15/2019 4:56 PM EDT) Anatomical Region [...] NOS documented in this encounter Care Teams Visual Presentation Manager Relationship Specialty Start Date End Date Brissa Toure, SEBLE [address] [place] [address] PCP - General Family Medicine 06/19/18 documented as of this encounter
--- OUTSIDE RECORDS SUMMARY | 2023-12-06 03:48 | XMS_ITS | Encounter Summary ---
[place] [address] Care Team Providers Care Permastone Installer Name Role Phone Brissa Toure APRN Primary Care Provider Reason for Referral * Diagnostic Test (Routine) - Closed Specialty Diagnoses / Procedures Referred By Isaías garcia Referred To Contact Radiology Diagnoses History of lumbar laminectomy for spinal cord decompression Pain in left hip Chronic midline low back pain with left-sided sciatica Procedures MRI Lumbar Spine wo Contrast (Generic) Stevie Ferraro PA [facility] [place] [address] [facility] [place] [address] Referral ID Status Reason Start Date Expiration Date V isits Requested Visits Authorized [id number] Closed Specialty Service Requested 07/09/2018 10/07/2018 1 1 Reason for Visit * Reason Comments Back Pain Hip Pain * Consultation (Routine) - Specialty Diagnoses / Procedures Referred By Isaías garcia Referred To Contact Orthopaedics Diagnoses lumbar radiculopathy/ ?images Brissa Toure APRN [address] [place] [address] [facility] [place] [address] Referral ID Status Reason Start Date Expiration Date V isits Requested Visits Authorized [id number] Consult, Test & Treat Connection Center 06/19/2018 06/19/2019 6 6 Encounter Details Date Type Department Care Team (Late st Contact Info) Description 07/09/2018 10:40 AM EST Office Visit [facility] [place] [address] Stevie Ferraro [place] [facility] [place] [address] History of lumbar laminectomy for spinal cord [...] tells me 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 He continues to work at a [employer]. On examination today, this is a pleasant [...] below. Adal Valdovinos MD IMG DX ORDERABLES * [...] The Clinical Situation (Reference- Mirnak Et Al, [id number]). Findings: (Prevalence In Patients Without Low Back [...] thigh documented in this encounter Care Teams Permastone Installer Relationship Specialty Start Date End Date Brissa Toure, [address], [place] [address] PCP - General Family Medicine 06/19/18 documented as of this encounter
--- OUTSIDE RECORDS SUMMARY | 2023-12-06 03:48 | XMS_ITS | Encounter Summary ---
Author Organization [facility] Address [facility] [place] [address] Care Team Providers Care Aquatics Instructor Name Role Phone Kathrin Lemus MD Primary Care Provider [phone] Reason for Visit * Reason Comments Eye Problem Type II DM,sent by [facility] for mac edema eval-?OD MARE VELÁSQUEZ Diabetes Encounter Details Date Type Department Care Team (Late st Contact Info) Description 09/03/2013 1:30 PM EDT Office [place] [address] Alo Diaz MD [facility] [place] [address] Macular edema, cystoid, right. Mild but present [...] September 08, 2013 Armando Tomas MD Ophthalmology [address] [place] [address], [address] [place] [address] RE: Alexandro Callahan A#: [id number] Tomas: I had the pleasure [...] documented in this encounter Results * OCT Hxsyed-PQ-[id number] EYE (09/08/2013 5:43 PM EDT) Anatomical Region Laterality Modality Other Alo Diaz MD OPHTHALMOLOGY S ERVICES ORDERABLES documented in this encounter Visit Diagnoses Diagnosis Macular edema, cystoid, right. 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 Dense pigment OU. Observe Unspecified retinal detachment documented in this encounter Care Teams Aquatics Instructor Relationship Specialty Start Date End Date Kathrin Lemus MD [address] [place] [address] PCP - General 04/19/10 09/08/13 documented as of this encounter
--- OUTSIDE RECORDS SUMMARY | 2023-12-06 03:48 | XMS_ITS | Encounter Summary ---
Author Organization [facility] [place] [address] Care Team Providers Care Cuff Setter Overlock Name Role Phone Kathrin Lemus MD Primary Care Provider Encounter Details Date Type Department Care Team (Late st Contact Info) Description 09/02/2013 Abstract [place] [address] [facility] DR [place] [address] Social History Tobacco Use Types Packs/Day Years [...] on filedocumented in this encounter Care Teams Cuff Setter Overlock Relationship Specialty Start Date End Date Kathrin Lemus MD [facility] [address] [place] [address] PCP - General 04/19/10 09/08/13 documented as of this encounter
--- OUTSIDE RECORDS SUMMARY | 2023-12-06 03:48 | XMS_ITS | Encounter Summary ---
Author Organization [facility] [place] [address] Care Team Providers Care Security Systems Administrator Name Role Phone Kathrin Lemus MD Primary Care Provider Encounter Details Date Type Department Care Team (Late st Contact Info) Description 07/29/2013 Abstract [place] [address] Alo Diaz MD [facility] [place] [address] Social History Tobacco Use Types Packs/Day Years [...] on filedocumented in this encounter Care Teams Security Systems Administrator Relationship Specialty Start Date End Date Kathrin Lemus MD [facility] [address] [place] [address] PCP - General 04/19/10 09/08/13 documented as of this encounter
--- OUTSIDE RECORDS SUMMARY | 2023-12-06 03:48 | XMS_ITS | Encounter Summary ---
Author Organization [facility] [place] [address] Care Team Providers Care Store Group Manager Name Role Phone Brissa Toure APRN Primary Care Provider [phone] Reason for Visit * Reason Comments Procedure * High Dollar Medication (Urgent) - Specialty Diagnoses / Procedures Referred By Isaías garcia Referred To Contact Ophthalmology Diagnoses Type 2 diabetes mellitus with mild nonproliferative diabetic retinopathy without macular edema, bilateral Procedures TC BEVACIZUMAB, 10MG, INJECTION (AVASTIN) Johanna Jacinto MD [facility] [place] [address] [facility] [place] [address] Referral ID Status Reason Start Date Expiration Date V isits Requested Visits Authorized [id number] Evaluate and Treat 06/26/2018 06/26/2019 99 99 Encounter Details Date Type Department Care Team (Latest Contact Info) Description 07/26/2018 12:45 PM EST Procedure [place] [address] Johanna Jacinto MD [facility] [place] [address] Type 2 diabetes mellitus with both eyes [...] about driving: We always recommend having a route sales driver on the day you get an [...] Normal and Not Expected side effects: Call [phone] (Eye Clinic) DAY or NIGHT, HOLIDAY or [...] of Avastin 1.25 mg Right Eye Assist: Classroom Assistant Anesthesia: Topical Proparacaine and topical 4% Lidocaine Complications: None Procedure: The patient was taken to the minor treatment suite where the patient was reidentified using name and birthdate as critical identifiers. The correct eye as the operative site was reidentified by a preplaced site libertad, and the consent form was actively reviewed by the faculty i on call medical assistant and the surgeon. The right eye was prepped including instillation of Betadine 5% into the right cul de sac for 5 minutes, facial prep with ophthalmic Betadine and placement of a lid speculum. The surgeon performed hand washing preoperatively, used gloves, and wore a face mask or used no talking technique during the procedure, as did the neurosurgical physician assistant. After topical anesthesia of the [...] call the Eye Clinic or Eye Doctor communications program manager, should they develop pain in the treated [...] Eye documented in this encounter Care Teams Store Group Manager Relationship Specialty Start Date End Date Brissa Toure, DRIFTMAN [address] [facility] [address] PCP - General Family Medicine 06/19/18 documented as of this encounter
--- OUTSIDE RECORDS SUMMARY | 2023-12-06 03:48 | XMS_ITS | Encounter Summary ---
Author Organization [facility] [place] [address] Care Team Providers Care Bus Washer Name Role Phone Brissa Toure APRN Primary Care Provider [phone] Reason for Visit * Reason Comments Follow-up Back Pain Encounter Details Date Type Department Care Team (Late st Contact Info) Description 07/19/2018 10:00 AM EST Office [place] [address] [place] [address] Low back pain, non-specific; Pain in left [...] Scheduled Procedures Name Priority Associated Diagnoses Date/Ti ca COLONOSCOPY, DIAGNOSTIC (WRV U 3.26) Left sided colitis with rectal bleeding documented as of this encounter Visit Diagnoses Diagnosis Low back pain, non-specific Pain in left hip Pain in joint, pelvic region and thigh documented in this encounter Care Teams Bus Washer Relationship Specialty Start Date End Date Brissa Toure, [address] [address] PCP - General Family Medicine 06/19/18 documented as of this encounter
--- OUTSIDE RECORDS SUMMARY | 2023-12-06 03:48 | XMS_ITS | Encounter Summary ---
Author Organization [place] [address] Care Team Providers Care Senior Adults Director Name Role Phone Santos Villatoro MD Primary Care Provider [phone] Reason for Visit * Reason Comments Macular Edema 6-mon f/u for macula r edema/RT Encounter Details Date Type Department Care Team (Late st Contact Info) Description 04/25/2014 2:15 PM EST [place] [address] Alo Diaz MD [facility] DR [place]THAL[place] [address] Retinal detachment, unspecified laterality Discharge Disposition: Home [...] laterality documented in this encounter Care Teams Senior Adults Director Relationship Specialty Start Date End Date Santos Villatoro MD [address] [place] [address] PCP - General 09/09/13 06/18/18 documented as of this encounter
--- OUTSIDE RECORDS SUMMARY | 2023-12-06 03:48 | XMS_ITS | Encounter Summary ---
Author Organization [facility] [place] [address] Care Team Providers Care Leather Drier Name Role Phone Brissa Toure APRN Primary Care Provider [phone] Reason for Visit * Reason Comments Procedure * High Dollar Medication (Urgent) - Specialty Diagnoses / Procedures Referred By Isaías garcia Referred To Contact Ophthalmology Diagnoses Type 2 diabetes mellitus with mild nonproliferative diabetic retinopathy without macular edema, bilateral Procedures TC BEVACIZUMAB, 10MG, INJECTION (AVASTIN) Johanna Jacinto MD [facility] [place] [address] [facility] [place] [place] [address] Referral ID Status Reason Start Date Expiration Date V isits Requested Visits Authorized [id number] Evaluate and Treat 06/26/2018 06/26/2019 99 99 Encounter Details Date Type Department Care Team (Latest Contact Info) Description 06/26/2018 2:00 PM EST Procedure [place] [address] Johanna Jacinto MD [facility] [place] [address] [address] Type 2 diabetes mellitus with both eyes [...] about driving: We always recommend having a retail delivery driver on the day you get an [...] Normal and Not Expected side effects: Call [phone] (Eye Clinic) DAY or NIGHT, HOLIDAY or [...] of Avastin 1.25 mg Right Eye Assist: Progressive Care Unit Registered Nurse Anesthesia: Topical Proparacaine and topical 4% Lidocaine Complications: None Procedure: The patient was taken to the minor treatment suite where the patient was reidentified using name and birthdate as critical identifiers. The correct eye as the operative site was reidentified by a preplaced site libertad, and the consent form was actively reviewed by the pastry assistant and the surgeon. The right eye was prepped including instillation of Betadine 5% into the right cul de sac for 5 minutes, facial prep with ophthalmic Betadine and placement of a lid speculum. The surgeon performed hand washing preoperatively, used gloves, and wore a face mask or used no talking technique during the procedure, as did the surgical first assistant. After topical anesthesia of the injection [...] the Eye Clinic or Eye Doctor communications representative, should they develop pain in the treated [...] Eye documented in this encounter Care Teams Leather Drier Relationship Specialty Start Date End Date Brissa Toure, SEBLE [address] [place] [address] PCP - General Family Medicine 06/19/18 documented as of this encounter
--- OUTSIDE RECORDS SUMMARY | 2023-12-06 03:48 | XMS_ITS | Encounter Summary ---
Author Organization [facility] [place] [address] Care Team Providers Care Edger Machine Helper Name Role Phone Kathrin Lemus MD Primary Care Provider Encounter Details Date Type Department Care Team (Late st Contact Info) Description 07/23/2013 [place] [address] Alo Diaz MD [facility] [place] [address] Social History Tobacco Use Types Packs/Day Years [...] on filedocumented in this encounter Care Teams Edger Machine Helper Relationship Specialty Start Date End Date Kathrin Lemus MD [facility] [address] [place] [address] PCP - General 04/19/10 09/08/13 documented as of this encounter
--- OUTSIDE RECORDS SUMMARY | 2023-12-06 03:48 | XMS_ITS | Encounter Summary ---
Author Organization [facility] [place] [address] Care Team Providers Care Wind Field Manager Name Role Phone Brissa Toure APRN Primary Care Provider [phone] Reason for Referral * Diagnostic Test (Routine) - Closed Specialty Diagnoses / Procedures Referred By Contac t Referred To Contact Radiology Diagnoses History of lumbar laminectomy for spinal cord decompression Pain in left hip Chronic midline low back pain with left-sided sciatica Procedures MRI Lumbar Spine wo Contrast (Generic) Stevie Ferraro PA [facility] [place] [address] [place] [address] Referral ID Status Reason Start Date Expiration Date V isits Requested Visits Authorized [id number] Closed Specialty Service Requested 07/09/2018 10/07/2018 1 1 Reason for Visit * Diagnostic Test (Routine) - Closed Specialty Diagnoses / Procedures Referred By Contac t Referred To Contact Radiology Diagnoses History of lumbar laminectomy for spinal cord decompression Pain in left hip Chronic midline low back pain with left-sided sciatica Procedures MRI Lumbar Spine wo Contrast (Generic) Stevie Ferraro [place] [address] [place] [address] Referral ID Status Reason Start Date Expiration Date V isits Requested Visits Authorized [id number] Closed Specialty Service Requested 07/09/2018 10/07/2018 1 1 Encounter Details Date Type Department Care Team (Latest Contact Info) Description 07/19/2018 8:02 AM EST - 07/19/2018 11:59 PM EST Hospital [place] [address] Adal Valdovinos MD [facility] [place] [address] History of lumbar laminectomy for spinal cord [...] The Clinical Situation (Reference- Mirnak Et Al, [id number]). Findings: (Prevalence In Patients Without Low Back [...] sciatica documented in this encounter Care Teams Wind Field Manager Relationship Specialty Start Date End Date Brissa Toure, SE[address] [place] [address] PCP - General Family Medicine 06/19/18 documented as of this encounter
--- OUTSIDE RECORDS SUMMARY | 2023-12-06 03:48 | XMS_ITS | Encounter Summary ---
Author Organization [facility] [place] [address] Care Team Providers Care Cardiac Specialist Name Role Phone Santos Villatoro MD Primary Care Provider [phone] Reason for Visit * Reason Comments Diabetes Presents for 6 week check anf FA today Macular Edema Encounter Details Date Type Department Care Team (Late st Contact Info) Description 10/18/2013 2:45 PM EDT Follow-[place] [address] Alo Diaz MD [facility] [place] [address] Retinal detachment, unspecified laterality; Macular edema, cystoid, [...] laterality documented in this encounter Care Teams Cardiac Specialist Relationship Specialty Start Date End Date Santos Villatoro MD [address] [place] [address] PCP - General 09/09/13 06/18/18 documented as of this encounter
--- OUTSIDE RECORDS SUMMARY | 2023-12-06 03:48 | XMS_ITS | Encounter Summary ---
Author Organization [facility] [place] [address] Care Team Providers Care Superintendent Automotive Name Role Phone Su Sousa MD Primary Care Provider [phone] Encounter Details Date Type Department Care Team (Late st Contact Info) Description 04/16/2010 12:45 PM EST Office [place] [address] Alo Diaz MD [facility] DR OPHTHALMOLOGY [place] [address] Social History Tobacco Use Types Packs/Day Years [...] on filedocumented in this encounter Care Teams Superintendent Automotive Relationship Specialty Start Date End Date Su Sousa MD [address] [place] [address] PCP - General 04/13/10 04/18/10 documented as of this encounter
--- OUTSIDE RECORDS SUMMARY | 2023-12-06 03:48 | XMS_ITS | Encounter Summary ---
Author Organization [facility] Address [facility] [place] [address] Care Team Providers Care Returned Materials Inspector Name Role Phone Brissa Toure APRN Primary Care Provider [phone] Reason for Visit * Reason Comments NPDR * Consultation (Routine) - Closed Specialty Diagnoses / Procedures Referred By Isaías garcia Referred To Contact Ophthalmology Diagnoses dm mac edema Claire Garcia, OD [address] [place] [address] Milton Delaney MD [facility] [place] [address] Referral ID Status Reason Start Date Expiration Date V isits Requested Visits Authorized [id number] Closed Consult, Test & Treat PCP Updated and/or Approved 03/02/2018 03/02/2019 1 1 Encounter Details Date Type Department Care Team (Latest Contact Info) Description 06/26/2018 12:00 PM EST Office [place] [address] Johanna Jacinto MD [facility] [place] [address] 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
[2023-12-06] MEDS: Lactated Ringers 1,000 ML 75 ML IV ×2 (04:36→19:33)
--- NOTE | 2023-12-06 08:00 | DI.RAD_ITS ---
Exam(s) XR CHEST 2V PA LATERAL EXAM: XR CHEST 2V PA LATERAL CLINICAL HISTORY: cough, trace right pleural effusion. TECHNIQUE: 2D digital imaging was performed. COMPARISON: CT CT CHEST PE CTA from 12/05/2023 FINDINGS: 2 views: Heart size is normal. The mediastinum is not widened. Mildly elevated right hemidiaphragm with some atelectasis in the right lung base. Trace see lateral pleural fluid, as seen on yesterday's abdominal CT scan. Left lung is clear. IMPRESSION: Mild right lung base findings, commensurate with findings on uppermost images of abdominal CT scan pe rformed yesterday. Left lung is clear. DATA REPOSITORY: RADIATION DOSE DELIVERED:
[2023-12-06] MEDS: Gabapentin 100 MG CAP PO ×3 (08:23→19:53)
[2023-12-06] MEDS: Aspirin E.C. 81 MG TABEC PO (08:23)
[2023-12-06] MEDS: Metoprolol 50 MG TAB 200 MG PO ×2 (08:23→19:53)
[2023-12-06] MEDS: amLODIPine 2.5 MG TAB PO (08:23)
[2023-12-06] MEDS: Allopurinol 300 MG TAB 100 MG PO (08:24)
[2023-12-06] MEDS: Normal Saline Flush 10 ML SYR IVP ×2 (08:27→19:54)
[2023-12-06] MEDS: Insulin Aspart 300 UNITS/3 ML PEN SC ×2 (11:52→16:59)
--- NOTE | 2023-12-06 15:12 | IN_ITS ---
PT Notes Visit Reasons: weakness Physical Therapy Inpatient Initial Evaluation Date: 12/06/2023 Referring Doctor: Lior Burnette MD PT Orders: PT CONSULT: Limited ability Precautions: Fall. Standard. Activity as tolerated. Patient Profile/Admitting Diagnosis: Alexandro is a 68-year-old male with past medical history significant for chronic low back pain with 2 previous back surgeries admitted to the ED on 12/05/2023 due to R scapular pain, non-productive cough, low grade fever, and difficulty ambulating. PMHX: All Active Problems Difficulty walking (Acute) Generalized weakness (Acute) Acute right-sided thoracic back pain (Acute) Colitis (Acute) Screen for colon cancer (Acute) Pseudocyst of pancreas (Acute) Coronary artery calcification seen on CAT scan (Acute) Pancreatic atrophy (Acute) Gallstones (Acute) Peripheral neuropathy (Acute) Medical History NAFLD (nonalcoholic fatty liver disease) Stage 3b chronic kidney disease (CKD) Crohn disease Gout Hyperlipidemia Hypertension Diabetes Surgical History History of colonoscopy (~01/2023) polupsHistory of cataract surgery Previous back surgery x2 in the 's Social History/Home Situation: Lives with in a trailer home with 3 steps to enter. Independent with use of single-point cane for all mobility ADLs at baseline. Equipment Owned/DME: S[facility] Subjective: Reports of pain in the right shoulder blade at 4/10 pain. [place] that he has been having a hard time walking due to weakness and this has caused him to put too much weight on the cane and excessive weight bearing through the R shoulder. Per patient, has been telling him that he is better off using the walker compared to the cane. Objective: General Observation: Resting at edge of bed. Mental Status: Alert and oriented as to person, place, time, and purpose. Able to pay attention, focus, and respond appropriately. Pain: 5-6/10 in low back; 4-5/10 in abdominal area Vital Signs: Closely monitored by nursing staff ROM: Right Upper Extremity: Shoulder Flexion WFL. Shoulder abduction WFL. Elbow flexion WFL. Wrist flexion WFL. Functional opening and closing of hand WFL. Left Upper Extremity: Shoulder Flexion WFL. Shoulder abduction WFL. Elbow flexion WFL. Wrist flexion WFL. Functional opening and closing of hand WFL. Right Lower Extremity: Hip flexion WFL. Hip abduction WFL. Knee flexion WFL. Ankle dorsiflexion WFL. Ankle plantarflexion WFL. Left Lower Extremity: Hip flexion WFL. Hip abduction WFL. Knee flexion WFL. Ankle dorsiflexion WFL. Ankle plantarflexion WFL. Strength: Right Upper Extremity: Shoulder flexors 4-/5. Shoulder abductors 4-/5. Elbow flexors 4/5. Elbow extensors 4/5. Practical Ministries Professor strong. Left Upper Extremity: Shoulder flexors 4-/5. Shoulder abductors 4-/5. Elbow flexors 4/5. Elbow extensors 4/5. Practical Minist[employer] Professor strong. Right Lower Extremity: Hip flexors 4-/5. Hip abductors 4-/5. Knee flexors 4-/5. Knee extensors 4-/5. Ankle dorsiflexors 4/5. Ankle plantarflexors 4/5. Left Lower Extremity: Hip flexors 4-/5. Hip abductors 4-/5. Knee flexors 4-/5. Knee extensors 4-/5. Ankle dorsiflexors 4/5. Ankle plantarflexors 4/5. Bed Mobility/Transfers: Minimal cueing provided for use of B hands as needed for support, movement sequence, AD management, and posture to reduce fall risk and minimize pain report Sit to stand stand by assist with FWW Stand to sit stand by assist with FWW Bed to toilet seat stand by assist with FWW Toilet seat to bedside chair stand by assist with FWW Gait: Instructed patient with level surface ambulation of 75 feet requiring contact guard assist with the front-wheeled walker. Gait mildly shaky but no loss of balance seen. Did report of fatigue that limited distance walked. Balance: Static Sitting: Normal Dynamic Sitting: Normal Static Standing: Fair Dynamic Standing: Fair Special Tests: Mobility Limitations Standardized Measure [facility] 6 clicks Basic Mobility Inpatient Short Form: Raw Score: 22 CMS Score: 21% deficit 4-stage Balance Test: Able to maintain feet together for 10 seconds but was unable with semi-tandem, full tandem and one-legged stance. Informed Consent/Education: Patient was instructed in purpose of PT consult and plan of care. Agreeable to proceed with established PT POC to achieve personal goals. ASSESSMENT: Range of motion in right shoulder within functional limits but with pain report at end of flexion and abduction. R middle and lower trapezius tender to palpation with impaired glenohumeral rhythm on R. Will work on soft tissue manipulation/manual therapy to minimize pain while encouraging use of front- wheeled walker for better weight distribution and stabilization during walking. Patient presents with clinical signs and symptoms consistent with current/admitting diagnoses that have resulted to mobility limitations, gait instability, generalized weakness, and overall ADL decline as demonstrated by the following impairment level findings: 1. Decreased strength to B UE/LE major muscle groups 2. Impaired standing balance 3. Impaired activity tolerance Impairments are contributing to the following functional limitations: 1. Difficulty with ambulation without assistive device 2. Increased completion time for mobility ADL performance 3. Increased risk for falls Patient [place] 97207 moderate complexity based on the following: History: 68-year-old male with past medical history as indicated above Examination: Demonstrable impairment in strength, balance, and mobility level with underlying impairments and functional limitations as exhibited above as well as deficit score of 21% utilizing the [facility] Mobility Inpatient Short Form Presentation: Evolving Decision Makin moderate complexity Goals: Goals X1 week 1. Supine-Sit independent 2. Sit-Supine independent 3. Sit-Stand independent 4. Stand-Sit independent with FWW 5. Bed-Chair independent with FWW 6. Chair-Bed independent with FWW 7. Independent gait on level surface with use of FWW for at least 300 feet without report of pain nor dyspnea 8. Independent stair negotiation while holding onto B rails for at least 3 steps without report of pain nor dyspnea 9. Independent with home exercise program 10. Good static and dynamic standing balance/tolerance Plan of Care/Treatment Plan: 1-2x/day, 7 days/week x 1 week. Plan of care has been reviewed with the CHAIN SAW MECHANIC providing the service under Physical Therapy direction. Initiate Physical Therapy intervention for pain management as needed, strengthening, bed mobility, transfers, gait, stairs, balance training, and use of assistive device. DISCHARGE RECOMMENDATIONS: [] Home with no services [] [X] Home with services. Patient will benefit from home health PT services in order to progress mobility level using least restrictive assistive ambulatory device, assess home safety, identify additional equipment needs, and establish a functional maintenance program that will increase ability of patient to remain at home. [] Home with outpatient PT [] [] SNF for continued rehabilitation [] [] Alf Care [] [] SNF versus LTC based on ability to participate and progress [] TREATMENT CODE/TIME: 82029 x 26 minutes for 1 unit (15:12-15:48). Thank you for the opportunity to participate in the care of this patient. Rhoda Frost PT, DPT, CLT [facility] [place], [place]
--- NOTE | 2023-12-06 16:16 | W.NUTCONSULT ---
Date of service: 12/06/23 Time of Service: 14:00 Nutritional Consult ASSESSMENT: received diabetes education consult request. Pt's last A1c was 7.8% last month. Uses Dexcom G7 at home for monitoring - states he gets low's about once per week. PT ordered for CHO consistent diet with fair to good intake. Per chart he is is prescribed Tresiba at 144u HS and sliding scale Humalog - pt reports taking 80u at breakfast and then 40 units if he has lunch and then 60units at dinner. max TDD of insulin reported is 258units per day - this seems like an inappropriate amount of insulin or incorrectly reported as this is over 2.5units/kg. Pt was also on Rybelsus but reported significant GI issues (reports GI bleed) and transitioned to Ozempic, now on for 2 weeks and notices it working with his appetite and satiety. Glucose managed this admission with just moderate sliding scale aspart with preprandial glucose ~200 the last 3 meals. INTERVENTION: Kitchen will offer carb control boost (1CHO serving) BID on bkfst and dinner trays to help with protein/nutrient intake. Would recommend continue on sliding scale aspart at meals with titration of basal insulin at 10u AM or HS to start and work adjusting according to FPG with plan to discharge on the same regimen along with continued use of semaglutide q weekly. MONITORING AND EVALUATION: will monitor glucose and other labs, intake, weight and insulin therapy adjustments. pt declined extensive education today - states he has been managing well with diabetes for the last 25 years but did take my card for outpatient service consideration in regards to menu planning for his specific needs or to continue working on recommendations for adjustments in insulin therapy based of his CGM reports Time Spent in Nutritional Counseling and Treatment: 20 min
[2023-12-06] MEDS: traMADol 50 MG TAB PO (16:59)
--- NOTE | 2023-12-06 17:55 | CHAPLAIN ---
Alexandro was eating dinner when I visited. His Bre was with him. Alexandro said he's feeling better than he has the past couple of days. He remembered meeting me during a previous admission. He was pleasant and easily engaged in a conversation. I got some coffee for Bre.
[2023-12-06] MEDS: Simvastatin 40 MG TAB PO (19:53)
[2023-12-07 08:27] VITALS: BP 159/94; PULSE 82; RESP 14; TEMP 36.5; O2SAT 92
[2023-12-07] MEDS: Metoprolol 50 MG TAB 200 MG PO (08:29)
[2023-12-07] MEDS: Gabapentin 100 MG CAP PO (08:29)
[2023-12-07] MEDS: Aspirin E.C. 81 MG TABEC PO (08:30)
[2023-12-07] MEDS: Allopurinol 300 MG TAB 100 MG PO (08:31)
[2023-12-07] MEDS: Normal Saline Flush 10 ML SYR IVP (08:32)
[2023-12-07] MEDS: amLODIPine 2.5 MG TAB PO (08:32)
[2023-12-07] MEDS: Lactated Ringers 1,000 ML 75 ML IV (08:36)
[2023-12-07] MEDS: Insulin Aspart 300 UNITS/3 ML PEN SC ×2 (08:39→11:52)
--- NOTE | 2023-12-07 11:30 | PDOC.HHF2F_ITS ---
Home Health Referral Home Health Orders Clinical synopsis of why skilled professionals are needed: Acute viral illness, generalized weakness Physical Therapist: Check all that apply Increase strength & endurance for safe mobility at home: Ordered To design/establish home maintenance program: Ordered Fall reduction therapy program for patient with history of frequent falls: Ordered Home safety evaluation and teaching/gait training including stair management (if applicable): Ordered Encounter Date and Reason: I certify that a FTF encounter for this patient was performed on December 07, 2023 and that such encounter was related to the primary reason the patient requires home health services. The encounter was conducted in the following manner: * By me as the certifying physician, PLANT MAINTENANCE TECHNICIAN, PA or * By an inpatient physician, PLANT MAINTENANCE TECHNICIAN or PA during an inpatient stay who communicated findings to me, Certification And Authentication I certify that I composed the above information based on my clinical judgment relating to this patient's medical condition and, if applicable, clinical findings communicated to me by the NPP or inpatient physician who performed the FTF encounter. Name of Provider that will be monitoring home health services: Sarah Francis
--- NOTE | 2023-12-07 11:31 | W.PM.DS.N ---
Date of service: 12/07/23 Time of Service: 11:31 DS: Diagnosis Discharge Diagnosis (1) Generalized weakness: Status: Acute Discharge Plan Disposition Patient Disposition: Home W/Home Health Services Condition: Good Discharge Details Reason For Visit: Weakness Admit Date/Time: 12/06/23 02:37 Admit Provider: Lior Burnette Attending Provider: Lior Burnette Primary Care Provider: Unknown,Unknown Hospital Course Hospital Course: Patient initially presented with weakness that was determined to be secondary to acute viral illness. His vital signs and labs were all within normal limits during hospitalization. He worked with physical therapy on 12/06/2023 and was determined that he would be safe for discharge home with home health services and physical therapy. And ultimately, determined that he was stable for discharge on 12/07/2023. Home Meds and New Rx's Prescriptions: Continued gabapentin 100 mg capsule 100 mg PO TID Qty: 90 0RF marijuana gummy 10 mg PO PRN PRN imipramine HCl 50 mg tablet 50 mg PO BID Patient Comments: TAKE 1 TABLET BY MOUTH TWICE A DAY amlodipine 2.5 mg tablet 2.5 mg PO DAILY Patient Comments: TAKE 1 TABLET BY MOUTH ONCE DAILY simvastatin 40 mg tablet 40 mg PO DAILY Patient Comments: TAKE 1 TABLET BY MOUTH AT BEDTIME insulin lispro [Humalog U-100 Insulin] 100 unit/mL solution See Rx Instructions .ROUTE .COMPLEX Patient Comments: INJECT SC PER SLIDING SCALE BEFORE MEALS. MAX OF 140 UNITS DAILY. Rx Instructions: as directed allopurinol 300 mg tablet 100 mg PO DAILY Patient Comments: TAKE 1 TABLET BY MOUTH ONCE DAILY metoprolol tartrate 100 mg tablet 200 mg PO BID Patient Comments: TK 2 TS PO BID aspirin 81 mg Tablet,Delayed Release (Dr/Ec) 81 mg PO DAILY Rybelsus 7 mg tablet 7 mg PO DAILY Patient Comments: TAKE ONE TABLET BY MOUTH EVERY DAY insulin degludec [Tresiba FlexTouch U-200] 200 unit/mL (3 mL) Insulin Pen 144 unit SUBCUT HS tramadol 50 mg tablet 50 mg PO Q6H PRNQty: 14 0RF Rx Instructions: Further refills to come from PCP Discharge Instructions Activity:: Activity as Tolerated Equipment/Supplies:: No Equipment Needed Diet:: As Tolerated Discharge Orders Discharge Orders: Discharge Order (Routine); Ordered 12/07/23 Ordered By: Dano Patel DS: Summary Time Spent with Patient providing and/or coordinating discharge services: Greater than 30 minutes Status at Discharge Functional status at discharge: independent ambulation Overall status at discharge: patient is back to baseline Mental Status: mental status grossly normal Speech and Movement: speech and movement normal Mood: congruent mood Affect: normal affect Quality:SDOH Health Related Social Needs: No Data to Display Exam Narrative Exam Narrative: well appearing gentleman laying in bed in no acute distress, AOx4, heart RRR, lungs CTAB, abdomen soft, non-tender, non-distended Psych Mental Status: mental status grossly normal Speech and Movement: speech and movement normal Mood: congruent mood Affect: normal affect DS: Data Vitals/I&O Vitals and I&O: Vital Signs Temperature 97.7 F 12/07/23 08:27 Temperature Source Temporal Artery Scan 12/07/23 08:27 Pulse 82 12/07/23 08:27 Pulse Rhythm Regular 12/07/23 11:23 Respiratory Rate 14 12/07/23 08:27 Respiratory Effort Normal, Non-Labored 12/07/23 11:23 Respiratory Depth Normal 12/07/23 11:23 Respiratory Pattern Normal 12/07/23 11:23 Blood Pressure 159/94 H 12/07/23 08:27 Blood Pressure Mean 110 12/06/23 03:31 Pulse Oximetry 92 12/07/23 08:27 Oxygen Delivery Method Room Air 12/07/23 08:27 Oxygen Flow Rate 0 12/07/23 08:27 Pain Level 0 12/07/23 08:27 Comment patient asked to not be woken up for 3am vitals if he was asleep 12/07/23 04:54 Intake & Output 12/06/23 12/07/23 12/07/23 17:59 05:59 17:59 Intake Total 317.5 / 317.5 682.5 / 1000.0 978.75 / 978.75 Balance 317.5 / 317.5 682.5 / 1000.0 978.75 / 978.75 Intake: IV 317.5 / 317.5 682.5 / 1000.0 978.75 / 978.75 Other: Urine Color Yellow Yellow Urine Appearance Cloudy Clear Urine Odor Normal Comment voided small amount in toilet Stool Size Copious Stool Characteristics Formed Voiding Methods Toilet Toilet PFSH All Active Problems Difficulty walking (Acute) Generalized weakness (Acute) Acute right-sided thoracic back pain (Acute) Colitis (Acute) Screen for colon cancer (Acute) Pseudocyst of pancreas (Acute) Coronary artery calcification seen on CAT scan (Acute) Pancreatic atrophy (Acute) Gallstones (Acute) Peripheral neuropathy (Acute) Medical History NAFLD (nonalcoholic fatty liver disease) Stage 3b chronic kidney disease (CKD) Crohn disease Gout Hyperlipidemia Hypertension Diabetes Surgical History History of colonoscopy (~01/2023) polups History of cataract surgery Previous back surgery x2 in the 's Social History Smoking/Tobacco Use Status: Former Tobacco Use Quit Date: 05/22/87 Smoking risk assessment performed?: Yes Alcohol Intake: never Drug use: Never Substance use type: does not use Housing: other Current gender identity: male Do you feel safe at home: Yes Do you feel safe in your relationship?: Yes Time Spent with Patient Time Spent with Patient: <45 minutes Time was spent: preparing to see the patient(eg.review tests), obtaining and/or reviewing separately otained hiistory, ordering medications,tests, procedures, referring, communicating with other health medical care evaluation specialist, indepentently interpreting results, counseling the patient and care coordination
== END 2023-12-07 13:41 | disposition home health service (06) ==
LOC: ER 12-06 03:42 → MS 12-06 03:46
PROVIDERS: Admitting Provider General Practice; Emergency Provider Emergency Medicine; Visit Provider General Practice
DX: R53.1 Weakness (principal); B34.9 Viral infection, unspecified; R05.9 Cough, unspecified; E11.42 Type 2 diabetes mellitus with diabetic polyneuropathy; Z79.4 Long term (current) use of insulin; R26.2 Difficulty in walking, not elsewhere classified; M54.6 Pain in thoracic spine; I25.10 Atherosclerotic heart disease of native coronary artery without angina pectoris; E11.22 Type 2 diabetes mellitus with diabetic chronic kidney disease; N18.32 Chronic kidney disease, stage 3b; I12.9 Hypertensive chronic kidney disease with stage 1 through stage 4 chronic kidney disease, or unspecified chronic kidney disease; E78.5 Hyperlipidemia, unspecified; K50.90 Crohn's disease, unspecified, without complications; K76.0 Fatty (change of) liver, not elsewhere classified
CPT/HCPCS: 00123; 36415; 71275; 80053; 87637; 93005; 96365; 96372; 97162; 99285; 71046; 81003; 81015; 83735; 84484; 85025; 93010; 99222; 99238; G0378; J0131; J1815; J3490

== ENCOUNTER → 2023-12-21 14:47 | Outpatient (CLI) | payer MEDICARE, SELFPAY ==
--- NOTE | 2023-12-21 | DI.RAD_ITS ---
Exam(s) XR CHEST 2V PA LATERAL EXAM: XR CHEST 2V PA LATERAL CLINICAL HISTORY: Abnl finding on lung view, R91.8, recent ER visit with ? pneumonia TECHNIQUE: 2D digital imaging was performed. Two views. COMPARISON: CR XR CHEST 2V PA LATERAL from 12/06/2023 FINDINGS: HEART: Normal size. Aorta: Not dilated. PULMONARY VASCULATURE: Normal. MEDIASTINUM: Unremarkable. LUNGS: Clear. PLEURAL SPACE: No pleural effusion or pneumothorax. BONE:Unremarkable for age. SOFT TISSUES: Unremarkable. IMPRESSION: No acute abnormality. DATA REPOSITORY: RADIATION DOSE DELIVERED:
--- OUTSIDE RECORDS SUMMARY | 2023-12-21 14:49 | XMS_ITS | Encounter Summary ---
Author Organization [facility] [place] [address] Care Team Providers Care Tower Foreman Name Role Phone Brissa Toure APRN Primary Care Provider [phone] Reason for Visit * Reason Comments Procedure * High Dollar Medication (Urgent) - Specialty Diagnoses / Procedures Referred By Isaías garcia Referred To Contact Ophthalmology Diagnoses Type 2 diabetes mellitus with mild nonproliferative diabetic retinopathy without macular edema, bilateral Procedures TC BEVACIZUMAB, 10MG, INJECTION (AVASTIN) Johanna Jacinto MD [facility] [place] [address] [facility] [place] [place] [address] Referral ID Status Reason Start Date Expiration Date V isits Requested Visits Authorized [id number] Evaluate and Treat 06/26/2018 06/26/2019 99 99 Encounter Details Date Type Department Care Team (Latest Contact Info) Description 08/23/2018 10:30 AM EDT Procedure [place] [address] Johanna Jacinto MD [facility] [place] [address] Type 2 diabetes mellitus with both eyes [...] about driving: We always recommend having a hazmat truck driver on the day you get [...] Normal and Not Expected side effects: Call [phone] (Eye Clinic) DAY or NIGHT, HOLIDAY or WEEKEND if you experience any of the following: = Severe, increasing pain in the eye = Significant, dramatic vision loss = Redness on and around the eye that gets worse, not better = Severe light sensitivity Call [phone] or go to the Emergency room immediately [...] of Avastin 1.25 mg Right Eye Assist: Printed Circuit Board Panels Developer Anesthesia: Topical Proparacaine and topical 4% Lidocaine Complications: None Procedure: The patient was taken to the minor treatment suite where the patient was reidentified using name and birthdate as critical identifiers. The correct eye as the operative site was reidentified by a preplaced site libertad, and the consent form was actively reviewed by the dental assistant medical assistant and the surgeon. The right eye was prepped including instillation of Betadine 5% into the right cul de sac for 5 minutes, facial prep with ophthalmic Betadine and placement of a lid speculum. The surgeon performed hand washing preoperatively, used gloves, and wore a face mask or used no talking technique during the procedure, as did the surgeon assistant. After topical anesthesia of the injection [...] call the Eye Clinic or Eye Doctor family reunification specialist, should they develop pain in the treated [...] Eye documented in this encounter Care Teams Tower Foreman Relationship Specialty Start Date End Date Brissa Toure APRN [address] [place] [address] PCP - General Family Medicine 06/19/18 documented as of this encounter
--- OUTSIDE RECORDS SUMMARY | 2023-12-21 14:49 | XMS_ITS | Encounter Summary ---
Author Organization [facility] [place] [address] Care Team Providers Care Varnish Remover Name Role Phone Brissa Toure APRN Primary Care Provider [phone] Reason for Visit * Reason Onset Date Comments Follow-up 02/18/2019 Encounter Details Date Type Department Care Team (Late st Contact Info) Description 02/18/2019 Telephone Ophthalmology at [facility] [place] [address] Johanna Jacinto MD [facility] [place] [address] Follow-up Social History Tobacco Use Types Packs/Day [...] on filedocumented in this encounter Care Teams Varnish Remover Relationship Specialty Start Date End Date Brissa Toure, SE[place] [address] [place] [address] PCP - General Family Medicine 06/19/18 documented as of this encounter
--- OUTSIDE RECORDS SUMMARY | 2023-12-21 14:49 | XMS_ITS | Continuity of Care Document ---
Author Organization OR - [facility] [place] [address] Assessment No assessment recorded. Plan of Treatment Reminders Order Date Submit Date Provider Last Modified By Organization Details Last Modified Time Details Appointments Follow Up 2023 11:00A David FRANCIS Not available Not available Not available Follow Up 2023 01:00P David FRANCIS Not available Not available Not available Lab HbA1c (hemoglob in A1c), blood - 1 PST, 1 LAV obtained without issue from (R) 2023 024 [email or web address] [facility] (Registration ), [address] [place] [address] [place], [address], 11/08/2023 07:53:07 CMP, serum or plasma - 1 PST, 1 LAV obtained without issue from (R) 2023 024 ODETTE [facility] (Registration ), [address] [place] [address] [place], [address], 11/01/2023 20:12:02 Referral None recorded. Procedures None recorded. Surgeries None recorded. Imaging None recorded. Medication Orders None recorded. Patient TargetsNo targets recorded. Patient Instructions Encounter Date Encounter Id Patient Instructions Last Modified By Organization Details Last Modified Time 11/01/2023 [id number] Nice to see you today! I will call pharmacy and see what equivalent dose of ozempic for the Rybelsus 7mg so we can switch you due to high cost. I will call you with this switch and your lab results You let me know if you decide you would like the MRI update up here for lumbar spine. Remberto castillo PT helped some. [email or web address] Not available 11/01/2023 12:54:28 Reason for Referral Physical Therapist Referral for Abnormal gait due to muscle weakness recent falls, lower extremity weakness since hospital discharge. h/o of lumbar spine fusion 1988 Referring Physician: Sarah Francis, Family Medicine, Encounter Date: 04/19/2023 Physical Therapist Referral for Lumbar spine ankylosis This must go through [facility]. contact is Qiana Welch with [email or web address] insurance Phone Number Email [email or web address] Referring Physician: Sarah Francis, Family Medicine, Encounter Date: 05/30/2023 Results Created Date Observation Date Name Description Value Unit Range Abnormal Flag LastModifiedBy Organization Detail LastModifiedTime 12/21/19 24 12/06/2023 XR, chest No observ ation record ed. [email or web address] [facility] [address], [place], [address], 12/21/2023 11:26:59 12/21/19 24 12/06/2023 CT, angio gram, chest , w/ contr ast No observ ation record ed. [email or web address] [facility] [address] [address], [place], [address], 12/21/2023 11:28:10 12/21/19 24 12/06/2023 XR, angio gram, pulmo nary, bilat eral No observ ation record ed. [email or web address] [facility] [address] [address], [place], [address], 12/21/2023 11:31:06 12/21/19 24 12/05/2023 marce carreon am No observ ation record ed. [email or web address] [facility] [address], [place], [address], 12/21/2023 11:37:46 12/21/19 24 10/21/2023 XR, chest , 2 view No observ ation record ed. [email or web address] Not Available 12/21/2023 14:27:20 12/21/19 24 12/21/2023 x-ray imagi ng abdulkadir garcia Name: Raffy verde,Gayla Srinivasan Unit #: [id number] Loc: DI Tino [facility] Provid er: Sarah Francis Accgisselle t #: [id number] Status : PRE CLI Primar y Care Provid er: Unknow n,Unkn own Date of Exam: 06/14 Sex: M Admiss ion Date: : 1954 Age: 68 Exam(s ) XR CHEST 2V PA LATERA L EXAM: XR CHEST 2V PA LATERA L CLINIC AL HISTOR Y: Abnl findin g on lung view, R91.8, recent ER visit with ? pneumo aldair TECHNI QUE: 2D digita l imagin g was perfor med. Two views. COMPAR VIMAL: CR XR CHEST 2V PA LATERA L from 2023 FINDIN GS: HEART: Normal size. Aorta: Not dilate d. PULMON MARY LOU VASCUL ATURE: Normal . MEDIAS TINUM: Unrema rkable . LUNGS: Clear. PLEURA L SPACE: No pleura l effusi on or pneumo thorax . BONE:U nremar kable for age. SOFT TISSUE S: Unrema rkable . IMPRES FRANCOIS: No acute abnorm ality. DATA REPOSI TORY: RADIAT ION DOSE DELIVE RED: Ordere d By: Sarah Francis CC: ------ ------ ------ ------ ------ ------ ------ ------ ------ ------ ------ ------ - Dictat ed By: Oh Matthew [id number] Transc ribed By: Елена Sarabia 1249 This is privil eged, confid ential inform ation intend ed only for the provid er named. Any use or distri bution by any person other than this provid er is strict ly prohib ited. If you receiv e this report in error, please notify us immant richardson at and return the origin al report to us at the addres s above. Thank- you. INTERFACE [address] , [place], [address] 12/21/2023 13:04:25 12/21/19 24 12/21/2023 XR, chest , 2 view No observ ation record ed. ODETTE [facility] (Radiology) [address] [place] [address] , [place], [address], 12/21/2023 13:05:38 Result Notes None recorded. Problems Name Status Onset Date Resolution Date Notes Provider Name and Address Organization Details Recorded Time Essential hypertension Active 201801/19/2023 - Comments only - Sarah Francis [employer] - under good control. continue current medications. Problem Code: I10; Problem Code Type: ICD-10; [address], [place], [address] , [facility], [facility] 4 14:32:43 Type 2 diabetes mellitus without complication Completed 201804/19/2023 03/21/2022 - Comments only - Brissa Toure APRN - Some deterioration in control, A1c at 7.9 from 7.3. Pt feels this is d/t increased snacking as he is now retired and home all the time. Has already cut this back and is hoping to start regular walking routine. Continue current medication and insulin regimen. Problem Code: E11.9; Problem Code Type: ICD-10; [address], [place], [address] , [facility], [facility]. 4 14:04:54 Gout Active 201811/03/2022 - Comments only - Sarah Francis [employer] - doing well on lower dose of allopurinol to 100mg daily from 300mg for preservation of kidney function. continue the 100mg dose Problem Code: M10.9; Problem Code Type: ICD-10; [address], [place], [address] , [facility]. 4 14:32:45 Osteoarthriti s Active 201811/27/2019 - Comments only - Brissa Toure APRN - Of multiple joints, managed with celebrex. 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 Problem Code: H33.23; Problem Code Type: ICD-10; [address], [place], [address] , [facility] 3 13:40:35 Lumbar spine ankylosis Active 201806/05/2018 - Comments only - Brissa Toure APRN - S/P work injury in 1988. See above. Problem Code: M43.26; Problem Code Type: ICD-10; [address], [place], [address] , [facility] 4 14:33:16 Lumbosacral radiculopathy Active 201803/21/2022 - Comments only - Brissa Toure APRN - With weakness in L leg. Pt with antalgic gait, though fairly stable. Declines referral to PT at this time. Planning to start regular walking program. Problem Code: M54.16; Problem Code Type: ICD-10; [address], [place], [address] , [facility] 3 13:31:30 Counseling Completed 201806/19/2018 06/05/2018 - Comments only - Brissa Toure APRN - Tdap and flu vaccine given today. Will give PPSV23 at next visit. Does not appear to have had screening colonoscopy, will address at next visit. May not be able to tolerate d/t chronic back pain. Problem Code: Z71.89; Problem Code Type: ICD-10; Not Available [facility] 3 05:49:36 Incontinence of feces Completed 201804/19/2023 09/02/2021 - Improved - Brissa Toure APRN - Resolved since stopping metformin. Problem Code: R15.9; Problem Code Type: ICD-10; [address], [place], [address] , [facility] 3 13:31:23 Idiopathic osteoarthriti s Active 201803/21/2022 - Comments only - Brissa Toure APRN - See above. Pt has thus far declined referral to ortho. Problem Code: M16.12; Problem Code Type: ICD-10; [address], [place], [address] , [facility] 4 14:32:52 Acute upper respiratory infection Completed 201907/17/2019 06/26/2019 - Comments only - Berenice PAUL - largely resolved. Physical examination reassuring, VSS, afebrile. Encouraged symptomatic mgmt and reviewed concerning symptoms indicating need for follow up. Problem Code: J06.9; Problem Code Type: ICD-10; Not Available [facility] 3 05:49:36 Cataract Completed 201911/02/2023 Problem Code: H26.9; Problem Code Type: ICD-10; Removal Reason: surgeries completed [address], [place], [address] , [facility] 4 14:39:54 History of fall Completed 11/10201902/15/2023 03/21/2022 - Comments only - Brissa Toure APRN - Pt describing what sound like possible vasovagal episodes, denies hypoglycemia. Consider zio patch if any further episodes. Problem Code: Z91.81; Problem Code Type: ICD-10; Not Available [facility] 3 05:49:42 Chronic kidney disease stage 3 Active 202003/21/2022 - Deteriorated - Brissa Toure APRN - Renal function slightly decreased, GFR now <30. Consider referral to nephrology. Problem Code: N18.30; Problem Code Type: ICD-10; [address], [place], [address] , [facility] 4 14:34:41 Recurrent falls Completed 202211/02/2023 06/07/2022 - Comments only - Brissa Toure APRN - See above. Encouraged to use cane whenever possible. Problem Code: R29.6; Problem Code Type: ICD-10; [address], [place], [address] , [facility] 4 14:40:19 Neuropathy due to type 2 diabetes mellitus Active 202201/19/2023 - Comments only - Sarah Francis [employer] - continue gabapentin 400mg twice daily for now. doing well on this. also helps with back pain. Problem Code: E11.40; Problem Code Type: ICD-10; [address], [place], [address] , [facility] 4 14:38:53 Retinopathy due to type 2 diabetes mellitus Active 202209/18/2022 - Comments only - Sarah Francis [employer] - continue to see [facility]. July 2022 last diabetic eye exam Problem Code: E11.319; Problem Code Type: ICD-10; [address], [place], [address] , [facility] 4 14:40:29 Onychomycosis due to dermatophyte Active 2022 Problem Code: B35.1; Problem Code Type: ICD-10; [address], [place], [address] , [facility] 4 14:40:11 Counseling Completed 202210/13/2022 09/18/2022 - Comments only - Sarah Francis [employer] - Now established on my panel. We will follow-up in 1 month to address further chronic condition management. Problem Code: Z71.89; Problem Code Type: ICD-10; Not Available [facility] 3 05:49:43 Steatosis of liver Active 2022 Problem Code: K76.0; Problem Code Type: ICD-10; [address], [place], [address] , [facility] 4 14:40:28 Adult health examination Completed 201909/18/2022 Problem Code: Z00.00; Problem Code Type: ICD-10; Not Available [facility] 3 05:49:46 Cellulitis of right lower limb Completed 202209/18/2022 Problem Code: L03.115; Problem Code Type: ICD-10; Not Available [facility] 3 05:49:46 Upper respiratory tract infection caused by Influenza A Completed 202109/18/2022 Problem Code: J09.x2; Problem Code Type: ICD-10; Not Available [facility] 3 05:49:47 Neck pain Completed 201911/27/2019 Problem Code: M54.2; Problem Code Type: ICD-10; Not Available [facility] 3 05:49:48 Pre-surgery evaluation Completed 201911/27/2019 Problem Code: Z01.818; Problem Code Type: ICD-10; Not Available [facility] 3 05:49:51 Abscess of abdominal wall Completed 201910/20/2020 Problem Code: L02.211; Problem Code Type: ICD-10; Not Available [facility] 3 05:49:54 Tinea cruris Completed 202109/18/2022 Problem Code: B35.6; Problem Code Type: ICD-10; Not Available [facility] 3 05:49:54 Type 2 diabetes mellitus Active [address], [place], [address] , [facility] 4 14:40:26 Seborrheic dermatitis Active [address], [facility] [address] , [facility] 3 13:34:46 Crohn's disease Active 2022 Problem Code: K50.90; Problem Code Type: ICD-10; not currently being treated for this. had an acute bout of issues with rectal bleeding, has resolved. see specialist notes /general surgery/gi [address], [place], [address] , [facility] 4 14:39:44 Benign neoplasm of colon Active 2022 Problem Code: D12.6; Problem Code Type: ICD-10; [address], [place], [address] , [facility] 4 14:40:08 Migraine Active 198703/11/2023 - Comments only - Sarah Francis [employer] - continue imipramine per neurology for migraine prevention. Problem Code: G43.909; Problem Code Type: ICD-10; [address], [place], [address] , [facility] 4 14:32:56 Lung field abnormal Active [address], [place], [address] , [facility] 4 11:36:19 Cyst of pancreas Active [address], [place], [address] , [facility] 4 11:50:26 Problem Notes None recorded. Procedures Surgical History Date Name Laterality Status Provider Name and Address Organization Details Recorded Time 0 cataract surgery completed [address], [place], [address], [facility] 11/01/2023 12:44:59 Imaging Results None recorded. Procedure Notes None recorded. Medical Equipment None Reported. Allergies Allergen ID Allergen Name Allergen Category Reaction Reaction Severity Criticality Documentation Date Start Date Code Code System Note Provider Name and Address Organization Details Recorded Time enalapril maleate medicatio n facial swelling Not available Not available 03/31/20232018 3 RxNorm Not Available [facility] 3 16:14:45 Medications Name Sig Start Date Stop Date Status Note LastModified by Organization Details LastModified Time terbinafi ne HCl 1 % topical cream Apply as directed to affected area twice a day for 1-3 weeks 12/21 completed Not Available Not Available Not Available imipramin e 50 mg tablet TAKE 1 TABLET BY MOUTH TWICE DAILY 2023 active Not Available Not Available Not Avai lable prednison e 10 mg tablet TAKE 1 TABLET BY MOUTH THREE TIMES DAILY FOR 3 DAYS 04/19 completed Not Available Not Available Not Available metoprolo l tartrate 100 mg tablet TAKE TWO TABLETS BY MOUTH TWICE A DAY active Not Available Not Available No t Available prednison e 20 mg tablet 04/19 completed Not Available Not Available Not Available gabapenti n 400 mg capsule 2023 active Not Available Not Available Not Avai lable simvastat in 10 mg tablet Take 1 tab by mouth daily at bedtime 2018 active Not Available Not Available Not Avai lable prednison e 5 mg tablet TAKE 1 TABLET BY MOUTH THREE TIMES DAILY FOR 3 DAYS 04/19 completed Not Available Not Available Not Available metformin 850 mg tablet Take 3 tablet by mouth as directed TAKE 2 TABLETS BY MOUTH EVERY MORNING AND 1 TABLET EVERY EVENING 03/04 completed Not Available Not Available Not Available Lantus U-100 Insulin 100 unit/mL subcutane ous solution Inject subcutan eously twice a day as directed INJECT 50 UNITS IN THE MORNING AND 110 UNITS EVERY EVENING 09/13 completed Not Available Not Available Not Available amlodipin e 2.5 mg tablet TAKE ONE TABLET BY MOUTH EVERY DAY active Not Available Not Available No t Available allopurin ol 100 mg tablet TAKE ONE TABLET BY MOUTH EVERY DAY active Not Available Not Available No t Available tramadol 50 mg tablet Take 1 tablet by mouth every six hours as needed for pain 2022 active NOT CURRENTL Y TAKING. Will call if wants to start a regular once daily RX. ALD 01/19/23 Not Available Not Available Not Available amoxicill in 500 mg tablet TAKE ONE TABLET BY MOUTH EVERY 8 HOURS FOR 7 DAYS 04/19 completed Not Available Not Available Not Available simvastat in 40 mg tablet TAKE 1 TABLET BY MOUTH EVERY EVENING active Not Available Not Available No t Available prednison e 1 mg tablet TAKE 1 TABLET BY MOUTH DAILY FOR 3 DAYS 04/19 completed Not Available Not Available Not Available Humalog U-100 Insulin 100 unit/mL subcutane ous solution INJECT PER SLIDING SCALE FOUR TIMES A DAY +MAX 180 UNITS PER DAY+ active Not Available Not Available No t Available OneTouch Ultra Test strips 10/07 completed Not Available Not Available Not Available cephalexi n 500 mg capsule 1 capsule by mouth four times a day 09/03 completed Not Available Not Available Not Available Humulin N NPH U-100 Insulin (isophane susp) 100 unit/mL subcutane ous 06/05 completed Not Available Not Available Not Available losartan 25 mg tablet Take 1 tab by mouth daily 06/05 completed Not Available Not Available Not Available cephalexi n 500 mg tablet Take 1 tab by mouth four times daily 04/10 completed Not Available Not Available Not Available allopurin ol 300 mg tablet TAKE ONE TABLET BY MOUTH EVERY DAY 04/19 completed Not Available Not Available Not Available aspirin 81 mg tablet Take 1 tablet by mouth once a day 2018 active Not Available Not Available Not Avai lable gabapenti n 100 mg capsule Take 1 cap by mouth daily 2018 active Not Available Not Available Not Avai lable Novolog U-100 Insulin aspart 100 unit/mL subcutane ous solution Slidding scale before meals with a max of 125 units daily 08/16 completed Not Available Not Available Not Available Aspir-81 mg tablet,de layed release Take 1 tab by mouth daily 2018 active Not Available Not Available Not Avai lable polyethyl hood glycol 3350 17 gram/dose oral powder MIX 1 CAPFUL WITH WATER OR JUICE AND DRINK DAILY NEEDED FOR LAXATIVE EFFECT active Not Available Not Available No t Available albuterol sulfate HFA 90 mcg/actua tion aerosol inhaler INHALE ONE TO TWO PUFFS BY MOUTH EVERY 4 TO 6 HOURS NEEDED active Not Available Not Available No t Available celecoxib 100 mg capsule TAKE 2 CAPSULES BY MOUTH ONCE A DAY WITH FOOD 10/26 completed Not Available Not Available Not Available amoxicill in 875 mg-potass ium clavulana te 125 mg tablet TAKE 1 TABLET BY MOUTH TWICE DAILY FOR 5 DAYS 04/19 completed Not Available Not Available Not Available Humalog U-100 Insulin 100 unit/mL subcutane ous cartridge Sliding scale before meals with max of 140 units daily 2018 active Not Available Not Available Not Avai lable BD SafetyGli de Insulin Syringe 1 mL 29 gauge x 1/2 Use to inject insulin 5 times daily use a fresh needle with each injectio n E11.9 2018 active Not Available Not Available Not Avai lable pregabali n 100 mg capsule take 1 tablet by mouth 3 times a day 01/04 completed [facility] d/c 12/29- PCP for fourther refills Not Available Not Available Not Available magnesium 06/05 completed Not Available Not Available Not Available Levemir U-100 Insulin 100 unit/mL subcutane ous solution Inject subcutan eously 50 units every morning and 110 units every evening 08/19 completed Not Available Not Available Not Available BD Insulin Syringe Ultra-Fin e 1 mL 30 gauge x 1/2 USE ONE SYRINGE FIVE TIMES DAILY active Not Available Not Available No t Available BD Lo-Dose Ultra-Fin e 0.3 mL 29 gauge x 1/2 syringe Use to inject insulin 5 times daily. Use a fresh needle with each injectio n. E11.9 2018 active Not Available Not Available Not Avai lable GaviLyte- G 236 gram-22.7 4 gram-6.74 gram-5.86 gram oral solution TAKE PER COLONOSC OPY PREP 04/19 completed Not Available Not Available Not Available OptiChamb xochitl Raman [facility] spacer USE DIRECTED WITH ALBUTERO L INHALER active Not Available Not Available No t Available Unifine Pentips 32 gauge x 5/32 needle USE ONE NEEDLE DAILY active Not Available Not Available No t Available Levemir FlexTouch U-100 Insulin 100 unit/mL (3 mL) subcutane ous pen 06/11 completed Not Available Not Available Not Available Trulicity 0.75 mg/0.5 mL subcutane ous pen injector Inject 0.75 mg subcutan eously once a week 07/28 completed Not Available Not Available Not Available Tresiba FlexTouch U-200 insulin 200 unit/mL (3 mL) subcutane ous pen INJECT 154 UNITS SUBUTANE OUSLY EVERY NIGHT active Not Available Not Available No t Available Rybelsus 7 mg tablet TAKE ONE TABLET BY MOUTH EVERY DAY 11/01 completed too expensiv e, have to switch this Not Available Not Available Not Available Rybelsus 3 mg tablet TAKE ONE TABLET BY MOUTH EVERY DAY; INCREASE TO 7MG AFTER 30 DAYS 04/19 completed Not Available Not Available Not Available FreeStyle Cierra 2 Sensor kit APPLY A NEW SENSOR EVERY 14 DAYS 04/19 completed Not Available Not Available Not Available FreeStyle Cierra 2 Parker Use 1 device as directed 04/19 completed Not Available Not Available Not Available Sure Comfort Safety Pen Needle 32 gauge x 5/32 Use 1 needle subcutan eously once a day as needed for use with Tresiba 08/11 completed Not Available Not Available Not Available Dexcom G7 Sensor Apply new sensor every 10 days active Not Available Not Available No t Available Ozempic 0.25 mg or 0.5 mg (2 mg/3 mL) subcutane ous pen injector INJECT 0.5 MG SUBCUTAN EOUSLY ONCE WEEKLY FOR 4 WEEKS, THEN INCREASE TO 1MG ONCE A WEEK active actually having him hold at 0.5mg once weekly, fasting sugars look great from switch of rebelsus Not Available Not Available Not Available Vitals Date Recorded Body height Body mass index (BMI) Body weight Body temperature Heart rate Respiratory rate Systolic blood pressure Diastolic blood pressure Provider Name and Address Organization Details Last Updated DateTime 4 172.01 cm 32.9 kg/m2 75095.2 g 97.9 [degF] 76 /min 14 /min 126 mm[Hg] 82 mm[Hg] NAHOMY COOPER RN [facility] 12:20:54 Social History Question Answer Notes LastModified by Organizat ion Details LastModified Time Tobacco Smoking Status Former Smoker DREAD BAZZI, [facility] 04/19/2023 12:41:07 When Did You Quit Smoking? 16+yearssinc elastcigaret te Information not available 04/19/2023 What Is Your Current Pack Years? 30ormorepack years Information not available 04/19/2023 Has Tobacco Cessation Counseling Been Provided? Yes Information not available 11/01/2023 On What Date Was Tobacco Cessation Counseling Provided? 11/01/2023 Information not available 11/01/2023 Do You Or Have You Ever Used Any Other Forms Of Tobacco Or Nicotine? No Information not available 07/11/2023 Sex: Male Functional Status None recorded. Mental Status None recorded. Family History Relationship Description Onset Age of this Age Resolved Age Notes Father No family history of respiratory disease Father Family history of he art failure Mother Family history of he art failure Medical History No medical history recorded. Immunizations Vaccine Type Date Status Provider Name and Address Organization Details Recorded Time COVID-19, mRNA, LNP-S, PF, dada-sucrose, 30 mcg/0.3 mL 07/11/2023 completed [address], [place], [address], [facility] 07/12/2023 12:18:20 Influenza, high-dose, quadrivalent, PF 05/23/2023 completed DREAD BAZZI, [facility] 05/23/2023 14:22:41 Tdap 06/05/2018 completed Not Available [facility] 05:12:44 Influenza, split virus, quadrivalent, PF 03/08/2019 completed Not Available [facility] 03/31/2023 05:12:47 Influenza, split virus, quadrivalent, PF 03/31/2020 completed Not Available [facility] 03/31/2023 05:12:47 Influenza, split virus, quadrivalent, preservative 06/05/2018 completed Not Available [facility] 03/31/2023 05:12:48 Influenza, high-dose, quadrivalent, PF 03/08/2022 completed Not Available [facility] 03/31/2023 05:12:49 COVID-19, mRNA, LNP-S, PF, 100 mcg/0.5mL dose or 50 mcg/0.25mL dose 08/22/2020 completed Not Available [facility] 03/31/2023 05:12:49 COVID-19, mRNA, LNP-S, PF, 100 mcg/0.5mL dose or 50 mcg/0.25mL dose 09/21/2020 completed Not Available [facility] 03/31/2023 05:12:50 SARS-COV-2 (COVID-19) vaccine, UNSPECIFIED 04/09/2021 completed Not Available [facility] 03/31/2023 05:12:52 Pneumococcal conjugate PCV20, polysaccharide [id number] conjugate, adjuvant, PF 01/19/2023 completed Not Available [facility] 03/31/2023 05:12:52 Past Encounters Encounter ID Performer Location Encounter Start Date Encounter Closed Date Diagnosis/Indication Diagnosis SNOMED-CT Code [id number] BEVERLY GUEVARA [facility] [place] [facility] [place] [address] 11/01/2023 11:58:11 11/01/2023 13:03:27 Essential hypertension [id number] Gout [id number] Hyperlipidemia 87812566 Type 2 paxton betes mellitus [id number] Lumbosacra l radiculopathy 8819027 Chronic ki dney disease stage 3 [id number] Neuropathy due to type 2 diabetes mellitus [id number] 6 Health Concerns Section Related Observation LastModified by Organization Detai ls LastModified Time None Recorded Concern Status LastModified by Organization Details LastModified Time None Recorded Payers Encounter Date Sequence Insurance Name Policy Number Policy Zapata Covered Member ID Zapata Member ID Guarantor Name 11/01/2023 1 [facility] (MEDICARE REPLACEMENT HMO) [id number] Alexandro Callahan [id number] Alexandro Callahan Notes Date Note Type Note Provider Name and Address Organization Details Recorded Time 11/01/2023 text/html HPI Notes: Alexandro is a pleasant 68-year-old male here today for 3-month follow-up To diabetes management as well as chronic kidney disease stage III, lumbosacral radiculopathy secondary to work injury over 30 years ago. His last A1c in office on 07/11/2023 was 8.1%. He reports he has not made changes in his diet since last office visit. Feels his sugars are about the same. He does have a CGM in the form of a Dexcom. Reviewed this report today. Morning fasting averages 1 15-1 20 postprandial 2 50-2 60. Continues on Rybelsus 7 mg daily, recently increased his Tresiba to 254 units nightly. Continues on Humalog per sliding scale. Blood pressure under good control. Denies any new numbness tingling. Denies any frequent urination. Denies any vision changes. Denies chest pain, chest tightness, shortness of breath. His is here with him today and complains that the Rybelsus is very expensive now. Instead of a $60 co-pay at 200 and something. Would like to switch off this medication if possible. They never called spine center at [facility] about his lumbar back pain and radiculopathy. He felt it was getting worse and his legs were getting weaker at last office visit and the plan was to follow-up with spine center for possible MRI imaging. They did not yet reach out to the clinic. Feels its gotten somewhat better. Is taking marijuana Gummies for pain control. Takes less gabapentin due to this. Takes only 400 mg gabapentin twice daily. Has stopped his naproxen due to discussion we had about kidney function. Is taking Tylenol occasionally. Declines to have updated imaging through PCP office today for his back. Denies loss of bowel or bladder control and denies increased weakness in legs. BEVERLY GUEVARA [address], [place], [address], [facility]. 11/02/2023 18:58:51
--- OUTSIDE RECORDS SUMMARY | 2023-12-21 14:49 | XMS_ITS | Clinical Summary ---
Author Organization [facility] Address [address] [facility] [place] [address] Care Team Providers Care Fire Suppression Captain Name Role Phone Brissa Toure APRN Primary Care Provider [phone] Allergies Active Allergy Reactions Criticality Noted Date [...] In Lab Hermes Godinez MD CHEMISTRY ORDERABLES [facility] [place] [address] from Last 3 Months or Most Recently Relevant to Health Maintenance Care Teams Fire Suppression Captain Relationship Specialty Start Date End Date Brissa Toure, SEBLE [address] [place], [place] [id number] PCP - General Family Medicine 06/19/18
--- OUTSIDE RECORDS SUMMARY | 2023-12-21 14:49 | XMS_ITS | Encounter Summary ---
Author Organization [facility] Address [address] [place] [address] Care Team Providers Care Butter Grader Name Role Phone Sarah Francis PLATFORM INSPECTOR Primary Care Provider [phone] Encounter Details Date Type Department Care Team (Late st Contact Info) Description 12/26/2022 Lab Requisition [facility] Pathology & Laboratory Medicine - [address] [address] Outr Resulting Lab, Provider Social History Tobacco [...] Salmonella PCR Negative Negative 12/26/2022 20:32 EDT [facility] Shigella/Enteroin vasive E. coli Negative Negative 12/26/2022 20:32 EDT [facility] HN LAB CAMPYLOBACTER PCR Negative Negative 12/26/2022 20:32 EDT [facility] Shiga Toxin PCR Negative Negative 20:32 EDT [facility] Feces SPECIMEN FROM RECTUM / Unknown 12/25/2022 12:55 EDT 12/26/2022 16:34 EDT Provider Outr Resulting Lab MICROBIOLOGY - GENERAL ORDERABLES [facility] [address] [place] [address] documented in this encounter Visit Diagnoses Not on filedocumented in this encounter Care Teams Butter Grader Relationship Specialty Start Date End Date Sarah Francis FNP [address] [place] [address] PCP - General Family Medicine - Primary Care 01/20/23 documented as of this encounter
--- OUTSIDE RECORDS SUMMARY | 2023-12-21 14:49 | XMS_ITS | Encounter Summary ---
[place] [address] Care Team Providers Care Ultrasound Sonographer Name Role Phone Brissa Toure APRN Primary Care Provider [phone] Encounter Details Date Type Department Care Team [...] Scheduled Procedures Name Priority Associated Diagnoses Date/Ti mt COLONOSCOPY, DIAGNOSTIC (WRV U 3.26) Left sided colitis with rectal bleeding documented as of this encounter Visit Diagnoses Not on filedocumented in this encounter Care Teams Ultrasound Sonographer Relationship Specialty Start Date End Date Brissa Toure APRN [address] [facility] [address] PCP - General Family Medicine 06/19/18 documented as of this encounter
--- OUTSIDE RECORDS SUMMARY | 2023-12-21 14:49 | XMS_ITS | Encounter Summary ---
[place] [address] Care Team Providers Care Consumer Affairs Director Name Role Phone MesfinBrissa SEBLE Primary Care Provider [phone] Reason for Referral * Consultation (Routine) - Authorized Specialty Diagnoses / Procedures Referred By Isaías garcia Referred To Contact Gastroenterology Diagnoses Acute colitis Fatty liver acute colitis/fatty liver Sarah Francis APRN [address] [place] [address] [facility] [place] [address] Referral ID Status Reason Start Date Expiration Date Visits Requested Visits Authorized [id number] Authorized Consult, Test & Treat PCP Updated and/or Approved 01/12/2023 01/13/2024 6 6 Encounter Details Date Type Department Care Team (Late st Contact Info) Description 01/17/2023 Transcribe Orders eDH Incoming Referrals [phone] Sarah Francis APRN [address] [place], [place] [phone] Colitis; Acute colitis; Fatty liver Social History [...] disease documented in this encounter Care Teams Consumer Affairs Director Relationship Specialty Start Date End Date Brissa Toure APRN [address] [place] [address] PCP - General Family Medicine 06/19/18 documented as of this encounter
--- OUTSIDE RECORDS SUMMARY | 2023-12-21 14:49 | XMS_ITS | Encounter Summary ---
Author Organization [facility] [place] [address] Care Team Providers Care Pyrotechnics Press Tender Name Role Phone MesfinBrissa SEBLE Primary Care Provider [phone] Reason for Visit * Consultation (Routine) - Authorized Specialty Diagnoses / Procedures Referred By Isaías garcia Referred To Contact Gastroenterology Diagnoses Acute colitis Fatty liver acute colitis/fatty liver Sarah Francis APRN [address] [place] [address] [facility] [place] [address] [address] Referral ID Status Reason Start Date Expiration Date Visits Requested Visits Authorized [id number] Authorized Consult, Test & Treat PCP Updated and/or Approved 01/12/2023 01/13/2024 6 6 Encounter Details Date Type Department Care Team (Late st Contact Info) Description 04/03/2023 8:00 AM EST Office [place] [address] Roberto Abdul [facility] [place] [address] Left sided colitis with rectal [...] referral placed Underwent Colonoscopy on 02/17/23 at [facility] by Dr. Gatito Talbert (Surgery) Serpiginous ulceration extending from 25 cm from the anus up to about 40 cm Cecal Polyp - TA Biopsy at 35 cm - negative Biopsy at 30 cm - architectural distortion, fragments of ulceration and granulation showing prominent plasma cells, negative for dysplasia; idiopathic IBD? [facility] 03/15/23 - Followed up with Dr. [...] hx of GI surgeries Worked in a [employer] for several years, then [employer]) Quit smoking in 1987. Does not drink [...] SURGERY Right 04/2018 lid lesion excision - [place] SOCIAL HISTORY: Social History Socioeconomic History Marital [...] with Dr. Gretchen Abdul DO PGY-4, Gastroenterology [facility] [place] [address] P: [phone] F: [phone] CC Brissa Toure, DRYLAND FARMER [address] [place] [address] CC Sarah Francis, DRYLAND FARMER [address] [place] [address] * Abdulaziz Godinez MD - 04/03/2023 8:00 AM EST Attending attestation: I interviewed and examined the patient with Dr. Abdul in clinic. I confirm the history and asif physical findings outlined in this note. The assessment and plan were formulated in discussion with me at the time of this encounter, and I agree with them as documented. Abdulaziz Godinez MD Section of Gastroenterology [facility] documented in this encounter Plan of Treatment Scheduled Orders Name Type Priority Associated Diagnoses Orde r Schedule ENDOSCOPY CASE REQUEST: COLONOSCOPY, DIAGNOSTIC (WRVU 3.26) [...] by: Armando Gardner MD, [facility] ([phone]), at 04/28/2023 11:11 AM Thank you for letting us participate in the care of this patient. If you are a health care provider and have any questions regarding this report, please contact the number above. For patients who have questions, please contact the health care clinician that requested your imaging first. ?Armando Gardner, Staff Physician Electronically Signed Final Report ?? 04/28/2023 11:18 am Narrative 04/28/2023 11:18 AM EST Abdominal ? (Signed Final 04/28/2023 11:18 am) PATIENT INFO: ID #: ? [id number] ?: ??[birth year] (68 yrs)(M) Name: ? ALEXANDRO Srinivasan ?Visit Date: 04/28/2023 11:01 am ? TIFF PERFORMED BY: Attending: ?Armando Gardner MD Performed By: ? Charisma Flores RDMS Referred By: ?ABDULAZIZ GODINEZ Location: ? [place] SERVICE(S) PROVIDED: [facility] - Hepatology Protocol - Abdominal ?85762 Limited Survey Single Organ or Quadrant - [id number] INDICATIONS: patient been told he has fatty [...] 04/28/2023 11:18 am) PATIENT INFO: ID #: [id number] : [birth year] (68 yrs)(M) Name: ALEXANDRO Srinivasan Visit Date: 04/28/2023 11:01 am TIFF PERFORMED BY: Attending: Armando Gardner MD Performed By: Charisma Flores RDMS Referred By: ABDULAZIZ GODINEZ Location: [place] SERVICE(S) PROVIDED: [facility] - Hepatology Protocol - Abdominal 26690 Limited Survey Single Organ or Quadrant - [id number] INDICATIONS: patient been told he has fatty [...] by: Armando Gardner MD, [facility] ([phone]), at 04/28/2023 11:11 AM Thank you for letting us participate in the care of this patient. If you are a health care provider and have any questions regarding this report, please contact the number above. For patients who have questions, please contact the health care clinician that requested your imaging first. Armando L. Foster, Staff Physician Electronically Signed Final Report 04/28/2023 11:18 am Abdulaziz Godinez MD IMG US GEN ORDERABLE S * Differential, Automated (04/03/2023 10:00 AM EST) Neutrophils % 46.4 % [facility] Neutr Abs (ANC) 3.49 1.70 - 6.10 x10(3)/[facility] Lymphocytes % 36.3 % [facility] Lymphocytes Abs 2.7 0.9 - 3.2 x10(3)/[facility] Monocytes % 11.8 % [facility] Monocyte Abs 0.9 0.3 - 0.9 x10(3)/[facility] Eosinophils % 4.3 % [facility] Eosinophils Abs 0.3 0.0 - 0.4 x10(3)/[facility] Basophils % 0.9 % [facility] Basophils Abs 0.1 0.0 - 0.1 x10(3)/[facility] Immature Gran % 0.30 % [facility] Comment: Immature granulocytes(IG's)percentage and absolute count will include metamyelocytes, myelocytes, and promyelocytes. Blood smears from CBCs yielding IG's will be scanned manually for concordance. If this scan disagrees with the automated IG or if promyelocytes are noted, a manual differential will be performed. [place] Gran Abs 0.02 0.00 - 0.04 x10(3)/[facility] Blood 04/03/2023 10:0 0 AM EST 04/03/2023 10:18 AM EST Narrative Resulting Agency Comment Spec In Lab Roberto Abdul DO HEMATOLOGY ORDERABLE S [facility] [place] [address] * (ABNORMAL) Hemogram (04/03/2023 10:00 AM EST) [facility] WBC 7.5 4.0 - 9.5 x10(3)/[facility] LABORATORY RBC 4.55(L) 4.58 - 5.54 x10(6)/[facility] Hemoglobin 14.5 13.7 - 16.5 g/dL [facility] Hematocrit 42.9 40.5 - 48.5 % [facility] MCV 94.3(H) 82.9 - 93.1 fL [facility] MCH 31.9 27.5 - 32.1 pg [facility] MCHC 33.8 32.0 - 35.7 g/dL [facility] Platelets 207 145 - 357 x10(3)/[facility] LABORATORY RDWSD 49.9(H) 36.0 - 45.0 [facility] LABORATORY RDWCV 14.4(H) 11.4 - 13.8 % [facility] MPV 10.6 7.6 - 12.9 [facility] LABORATORY nRBC % Auto 0.0 % [facility] nRBC Abs Auto 0.000 0.000 - 0.000 x10(3)/[facility]OR[facility] Blood 04/03/2023 10:0 0 AM EST 04/03/2023 10:18 AM EST Narrative Resulting Agency Comment Spec In Lab Roberto Abdul DO HEMATOLOGY ORDERABLE S [facility] [place] [address] * (ABNORMAL) Liver Fibrosis Panel (04/03/2023 10:00 AM EST) [facility] Liver Fibrosis Panel Test ? Result ?Flag [...] developed and its performance characteristics ?determined by [facility] in a manner consistent with ?CLIA requirements. This test has not been cleared or ?approved by the U.S. Food and Drug Administration. ??[employer] Serial Number ?[id number] ??Apolipoprotein A1, S ? 125 ? mg/dL ??>=120 ??Jvzds-0-Xcedxbqmufed n, S ? 355 ?H ?mg/dL ??100 - 280 ??Haptoglobin, S ? 216 ?H ?mg/dL ??30 - 200 ??Alanine Aminotransferase (ALT), S ?30 ?U/L ?7-55 ??Gamma Glutamyltransferase (GGT), S ? 41 ?U/L ?8 - 61 ??Bilirubin, Total, S ?<0.2 ?mg/dL ??0.0 - 1.2 ?Test Performed by: ?[facility] [employer] [facility] ?[address] [place] [address] ?Drupal Architect: Adal Palomo M.D. Ph.D.; CLIA# [id number] ?Test Performed by: ?[facility] ?[address] [place] [address] ?Drupal Architect: Adal Palomo M.D. Ph.D.; CLIA# [id number]) [facility] Blood 04/03/2023 10:0 0 AM EST 04/03/2023 11:33 AM EST Narrative Resulting Agency Comment Spec In Lab Abdulaziz Godinez MD CHEMISTRY ORDERABLES [facility] [place] [address] * (ABNORMAL) Comprehensive metabolic panel (non-fasting) (04/03/2023 [...] Godinez MD CHEMISTRY ORDERABLES [facility] [place] [address] * CRP, acute inflammation (04/03/2023 10:00 AM EST) CRP 4.0 <=4.9 mg/L [facility] Blood 04/03/2023 10:0 0 AM EST 04/03/2023 10:18 AM EST Narrative Resulting Agency Comment Spec In Lab Abdulaziz Godinez MD CHEMISTRY ORDERABLES [facility] [place] [address] documented in this encounter Visit Diagnoses Diagnosis Left sided colitis with rectal bleeding Left sided ulcerative (chronic) colitis Fatty liver Other chronic nonalcoholic liver disease Fatty liver Other chronic nonalcoholic liver disease documented in this encounter Care Teams Pyrotechnics Press Tender Relationship Specialty Start Date End Date Brissa Toure, SEBLE [address] [place] [address] PCP - General Family Medicine 06/19/18 documented as of this encounter
--- OUTSIDE RECORDS SUMMARY | 2023-12-21 14:49 | XMS_ITS | Encounter Summary ---
Author Organization [facility] Address [address] [place] [address] Care Team Providers Care Director Credit Risk Name Role Phone Sarah Francis DATA SPECIALIST Primary Care Provider [phone] Encounter Details Date Type Department Care Team (Late st Contact Info) Description 12/27/2022 Lab Requisition [facility] Pathology & Laboratory Medicine - [address] [address] Outr Resulting Lab, Provider Social History Tobacco [...] ANCA Interpretation Negative Negative 12/28/2022 14:33 EDT [facility] Comment: No titer performed, ANCA Screen is negative. Results were obtained with the INOVA NOVA Lite ANCA kit by indirect immunofluorescence. Blood VENOUS BLOOD / Unknown 12/24/2022 20:00 EDT 12/27/2022 17:26 EDT Provider Outr Resulting Lab IMMUNOLOGY A ND SEROLOGY ORDERABLES Performing Organization Address [facility] Co de Phone Number [facility] [address] [place] [address] * ANTI NUCLEAR AB (GABE), IFA (12/24/2022 20:00 EDT) GABE Interpretation Negative Negative 2022 14:39 EDT [facility] Comment:No titer performed, GABE Screen is negative. Blood VENOUS BLOOD / Unknown 12/24/2022 20:00 EDT 12/27/2022 17:26 EDT Narrative [facility] - 12/28/2022 14:39 EDT Results were obtained with the INOVA NOVA Lite HEp-2 GABE Kit by indirect immunofluorescence. Provider Outr Resulting Lab IMMUNOLOGY A ND SEROLOGY ORDERABLES Performing Organization Address [facility] Co de Phone Number [facility] [address] [place] [address] documented in this encounter Visit Diagnoses Not on filedocumented in this encounter Care Teams Director Credit Risk Relationship Specialty Start Date End Date Sarah Francis FNP [address] [place] [address] PCP - General Family Medicine - Primary Care 01/20/23 documented as of this encounter
--- OUTSIDE RECORDS SUMMARY | 2023-12-21 14:49 | XMS_ITS | Encounter Summary ---
Author Organization [facility] [place] [address] Care Team Providers Care Corporate Development Manager Name Role Phone Brissa Toure APRN Primary Care Provider [phone] Reason for Visit * Reason Comments Follow-up Back Pain Encounter Details Date Type Department Care Team (Latest Contact Info) Description 07/26/2018 10:00 AM EST Office [place] [address] Stevie Ferraro PA [facility] [place] [address] Lumbar back pain with radiculopathy affecting left [...] thigh documented in this encounter Care Teams Corporate Development Manager Relationship Specialty Start Date End Date Brissa Toure, SEBLE [address] [place] [address] PCP - General Family Medicine 06/19/18 documented as of this encounter
--- OUTSIDE RECORDS SUMMARY | 2023-12-21 14:49 | XMS_ITS | Encounter Summary ---
Author Organization [facility] [place] [address] Care Team Providers Care Metal Cutter Name Role Phone Brissa Toure APRN Primary Care Provider [phone] Reason for Visit * Reason Comments NPDR Encounter Details Date Type Department Care Team (Latest Contact Info) Description 09/21/2018 2:15 PM EDT Office Visit Ophthalmology at [facility] [place] [address] Johanna Jacinto MD [facility] [place] [address] Retinal microaneurysm, unspecified laterality (Primary Dx); Type [...] documented in this encounter Results * OCT Hmopfo-PS-JDYD EYES (09/21/2018 4:20 PM EDT) Anatomical Region [...] tear documented in this encounter Care Teams Metal Cutter Relationship Specialty Start Date End Date Brissa Toure, LAST PULLER [address] [place] [address] PCP - General Family Medicine 06/19/18 documented as of this encounter
--- OUTSIDE RECORDS SUMMARY | 2023-12-21 14:49 | XMS_ITS | Encounter Summary ---
Author Organization [facility] [place] [address] Care Team Providers Care Deployment Specialist Name Role Phone Brissa Toure APRN Primary Care Provider [phone] Reason for Visit * Reason Comments Follow-up Back Pain Encounter Details Date Type Department Care Team (Late st Contact Info) Description 07/19/2018 10:00 AM EST Office [place] [address] [place] [address] Low back pain, non-specific; Pain in left [...] Scheduled Procedures Name Priority Associated Diagnoses Date/Ti co COLONOSCOPY, DIAGNOSTIC (WRV U 3.26) Left sided colitis with rectal bleeding documented as of this encounter Visit Diagnoses Diagnosis Low back pain, non-specific Pain in left hip Pain in joint, pelvic region and thigh documented in this encounter Care Teams Deployment Specialist Relationship Specialty Start Date End Date Brissa Toure, SEBLE [address], [place] [address] PCP - General Family Medicine 06/19/18 documented as of this encounter
--- OUTSIDE RECORDS SUMMARY | 2023-12-21 14:49 | XMS_ITS | Referral Summary ---
Author Organization [facility] Address [address] [place] [address] Care Team Providers Care Entertainment & Media Correspondent Name Role Phone Sarah Francis [facility] Primary Care Provider Social History Tobacco Use Types Packs/Day Years Used Date Smoking Tobacco: Never Assessed Sex and Gender Information Value Date Recorded Sex Assigned at Not on file Gender Identity Not on file Sexual Orientation Not on file Plan of Treatment Not on file Care Teams Entertainment & Media Correspondent Relationship Specialty Start Date End Date Sarah Francis FNP [address] [place] [address] PCP - General Family Medicine - Primary Care 01/20/23
--- OUTSIDE RECORDS SUMMARY | 2023-12-21 14:49 | XMS_ITS | Clinical Summary ---
Author Organization [facility] Address [address] [place] [address] Care Team Providers Care Fur Dyer Name Role Phone Sarah Francis [facility] Primary Care Provider [phone] Social History Tobacco Use Types Packs/Day Years [...] COVID-19 Vaccine ( season) 2023 Care Teams Fur Dyer Relationship Specialty Start Date End Date Sarah Francis FNP [address] [place] [address] PCP - General Family Medicine - Primary Care 01/20/23
--- OUTSIDE RECORDS SUMMARY | 2023-12-21 14:49 | XMS_ITS | Encounter Summary ---
Author Organization Formerly [facility] [place] [address] Care Team Providers Care Storm Door Maker Name Role Phone Brissa Toure APRN Primary Care Provider [phone] Reason for Visit * Reason Comments Procedure * High Dollar Medication (Urgent) - Specialty Diagnoses / Procedures Referred By Isaías garcia Referred To Contact Ophthalmology Diagnoses Type 2 diabetes mellitus with mild nonproliferative diabetic retinopathy without macular edema, bilateral Procedures TC BEVACIZUMAB, 10MG, INJECTION (AVASTIN) Johanna Jacinto MD [facility] [place] [address] [facility] [place] [address] Referral ID Status Reason Start Date Expiration Date V isits Requested Visits Authorized [id number] Evaluate and Treat 06/26/2018 06/26/2019 99 99 Encounter Details Date Type Department Care Team (Latest Contact Info) Description 07/26/2018 12:45 PM EST Procedure [place] [address] [facility] [place] [address] Type 2 diabetes mellitus with both eyes [...] about driving: We always recommend having a m48/m60 tank driver on the day you get an [...] Normal and Not Expected side effects: Call [phone] (Eye Clinic) DAY or NIGHT, HOLIDAY or [...] of Avastin 1.25 mg Right Eye Assist: Print Controller Anesthesia: Topical Proparacaine and topical 4% Lidocaine Complications: None Procedure: The patient was taken to the minor treatment suite where the patient was reidentified using name and birthdate as critical identifiers. The correct eye as the operative site was reidentified by a preplaced site libertad, and the consent form was actively reviewed by the licensed physical therapist assistant and the surgeon. The right eye was prepped including instillation of Betadine 5% into the right cul de sac for 5 minutes, facial prep with ophthalmic Betadine and placement of a lid speculum. The surgeon performed hand washing preoperatively, used gloves, and wore a face mask or used no talking technique during the procedure, as did the surgical scrub technologist. After topical anesthesia of the injection site [...] call the Eye Clinic or Eye Doctor application support engineer, should they develop pain in the treated [...] Eye documented in this encounter Care Teams Storm Door Maker Relationship Specialty Start Date End Date Brissa Toure, SERVICE WORKER HELPER [address] [facility] [place] [address] PCP - General Family Medicine 06/19/18 documented as of this encounter
--- OUTSIDE RECORDS SUMMARY | 2023-12-21 14:49 | XMS_ITS | Encounter Summary ---
Author Organization [facility] Address [address] [place] [address] Care Team Providers Care Relay Technician Name Role Phone Sarah Francis CALENDER FEEDER Primary Care Provider [phone] Encounter Details Date Type Department Care Team (Late st Contact Info) Description 02/17/2023 Lab Requisition [facility] Pathology & Laboratory Medicine - [address] [address] Gatito Talbert MD [address] [place] [address], [address] [place], [place] [id number] Encounter for screening for malignant neoplasm of [...] management options, if applicable. 02/22/2023 11:01 EDT [facility] Final Diagnosis A. COLON, CECUM, POLYP, BIOPSY: - Tubular adenoma. B. COLON, 35 CMS, BIOPSY: - Colonic mucosa with no significant diagnostic abnormalities. C. COLON, 30 CMS, BIOPSY: - Colonic mucosa with architectural distortion. - Separate fragment of ulceration and granulation tissue showing prominent plasma cells. - Negative for spirochetes. - Negative for dysplasia and malignancy. - See comment. 02/22/2023 11:01 [facility] Diagnosis Comment C: No specific etiology for the ulceration and mucosal architectural distortion is identified. The changes may suggest idiopathic inflammatory bowel disease. The possibility of an infectious, ischemic, or drug-related colitis cannot be totally excluded. Clinical correlation is recommended. Immunoperoxidase stains were performed on this case to further evaluate the biopsy. ANTIBODY(CLONE)(BL OCK):RESULT CD20 (L26, [place]) (C1): Highlights background B cells in a [...] performance characteristics have been determined by [facility] and/or by the referring laboratory. [...] high complexity clinical laboratory testing. 02/22/2023 11:01 [facility] Attestation By the signature below, the attending physician certifies that they have 1) personally conducted a gross and/or microscopic examination of the described specimen(s), and/or personally interpreted the results of laboratory testing of the described specimen(s), and 2) personally rendered or confirmed the above diagnosis. 02/22/2023 11:01 [facility] at 1101 Clinical History Hematochezia, R/O ulcerative colitis 02/22/2023 11:01 EDT [facility] Gross Description A. Received in [...] [place](ASCP) 02/20/2023 7:52 02/22/2023 11:01 EDT [facility] Performing Lab [facility] 11:01 T [facility] Scanned Images 02/22/2023 11:01 T [facility] Tissue COLON STRUCTURE / Unknown 02/17/2023 7:47 EDT 02/17/2023 19:54 EDT Tissue specimen (specimen) COLON STRUCTURE / Unknown 02/17/2023 7:47 EDT 02/17/2023 19:54 EDT Tissue specimen (specimen) COLON STRUCTURE / Unknown 02/17/2023 7:47 EDT 02/17/2023 19:54 EDT Gatito Talbert MD PATHOLOGY ORDERABLES [facility] [address] [place] [address] documented in this encounter Visit Diagnoses Diagnosis Encounter for screening for malignant neoplasm of colon Special screening for malignant neoplasms, colon documented in this encounter Care Teams Relay Technician Relationship Specialty Start Date End Date Sarah Francis FNP [address] [place] [address] PCP - General Family Medicine - Primary Care 01/20/23 documented as of this encounter
--- OUTSIDE RECORDS SUMMARY | 2023-12-21 14:49 | XMS_ITS | Encounter Summary ---
Author Organization [facility] [place] [address] Care Team Providers Care Bullet Assembly Press Operator Name Role Phone Brissa Toure APRN Primary Care Provider [phone] Reason for Visit * Reason Comments NPDR Encounter Details Date Type Department Care Team (Latest Contact Info) Description 11/15/2018 1:30 PM EDT Office Visit Ophthalmology at [facility] [address] Johanna Jacinto MD [facility] [place] [address] Retinal microaneurysm, unspecified laterality; Type 2 diabetes [...] documented in this encounter Results * OCT [id number]-PU-[id number] EYES (11/15/2018 2:38 PM EDT) Anatomical Region [...] tear documented in this encounter Care Teams Bullet Assembly Press Operator Relationship Specialty Start Date End Date Brissa Toure, MANAGER OF FINANCIAL PLANNING [address] [address] PCP - General Family Medicine 06/19/18 documented as of this encounter
--- OUTSIDE RECORDS SUMMARY | 2023-12-21 14:49 | XMS_ITS | Encounter Summary ---
Author Organization Replaced By [facility] Address [facility] [place] [address] Care Team Providers Care Candy Puller Name Role Phone Brissa Toure APRN Primary Care Provider [phone] Encounter Details Date Type Department Care Team (Latest Contact Info) Description 04/28/2023 10:15 AM EST - 04/28/2023 11:59 PM [facility] Hospital [place] [address] Hermes Ridley MD [facility] [place] [address] Fatty liver Discharge Disposition: Home Social History [...] ascites. Electronically signed by: Armando Gardner MD, [facility] ([phone]), at 04/28/2023 11:11 AM Thank you for letting us participate in the care of this patient. If you are a health care provider and have any questions regarding this report, please contact the number above. For patients who have questions, please contact the health pet care technician that requested your imaging first. ?Armando Gardner, Staff Physician Electronically Signed Final Report ?? 04/28/2023 11:18 am Narrative 04/28/2023 11:18 AM EST Abdominal ? (Signed Final 04/28/2023 11:18 am) PATIENT INFO: ID #: ? [id number] ?: ??[birth year] (68 yrs)(M) Name: ? ALEXANDRO Srinivasan ?Visit Date: 04/28/2023 11:01 am ? SINDY PERFORMED BY: Attending: ?Armando Gardner MD Performed By: ? Charisma Flores RDMS Referred By: ?HERMES RIDLEY Location: ? [place] SERVICE(S) PROVIDED: UABDLIMHE - Hepatology Protocol - Abdominal ?89123 Limited Survey Single Organ or Quadrant - [id number] INDICATIONS: patient been told he has fatty [...] 04/28/2023 11:18 am) PATIENT INFO: ID #: [id number] : [birth year] (68 yrs)(M) Name: ALEXANDRO Srinivasan Visit Date: 04/28/2023 11:01 am SINDY PERFORMED BY: Attending: Armando Gardner MD Performed By: Charisma Flores RDMS Referred By: HERMES RIDLEY Location: [place] [facility] Protocol - Abdominal 26943 Limited Survey Single Organ or Quadrant - [id number] INDICATIONS: patient been told he has fatty [...] ascites. Electronically signed by: Armando Gardner MD, [facility] ([phone]), at 04/28/2023 11:11 AM Thank you for letting us participate in the care of this patient. If you are a health care provider and have any questions regarding this report, please contact the number above. For patients who have questions, please contact the health pet care technician that requested your imaging first. Armando Gardner, Staff Physician Electronically Signed Final Report 04/28/2023 11:18 am Hermes Ridley MD IMG US GEN ORDERABLE S documented in this encounter Visit Diagnoses Diagnosis Fatty liver Other chronic nonalcoholic liver disease documented in this encounter Care Teams Candy Puller Relationship Specialty Start Date End Date Brissa Toure, SEBLE [address] [facility] [address] PCP - General Family Medicine 06/19/18 documented as of this encounter
--- OUTSIDE RECORDS SUMMARY | 2023-12-21 14:49 | XMS_ITS | Encounter Summary ---
Author Organization [facility] [place] [address] Care Team Providers Care Associate Loan Officer Name Role Phone Brissa Toure APRN Primary Care Provider [phone] Reason for Visit * Reason Comments NPDR Encounter Details Date Type Department Care Team (Latest Contact Info) Description 02/15/2019 2:00 PM EDT Office Visit Ophthalmology at [facility] [place] [address] Johanna Jacinto MD [facility] [place] [address] Retinal microaneurysm of right eye Social History [...] documented in this encounter Results * OCT [id number] EYES (02/15/2019 4:56 PM EDT) Anatomical Region [...] NOS documented in this encounter Care Teams Associate Loan Officer Relationship Specialty Start Date End Date Brissa Toure, SEBLE [address] [place] [address] PCP - General Family Medicine 06/19/18 documented as of this encounter
--- OUTSIDE RECORDS SUMMARY | 2023-12-21 14:49 | XMS_ITS | Encounter Summary ---
[place] [address] Care Team Providers Care Wind Operations Supervisor Name Role Phone Brissa Toure APRN Primary Care Provider [phone] Encounter Details Date Type Department Care Team [...] Scheduled Procedures Name Priority Associated Diagnoses Date/Ti nm COLONOSCOPY, DIAGNOSTIC (WRV U 3.26) Left sided colitis with rectal bleeding documented as of this encounter Visit Diagnoses Not on filedocumented in this encounter Care Teams Wind Operations Supervisor Relationship Specialty Start Date End Date Brissa Toure APRN [address] [facility] [place] [address] PCP - General Family Medicine 06/19/18 documented as of this encounter
--- OUTSIDE RECORDS SUMMARY | 2023-12-21 14:49 | XMS_ITS | Encounter Summary ---
Author Organization [facility] Address [facility] [place] [address] Care Team Providers Care Canoe Builder Name Role Phone Brissa Toure APRN Primary Care Provider [phone] Encounter Details Date Type Department Care Team (Latest Contact Info) Description 07/26/2018 9:09 AM EST - 07/26/2018 11:59 PM [facility] Hospital Encounter XRay at [address] [place] [address] Adal Valdovinos MD [facility] [address] Pain in left hip Discharge Disposition: Home [...] Electronically signed by: RUTHIE Weinstein [facility]([phone]), at 07/26/2018 10:58 AM Adal Valdovinos MD IMG DX ORDERABLES documented in this encounter Visit Diagnoses Diagnosis Pain in left hip Pain in joint, pelvic region and thigh documented in this encounter Care Teams Canoe Builder Relationship Specialty Start Date End Date Brissa Toure, ENVIRONMENTAL COMMUNICATIONS SPECIALIST [address] [address] PCP - General Family Medicine 06/19/18 documented as of this encounter
--- OUTSIDE RECORDS SUMMARY | 2023-12-21 14:49 | XMS_ITS | Data Portability ---
Author Organization [facility] Address [address] [place] [address] Assessment No assessment recorded. Plan of Treatment Reminders Order Date Submit Date Provider Last Modified By Organization Details Last Modified Time Details Appointments Follow Up 2023 11:00A David FRANCIS Not available Not available Not available Follow Up 30 2023 01:00P David FRANCIS Not available Not available Not available Lab hemoglobi n A1C, fingersti ck 2022 023 [email or web address] [facility], [address], [place], [address], 04/19/2023 14:01:50 HbA1c (hemoglob in A1c), blood - 1 PST, 1 LAV obtained without issue from (R) AC 2023 024 [facility] (Registration ), [address] [place] [address] [place], [address], 07/18/2023 08:32:42 CMP, serum or plasma - 1 PST, 1 LAV obtained without issue from (R) AC 2023 024 [email or web address] [facility] (Registration ), [address] [place] [address] [place], [address], 07/12/2023 10:24:21 HbA1c (hemoglob in A1c), blood - 1 PST, 1 LAV obtained without issue from (R) AC 2023 024 [email or web address] [facility] (Registration ), [address] [place] [address] , [place], [address], 11/08/2023 07:53:07 CMP, serum or plasma - 1 PST, 1 LAV obtained without issue from (R) AC 2023 024 ODETTE [facility] (Registration ), [address] [place] [address] , [place], [address], 11/01/2023 20:12:02 Referral physical therapist referral 2022 023 [email or web address] Arya Villarreal PT, [address] , [place], [address], 10/18/2023 13:17:43 Procedures None recorded. Surgeries None recorded. Imaging None recorded. Medication Orders allopurin ol 100 mg tablet 2023 024 [email or web address] [facility], [address] [place], [address], 07/12/2023 10:24:21 amlodipin e 2.5 mg tablet 2023 024 [facility], [address] [place], [address], 07/12/2023 10:24:21 Patient TargetsNo targets recorded. Patient Instructions Encounter Date Encounter Id Patient Instructions Last Modified By Organization Details Last Modified Time 04/19/2023 [id number] Nice to see you today Alexandro! BP under good control Type II Diabetes under control, a1c 7.5%, improved Continue all current medications Reach out to [facility] for discussion about repeat MRI imaging of lumbar spine given general lower extremity weakness issues worsening. If they feel it's not related, they may not order MRI. PT referral sent for strengthening of lower extremities. Obtain a walker for longer distance walking and outdoors. This will provider more gait stability. Use cane indoors for scalp continue use of the dandruff shampoo. this is cheapest. I think you would do well with actually an over the counter hydrocortisone cream 1% mixed with lotion like Amlactin for face dryness/flaking. [email or web address] Not available 04/19/2023 14:00:52 07/11/2023 [id number] Nice to see you today Alexandro. I will call you with lab results. Let me know if [facility] wants to have the MRI done up here prior to seeing you for chronic lower back pain related to past work injury. Continue all current medications at current dosings and if we need to make adjustments I will do this with you over the phone.Based on her Dexcom information today things look stable. Continue to take home blood pressure readings about once a week and make sure on average in the 120s over 80 or less. [email or web address] Not available 07/11/2023 14:23:13 11/01/2023 [id number] Nice to see you today! I will call pharmacy and see what equivalent dose of ozempic for the Rybelsus 7mg so we can switch you due to high cost. I will call you with this switch and your lab results You let me know if you decide you would like the MRI update up here for lumbar spine. Remberto castillo PT helped some. [email or web address] Not available 11/01/2023 12:54:28 Reason for Referral Physical Therapist Referral for Abnormal gait due to muscle weakness recent falls, lower extremity weakness since hospital discharge. h/o of lumbar spine fusion 1988 Referring Physician: [facility], Encounter Date: 04/19/2023 Physical Therapist Referral for Lumbar spine ankylosis This must go through [employer] comp. contact is Qiana Welch with [employer] Phone Number Email [email or web address] Referring Physician: [facility], Encounter Date: 05/30/2023 Results Created Date Observation Date Name Description Value Unit Range Abnormal Flag LastModifiedBy Organization Detail LastModifiedTime 04/19/2004/19/2023 hemog lobin A1C, finge rstic k HbA1C 7.5 Not Available [facility] [address], [place], [address], 04/19/2023 13:30:08 04/26/2004/26/2023 fecal occul t blood , immun oassa y, stool iFOB negati ve Not Available [facility] [address], [place], [address], 04/26/2023 09:55:29 07/11/19 24 07/11/2023 HEMOG LOBIN A1C hemoglobin A1C 8.1 % <5.7 high Not Available [address] [place], [address] 07/11/2023 19:44:41 07/11/19 24 07/11/2023 COMPR EHENS JAYESH METAB OLIC PANEL calcium 9.3 mg/dL 8.5-10 .1 normal Not Available [address] [place], [address] 07/11/2023 20:11:44 07/11/19 24 07/11/2023 COMPR EHENS JAYESH METAB OLIC PANEL glucose 140 mg/dL 74-106 high Not Available [address] [place], [address] 07/11/2023 20:11:44 07/11/19 24 07/11/2023 COMPR EHENS JAYESH METAB OLIC PANEL BUN 30 mg/dL 7-18 high Not Available [address] [place], [address] 07/11/2023 20:11:44 07/11/19 24 07/11/2023 COMPR EHENS JAYESH METAB OLIC PANEL creatinine 1.7 mg/dL 0.70-1 .30 high Not Available [address] [place], [address] 07/11/2023 20:11:44 07/11/19 24 07/11/2023 COMPR EHENS JAYESH METAB OLIC PANEL estimated GFR 43.91 mL/min /1.73m 2 Not Available [address] [place], [address] 07/11/2023 20:11:44 07/11/19 24 07/11/2023 COMPR EHENS JAYESH METAB OLIC PANEL total protein 7.7 g/dL 6.4-8. 2 normal Not Available [address] [place], [address] 07/11/2023 20:11:44 07/11/19 24 07/11/2023 COMPR EHENS JAYESH METAB OLIC PANEL albumin 3.4 g/dL 3.4-5. 0 normal Not Available [address] [place], [address] 07/11/2023 20:11:44 07/11/19 24 07/11/2023 COMPR EHENS JAYESH METAB OLIC PANEL bilirubin, total 0.3 mg/dL 0.2-1. 0 normal Not Available [address] [place], [address] 07/11/2023 20:11:44 07/11/19 24 07/11/2023 COMPR EHENS JAYESH METAB OLIC PANEL alk phos 102 U/L 46-116 normal Not Available [address] [place], [address] 07/11/2023 20:11:44 07/11/19 24 07/11/2023 COMPR EHENS JAYESH METAB OLIC PANEL sodium 141 mmol/ L 136-14 5 normal Not Available [address] [place], [address] 07/11/2023 20:11:44 07/11/19 24 07/11/2023 COMPR EHENS JAYESH METAB OLIC PANEL potassium 4.3 mmol/ L 3.5-5. 1 normal Not Available [address] [place], [address] 07/11/2023 20:11:44 07/11/19 24 07/11/2023 COMPR EHENS JAYESH METAB OLIC PANEL chloride 103 mmol/ L 98-107 normal Not Available [address] [place], [address] 07/11/2023 20:11:44 07/11/19 24 07/11/2023 COMPR EHENS JAYESH METAB OLIC PANEL CO2 30.8 mmol/ L 21.0-3 2.0 normal Not Available [address] [place], [address] 07/11/2023 20:11:44 07/11/19 24 07/11/2023 COMPR EHENS JAYESH METAB OLIC PANEL anion gap 7.2 mmol/ L 3-11 normal Not Available [address] [place], [address] 07/11/2023 20:11:44 07/11/19 24 07/11/2023 COMPR EHENS JAYESH METAB OLIC PANEL AST 55 U/L 15-37 high Not Available [address] [place], [address] 07/11/2023 20:11:44 07/11/19 24 07/11/2023 COMPR EHENS JAYESH METAB OLIC PANEL ALT 65 U/L 16-63 high Not Available [address] [place], [address] 07/11/2023 20:11:44 11/01/19 24 11/01/2023 HEMOG LOBIN A1C hemoglobin A1C 7.8 % <5.7 high Not Available [address] [place], [address] 11/01/2023 20:12:00 11/01/19 24 11/01/2023 COMPR EHENS JAYESH METAB OLIC PANEL calcium 9.1 mg/dL 8.5-10 .1 normal Not Available [address] [place], [address] 11/01/2023 20:12:02 11/01/19 24 11/01/2023 COMPR EHENS JAYESH METAB OLIC PANEL glucose 119 mg/dL 74-106 high Not Available [address] [place], [address] 11/01/2023 20:12:02 11/01/19 24 11/01/2023 COMPR EHENS JAYESH METAB OLIC PANEL BUN 31 mg/dL 7-18 high Not Available [address] [place], [address] 11/01/2023 20:12:02 11/01/19 24 11/01/2023 COMPR EHENS JAYESH METAB OLIC PANEL creatinine 1.8 mg/dL 0.70-1 .30 high Not Available [address] [place], [address] 11/01/2023 20:12:02 11/01/19 24 11/01/2023 COMPR EHENS JAYESH METAB OLIC PANEL estimated GFR 41.00 mL/min /1.73m 2 Not Available [address] [place], [address] 11/01/2023 20:12:02 11/01/19 24 11/01/2023 COMPR EHENS JAYESH METAB OLIC PANEL total protein 7.8 g/dL 6.4-8. 2 normal Not Available [address] [place], [address] 11/01/2023 20:12:02 11/01/19 24 11/01/2023 COMPR EHENS JAYESH METAB OLIC PANEL albumin 3.4 g/dL 3.4-5. 0 normal Not Available [address] [place], [address] 11/01/2023 20:12:02 11/01/19 24 11/01/2023 COMPR EHENS JAYESH METAB OLIC PANEL bilirubin, total 0.3 mg/dL 0.2-1. 0 normal Not Available [address] [place], [address] 11/01/2023 20:12:02 11/01/19 24 11/01/2023 COMPR EHENS JAYESH METAB OLIC PANEL alk phos 85 U/L 46-116 normal Not Available [address] [place], [address] 11/01/2023 20:12:02 11/01/19 24 11/01/2023 COMPR EHENS JAYESH METAB OLIC PANEL sodium 140 mmol/ L 136-14 5 normal Not Available [address] [place], [address] 11/01/2023 20:12:02 11/01/19 24 11/01/2023 COMPR EHENS JAYESH METAB OLIC PANEL potassium 4.5 mmol/ L 3.5-5. 1 normal Not Available [address] [place], [address] 11/01/2023 20:12:02 11/01/19 24 11/01/2023 COMPR EHENS JAYESH METAB OLIC PANEL chloride 102 mmol/ L 98-107 normal Not Available [address] [place], [address] 11/01/2023 20:12:02 11/01/19 24 11/01/2023 COMPR EHENS JAYESH METAB OLIC PANEL CO2 27.4 mmol/ L 21.0-3 2.0 normal Not Available [address] [place], [address] 11/01/2023 20:12:02 11/01/19 24 11/01/2023 COMPR EHENS JAYESH METAB OLIC PANEL anion gap 10.6 mmol/ L 3-11 normal Not Available [address] [place], [address] 11/01/2023 20:12:02 11/01/19 24 11/01/2023 COMPR EHENS JAYESH METAB OLIC PANEL AST 47 U/L 15-37 high Not Available [address] [place], [address] 11/01/2023 20:12:02 11/01/19 24 11/01/2023 COMPR EHENS JAYESH METAB OLIC PANEL ALT 47 U/L 16-63 normal Not Available [address] [place], [address] 11/01/2023 20:12:02 12/21/19 24 12/06/2023 XR, chest No observ ation record ed. [email or web address] [address] [address], [place], [address], 12/21/2023 11:26:59 12/21/19 24 12/06/2023 CT, angio gram, chest , w/ contr ast No observ ation record ed. [email or web address] [address], [place], [address], 12/21/2023 11:28:10 12/21/19 24 12/06/2023 XR, angio gram, pulmo nary, bilat eral No observ ation record ed. [email or web address] [address], [place], [address], 12/21/2023 11:31:06 12/21/19 24 12/05/2023 marce carreon am No observ ation record ed. [email or web address] [facility] [address], [place], [address], 12/21/2023 11:37:46 12/21/19 24 10/21/2023 XR, chest , 2 view No observ ation record ed. Not Available 12/21/2023 14:27:20 12/21/19 24 12/21/2023 x-ray imagi ng abdulkadir t Angie t Name: Gayla [address] Unit #: [id number] Loc: DI Tino Avalos er: Sarah Francis Accoun t #: [id number] Status : PRE CLI Primar y [...] this report in error, please notify us immedi dylan at [phone] and return the origin al report to us at the addres s above. Thank- you. INTERFACE [address] , [place], [address] 12/21/2023 13:04:25 12/21/19 24 12/21/2023 XR, chest , 2 view No observ ation record ed. ODETTE [facility] (Radiology) [address] [place] [address] , [facility] [place], [address], 12/21/2023 13:05:38 Result Notes None recorded. 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 continue current medications. Problem Code: I10; Problem Code Type: ICD-10; [address], [place], [address] , [place] [facility]. 4 14:32:43 Type 2 diabetes mellitus without [...] Code: E11.9; Problem Code Type: ICD-10; [address], [place], [address] , [facility] 4 14:04:54 Gout Active 201811/03/2022 - Comments only - Sarah Francis MAINTENANCE ENG[employer] - doing well on lower dose of allopurinol to 100mg daily from 300mg for preservation of kidney function. continue the 100mg dose Problem Code: M10.9; Problem Code Type: ICD-10; [address], [place], [address] , [facility] 4 14:32:45 Osteoarthriti s Active 201811/27/2019 - Comments only - Brissa Toure APRN - Of multiple joints, managed with celebrex. 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 Problem Code: H33.23; Problem Code Type: ICD-10; [address], [place], [address] , [facility] 3 13:40:35 Lumbar spine ankylosis Active 201806/05/2018 - Comments only - Brissa Toure APRN - S/P work injury in 1988. See above. Problem Code: M43.26; Problem Code Type: ICD-10; [address], [place], [address] , [facility] 4 14:33:16 Lumbosacral radiculopathy Active 201803/21/2022 - Comments only - Brissa Toure APRN - With weakness in L leg. Pt with antalgic gait, though fairly stable. Declines referral to PT at this time. Planning to start regular walking program. Problem Code: M54.16; Problem Code Type: ICD-10; [address], [place], [address] , [facility] 3 13:31:30 Counseling Completed 201806/19/2018 06/05/2018 - Comments only - Brissa Toure APRN - Tdap and flu vaccine given today. Will give PPSV23 at next visit. Does not appear to have had screening colonoscopy, will address at next visit. May not be able to tolerate d/t chronic back pain. Problem Code: Z71.89; Problem Code Type: ICD-10; Not Available [facility] 3 05:49:36 Incontinence of feces Completed 201804/19/2023 09/02/2021 - Improved - Brissa Toure APRN - Resolved since stopping metformin. Problem Code: R15.9; Problem Code Type: ICD-10; [address], [place], [address] , [facility] 3 13:31:23 Idiopathic osteoarthriti s Active 201803/21/2022 - Comments only - Brissa Toure APRN - See above. Pt has thus far declined referral to ortho. Problem Code: M16.12; Problem Code Type: ICD-10; [address], [place], [address] , [facility] 4 14:32:52 Acute upper respiratory infection Completed 201907/17/2019 06/26/2019 - Comments only - Berenice PAUL - largely resolved. Physical examination reassuring, VSS, afebrile. Encouraged symptomatic mgmt and reviewed concerning symptoms indicating need for follow up. Problem Code: J06.9; Problem Code Type: ICD-10; Not Available [facility] 3 05:49:36 Cataract Completed 201911/02/2023 Problem Code: H26.9; Problem Code Type: ICD-10; Removal Reason: surgeries completed [address], [place], [address] , [facility] 4 14:39:54 History of fall Completed 201902/15/2023 03/21/2022 - Comments only - Brissa Toure APRN - Pt describing what sound like possible vasovagal episodes, denies hypoglycemia. Consider zio patch if any further episodes. Problem Code: Z91.81; Problem Code Type: ICD-10; Not Available [facility] 3 05:49:42 Chronic kidney disease stage 3 Active 202003/21/2022 - Deteriorated - Brissa Toure PACKAGER MACHINE - Renal function slightly decreased, GFR now <30. Consider referral to nephrology. Problem Code: N18.30; Problem Code Type: ICD-10; [address], [place], [address] , [facility] 4 14:34:41 Recurrent falls Completed 202211/02/2023 06/07/2022 - Comments only - Brissa Toure APRN - See above. Encouraged to use cane whenever possible. Problem Code: R29.6; Problem Code Type: ICD-10; [address], [place], [address] , [facility] 4 14:40:19 Neuropathy due to type 2 diabetes mellitus Active 202201/19/2023 - Comments only - Sarah Francis MAINTENANCE ENGINE[employer] - continue gabapentin 400mg twice daily for now. doing well on this. also helps with back pain. Problem Code: E11.40; Problem Code Type: ICD-10; [address], [place], [address] , [facility] 14:38:53 Retinopathy due to type 2 diabetes mellitus Active 202209/18/2022 - Comments only - Sarah Francis MAINTENANCE ENGINEER [employer] - continue to see [facility]. July 2022 last diabetic eye exam Problem Code: E11.319; Problem Code Type: ICD-10; [address], [place], [address] , [facility] 14:40:29 Onychomycosis due to dermatophyte Active 2022 Problem Code: B35.1; Problem Code Type: ICD-10; [address], [place], [address] , [facility] 14:40:11 Counseling Completed 202210/13/2022 09/18/2022 - Comments only - Sarah Francis MAINTENANCE ENGINEER [employer] - Now established on my panel. We will follow-up in 1 month to address further chronic condition management. Problem Code: Z71.89; Problem Code Type: ICD-10; Not Available [facility] 05:49:43 Steatosis of liver Active 2022 Problem Code: K76.0; Problem Code Type: ICD-10; [address], [place], [address] , [facility] 14:40:28 Adult health examination Completed 201909/18/2022 Problem Code: Z00.00; Problem Code Type: ICD-10; Not Available [facility] 3 05:49:46 Cellulitis of right lower limb Completed 202209/18/2022 Problem Code: L03.115; Problem Code Type: ICD-10; Not Available [facility] 3 05:49:46 Upper respiratory tract infection caused by Influenza A Completed 202109/18/2022 Problem Code: J09.x2; Problem Code Type: ICD-10; Not Available [facility] 3 05:49:47 Neck pain Completed 201911/27/2019 Problem Code: M54.2; Problem Code Type: ICD-10; Not Available [facility] 3 05:49:48 Pre-surgery evaluation Completed 201911/27/2019 Problem Code: Z01.818; Problem Code Type: ICD-10; Not Available [facility] 3 05:49:51 Abscess of abdominal wall Completed 201910/20/2020 Problem Code: L02.211; Problem Code Type: ICD-10; Not Available [facility] 3 05:49:54 Tinea cruris Completed 202109/18/2022 Problem Code: B35.6; Problem Code Type: ICD-10; Not Available [facility] 3 05:49:54 Type 2 diabetes mellitus Active [address], [facility] [address] , [facility] 4 14:40:26 Seborrheic dermatitis Active [address], [facility] [address] , [facility] 3 13:34:46 Crohn's disease Active 2022 Problem Code: K50.90; Problem Code Type: ICD-10; not currently being treated for this. had an acute bout of issues with rectal bleeding, has resolved. see specialist notes /general surgery/gi [address], [place], [address] , [facility] 4 14:39:44 Benign neoplasm of colon Active 2022 Problem Code: D12.6; Problem Code Type: ICD-10; [address], [facility] [address] , [facility] 4 14:40:08 Migraine Active 198703/11/2023 - Comments only - Sarah Francis MAINTENANCE ENGINEER [employer] - continue imipramine per neurology for migraine prevention. Problem Code: G43.909; Problem Code Type: ICD-10; [address], [place], [address] , [facility] 14:32:56 Lung field abnormal Active [address], [place], [address] , [facility] 11:36:19 Cyst of pancreas Active [address], [place], [address] , [facility] 11:50:26 Problem Notes None recorded. Procedures Surgical History Date Name Laterality Status Provider Name and Address Organization Details Recorded Time 0 cataract surgery completed [address], [place], [address], [facility] 11/01/2023 12:44:59 Imaging Results Imaging Date Name Status LastModified by Organization Details LastModified Time 12/06/2023 XR, chest active [email or web address] [facility] [address], [place], [address], 12/21/2023 11:26:59 12/06/2023 CT, angiogram, chest , w/ contrast active [email or web address] [facility] [address], [place], [address], 12/21/2023 11:28:10 12/06/2023 XR, angiogram, pulmonary, bilateral active [email or web address] [facility] [address], [place], [address], 12/21/2023 11:31:06 12/05/2023 electrocardiogram active [email or web address] [facility] [address] [place] [address] , [place], [address], 12/21/2023 11:37:46 10/21/2023 XR, chest, 2 view active Informa tion not available 12/21/2023 14:27:20 12/21/2023 x-ray imaging report active INTERFACE Kirsten janaychava [facility] [address] [place], [address] 12/21/2023 13:04:25 12/21/2023 XR, chest, 2 view active ODETTE [facility] (Radiology) [address] [place], [address], 12/21/2023 13:05:38 Procedure Notes None recorded. Medical Equipment None Reported. Allergies Allergen ID Allergen Name Allergen Category Reaction Reaction Severity Criticality Documentation Date Start Date Code Code System Note Provider Name and Address Organization Details Recorded Time enalapril maleate medicatio n facial swelling Not available Not available 03/31/20232018 3 RxNorm Not Available [facility] 16:14:45 Medications Name Sig Start Date Stop [...] mouth 3 times a day 01/04 completed [facility] d/c 12/29- PCP for fourther refills Not [...] Not Available Not Available Not Available [employer] Danisha [facility] spacer USE DIRECTED WITH ALBUTERO L [...] Not Available Not Available [employer] [address] [place] Use 1 device as directed 04/19 completed [...] and Address Organization Details Last Updated DateTime 3 172.01 cm 33.1 kg/m2 87893.2 3 g 97.5 [degF] 82 /min 18 /min 136 mm[Hg] 86 mm[Hg] NAHOMY COOPER RN [facility] 3 12:43:58 Date Recorded Body height Body mass index (BMI) Body weight Body temperature Heart rate Respiratory rate Systolic blood pressure Diastolic blood pressure Provider Name and Address Organization Details Last Updated DateTime 4 172.01 cm 33.4 kg/m2 38957.1 4 g 97.7 [degF] 74 /min 14 /min 130 mm[Hg] 88 mm[Hg] NAHOMY COOPER RN [facility] 4 13:48:30 Date Recorded Body height Body mass index (BMI) Body weight Body temperature Heart rate Respiratory rate Systolic blood pressure Diastolic blood pressure Provider Name and Address Organization Details Last Updated DateTime 4 172.01 cm 32.9 kg/m2 01505.2 g 97.9 [degF] 76 /min 14 /min 126 mm[Hg] 82 mm[Hg] NAHOMY COOPER RN [facility], [facility] 4 12:20:54 Date Recorded Body height Body mass index (BMI) Body weight Body temperature Oxygen saturation Oxygen saturation in Arterial blood by Pulse oximetry Heart rate Respiratory rate Systolic blood pressure Diastolic blood pressure Provider Name and Address Organization Details Last Updated DateTime 4 172.01 cm 32.1 kg/m2 38068.9 6 g 97.9 [degF] 93 % 93 % 80 /min 14 /min 96 mm[Hg] 62 mm[Hg] NAHOMY COOPER RN [facility], [facility] 4 11:08:52 Social History Question Answer Notes LastModified by Organizat ion Details LastModified Time Tobacco Smoking Status Former Smoker NAHOMY COOPER RN null, [facility] 04/19/2023 12:41:07 When Did You Quit [...] 30 mcg/0.3 mL 07/11/2023 completed BEVERLY GUEVARA [facility] [address], [place], [address], [facility] 07/12/2023 12:18:20 Influenza, high-dose, quadrivalent, PF 05/23/2023 completed NAHOMY COOPER RN null, [facility] 05/23/2023 14:22:41 Tdap 06/05/2018 completed Not Available [facility] 05:12:44 Influenza, split virus, quadrivalent, PF 03/08/2019 completed Not Available [facility] 03/31/2023 05:12:47 Influenza, split virus, quadrivalent, PF 03/31/2020 completed Not Available [facility] 03/31/2023 05:12:47 Influenza, split virus, quadrivalent, preservative 06/05/2018 completed Not Available [facility] 03/31/2023 05:12:48 Influenza, high-dose, quadrivalent, PF 03/08/2022 completed Not Available [facility] 03/31/2023 05:12:49 COVID-19, mRNA, LNP-S, PF, 100 mcg/0.5mL dose or 50 mcg/0.25mL dose 08/22/2020 completed Not Available [facility] 03/31/2023 05:12:49 COVID-19, mRNA, LNP-S, PF, 100 mcg/0.5mL dose or 50 mcg/0.25mL dose 09/21/2020 completed Not Available [facility] 03/31/2023 05:12:50 SARS-COV-2 (COVID-19) vaccine, UNSPECIFIED 04/09/2021 completed Not Available [facility] 03/31/2023 05:12:52 Pneumococcal conjugate PCV20, polysaccharide CXR336 conjugate, adjuvant, PF 01/19/2023 completed Not Available [facility] 03/31/2023 05:12:52 Past Encounters Encounter ID Performer Location Encounter Start Date Encounter Closed Date Diagnosis/Indication Diagnosis SNOMED-CT Code [id number] NAHOMY COOPER RN [address] [address] [place] [address] 04/19/2023 12:25:37 04/19/2023 13:55:26 Type 2 diabetes mellitus 50784034 Chronic ki dney disease stage 3 047730856 Abnormal g ait due to muscle weakness 923529075 History of fall 87235123 9 History of colitis 54788 9006 Neuropathy due to type 2 diabetes mellitus 62943521797643 6 Steatosis of liver 1007 Seborrheic dermatitis 50 047939 Essential hypertension 29363672 Administra tion of influenza vaccine 21412518 [id number] [place] [address] [place] [address] 07/11/2023 13:29:34 07/11/2023 14:33:29 Gout 97234809 Essential hypertension 07547057 Type 2 paxton betes mellitus 63319878 Lumbosacra l radiculopathy 0258920 Hyperlipidemia 78103008 Chronic ki dney disease stage 3 597242057 Steatosis of liver 1007 Administra tion of SARS-CoV-2 vaccine 6350700710 [id number] BEVERLY GUEVARA [facility] [place] [address] 11/01/2023 11:58:11 11/01/2023 13:03:27 Essential hypertension 10287992 Gout 58767668 Hyperlipidemia 07341919 Type 2 paxton betes mellitus 78072562 Lumbosacra l radiculopathy 8176659 Chronic ki dney disease stage 3 354512183 Neuropathy due to type 2 diabetes mellitus 41493281813134 6 [id number] [place] [address] [facility] [place] [address] 12/21/2023 10:50:13 12/21/2023 11:55:51 Essential hypertension 41244855 Lung field abnormal 2747 92887 Cyst of pancreas 2818094 0 Health Concerns Section Related Observation LastModified by Organization Detai ls LastModified Time None Recorded Concern Status LastModified by Organization Details LastModified Time None Recorded Advance Directives Directive None Recorded Payers Encounter Date Sequence Insurance Name Policy Number Policy Zapata Covered Member ID Zapata Member ID Guarantor Name 04/19/2023 1 [facility] [place]PPO[place] [id number] Alexandro Zarina Callahan [id number] Alexandro Srinivasan Sindy 07/11/2023 1 [facility] [place] [id number] Alexandrotamara Callahan [id number] Alexandro Srinivasan Sindy 11/01/2023 1 [facility] [place] [id number] Alexandrotamara Callahan [id number] Alexandro Callahan Notes Date Note Type Note Provider Name and Address Organization Details Recorded Time 04/19/2023 text/html HPI Notes: Alexandro is a pleasant 68-year-old male here today with his for 3-month check and follow-up to chronic conditions. Recently had his colonoscopy completed as well as had dental procedure for teeth extraction. Had to be off of his Rybelsus 7mg for 3 weeks over the past 3 months for these procedures. A1C last office visit was 7.6%. He continues on his Tresiba 144 units nightly. Rybelsus 7 mg daily. A1c today is 7.5% despite being off the Rybelsus for 3 whole weeks during this 3-month period. He is doing very well with diet. I recommend a therapeutic CGM is reasonable and necessary for my patient: 1. The patient has diabetes mellitus; and, 2. The patient received training using the CGM and, 3. The CGM is prescribed in accordance with its FDA indications for use; and, 4. The beneficiary for whom a CGM is being prescribed, to improve glycemic control, meets at least one of the criteria below: o The beneficiary is insulin-treated 5. I plan to see the patient every 3-6 months following the initial prescription of the CGM to assess adherence to their CGM regimen and diabetes treatment plan. Blood pressure under good control on current medical regimen 200 mg metoprolol twice a day as well as amlodipine 2.5 mg once a day. Recently seen on 04/03/2023 at [facility] for follow-up to recent colitis and hospitalization for colitis. They advised that he had just colitis secondary to constipation potentially caused by initiation of GLP-1 agonist Rybelsus over 6 months ago. Patient under good control for quite some time now though on MiraLAX. They advised continuation of use of MiraLAX as well as adding Benefiber. Colonoscopy completed and recommended follow-up to be in a year. They also addressed his history of fatty liver disease. He is getting a liver ultrasound coming up this Monday for monitoring. Liver function test recently completed at [facility] normal kidney function tests improved off of his Celebrex that he stopped a couple of months ago. Reviewed labs with patient today. CBC normal, CMP with just elevated creatinine at 1.6 which is improved from 2.2 last office visit. Liver function test normal. Electrolytes normal. He does need FOBT kit as they ordered it at [facility] but he did not pick it up from [facility] lab. Patient's expresses concern about his gait instability. Says that he has been falling a lot recently. Says his feet get out from under him. He will start to walk and then start to have weakness that seems to be in his upper legs or hips and is intermittent and random. He does use a cane but the cane does not provide enough stability sometimes and he will fall. Recently fell in the front yard of his sister's house and hit his face on the ground. Had double black eyes. He does have a history of lumbar spinal fusion, laminectomy L4-L6 he believes in 1986. This was work-related injury. All orders and related medications should be billed through [employer] for this type of issue. However, not sure if related. Discussed with patient he really needs to follow-up with spine clinic at [facility] for check-in as it is been since 2019. He will call them for follow-up. Denies any loss of bowel or bladder control. Denies any increased numbness or tingling in lower extremities. Feels that he cannot tell when his legs are going to give out. NAHOMY COOPER RN [facility], [place] [facility]. 07/10/2023 13:09:25 07/11/2023 text/html HPI Notes: Alexandro is a pleasant 68-year-old male here today with his for 3-month check and follow-up to chronic conditions.Last office visit 04/19/2023 A1c was 7.5%. Based on his CGM reviewed today it looks like his A1c has gone up a little bit to 7.8 to 8.2%. Will get blood draw and confirm. He continues on his Rybelsus 7 mg a day Tresiba 144 units nightly. Denies any vision changes. Denies any numbness tingling in feet that is not associated with back pain. Says he is doing better with his diet but pretty much eats what ever is available. 5. I plan to see the patient every 3-6 months following the initial prescription of the CGM to assess adherence to their CGM regimen and diabetes treatment plan. Blood pressure under good control on current medical regimen 200 mg metoprolol twice a day as well as amlodipine 2.5 mg once a day. Apparently has been on losartan and lisinopril in the past with negative side effects and did not want to continue those. Recently seen on 04/03/2023 at [facility] for follow-up to recent colitis and hospitalization for colitis. They advised that he had just colitis secondary to constipation potentially caused by initiation of GLP-1 agonist Rybelsus over 6 months ago. Has not had any recurrent diarrhea or blood in stool. Did not complete a home Hemoccult test given at last office visit. Patient under good control for quite some time now though on MiraLAX. They advised continuation of use of MiraLAX as well as adding Benefiber. Colonoscopy completed and recommended follow-up to be in a year. They also addressed his history of fatty liver disease. He had a liver ultrasound done at [facility] a few weeks ago and has not heard that anything is abnormal. We do not have results from this. Has been going to physical therapy for gait stability and issues with falling. goes about once per week. Says is helping with his strength. Also helping with his balance. He does have a history of lumbar spinal fusion, laminectomy L4-L6 he believes in 1986. This was work-related injury. All orders and related medications should be billed through [employer] for this type of issue. However, not sure if related. Discussed with patient he really needs to follow-up with spine clinic at [facility] for check-in as it is been since 2019. He was going to call them for follow-up after last office visit but did not do this. Is wondering if he can get an MRI appear. Advised him to call spine clinic first. Denies any loss of bowel or bladder control. Denies any increased numbness or tingling in lower extremities. Feels that he cannot tell when his legs are going to give out. SARAH FRANCIS, BEVERLY [address], [place], [address], [facility]. 07/12/2023 12:27:34 11/01/2023 text/html HPI Notes: Alexandro is a [...] possible. They never called spine center at [facility] about his lumbar back pain and radiculopathy. [...] in legs. BEVERLY GUEVARA [address], [place], [address], [facility], [facility]. 11/02/2023 18:58:51
--- OUTSIDE RECORDS SUMMARY | 2023-12-21 14:50 | XMS_ITS | Encounter Summary ---
Author Organization [facility] [place] [address] Care Team Providers Care Lead Network Architect Name Role Phone Kathrin Lemus MD Primary Care Provider [phone] Encounter Details Date Type Department Care Team (Late st Contact Info) Description 07/23/2013 [place] [address] Alo Diaz MD [facility] [place] [address] Social History Tobacco Use Types Packs/Day Years [...] on filedocumented in this encounter Care Teams Lead Network Architect Relationship Specialty Start Date End Date Kathrin Lemus MD [facility] [address] [place] [address] PCP - General 04/19/10 09/08/13 documented as of this encounter
--- OUTSIDE RECORDS SUMMARY | 2023-12-21 14:50 | XMS_ITS | Encounter Summary ---
Author Organization [facility] Address [facility] [place] [address] Care Team Providers Care Public Message Service Supervisor Name Role Phone Kathrin Lemus MD Primary Care Provider Reason for Visit * Reason Comments Eye Problem Type II DM,sent by [facility] for mac edema eval-?OD MARE VELÁSQUEZ Diabetes Encounter Details Date Type Department Care Team (Late st Contact Info) Description 09/03/2013 1:30 PM EDT Office [place] [address] Alo Diza MD [facility] [place] [address] Macular edema, cystoid, right. Mild but present [...] September 08, 2013 Armando Tomas MD Ophthalmology [address] [place] [address], [address] [place] [address] RE: Alexandro Callahan A#: [id number] Tomas: I had the pleasure [...] documented in this encounter Results * OCT [id number]-[id number] EYE (09/08/2013 5:43 PM EDT) Anatomical Region Laterality Modality Other Alo Diaz MD OPHTHALMOLOGY S ERVICES ORDERABLES documented in this encounter Visit Diagnoses Diagnosis Macular edema, cystoid, right. 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 Dense pigment OU. Observe Unspecified retinal detachment documented in this encounter Care Teams Public Message Service Supervisor Relationship Specialty Start Date End Date Kathrin Lemus MD [address] [place] [address] PCP - General 04/19/10 09/08/13 documented as of this encounter
--- OUTSIDE RECORDS SUMMARY | 2023-12-21 14:50 | XMS_ITS | Encounter Summary ---
Author Organization [facility] [place] [address] Care Team Providers Care Compressor Stations Superintendent Name Role Phone Kathrin Lemus MD Primary Care Provider [phone] Encounter Details Date Type Department Care Team (Late st Contact Info) Description 09/02/2013 [place] [address] Alo Diaz MD [facility] [address] [place] [address] Social History Tobacco Use Types Packs/Day Years [...] on filedocumented in this encounter Care Teams Compressor Stations Superintendent Relationship Specialty Start Date End Date Kathrin Lemus MD [facility] [address] [place] [address] PCP - General 04/19/10 09/08/13 documented as of this encounter
--- OUTSIDE RECORDS SUMMARY | 2023-12-21 14:50 | XMS_ITS | Encounter Summary ---
Author Organization [facility] Address [facility] [place] [address] Care Team Providers Care Automotive Service Cashier Name Role Phone Brissa Toure APRN Primary Care Provider [phone] Reason for Visit * Reason Comments NPDR * Consultation (Routine) - Closed Specialty Diagnoses / Procedures Referred By Isaías garcia Referred To Contact Ophthalmology Diagnoses dm mac edema Claire Garcia, OD [address] [place] [address] Milton Delaney MD [facility] [place] [address] Referral ID Status Reason Start Date Expiration Date V isits Requested Visits Authorized [id number] Closed Consult, Test & Treat PCP Updated and/or Approved 03/02/2018 03/02/2019 1 1 Encounter Details Date Type Department Care Team (Latest Contact Info) Description 06/26/2018 12:00 PM EST Office [place] [address] Johanna Jacinto MD [facility] [place] [address] Type 2 diabetes mellitus with both eyes [...] documented in this encounter Results * OCT Cdndnx-KJ-TTSX EYES (06/26/2018 1:50 PM EST) Anatomical Region [...] tear documented in this encounter Care Teams Automotive Service Cashier Relationship Specialty Start Date End Date Brissa Toure, DIRECTOR EXECUTIVE COMMUNICATIONS [address] [address] PCP - General Family Medicine 06/19/18 documented as of this encounter
--- OUTSIDE RECORDS SUMMARY | 2023-12-21 14:50 | XMS_ITS | Encounter Summary ---
[place] [address] Care Team Providers Care Optic Fibre Drawer Name Role Phone Brissa Toure APRN Primary Care Provider Reason for Referral * Diagnostic Test (Routine) - Closed Specialty Diagnoses / Procedures Referred By Isaías garcia Referred To Contact Radiology Diagnoses History of lumbar laminectomy for spinal cord decompression Pain in left hip Chronic midline low back pain with left-sided sciatica Procedures MRI Lumbar Spine wo Contrast (Generic) Stevie Ferraro PA [facility] [place] [address] [facility] [place] [address] Referral ID Status Reason Start Date Expiration Date V isits Requested Visits Authorized [id number] Closed Specialty Service Requested 07/09/2018 10/07/2018 1 1 Reason for Visit * Reason Comments Back Pain Hip Pain * Consultation (Routine) - Specialty Diagnoses / Procedures Referred By Isaías garcia Referred To Contact Orthopaedics Diagnoses lumbar radiculopathy/ ?images Brissa Toure APRN [address] [place] [address] [facility] [address] [place] [address] Referral ID Status Reason Start Date Expiration Date V isits Requested Visits Authorized [id number] Consult, Test & Treat Connection Center 06/19/2018 06/19/2019 6 6 Encounter Details Date Type Department Care Team (Late st Contact Info) Description 07/09/2018 10:40 AM EST Office Visit Sp[facility] at [facility] [place] [address] Stevie Ferr[place] [address] History of lumbar laminectomy for spinal cord [...] tells me 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 He continues to work at a [employer]. On examination today, this is a pleasant [...] The Clinical Situation (Reference- Mirnak Et Al, [id number]). Findings: (Prevalence In Patients Without Low Back [...] thigh documented in this encounter Care Teams Optic Fibre Drawer Relationship Specialty Start Date End Date Brissa Toure, [address], [place] [address] PCP - General Family Medicine 06/19/18 documented as of this encounter
--- OUTSIDE RECORDS SUMMARY | 2023-12-21 14:50 | XMS_ITS | Encounter Summary ---
Author Organization [facility] [place] [address] Care Team Providers Care Washer Blanket Name Role Phone Brissa Toure APRN Primary Care Provider [phone] Reason for Visit * Reason Comments Procedure * High Dollar Medication (Urgent) - Specialty Diagnoses / Procedures Referred By Isaías garcia Referred To Contact Ophthalmology Diagnoses Type 2 diabetes mellitus with mild nonproliferative diabetic retinopathy without macular edema, bilateral Procedures TC BEVACIZUMAB, 10MG, INJECTION (AVASTIN) Johanna Jacinto MD [facility] [place] [address] [facility] [place] [address] Referral ID Status Reason Start Date Expiration Date V isits Requested Visits Authorized [id number] Evaluate and Treat 06/26/2018 06/26/2019 99 99 Encounter Details Date Type Department Care Team (Latest Contact Info) Description 06/26/2018 2:00 PM EST Procedure [place] [address] Johanna Jacinto MD [facility] [place] [address] Type 2 diabetes mellitus with both eyes [...] about driving: We always recommend having a entry level truck driver on the day you get [...] Normal and Not Expected side effects: Call [phone] (Eye Clinic) DAY or NIGHT, HOLIDAY or [...] of Avastin 1.25 mg Right Eye Assist: Stone Belt Sander Anesthesia: Topical Proparacaine and topical 4% Lidocaine Complications: None Procedure: The patient was taken to the minor treatment suite where the patient was reidentified using name and birthdate as critical identifiers. The correct eye as the operative site was reidentified by a preplaced site libertad, and the consent form was actively reviewed by the community assistant and the surgeon. The right eye was prepped including instillation of Betadine 5% into the right cul de sac for 5 minutes, facial prep with ophthalmic Betadine and placement of a lid speculum. The surgeon performed hand washing preoperatively, used gloves, and wore a face mask or used no talking technique during the procedure, as did the surgical training specialist. After topical anesthesia of the injection site [...] call the Eye Clinic or Eye Doctor hat ironer, should they develop pain in the treated [...] Eye documented in this encounter Care Teams Washer Blanket Relationship Specialty Start Date End Date Brissa Toure, [address] [place] [address] PCP - General Family Medicine 06/19/18 documented as of this encounter
--- OUTSIDE RECORDS SUMMARY | 2023-12-21 14:50 | XMS_ITS | Encounter Summary ---
Author Organization [facility] [place] [address] Care Team Providers Care Hand Hose Cutter Name Role Phone Kathrin Lemus MD Primary Care Provider [phone] Encounter Details Date Type Department Care Team (Late st Contact Info) Description 07/29/2013 [place] [address] Alo Diaz MD [facility] [place] [address] Social History Tobacco Use Types Packs/Day Years [...] on filedocumented in this encounter Care Teams Hand Hose Cutter Relationship Specialty Start Date End Date Kathrin Lemus MD [facility] [address] [place] [address] PCP - General 04/19/10 09/08/13 documented as of this encounter
--- OUTSIDE RECORDS SUMMARY | 2023-12-21 14:50 | XMS_ITS | Encounter Summary ---
Author Organization [facility] [place] [address] Care Team Providers Care Map And Chart Mounter Name Role Phone Santos Villatoro MD Primary Care Provider [phone] Reason for Visit * Reason Comments Macular Edema 6-mon f/u for macula r edema/RT Encounter Details Date Type Department Care Team (Late st Contact Info) Description 04/25/2014 2:15 PM EST Follow-[place] [address] Alo Diaz MD [facility] [place] [address] Retinal detachment, unspecified laterality Discharge Disposition: Home [...] laterality documented in this encounter Care Teams Map And Chart Mounter Relationship Specialty Start Date End Date Santos Villatoro MD [address] [place] [address] PCP - General 09/09/13 06/18/18 documented as of this encounter
--- OUTSIDE RECORDS SUMMARY | 2023-12-21 14:50 | XMS_ITS | Encounter Summary ---
Author Organization [facility] [place] [address] Care Team Providers Care Stock Crane Operator Name Role Phone Brissa Toure APRN Primary Care Provider [phone] Reason for Referral * Diagnostic Test (Routine) - Closed Specialty Diagnoses / Procedures Referred By Contac t Referred To Contact Radiology Diagnoses History of lumbar laminectomy for spinal cord decompression Pain in left hip Chronic midline low back pain with left-sided sciatica Procedures MRI Lumbar Spine wo Contrast (Generic) Stevie Ferraro PA [facility] [place] [address] [place] [address] Referral ID Status Reason Start Date Expiration Date V isits Requested Visits Authorized [id number] Closed Specialty Service Requested 07/09/2018 10/07/2018 1 1 Reason for Visit * Diagnostic Test (Routine) - Closed Specialty Diagnoses / Procedures Referred By Contac t Referred To Contact Radiology Diagnoses History of lumbar laminectomy for spinal cord decompression Pain in left hip Chronic midline low back pain with left-sided sciatica Procedures MRI Lumbar Spine wo Contrast (Generic) Stevie Ferraro [place] [facility] [place] [address] [place] [address] Referral ID Status Reason Start Date Expiration Date V isits Requested Visits Authorized [id number] Closed Specialty Service Requested 07/09/2018 10/07/2018 1 1 Encounter Details Date Type Department Care Team (Latest Contact Info) Description 07/19/2018 8:02 AM EST - 07/19/2018 11:59 PM EST Hospital [place] [id number] Adal Valdovinos MD [facility] [place] [address] [place] [address] History of lumbar laminectomy for spinal cord [...] The Clinical Situation (Reference- Mirnak Et Al, [id number]). Findings: (Prevalence In Patients Without Low Back [...] sciatica documented in this encounter Care Teams Stock Crane Operator Relationship Specialty Start Date End Date Brissa Toure, [place] [address] [place] [address] PCP - General Family Medicine 06/19/18 documented as of this encounter
--- OUTSIDE RECORDS SUMMARY | 2023-12-21 14:50 | XMS_ITS | Encounter Summary ---
Author Organization [facility] [place] [address] Care Team Providers Care Rough Rounder Machine Name Role Phone Su Sousa MD Primary Care Provider [phone] Encounter Details Date Type Department Care Team (Late st Contact Info) Description 04/16/2010 12:45 PM EST Office [place] [address] Alo Diaz MD [facility] [place] [address] Social History Tobacco Use Types Packs/Day Years [...] on filedocumented in this encounter Care Teams Rough Rounder Machine Relationship Specialty Start Date End Date Su Sousa MD [address] [place] [address] PCP - General 04/13/10 04/18/10 documented as of this encounter
--- OUTSIDE RECORDS SUMMARY | 2023-12-21 14:50 | XMS_ITS | Encounter Summary ---
Author Organization [facility] [place] [address] Care Team Providers Care Electrical Prospecting Operator Name Role Phone Santos Villatoro MD Primary Care Provider [phone] Reason for Visit * Reason Comments Diabetes Presents for 6 week check anf FA today Macular Edema Encounter Details Date Type Department Care Team (Late st Contact Info) Description 10/18/2013 2:45 PM EDT Follow-[place] [address] Alo Diaz MD [facility] [place] [address] Retinal detachment, unspecified laterality; Macular edema, cystoid, [...] laterality documented in this encounter Care Teams Electrical Prospecting Operator Relationship Specialty Start Date End Date Santos Villatoro MD [address] [place] [address] PCP - General 09/09/13 06/18/18 documented as of this encounter
== END ==
PROVIDERS: Visit Provider Nurse Practitioner Family
DX: R91.8 Other nonspecific abnormal finding of lung field (principal)
CPT/HCPCS: 71046

== ENCOUNTER 2024-01-17 01:49 | Outpatient (CLI) | payer MEDICARE, SELFPAY ==
[2024-01-17] MEDS: Gadoterate meglumine 20 ML VIAL IVP (09:26)
[2024-01-17] MEDS: Normal Saline - Diluent 50 ML VIAL IJ (09:27)
--- NOTE | 2024-01-17 09:55 | DI.MRI_ITS ---
Exam(s) MR ABDOMEN WO/W EXAM: MR ABDOMEN WO/W CLINICAL HISTORY: K86.2 Cyst of pancreas, FU abn finding on CT 12-06-23 TECHNIQUE: Multiplanar multisequence MRI was performed with both pre and post contrast infused seque nces. Contrast injected sequences were performed following IV injection of 20 cc of Dotarem. COMPARISON: CT CT CHEST PE CTA from 12/05/2023 FINDINGS: VISUALIZED LUNG BASES: No pleural effusions evident. There is no ascites evident. LIVER: Liver size is upper normal. There are multiple small benign cysts in the liver, largest measu ring 2 x 1 cm and appearing to be a conglomeration of benign nonenhancing CIS in left hepatic lobe. The largest in the right hepatic lobe measures 1 cm, also not exhibiting enhancement. There are no o minous focal hepatic lesions. There are no dilated intrahepatic ducts. BILIARY/MRCP: There are multiple gallstones. The gallbladder is slightly distended but not edematous and there is no pericholecystic fluid. The CBD diameter is upper normal. At the pancreatic head le palak it skirts around a prominent cyst within the pancreatic head (see below). PANCREAS: There is multifocal pathology seen within the pancreas. There is a nonenhancing partially septated cystic structure within the pancreatic head which measures 3.3 cm (maximum AP) x 3.2 cm (max imum width) x 3.3 cm (maximum craniocaudal measurement). The diameter of the pancreatic duct within the pancreatic head is normal but there is an abrupt transition in the diameter of the pancreatic sarah t at the of the pancreatic neck with a 1 cm intraparenchymal space of absence of visualization of the duct, this corresponding to a prominent parenchymal calcification seen on recent CT scan of 12/05/19. The duct from this level to the distal aspect of the tail the pancreas is grossly enlarged, marlen uring 1 cm and there is pancreatic atrophy. There does not appear to be an obvious enhancing mass at this level nor elsewhere in the pancreas. There are no peripancreatic fluid collections. No abnorm al fluid collections evident in the lesser sac between the pancreas and posterior wall of the stomach . There is no obvious regional lymphadenopathy. The normal triangular tip configuration of the unci micheline process is maintained. SPLEEN: Spleen is not enlarged and there are no intrasplenic lesions.Splenic and portal veins are pat ent ADRENALS: There are no significant adrenal masses. KIDNEYS: There are multiple cysts in both kidneys, these being more numerous and larger in the left k idney. The largest cyst in the left kidney measures 7 by 5 by 5 cm.These benign kidney cysts do not require further workup. There are no solid renal lesions evident. No hydronephrosis. ABDOMINAL AORTA: Not enlarged and there is no significant para-aortic adenopathy. ANTERIOR ABDOMINAL WALL/GI: There is no evidence of significant anterior abdominal wall hernia in the field of view of this study.Is no evidence of obvious bowel obstruction. OSSEOUS: There are no lytic osseous lesions in the field of view of this study. IMPRESSION: 1. There are multiple findings in the pancreas. Recent CT scan revealed multiple parenchymal calcifi cations with the largest being at the pancreatic neck level and this calcification measuring approxim ately 1.5 x 1.2 cm size. The pancreatic duct proximal to this large parenchymal calcification (in th e pancreatic body and tail) is significantly dilated to 1 cm throughout its length. The more distal p ancreatic duct in the region of the head and neck does not appear significantly dilated. However, the re does appear to be some increased enhancement in the pancreatic parenchyma at the transition zone, possibly significant although difficult to delineate an actual mass at this level. The transition in diameter of the pancreatic duct at this level may be mid to the large greater than 1 cm calcification in the pancreas at this level. 2. There is a septated cyst in the pancreatic head-uncinate process which measures 3.3 x 3.2 x 3.3 cm , this not exhibiting internal enhancement following contrast injection. The most probable etiology of this finding would be postinflammatory pseudocyst related to prior pancreatitis episode(s). Other less likely considerations would be for benign-appearing cystic neoplasm. The above abnormal pancreatic findings are superimposed upon chronic calcific pancreatitis. Recommend endoscopic ultrasound and possible biopsy of pancreatic and neck transition point region. A t that time if clinically indicated the pancreatic head cyst can also be sampled. 3. There are multiple gallstones in the gallbladder lumen. The gallbladder is slightly prominent in size but not edematous. There are no obvious calculi in the CBD. The CBD is upper normal diameter a nd is shown to skirt around the above described large cystic structure in the pancreatic head. There are no dilated intrahepatic ducts. 4. There are multiple benign-appearing small cysts in both hepatic lobes. There are no ominous foca l hepatic lesions evident. There is no ascites. There are no pleural effusions. DATA REPOSITORY:
--- NOTE | 2024-01-17 14:06 | DI.VRAD_ITS ---
PROCEDURE INFORMATION: Exam: MR Abdomen Without and With Contrast Exam date and time: 01/17/2024 9:15 AM Age: 68 years old Clinical indication: Other: K86.2 cyst of pancreas, fu abn finding on CT 12-06-23 TECHNIQUE: Imaging protocol: Magnetic resonance imaging of the abdomen without and with contrast. Contrast material: DOTAREM; Contrast volume: 20 ml; Contrast route: INTRAVENOUS (IV); COMPARISON: CT ABDOMEN PELVIS WO 09/26/2022 21:34 FINDINGS: Liver: Multiple subcentimeter cysts throughout the liver. Gallbladder and biliary ducts: Cholelithiasis. No evidence for choledocholithiasis. Pancreas: Dilated pancreatic duct involving the body and tail with an abrupt transition at the pancreatic neck, where there is a 2.5 x 3.0 cm enhancing mass. Chronic calcific pancreatitis. Again noted 3.0 cm pancreatic head cyst. Pancreatic atrophy. Spleen: Unremarkable. No splenomegaly. Adrenal glands: Stable 1.4 cm left adrenal cyst. Kidneys: Multiple stable bilateral renal cysts. The largest renal cyst on the left measures 7.0 cm. Stomach and bowel: Fluid distended stomach. Normal caliber small bowel. Moderate solid stool volume. Intraperitoneal space: No free fluid. Vasculature: No abdominal aortic aneurysm. Urinary bladder: Distended urinary bladder. Lymph nodes: No enlarged nodes. Bones/joints: Degenerative changes of the visualized spine. Soft tissues: Unremarkable. IMPRESSION: 1. 2.5 x 3.0 cm enhancing pancreatic neck mass with dilated distal pancreatic duct, of concern for pancreatic carcinoma. Recommend endoscopic ultrasound and biopsy of the pancreatic head for further evaluation. Chronic calcific pancreatitis. Multiple pancreatic cysts. Stable pancreatic head cyst similar to prior CT. 2. Left adrenal cyst. 3. Multiple hepatic cysts. 4. Multiple simple bilateral renal cysts. 5. Cholelithiasis. 6. Distended urinary bladder. If patient is unable to void they may benefit from a Farr catheter. Dictated and Authenticated by: Tammy Dubon MD. Ordering:TODD Smith MD
== END 2024-01-17 02:09 ==
PROVIDERS: PCP Nurse Practitioner Family; Visit Provider Nurse Practitioner Family
DX: K86.2 Cyst of pancreas (principal)
CPT/HCPCS: 74183

== ENCOUNTER 2024-01-30 15:00 | Outpatient (REF) | payer MEDICARE, SELFPAY ==
[2024-01-30 19:51] LABS: ALT 36 U/L (16-63); AST 42 U/L (15-37); Albumin 3.2 g/dL (3.4-5.0); Alkaline Phosphatase 80 U/L (46-116); BUN 35 mg/dL (7-18); CREATININE 2.1 mg/dL (0.70-1.30); Chloride 102 mmol/L (98-107); Estimated GFR 34.08 (mL/min/1.73m2); Glucose 189 mg/dL (74-106); Lipase 92 U/L (16-77); Sodium 137 mmol/L (136-145); Total Protein 7.7 g/dL (6.4-8.2)
[2024-01-30 20:07] LABS: Calcium 8.9 mg/dL (8.5-10.1); Calculated LDL 15 mg/dL (<100); Cholesterol 117 mg/dL (<200); HDL Cholesterol 35 mg/dL (40-60); Triglyceride 337 mg/dL (<150)
== END 2024-01-30 15:01 | disposition home or self-care (01) ==
LOC: NCHCN 15:00
PROVIDERS: PCP Nurse Practitioner Family; Visit Provider Nurse Practitioner Family
DX: N18.30 Chronic kidney disease, stage 3 unspecified (principal); E78.5 Hyperlipidemia, unspecified; K86.89 Other specified diseases of pancreas
CPT/HCPCS: 80053; 80061; 83690

== ENCOUNTER 2024-02-20 14:35 | Emergency (ER) | payer MEDICARE, SELFPAY ==
[2024-02-20] VITALS (29 sets, daily range): BP systolic 130–176; BP diastolic 77–126; PULSE 77–93; RESP 13–27; TEMP 35.5; O2SAT 86–93
--- NOTE | 2024-02-20 14:30 | RT.EKG_ITS ---
APPROVED REPORT Exam: Resting ECG Reason for Exam: Weakness Patient Location: E HR:85 bpm ECG Measurements Heart Rate 85 AXIS FL 179 P 60 QRSd 101 QRS 76 QT 379 T 110 QTc 452 Conclusion Sinus rhythm...normal P axis, V-rate 60- 99 Probable left atrial enlargement...P >50mS, <-0.10mV V1 Nonspecific T abnormalities, lateral leads...T <-0.10mV, I aVL V5 V6
--- NOTE | 2024-02-20 14:45 | DI.RAD_ITS ---
Exam(s) XR CHEST 2V PA LATERAL EXAM: XR CHEST 2V PA LATERAL CLINICAL HISTORY: ?pneumonia TECHNIQUE: 2D digital imaging was performed of the chest. Two images were obtained. PA and lateral views were obtained. COMPARISON: CT CT CHEST PE CTA from 12/05/2023 CR XR CHEST 2V PA LATERAL from 12/06/2023 CR XR CHEST 2V PA LATERAL from 12/21/2023 FINDINGS: MEDIASTINUM: Normal. HEART: Normal. PULMONARY VASCULATURE: Normal. LUNGS: No focal consolidating infiltrates. There is scarring in the lungs particularly in the right lung base. PLEURAL SPACE: No pleural effusion or pneumothorax. BONE:Within normal limits for the patient's age. OTHER FINDINGS:Normal. IMPRESSION: No acute pulmonary findings. DATA REPOSITORY: RADIATION DOSE DELIVERED:
--- NOTE | 2024-02-20 14:45 | DI.CT_ITS ---
Exam(s) CT BRAIN NECK CTA EXAM: CT BRAIN NECK CTA CLINICAL HISTORY: dizziness, ?carotid disease, fell hit head. TECHNIQUE: Imaging Protocol: Axial CT angiography was performed with multi-slice acquisition and mu lti-planar and/or 3D reconstructions. CONTRAST MATERIAL: Intravenous: Omnipaque 350 contrast volume:70 mL COMPARISON: No exams were available for comparison FINDINGS: CT Head W/O and W: Ventricles and Extra axial spaces: Normal in size and morphology for the patient's age. Hemorrhage: None. Cerebral parenchyma: There are areas of decreased attenuation in the white matter consistent with chr onic microvascular ischemic disease. Old bilateral lacunar infarcts are seen. No acute territorial infarct is seen. No mass effect is identified. Midline shift: None. Brainstem/Cerebellum: Normal. Calvarium: Normal. Visualized Paranasal sinuses/Mastoids: Clear. Soft Tissues: Unremarkable. Enhancement: Unremarkable. CTA Neck W: Common Carotid: Right: No dissection, occlusion or significant stenosis. Left: No dissection, occlusion or significant stenosis. External Carotid: Right: No occlusion or significant stenosis. Left: No occlusion or significant stenosis. Internal Carotid: Right: No dissection, occlusion or significant stenosis. Mild atherosclerotic calcification at the o rigin of the right internal carotid artery. No significant stenosis is present. Left: No dissection, occlusion or significant stenosis. Atherosclerotic calcification in the proxima l left internal carotid artery without significant stenosis. Vertebral Artery: Right: No dissection, occlusion or significant stenosis. Atherosclerotic calcification at the origin of the right vertebral artery without significant stenosis. Left: No dissection, occlusion or significant stenosis. Lung Apices: There is a calcified granuloma in the right lung apex. No acute pulmonary findings are seen in the lung apices. Bones: Within normal limits for the patient's age. Soft Tissues: Normal. Thyroid gland: Unremarkable. CTA Brain W: Internal Carotid Arteries: Atherosclerotic calcification in the supraclinoid right internal carotid a rtery with 50 percent stenosis. The sclerotic calcification in the left internal carotid artery with out significant stenosis. No occlusion or aneurysm. Anterior Cerebral Arteries: Right: No aneurysm, occlusion or significant stenosis. Left: No aneurysm, occlusion or significant stenosis. Middle Cerebral Arteries: Right: No aneurysm, occlusion or significant stenosis. Left: No aneurysm, occlusion or significant stenosis. Posterior Cerebral Arteries: Right: No aneurysm, occlusion or significant stenosis. Left: No aneurysm, occlusion or significant stenosis. Vertebral Arteries: Right: No aneurysm, occlusion or significant stenosis. Left: No aneurysm, occlusion or significant stenosis. Basilar Artery: No aneurysm, occlusion or significant stenosis. IMPRESSION: 1. 50 percent narrowing of the supraclinoid right internal carotid artery. No evidence of occlusion or aneurysm on the CT angiography of the head. 2. No acute intracranial process. 3. No occlusion or significant stenosis on the CT angiography of the neck. 4. No acute fracture or subluxation is seen in the cervical spine. RADIATION DOSE DELIVERED: 2,210.47mGy.cm Total DLP DATA REPOSITORY: All CT scans at this facility are submitted to the National Radiology Data Registry (NRDR) Dose Index Registry (DIR) with the [employer] ([employer]). RADIATION OPTIMIZATION: All CT scans at this facility use at least one of these dose optimization te chniques: automated exposure control; mA and/or kV adjustment per patient size (includes targeted exa ms where dose is matched to clinical indication); or iterative reconstruction.
[2024-02-20 14:49] LABS: Abs Immature Grans 0.02 10^3/uL (0.0-0.06); Absolute Basophil Count 0.06 10^3/uL (0.0-0.2); Absolute Lymphocyte Count 2.57 10^3/uL (1.2-3.4); Absolute Monocyte Count 0.81 10^3/uL (0.1-0.8); Absolute Neutrophil Count 3.82 10^3/uL (1.2-6.7); Basophils % 0.8 %; Eosinophils % 5.2 %; HGB 15.5 g/dL (13.5-17.5); Immature Grans % 0.3 %; Lymphocytes % 33.5 %; MCH 31.2 pg (27.0-33.0); MCHC 33.7 % (32.0-36.0); MCV 93 fL (80-95); MPV 10.4 fL (8.0-11.0); Monocytes % 10.5 %; Neutrophils % 49.7 %; Platelet Count 227 10^3/uL (130-400); RBC 4.97 10^6/uL (4.36-5.78); RDW 14.7 % (11.8-14.1); RDW-SD 50.1 fL; WBC 7.68 10^3/uL (4.4-10.8)
--- NOTE | 2024-02-20 14:51 | ED.GENADUL_ITS ---
Discharge Plan Disposition Patient Disposition: Home Condition: Stable Discharge Details Clinical Impression: Dizziness, Fall, Hypomagnesemia Primary Care Provider: Sarah Francis ED Provider: Hermes Villatoro Home Meds and New Rx's Prescriptions: Continued marijuana gummy 10 mg PO PRN PRN imipramine HCl 50 mg tablet 50 mg PO BID Patient Comments: TAKE 1 TABLET BY MOUTH TWICE A DAY amlodipine 2.5 mg tablet 2.5 mg PO DAILY Patient Comments: TAKE 1 TABLET BY MOUTH ONCE DAILY insulin lispro [Humalog U-100 Insulin] 100 unit/mL solution See Rx Instructions .ROUTE .COMPLEX Patient Comments: INJECT SC PER SLIDING SCALE BEFORE MEALS. MAX OF 140 UNITS DAILY. Rx Instructions: as directed metoprolol tartrate 100 mg tablet 200 mg PO BID Patient Comments: TK 2 TS PO BID aspirin 81 mg Tablet,Delayed Release (Dr/Ec) 81 mg PO DAILY Ozempic 0.25 mg or 0.5 mg (2 mg/3 mL) pen injector 0.5 mg SUBCUT .weekly Patient Comments: INJECT 0.5MG UNDER THE SKIN ONCE WEEKLY simvastatin 20 mg tablet 20 mg PO DAILY Patient Comments: TAKE ONE TABLET BY MOUTH EVERY EVENING FOR HYPERLIPIDEMIA +STOP 40MG+ allopurinol 100 mg tablet 100 mg PO DAILY Patient Comments: TAKE ONE TABLET BY MOUTH EVERY DAY gabapentin 400 mg capsule 400 mg PO BID Patient Comments: TAKE 1 CAPSULE BY MOUTH TWICE DAILY Rybelsus 7 mg tablet 7 mg PO DAILY Patient Comments: TAKE ONE TABLET BY MOUTH EVERY DAY insulin degludec [Tresiba FlexTouch U-200] 200 unit/mL (3 mL) Insulin Pen 144 unit SUBCUT HS tramadol 50 mg tablet 50 mg PO Q6H PRNQty: 14 0RF Rx Instructions: Further refills to come from PCP Discharge Instructions Instructions: Hypomagnesemia Additional Instructions: Follow-up with your primary care provider within 1 to 2 weeks and discuss if your medications should be adjusted Make sure you are adequately staying hydrated If you feel more ill or develop new symptoms such as severe headaches or chest pain return to the emergency department for reevaluation HPI General Mode of arrival: EMS . Date/Time Provider Initiated Documentation: 02/20/24 14:40 . Limitations to Documentation: no limitations . Information obtained by: patient . History of Present Illness 69 year old M presents to the emergency department with the chief complaint of dizziness causing him to fall, described as moderate, Patient started experiencing this hour(s) (1) and it has been now resolved. No relieving factors improve symptom(s), No exacerbating factors reported . Patient notes no other symptoms.; denies chest pain, fever/chills, shortness of breath and weakness. Patient did receive the following treatments prior to arrival, none Related Data Home Medications ?Medication ?Instructions ?Recorded ?Confirmed amlodipine 2.5 mg tablet 2.5 mg PO DAILY 12/05/19 02/20/24 imipramine HCl 50 mg tablet 50 mg PO BID 12/05/19 02/20/24 insulin lispro 100 unit/mL See Rx Instructions .Route .COMPLEX 12/05/19 02/20/24 subcutaneous solution (Humalog U-100 Insulin) aspirin 81 mg tablet,delayed 81 mg PO DAILY 04/08/20 02/20/24 release semaglutide 7 mg tablet (Rybelsus) 7 mg PO DAILY 12/24/22 02/20/24 insulin degludec 200 unit/mL (3 144 unit subcut HS Diabetes 12/28/22 02/20/24 mL) subcutaneous pen (Tresiba FlexTouch U-200 insulin) tramadol 50 mg tablet 50 mg PO Q6H PRN #14 tabs 12/29/22 02/20/24 metoprolol tartrate 100 mg tablet 200 mg PO BID 02/01/23 02/20/24 marijuana gummy 10 mg PO PRN PRN 08/23/23 02/20/24 allopurinol 100 mg tablet 100 mg PO DAILY 02/20/24 02/20/24 gabapentin 400 mg capsule 400 mg PO BID 02/20/24 02/20/24 semaglutide 0.25 mg or 0.5 mg (2 0.5 mg subcut .weekly 02/20/24 02/20/24 mg/3 mL) subcutaneous pen injector (Ozempic) simvastatin 20 mg tablet 20 mg PO DAILY 02/20/24 02/20/24 Previous Rx's ?Medication ?Instructions ?Recorded tramadol 50 mg tablet 50 mg PO Q6H PRN #14 tabs 12/29/22 Allergies Allergy/AdvReac Type Severity Reaction Status Date / Time enalapril (Enalapril) Allergy Severe Anaphylaxsi Verified 12/05/23 22:13 s General Stated Complaint: Dizzy/Sync C[place]: 3 Review of Systems All systems reviewed & are unremarkable except as noted in HPI and below Constitutional Constitutional: Denies chills, Denies fever(s) and Denies weakness Eyes Eyes: Denies loss of vision ENT Ears, Nose, Mouth, and Throat: Reports dizziness Cardiovascular Cardiovascular: Denies chest pain and Denies dyspnea Respiratory Respiratory: Denies cough and Denies dyspnea Gastrointestinal Gastrointestinal: Denies abdominal pain, Denies nausea and Denies vomiting Neurologic Neurologic: Reports dizziness, Denies loss of vision and Denies weakness Exam Const General: no acute distress Orientation: alert HENFL Head: normal to inspection Ears: external ears normal General nose exam: external nose normal Mouth: moist mucous membranes Eyes General: appearance normal, both eyes and all related structures Neck Neck: normal visual inspection Resp Effort & Inspection: normal respiratory effort and able to speak in complete sentences Auscultation: clear to auscultation bilaterally Cardio Jugular venous pressure: no JVD Rate: regular rate GI Palpation: soft and nontender Skin General skin exam: no rashes or lesions noted Neuro General: patient alert, patient oriented x3, CN's II-XI intact bilaterally and not confused Cranial Nerves: PERRL Extrem General: normal to inspection Psych Mental Status: mental status grossly normal Course Vital Signs Vital signs: Vital Signs Temperature 35.5 C L 02/20/24 14:31 Pulse 83 02/20/24 14:31 Respiratory Rate 16 02/20/24 14:31 Blood Pressure 145/88 H 02/20/24 14:31 Pulse Oximetry 91 L 02/20/24 14:31 Temperature 35.5 C L 02/20/24 14:31 Temperature Source Tympanic 02/20/24 14:31 Pulse 83 02/20/24 14:31 Respiratory Rate 16 02/20/24 14:31 Blood Pressure 145/88 H 02/20/24 14:31 Blood Pressure Position Sitting 02/20/24 14:31 Pulse Oximetry 91 L 02/20/24 14:31 Oxygen Delivery Method Room Air 02/20/24 14:31 Oxygen Flow Rate 0 02/20/24 14:31 Pain Level 0 02/20/24 14:31 Medical Decision Making 69-year-old male with a history of diabetes, hypertension who comes in with chief complaint of dizziness causing him to fall. He had this issue chronically and was at physical therapy today doing exercises when he said he started feeling dizzy and lightheaded and fell over. He hit his head on the floor, he denies loss of consciousness. He has no severe headache, neck pain, back pain chest or abdominal pain. He says currently he feels well without complaints. He is alert nice x 4 on arrival, he has no focal neurological deficits and his NIH is 0. Unclear etiology for his symptoms so I do suspect a component of orthostasis, will check a CBC, CMP, troponin, he had a CTA of his chest done in November which showed no PE, so doubt this. Given the recurrent dizziness will obtain CTA of the head and neck to evaluate for possible carotid disease and less likely dissection. And also obtain a CT head to exclude blunt traumatic injuries to the head. Labs unremarkable, has mildly low magnesium, will have him replete this orally, chest x-ray unremarkable, CTA unremarkable for significant findings does have 50% stenosis of the right internal carotid artery. He is hemodynamically stable and feels well. 2 negative tropes, he has not had any chest pain do not feel third show indicated. He feels well enough for discharge, advised to follow-up with his PCP and return precautions given Differential Diagnosis Differential Diagnosis: Orthostasis, anemia, carotid artery disease Medical Records Medical records reviewed: Yes I reviewed the patient's medical records. Imaging Data Radiologic Study: Attestation: I personally reviewed and interpreted this imaging study as follows: Imaging: CT Scan Radiologist's impression: IMPRESSION: 1. 50 percent narrowing of the supraclinoid right internal carotid artery. No evidence of occlusion or aneurysm on the CT angiography of the head. 2. No acute intracranial process. 3. No occlusion or significant stenosis on the CT angiography of the neck. 4. No acute fracture or subluxation is seen in the cervical spine. Lab Data Lab results reviewed: Yes I reviewed the patient's lab results. ECG Data Attestation: I personally reviewed and interpreted this ECG (s) as follows: Prior ECG tracings: available for review Interpretation: Sinus rhythm, rate of 85, [place] 179, no STEMI Quality:SDOH Health Related Social Needs: No Data to Display [facility] All Active Problems (Updated 02/20/24 @ 17:13 by Hermes Villatoro MD) Hypomagnesemia (Acute) Fall (Acute) Dizziness (Acute) Difficulty walking (Acute) Generalized weakness (Acute) Acute right-sided thoracic back pain (Acute) Colitis (Acute) Screen for colon cancer (Acute) Pseudocyst of pancreas (Acute) Coronary artery calcification seen on CAT scan (Acute) Pancreatic atrophy (Acute) Gallstones (Acute) Peripheral neuropathy (Acute) Medical History NAFLD (nonalcoholic fatty liver disease) Stage 3b chronic kidney disease (CKD) Crohn disease Gout Hyperlipidemia Hypertension Diabetes Surgical History History of colonoscopy (~01/2023) polups History of cataract surgery Previous back surgery x2 in the 's Social History Smoking/Tobacco Use Status: Former Tobacco Use Quit Date: 05/22/87 Smoking risk assessment performed?: Yes Alcohol Intake: never Drug use: Never Substance use type: does not use Housing: house Current gender identity: male Do you feel safe at home: Yes Do you feel safe in your relationship?: Yes Additional Social history: arrived soon after
[2024-02-20 14:55] LABS: BE (Venous) 3 mmol/L (-2-3); HCO3 (Venous) 27 mmol/L (23-28); O2 Sat (Venous) 93 %; TCO2 (Venous) 23 mmol/L (24-29); pCO2 (Venous) 42 mmHg (41-51); pH (Venous) 7.42 (7.31-7.41); pO2 (Venous) 60 mmHg
[2024-02-20 15:16] LABS: ALT 47 U/L (16-63); AST 52 U/L (15-37); Albumin 3.4 g/dL (3.4-5.0); Alkaline Phosphatase 89 U/L (46-116); Anion Gap 9.7 mmol/L (3-11); BUN 32 mg/dL (7-18); Bilirubin, Total 0.32 mg/dL (0.2-1.0); CO2 26.3 mmol/L (21.0-32.0); CREATININE 2.3 mg/dL (0.70-1.30); Calcium 9.4 mg/dL (8.5-10.1); Chloride 102 mmol/L (98-107); Estimated GFR 30.36 (mL/min/1.73m2); Glucose 86 mg/dL (74-106); Magnesium 1.5 mg/dL (1.8-2.4); Potassium 4.7 mmol/L (3.5-5.1); Sodium 138 mmol/L (136-145); Total Protein 8.1 g/dL (6.4-8.2); Troponin I 20 ng/L (<or=76)
[2024-02-20 15:26] LABS: COVID-19 PCR Negative (Negative); Influenza A PCR Negative (Negative); Influenza B PCR Negative (Negative); RSV PCR Negative (Negative)
[2024-02-20 15:27] LABS: Source Nasopharynx
[2024-02-20 15:29] LABS: Procalcitonin 0.1 ng/mL
[2024-02-20] MEDS: Normal Saline - Diluent 50 ML VIAL IJ (15:58)
[2024-02-20 16:10] LABS: Troponin I 21 ng/L (<or=76)
[2024-02-20] MEDS: Omnipaque 350 MG/ML 100 ML BTL IJ (16:10)
== END 2024-02-20 17:31 | disposition home or self-care (01) ==
LOC: ER 17:31
PROVIDERS: Emergency Provider Emergency Medicine; PCP Nurse Practitioner Family
DX: R42 Dizziness and giddiness (principal); E83.42 Hypomagnesemia; E11.22 Type 2 diabetes mellitus with diabetic chronic kidney disease; I12.9 Hypertensive chronic kidney disease with stage 1 through stage 4 chronic kidney disease, or unspecified chronic kidney disease; N18.32 Chronic kidney disease, stage 3b; E78.5 Hyperlipidemia, unspecified
CPT/HCPCS: 36415; 70496; 70498; 80053; 82805; 84145; 87637; 93005; 99285; 71046; 83735; 84484; 85025; 93010; 99284; J3490

== ENCOUNTER 2024-03-04 01:33 | Outpatient (CLI) | payer MEDICARE, SELFPAY ==
--- NOTE | 2024-03-04 09:30 | DI.US_ITS ---
APPROVED REPORT EXAM: Comprehensive 2D, Doppler, and color-flow Echocardiogram Patient Location: Out-Patient [place] Disintegrator: Talisha Naidu RDCS (AE) Indications: Syncope and collapse during physical activity X2 Other Information Study Quality: Adequate. Technically limited study due to body habitus. limited subcostal imaging.. Conclusion Normal left ventricular chamber size. There is asymmetric septal hypertrophy. Ejection fraction is 55% Normal right ventricular size and function Both atria are normal in size Aortic valve is mildly sclerotic and trileaflet without stenosis or regurgitation Wall motion Left Ventricle The left ventricle is normal size. The left ventricular systolic function is normal. The left ventric ular ejection fraction is within the normal range. 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 Asymmetric septal hypertrophy is present. There is normal LV segmental wall motion. LVE F is 55%. Right Ventricle Right ventricle is grossly normal in size. Right ventricular systolic function is grossly normal. Atria The left atrium size is normal. The right atrium size is normal. Aortic Valve The Aortic valve is mildly sclerotic. Aortic valve is trileaflet. There is no aortic valvular stenosi s. No aortic regurgitation is present. Mitral Valve The mitral valve is normal in structure. No evidence of mitral valve stenosis. Trace mitral regurgita tion. Tricuspid Valve The tricuspid valve is normal in structure. There is no tricuspid valve stenosis. Trace tricuspid reg urgitation. Unable to assess PA pressure. Pulmonic Valve The pulmonary valve is normal in structure. There is no pulmonic valvular stenosis. There is no pulmo toy valvular regurgitation. Great Vessels The aortic root is normal in size. The ascending aorta is normal in size. Aortic arch is not well vis ualized. The IVC was not visualized. Technically limited subcostal imaging. Pericardium Technically limited subcostal imaging. 2D Dimensions IVSD d PLAX 1.50 cm M: 0.6-1.2 Ao Root d 3.62 cm M: 3.1 - 3.7 LVPW d PLAX 1.20 cm M: 0.6 - 1.2 Ao Asc Diam d 3.06 cm M: 2.6 - 3.4 LVID d PLAX 4.24 cm M: 4.2 - 5.8 LVDs 3.04 cm M: 2.5 - 4.0 LV EF Teichholz 55.2 % FS 28.44 % LV EDV (Teich) 80.4 mL LV ESV (Teich) 36.0 mL M-Mode TAPSE 1.30 cm (M/F) >1.7 Auto EF LV EDV A4C 107.4 mL LV EDV A2C 110.2 mL LV EDV BP 110.4 mL LV ESV A4C 48.9 mL LV ESV A2C 53.3 mL LV ESV BP 51.2 mL LVEF(%) A4C 54.4 % LVEF(%) A2C 51.7 % LVEF(%) BP 53.6 % LV SV A4C 58.5 ml LV SV A2C 57.0 ml LV SV BP 59.2 ml LV CO A4C 4.2 L/min LV CO A2C 4.2 L/min LV CO BP 4.2 L/min HR A4C 71.86 BPM HR A2C 73.02 BPM LV EDV Index (BP) LA Volume LA Length A4C 5.0 cm LA Length A2C 5.4 cm LA Area A4C s 16.45 cm2 LA Area A2C s 17.81 cm2 LA Vol A4C A-L 45.84 mL LA Vol A2C A-L 50.14 mL LA Vol Biplane A-L 49.6 mL LA Vol/BSA A4C A-L LA Vol/BSA A2C A-L LA Vol/BSA BP A-L 23.2 mL/m2 LA Vol A4C MOD 43.5 mL LA Vol A2C MOD 46.5 mL LA Vol BP MOD 46.6 mL RA Volume RA Area A4C 12.2 cm2 RA ESV A4C (A-L) 27.1mL RA Vol/BSA A4C A-L RA Length A4C 4.7 cm RA ESV A4C (MOD) 26.3mL LV Diastology MV E' medial 0.063 (>0.07 m/s) MV E Vmax 0.53 (0.4-1.3 m/s) MV E/E' MED 8.40 (<14) MV A Vmax 0.75 (0.4-1.3 m/s) MV E' lateral 0.093 (>0.1 m/s) E/A Ratio 0.7 MV E/E' LAT 5.73 (<14) MV E' Average 0.078 m/s MV E/E'(average) 6.82 Aortic Valve AoV Vmax 1.26 m/s LVOT Vmax 1.29 m/s AoV Peak Grad 6.4 mmHg LVOT Peak Grad 6.6 mmHg AoV Area (Vmax) 3.75 cm2 LVOT VTI 0.231 m AoV VTI 0.306 m LVOT Mean Grad 3.8 mmHg AoV Mean Chente. 0.93 m/s LVOT SV 84.93 mL AoV Mean Grad 3.9 mmHg LVOT Diam s 2.15 cm AoV Area (VTI) 2.78 cm2 AV Regurg Peak Gr. 6.37 mmHg Velocity Ratio 1.02 Mitral Valve MV DT 290 (160-240 msec) MV Vmax TIPS 0.79 m/s MV Mean Grad 1.1 (<2mmHg) MV VTI 0.198 m Pulmonary Valve PV Vmax 0.84 (0.5-1.5 m/s) RVOT Vmax 0.77 m/s PV Peak Grad 2.9 mmHg RVOT Peak Gr. 2.4 mmHg PV Mean Chente 0.60 m/s RVOT VTI 0.131 m PV Mean Grad 1.7 mmHg RVOT Mean Gr. 1.2 mmHg Tricuspid Valve TV S' 0.13 m/s
== END 2024-03-04 01:53 ==
PROVIDERS: PCP Nurse Practitioner Family; Visit Provider Student in an Organized Health Care Education/Training Program
DX: R55 Syncope and collapse (principal)
CPT/HCPCS: 93306

== ENCOUNTER 2024-04-30 15:15 | Outpatient (REF) | payer MEDICARE, SELFPAY ==
[2024-04-30 19:50] LABS: Abs Immature Grans 0.01 10^3/uL (0.0-0.06); Absolute Basophil Count 0.04 10^3/uL (0.0-0.2); Absolute Eosinophil Count 0.32 10^3/uL (0.0-0.7); Absolute Lymphocyte Count 1.88 10^3/uL (1.2-3.4); Absolute Monocyte Count 0.43 10^3/uL (0.1-0.8); Basophils % 0.9 %; Eosinophils % 6.8 %; HCT 44.8 % (40.0-50.0); HGB 15.1 g/dL (13.5-17.5); Immature Grans % 0.2 %; Lymphocytes % 40.2 %; MCH 31.5 pg (27.0-33.0); MCHC 33.7 % (32.0-36.0); MCV 94 fL (80-95); MPV 11.6 fL (8.0-11.0); Monocytes % 9.2 %; Neutrophils % 42.7 %; Platelet Count 175 10^3/uL (130-400); RBC 4.79 10^6/uL (4.36-5.78); RDW 14.7 % (11.8-14.1); RDW-SD 51.1 fL; WBC 4.68 10^3/uL (4.4-10.8)
[2024-04-30 20:10] LABS: ALT 50 U/L (16-63); Albumin 3.1 g/dL (3.4-5.0); Alkaline Phosphatase 109 U/L (46-116); Anion Gap 6.5 mmol/L (3-11); BUN 29 mg/dL (7-18); Bilirubin, Total 0.27 mg/dL (0.2-1.0); CO2 28.5 mmol/L (21.0-32.0); CREATININE 1.8 mg/dL (0.70-1.30); Calcium 9.1 mg/dL (8.5-10.1); Chloride 104 mmol/L (98-107); Cholesterol 226 mg/dL (<200); Estimated GFR 40.75 (mL/min/1.73m2); Glucose 182 mg/dL (74-106); HDL Cholesterol 40 mg/dL (40-60); Potassium 4.3 mmol/L (3.5-5.1); Sodium 139 mmol/L (136-145); Total Protein 6.9 g/dL (6.4-8.2); Triglyceride 823 mg/dL (<150)
[2024-04-30 20:26] LABS: AST 50 U/L (15-37)
[2024-04-30 20:43] LABS: Hemoglobin A1C 8.9 % (<5.7)
[2024-04-30 20:46] LABS: LDL CHOLESTEROL 58 mg/dL (<100)
== END 2024-04-30 15:16 | disposition home or self-care (01) ==
LOC: NCHCN 15:15
PROVIDERS: PCP Nurse Practitioner Family; Visit Provider Nurse Practitioner Family
DX: E11.21 Type 2 diabetes mellitus with diabetic nephropathy (principal)
CPT/HCPCS: 80053; 80061; 83721; 83036; 85025

== ENCOUNTER 2025-03-31 15:55 | Outpatient (REF) | payer MEDICARE, SELFPAY ==
[2025-03-31 21:47] LABS: ALT 37 U/L (16-63); AST 32 U/L (15-37); Albumin 3.3 g/dL (3.4-5.0); Alkaline Phosphatase 112 U/L (46-116); Anion Gap 7.8 mmol/L (3-11); BUN 43 mg/dL (7-18); Bilirubin, Total 0.2 mg/dL (0.2-1.0); CO2 27.2 mmol/L (21.0-32.0); Calcium 8.5 mg/dL (8.5-10.1); Chloride 106 mmol/L (98-107); Glucose 145 mg/dL (74-106); Potassium 4.4 mmol/L (3.5-5.1); Sodium 141 mmol/L (136-145); Total Protein 7.4 g/dL (6.4-8.2)
[2025-03-31 21:49] LABS: Hemoglobin A1C 8.2 % (<5.7)
== END 2025-03-31 15:56 | disposition home or self-care (01) ==
LOC: NCHCN 15:55
PROVIDERS: PCP Student in an Organized Health Care Education/Training Program; Visit Provider Student in an Organized Health Care Education/Training Program
DX: N18.30 Chronic kidney disease, stage 3 unspecified (principal); E11.9 Type 2 diabetes mellitus without complications; Z79.4 Long term (current) use of insulin
CPT/HCPCS: 80053; 83036